=== PATIENT | male | born 1965 | race Caucasian/White ===

== ENCOUNTER 2017-01-10 19:10 | Emergency (ER) | payer OTHER ==
[2017-01-10 19:34] VITALS: BP 138/89; PULSE 103; RESP 18; TEMP 98.5
[2017-01-10] MEDS ORDERED: KETOROLAC 60 MG/2 ML VIAL IM STA (20:33)
[2017-01-10] MEDS ORDERED: ORPHENADRINE 30 MG/ML 2 ML VIAL IM STA (20:33)
--- NOTE | 2017-01-10 20:39 | ED ---
General Adult HPI - General Chief complaint: Back Pain/Injury Stated complaint: back pain Time Seen by Provider: 01/10/17 20:22 Source: patient, RN notes reviewed Mode of arrival: ambulatory Limitations: no limitations - History of Present Illness Initial comments: 51-year-old male presents to the emergency department with a chief complaint of back pain. 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 Patient states he went home and hurts assumed it would get better. The next day and he feels like he has to grab things for support because of the pain in his back. Patient denies any radiation up or down the legs. Patient denies any numbness and tingling any saddle anesthesia any loss by bladder function. Patient denies fever chills with this. Patient states that he really has never had an injury to his back before. Patient denies any falls or trauma. Patient states she was concerned due to the pain and the fact it wasn't getting better. He denies any use of medications at home.Patient denies any recent fever, chills, shortness of breath, chest pain, abdominal pain , nausea vomiting, numbness or tingling, dysuria or hematuria, constipation or diarrhea, headaches or visual changes, or any other current symptoms. - Related Data Previous Rx's Medication Instructions Recorded Ibuprofen [Motrin] 600 mg PO Q6HR PRN #20 tab 01/10/17 Orphenadrine [Norflex] 100 mg PO Q12H #10 tablet.er 01/10/17 Allergies Allergy/AdvReac Type Severity Reaction Status Date / Time No Known Allergies Allergy Verified 01/10/17 19:34 Review of Systems ROS Statement: Those systems with pertinent positive or pertinent negative responses have been documented in the HPI. ROS Other: All systems not noted in ROS Statement are negative. Past Medical History Past Medical History: No Reported History History of Any Multi-Drug Resistant Organisms: None Reported Past Surgical History: No Surgical Hx Reported Past Psychological History: No Psychological Hx Reported Smoking Status: Current every day smoker Past Alcohol Use History: Daily Past Drug Use History: Marijuana General Exam Limitations: no limitations General appearance: alert, in no apparent distress ENT exam: Present: normal exam, mucous membranes moist Neck exam: Present: normal inspection. Absent: tenderness, meningismus, lymphadenopathy Respiratory exam: Present: normal lung sounds bilaterally. Absent: respiratory distress, wheezes, rales, rhonchi, stridor Cardiovascular Exam: Present: regular rate, normal rhythm, normal heart sounds. Absent: systolic murmur, diastolic murmur, rubs, gallop, clicks Extremities exam: Present: normal inspection, full ROM, normal capillary refill. Absent: tenderness, pedal edema, joint swelling, calf tenderness Back exam: Present: normal inspection, full ROM, muscle spasm (Bilateral), other (Bilateral negative straight leg raise). Absent: tenderness, paraspinal tenderness, vertebral tenderness, rash noted Neurological exam: Present: alert, oriented X3, CN II-XII intact Psychiatric exam: Present: normal affect, normal mood Skin exam: Present: warm, dry, intact, normal color. Absent: rash Course Vital Signs 01/10/17 19:29 Temperature 98.5 F Pulse Rate 103 H Respiratory 18 Rate Blood Pressure 138/89 O2 Sat by Pulse 97 Oximetry Medical Decision Making - Medical Decision Making 51-year-old male presents with history of lumbar strain. This demonstrated structures and Motrin for home. We discussed return parameters and follow-up and all the patient's questions. He stated he understood the plan. This and will be discharged home. Disposition Clinical Impression: Strain of lumbar region Disposition: HOME SELF-CARE Condition: Stable Instructions: Low Back Strain (ED), Lower Back Exercises (ED) Additional Instructions: Please use medication as discussed. Please follow up with family doctor if symptoms have not improved over the next two days. Please return to the emergency room if your symptoms increase or worsen or for any other concerns. Prescriptions: Ibuprofen [Motrin] 600 mg PO Q6HR PRN #20 tab PRN Reason: Pain Orphenadrine [Norflex] 100 mg PO Q12H #10 tablet.er Referrals: Vale Webb MD [STAFF PHYSICIAN] - 1-2 days Time of Disposition: 20:57
--- NOTE | 2017-01-10 20:52 | XR ---
EXAMINATION TYPE: XR lumbar spine 2 or 3V DATE OF EXAM: 01/10/2017 COMPARISON: NONE HISTORY: Back pain TECHNIQUE: 3 views FINDINGS: Lumbar vertebra have fairly normal alignment. Posterior elements are intact. Abdominal aort a is atheromatous. There is no compression fracture. Disc spaces are fairly well-maintained. Sacroili ac joints appear normal. IMPRESSION: Mild spurring otherwise negative lumbar spine exam.
== END 2017-01-10 21:22 | disposition home or self-care (01) ==
LOC: EC 19:10
DX: S39.012A Strain of muscle, fascia and tendon of lower back, initial encounter (principal); F17.200 Nicotine dependence, unspecified, uncomplicated; X50.9XXA Other and unspecified overexertion or strenuous movements or postures, initial encounter
CPT/HCPCS: 72100; 99283; 96372 ×2; J2360; J1885

== ENCOUNTER 2017-01-20 17:12 | Emergency (ER) | payer OTHER ==
[2017-01-20 17:22] VITALS: BP 142/76; PULSE 89; RESP 18; TEMP 97.8
--- NOTE | 2017-01-20 19:33 | CT ---
EXAMINATION TYPE: CT pelvis wo con DATE OF EXAM: 01/20/2017 COMPARISON: NONE TECHNIQUE: Axial CT images were obtained of the pelvis without the use of contrast. Coronal and sagit justin reformatted images reviewed at the workstation. HISTORY: Patient complains of low back pain with radiation bilaterally to the legs. Pain is worse in the right groin. Left leg goes numb while sitting on the toilet. Patient did fall and land on butt ocks [address] DLP: 1514.9 mGycm Automated exposure control for dose reduction was used. FINDINGS: There is fatty infiltration of the wall of the cecum which is of unknown significance. The appendix i s visualized and is normal. Mild diverticulosis is noted in the sigmoid colon. The prostate has multi ple calcifications. There could be a small left-sided hydrocele. There is no mesenteric or retroperit philip lymphadenopathy. There is no acute fracture or subluxation. IMPRESSION: NO SIGNIFICANT FINDINGS.
--- NOTE | 2017-01-20 19:37 | CT ---
EXAMINATION TYPE: CT lumbar spine wo con DATE OF EXAM: 01/20/2017 7:17 PM COMPARISON: NONE TECHNIQUE: Axial CT images were obtained of lumbar spine without use of contrast. HISTORY: Patient complains of low back pain with radiation bilaterally to the legs. Pain is worse in the right groin. Left leg goes numb while sitting on the toilet. Patient did fall and land on butt ocks [address] DLP: 1514.9 mGycm Automated exposure control for dose reduction was used. Unenhanced CT of the lumbar spine was performed. Bone and soft tissue window settings are submitted as well as coronal and sagittal reconstructions. L1-L2: Normal disc space height. No disc herniation protrusion or central stenosis. No facet joint arthropathy. No evidence for foraminal encroachment. L2-L3: Mild disc bulges noted. There is normal disc space height. No central canal stenosis or neural foraminal narrowing is identified. L3-L4: Mild disc bulges noted. There is no central canal stenosis. There is mild endplate spurring as well as facet hypertrophy which contributes to mild relative bilateral neural foraminal narrowing. L4-L5: Mild disc bulges noted. There is also mild bilateral facet hypertrophy and endplate spurring w hich contributes to mild bilateral neural foraminal narrowing. There is no central canal stenosis. Th ere is normal disc space height. L5-S1: Minimal disc bulges noted. There is mild facet hypertrophy. There is no central canal stenosis or foraminal narrowing. Disc space height is maintained. IMPRESSION: Minimal spondylosis is identified.
--- NOTE | 2017-01-20 19:48 | ED ---
Back Pain HPI - General Chief Complaint: Back Pain/Injury Stated Complaint: back pain Time Seen by Provider: 01/20/17 18:12 Source: patient Limitations: physical limitation - History of Present Illness Initial Comments: 51-year-old male patient sent to emergency department today for evaluation of lower back pain. Patient states that almost 2 weeks ago he fell in the bathtub landing on his butt. Patient states this causes significant pain to his lower back, he states he did come in for evaluation at that time did have x-rays and was discharged with acute low back pain. Patient was given ibuprofen and Norflex which he has completed. 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 Patient states that pain worsens with standing and walking. Patient states that sitting it improves. Patient states that today the pain is radiating down both of his legs, he states he does have some tingling and numbness to the inner thighs up to his groin. He states that when he sits on the toilet his left leg goes numb quickly. Patient denies any history of back pain prior to the fall. He denies any loss of bowel or bladder control. Patient denies any headache, neck pain, back pain, chest pain, shortness of breath, dizziness, weakness, abdominal pain, nausea, vomiting, or difficulties with bowel movements or urination. - Related Data Previous Rx's Medication Instructions Recorded Cyclobenzaprine [Flexeril] 10 mg PO TID #15 tab 01/20/17 Hydrocodone/Acetaminophen [[place] 1 tab PO Q6HR PRN #15 tab 01/20/17 5-325] methylPREDNISolone [Medrol Dose 4 mg PO DIRECTED #1 pack 01/20/17 Pack] Allergies Allergy/AdvReac Type Severity Reaction Status Date / Time No Known Allergies Allergy Verified 01/20/17 17:22 Review of Systems ROS Statement: Those systems with pertinent positive or pertinent negative responses have been documented in the HPI. ROS Other: All systems not noted in ROS Statement are negative. Past Medical History Past Medical History: No Reported History Additional Past Medical History / Comment(s): chronic back pain History of Any Multi-Drug Resistant Organisms: None Reported Past Surgical History: No Surgical Hx Reported Past Psychological History: No Psychological Hx Reported Smoking Status: Current every day smoker Past Alcohol Use History: Daily Past Drug Use History: Marijuana General Exam Limitations: physical limitation General appearance: alert, in no apparent distress Eye exam: Present: normal appearance, PERRL, EOMI. Absent: scleral icterus, conjunctival injection, periorbital swelling ENT exam: Present: normal exam, mucous membranes moist Neck exam: Present: normal inspection, full ROM. Absent: tenderness, meningismus, lymphadenopathy Respiratory exam: Present: normal lung sounds bilaterally. Absent: respiratory distress, wheezes, rales, rhonchi, stridor Cardiovascular Exam: Present: regular rate, normal rhythm, normal heart sounds. Absent: systolic murmur, diastolic murmur, rubs, gallop, clicks GI/Abdominal exam: Present: soft, normal bowel sounds. Absent: distended, tenderness, guarding, rebound, rigid Extremities exam: Present: normal inspection, full ROM, normal capillary refill , other (Strength to bilateral lower extremities is 4/5. Skin is pink, warm, and dry.). Absent: tenderness, pedal edema, joint swelling, calf tenderness Back exam: Present: normal inspection. Absent: tenderness, paraspinal tenderness, vertebral tenderness Neurological exam: Present: alert, oriented X3, CN II-XII intact, other ( Negative straight leg test bilaterally.) Psychiatric exam: Present: normal affect, normal mood Skin exam: Present: warm, dry, intact, normal color. Absent: rash Course Vital Signs 01/20/17 17:20 Temperature 97.8 F Pulse Rate 89 Respiratory 18 Rate Blood Pressure 142/76 O2 Sat by Pulse 96 Oximetry Medical Decision Making - Medical Decision Making 51-year-old male patient presents to emergency department today for evaluation of acute low back pain after injury [address] of the lumbar spine and pelvis were obtained and did show bulges in the disc space between L2 to S1 as discussed in the radiology section below. Patient neurologic status is grossly intact. Patient will be given Medrol Dosepak, [place], and Flexeril for pain management. He'll be given instructions to follow-up with Dr. Sha[facility] for further evaluation. Patient given a copy of the computed tomography scan to take with him to this appointment. Patient put on restriction at work until follow-up with the improvement specialist. Patient instructed [facility] primary care physician for recheck in 1-2 days. Instructed to return here immediately for any new, worsening, or concerning symptoms. Patient verbalizes understanding and agrees with this plan. - Radiology Data Radiology results: report reviewed, image reviewed CT of the lumbar spine without contrast shows L1 to L2 normal disc space height. No disc herniation protrusion of central stenosis. No facet joint arthropathy. No evidence or foraminal encroachment. L2 to L3 shows mild disc bulges. There is normal disc space height. No central canal stenosis or neural foraminal narrowing is identified. L3 to L4 shows mild disc bulges. There is no central canal stenosis there is mild endplate spurring as well as facet hypertrophy which contributive to mild relative bilateral neural foraminal narrowing. L4 to L5 shows mild disc bulges. There is also mild bilateral facet hypertrophy and endplates burning which contributes to mild bilateral neural foraminal narrowing. There is no central canal stenosis. There is normal disc space height. L5 to S1 shows minimal disc bulges. There is mild facet hypertrophy. There is no central canal stenosis or foraminal narrowing. Disc space height is maintained. CT of the pelvis was obtained and showed fatty infiltration of the wall of the cecum which is of unknown significance. The appendix is visualized and is normal. Mild diverticulosis is noted in the sigmoid colon. The prostate has multiple calcifications. There could be a small left-sided hydrocele. There is no mesenteric or retroperitoneal lymphadenopathy. There is no acute fracture or subluxation. Impression by Dr. Mabry shows no significant findings. Disposition Clinical Impression: Bulging lumbar disc Disposition: HOME SELF-CARE Condition: Good Instructions: Acute Low Back Pain (ED) Additional Instructions: Take pain medications as directed. Work restrictions as noted on work note. 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 Follow-up with her primary care physician for recheck in 1-2 days. Return here really for any new , worsening, or concerning symptoms. Prescriptions: Cyclobenzaprine [Flexeril] 10 mg PO TID #15 tab Hydrocodone/Acetaminophen [[place] 5-325] 1 tab PO Q6HR PRN #15 tab PRN Reason: Pain methylPREDNISolone [Medrol Dose Pack] 4 mg PO DIRECTED #1 pack Referrals: None,Stated [Primary Care Provider] - 1-2 days Justin Goss, [Doctor of Osteopathic Medicine] - 1-2 days Time of Disposition: 19:47
== END 2017-01-20 20:08 | disposition home or self-care (01) ==
LOC: EC 17:12
DX: M51.26 Other intervertebral disc displacement, lumbar region (principal); F17.200 Nicotine dependence, unspecified, uncomplicated
CPT/HCPCS: 72131; 72192; 99283

== ENCOUNTER 2017-02-02 19:37 | Inpatient (IN) | payer OTHER ==
--- NOTE | 2017-02-02 21:15 | CT ---
EXAMINATION TYPE: CT lumbar spine wo con DATE OF EXAM: 02/02/2017 8:54 PM COMPARISON: NONE HISTORY: PT. HAS LEG WEAKNESS AFTER ROLLING OUT OF BED CT DLP: 795.70 mGycm Automated exposure control for dose reduction was used. Unenhanced CT of the lumbar spine was performed. Bone and soft tissue window settings are submitted as well as coronal and sagittal reconstructions. Mild diverticulosis is noted within the visualized sigmoid colon. L1-L2: Normal disc space height. No disc herniation protrusion or central stenosis. No facet joint arthropathy. No evidence for foraminal encroachment. L2-L3: Normal disc space height. No disc herniation protrusion or central stenosis. No facet joint arthropathy. No evidence for foraminal encroachment. L3-L4: Normal disc space height. No disc herniation protrusion or central stenosis. No facet joint arthropathy. No evidence for foraminal encroachment. L4-L5: Normal disc space height. There is mild posterior disc bulge which effaces the ventral thecal sac. There is no central canal stenosis or neural foraminal narrowing. L5-S1: Disc space height is maintained. There is a posterior disc bulge effaces ventral thecal sac. T here is also endplate spurring as well as facet hypertrophy which contributes to mild central canal s tenosis and mild bilateral neural foraminal narrowing. IMPRESSION: No significant findings. Very mild spondylosis is noted.
[2017-02-02] MEDS ORDERED: SODIUM CHLORIDE 0.9% 1,000 ML with MVI, ADULT NO.4 WITH VIT K 10 ML, THIAMINE 100 MG, F... IV ONE ×4 (21:45)
[2017-02-02] MEDS ORDERED: SODIUM CHLORIDE 0.9% 1,000 ML IV STA ×4 (21:52→23:18)
[2017-02-02] MEDS ORDERED: ONDANSETRON 4 MG/2 ML VIAL IVP STA (21:52)
--- NOTE | 2017-02-02 21:58 | ED ---
General Adult HPI - General Source: patient, family, EMS, RN notes reviewed, old records reviewed Mode of arrival: EMS Limitations: no limitations <Matthew Garcia - Last Filed: 02/02/17 21:47> <Hernan Mota - Last Filed: 02/02/17 23:27> - General Chief complaint: Weakness Stated complaint: weakness Time Seen by Provider: 02/02/17 19:53 - History of Present Illness Initial comments: Chief complaint history of present illness is a 51-year-old male who reports there is intoxicated yesterday this morning he rolled out of bed onto the floor. His brother who came to visit him states he is complaining of difficulty walking. Patient reports not had anything to eat or drink Patient fell one month ago into the bathtub. 2 weeks later he can emergency room and a full workup including CAT scan which did not show any significant injuries to explain his tingling at that time. Patient went home recovered without any difficulties. And again thought a bed this morning complaining of tingling to his hands his lips and his feet. He is able to move his feet in the bed and lift his legs against gravity bend his knees with mild discomfort. But states he has pain to his thighs and calves and is not strong enough to stand. (Matthew Garcia) - Related Data Home Medications Medication Instructions Recorded Confirmed No Known Home Medications [No 02/02/17 02/02/17 Known Home Medications] Allergies Allergy/AdvReac Type Severity Reaction Status Date / Time No Known Allergies Allergy Verified 02/02/17 20:00 Review of Systems ROS Other: All systems not noted in ROS Statement are negative. <Matthew Garcia - Last Filed: 02/02/17 21:47> ROS Other: All systems not noted in ROS Statement are negative. <Hernan Mota - Last Filed: 02/02/17 23:27> ROS Statement: Those systems with pertinent positive or pertinent negative responses have been documented in the HPI. Review of systems no headache chest pain shortness breath GI/ problems this time. The patient reports he did not drink any of the vodka his brother brought him today. He did report that he awakened around 5 AM this morning and had several drinks with and slept. No significant family himself on the floor. Got himself up onto a chair where his brother found him. Past medical problems significant for chronic back pain and alcoholism. Denies a surgical history. Denies any ALLERGIES. Patient drinks alcohol vodka daily. States he smokes marijuana. Family history noncontributory. (Matthew Garcia) Past Medical History Past Medical History: No Reported History Additional Past Medical History / Comment(s): chronic back pain History of Any Multi-Drug Resistant Organisms: None Reported Past Surgical History: No Surgical Hx Reported Past Psychological History: No Psychological Hx Reported Smoking Status: Current every day smoker Past Alcohol Use History: Heavy Past Drug Use History: Marijuana <Matthew Garcia - Last Filed: 02/02/17 21:47> General Exam Limitations: no limitations <Matthew Garcia - Last Filed: 02/02/17 21:47> General appearance: alert, in no apparent distress Head exam: Present: atraumatic, normocephalic, normal inspection Eye exam: Present: normal appearance, PERRL, EOMI. Absent: scleral icterus, conjunctival injection, periorbital swelling ENT exam: Present: normal exam, mucous membranes moist Neck exam: Present: normal inspection. Absent: tenderness, meningismus, lymphadenopathy Respiratory exam: Present: normal lung sounds bilaterally. Absent: respiratory distress, wheezes, rales, rhonchi, stridor Cardiovascular Exam: Present: regular rate, normal rhythm, normal heart sounds. Absent: systolic murmur, diastolic murmur, rubs, gallop, clicks GI/Abdominal exam: Present: soft, normal bowel sounds. Absent: distended, tenderness, guarding, rebound, rigid Extremities exam: Present: normal inspection, full ROM, normal capillary refill. Absent: tenderness, pedal edema, joint swelling, calf tenderness Back exam: Present: normal inspection Neurological exam: Present: alert, oriented X3, CN II-XII intact Psychiatric exam: Present: normal affect, normal mood Skin exam: Present: warm, dry, intact, normal color. Absent: rash <Hernan Mota - Last Filed: 02/02/17 23:27> - General Exam Comments Initial Comments: General: The patient is awake and alert, didn't see has tingling to his legs. States his calves and thighs hurt too much for him to stand though he is able to move them. Vital signs temperature 98.6 pulse 102 respiratory rate 18 pulse ox 96% room air blood pressure 169/88 Eye: Pupils are equal, round and reactive to light, extra-ocular movements are intact ; there is normal conjunctiva bilaterally. No signs of icterus. Ears, nose, mouth and throat: There are moist mucous membranes and no oral lesions. Neck: The neck is supple, there is no tenderness . Cardiovascular: There is a regular rate and rhythm. No murmur, rub or gallop is appreciated. Respiratory: Lungs are clear to auscultation, respirations are non-labored, breath sounds are equal. No wheezes, stridor, rales, or rhonchi. Gastrointestinal: Soft, non-distended, non-tender abdomen without masses or organomegaly noted. There is no rebound or guarding present. No CVA tenderness. Bowel sounds are unremarkable. Back: Chronic back pain. No bruises noted. Musculoskeletal: While in bed able to wiggle his toes bend his ankles bend his knees no pain with inversion and eversion at the hips. Vascular status to the feet intact good pedis dorsalis pulses. But the patient states he has difficulty standing because of pain to his eyes and calf. Neurological: Neurologically intact except for his complaint of pain to his calves and legs and claims to much pain to stand on his own. Skin: Skin is warm and dry and no rashes or lesions are noted. (Matthew Garcia) Course <Matthew Garcia - Last Filed: 02/02/17 21:47> <Hernan Mota - Last Filed: 02/02/17 23:27> Vital Signs 02/02/17 02/02/17 19:41 21:27 Temperature 98.6 F 97.4 F L Pulse Rate 102 H 109 H Respiratory 18 19 Rate Blood Pressure 169/88 178/79 O2 Sat by Pulse 96 95 Oximetry - Reevaluation(s) Reevaluation #1: 02/02/17 23:27 Patient is still unable to walk, unable to ambulate upon standing. (Hernan Mota) Medical Decision Making <Matthew Garcia - Last Filed: 02/02/17 21:47> - Lab Data Result diagrams: 02/02/17 22:13 02/02/17 22:13 - Radiology Data Radiology results: report reviewed (CT lumbar spine is negative), image reviewed <Hernan Mota - Last Filed: 02/02/17 23:27> - Medical Decision Making The patient mentioned to the nurse that he drinks 4 gallons of vodka per week. He'll be fed. IV hydration. Ativan protocol withdrawal. Labs including CK. Final determination will be by Dr. Mota The patient had a repeat CT of his lumbar spine and entire report was reviewed as final impression is; no significant findings. Very mild spondylosis is noted as read by Dr. Mabry. (Matthew Garcia) 51 male to ER for Reevaluation. Patient presents today for evaluation regarding weakness and inability to ambulate. Patient's strong history of alcoholism and I'll call disease. Patient will is found to have severe left lingular abnormalities including low potassium and magnesium. Patient will be admitted for rehydration, monitoring of alcohol at all, cardiopulmonary resuscitation and electrolyte management (Hernan Mota) - Lab Data Lab Results 02/02/17 02/02/17 02/02/17 Range/Units 22:13 22:13 22:13 WBC 13.0 H (3.8-10.6) k/uL RBC 4.15 L (4.30-5.90) m/uL Hgb 14.5 (13.0-17.5) gm/dL Hct 42.3 (39.0-53.0) % MCV 102.0 H (80.0-100.0) fL MCH 35.1 H (25.0-35.0) pg MCHC 34.4 (31.0-37.0) g/dL RDW 14.4 (11.5-15.5) % Plt Count 292 (150-450) k/uL Neutrophils % 84 % Lymphocytes % 8 % Monocytes % 6 % Eosinophils % 0 % Basophils % 0 % Neutrophils # 10.9 H (1.3-7.7) k/uL Lymphocytes # 1.1 (1.0-4.8) k/uL Monocytes # 0.7 (0-1.0) k/uL Eosinophils # 0.1 (0-0.7) k/uL Basophils # 0.0 (0-0.2) k/uL Hyperchromasia Slight Macrocytosis Slight PT (9.0-12.0) sec INR (<1.2) APTT (22.0-30.0) sec Sodium 134 L (137-145) mmol/L Potassium 1.6 L* (3.5-5.1) mmol/L Chloride 76 L* (98-107) mmol/L Carbon Dioxide 42 H* (22-30) mmol/L Anion Gap 16 mmol/L BUN 6 L (9-20) mg/dL Creatinine 0.90 (0.66-1.25) mg/dL Est GFR (MDRD) Af Amer >60 (>60 ml/min/1.73 sqM) Est GFR (MDRD) Non-Af >60 (>60 ml/min/1.73 sqM) Glucose 147 H (74-99) mg/dL Calcium 6.9 L (8.4-10.2) mg/dL Phosphorus 2.2 L (2.5-4.5) mg/dL Magnesium 0.8 L* (1.6-2.3) mg/dL Total Bilirubin 1.7 H (0.2-1.3) mg/dL AST 246 H (17-59) U/L ALT 100 H (21-72) U/L Alkaline Phosphatase 124 (38-126) U/L Total Creatine Kinase 00683 H (55-170) U/L CK-MB (CK-2) 18.0 H* (0.0-2.4) ng/mL CK-MB (CK-2) Rel Index Total Protein 6.0 L (6.3-8.2) g/dL Albumin 3.3 L (3.5-5.0) g/dL 02/02/17 Range/Units 22:13 WBC (3.8-10.6) k/uL RBC (4.30-5.90) m/uL Hgb (13.0-17.5) gm/dL Hct (39.0-53.0) % MCV (80.0-100.0) fL MCH (25.0-35.0) pg MCHC (31.0-37.0) g/dL RDW (11.5-15.5) % Plt Count (150-450) k/uL Neutrophils % % Lymphocytes % % Monocytes % % Eosinophils % % Basophils % % Neutrophils # (1.3-7.7) k/uL Lymphocytes # (1.0-4.8) k/uL Monocytes # (0-1.0) k/uL Eosinophils # (0-0.7) k/uL Basophils # (0-0.2) k/uL Hyperchromasia Macrocytosis PT 12.1 H (9.0-12.0) sec INR 1.2 H (<1.2) APTT 22.6 (22.0-30.0) sec Sodium (137-145) mmol/L Potassium (3.5-5.1) mmol/L Chloride (98-107) mmol/L Carbon Dioxide (22-30) mmol/L Anion Gap mmol/L BUN (9-20) mg/dL Creatinine (0.66-1.25) mg/dL Est GFR (MDRD) Af Amer (>60 ml/min/1.73 sqM) Est GFR (MDRD) Non-Af (>60 ml/min/1.73 sqM) Glucose (74-99) mg/dL Calcium (8.4-10.2) mg/dL Phosphorus (2.5-4.5) mg/dL Magnesium (1.6-2.3) mg/dL Total Bilirubin (0.2-1.3) mg/dL AST (17-59) U/L ALT (21-72) U/L Alkaline Phosphatase (38-126) U/L Total Creatine Kinase (55-170) U/L CK-MB (CK-2) (0.0-2.4) ng/mL CK-MB (CK-2) Rel Index Total Protein (6.3-8.2) g/dL Albumin (3.5-5.0) g/dL Critical Care Time Critical Care Time: Yes Total Critical Care Time: 31 <Hernan Mota - Last Filed: 02/02/17 23:27> Disposition <Matthew Garcia - Last Filed: 02/02/17 21:47> <Hernan Mota - Last Filed: 02/02/17 23:27> Clinical Impression: Hypokalemia, Dehydration, Hypomagnesemia, Rhabdomyolysis Disposition: ADMITTED IP TO THIS [facility] Condition: Critical Referrals: None,Stated [Primary Care Provider] - 1-2 days
[2017-02-02 22:23] LABS: Basophils % (A) 0 %; CH 37.1; CHCM 36.5; Eosinophils # (A) 0.1 k/uL (0-0.7); Eosinophils % (A) 0 %; HCT 42.3 % (39.0-53.0); HDW 3.27; HGB 14.5 gm/dL (13.0-17.5); Hyperchromasia Slight; Luc # (Auto) 0.18; Luc % (Auto) 1; Lymphocytes # (A) 1.1 k/uL (1.0-4.8); Lymphocytes % (A) 8 %; MCH 35.1 pg (25.0-35.0); MCHC 34.4 g/dL (31.0-37.0); Macrocytosis Slight; Mean Platelet Volume 7.4; Monocytes # (A) 0.7 k/uL (0-1.0); Monocytes % (A) 6 %; Neutrophils # (A) 10.9 k/uL (1.3-7.7); Neutrophils % (A) 84 %; RBC 4.15 m/uL (4.30-5.90); RDW 14.4 % (11.5-15.5); WBC (Perox) 13.03
[2017-02-02 22:32] LABS: ALT 100 U/L (21-72); Alkaline Phosphatase 124 U/L (38-126); Blood Urea Nitrogen 6 mg/dL (9-20); Calcium 6.9 mg/dL (8.4-10.2); Glucose 147 mg/dL (74-99); Non-African American GFR(MDRD) >60 (>60 ml/min/1.73 sqM); Phosphorous 2.2 mg/dL (2.5-4.5); Sodium 134 mmol/L (137-145); Total Bilirubin 1.7 mg/dL (0.2-1.3)
[2017-02-02 22:39] LABS: Anion Gap 16 mmol/L
[2017-02-02 22:41] LABS: INR 1.2 (<1.2); Partial Thromboplastin Time 22.6 sec (22.0-30.0); Prothrombin Time 12.1 sec (9.0-12.0)
[2017-02-02 22:42] LABS: Chloride 76 mmol/L (98-107); Potassium 1.6 mmol/L (3.5-5.1)
[2017-02-02 22:43] LABS: AST 246 U/L (17-59); Carbon Dioxide 42 mmol/L (22-30); Magnesium 0.8 mg/dL (1.6-2.3)
[2017-02-02] MEDS ORDERED: MAGNESIUM OXIDE 400 MG TAB PO STA (22:57)
[2017-02-02] MEDS ORDERED: POTASSIUM BICARB-CITRIC ACID 25 MEQ TABLET.EFF PO STA (22:57)
[2017-02-02] MEDS ORDERED: LORazepam 2 MG/ML SYRINGE IV STA (22:57)
[2017-02-02] MEDS ORDERED: SODIUM CHLORIDE 0.9% 500 ML IV STA (23:18)
[2017-02-02] MEDS ORDERED: THIAMINE 100 MG/ML 2 ML VIAL IVPB STA (23:28)
[2017-02-02] MEDS ORDERED: LORazepam 2 MG/ML SYRINGE IV PRN ×2 (23:28)
[2017-02-02] MEDS: MAGNESIUM SULFATE-D5W PMX 1 GM in DEXTROSE/WATER 1 100ML.BAG IVPB SCH (23:31)
[2017-02-03] MEDS ORDERED: POTASSIUM CHLORIDE 20 MEQ, LIDOCAINE 2% INJ 20 MG in SODIUM CHLORIDE 0.9% 100 ML IVPB SCH ×3
[2017-02-03] MEDS: POTASSIUM CHLORIDE 10 MEQ, LIDOCAINE 2% INJ 10 MG in SODIUM CHLORIDE 0.9% 100 ML IVPB SCH ×10 (00:22→21:47)
[2017-02-03] MEDS: THIAMINE 100 MG TAB PO SCH ×3 (00:23→17:31)
[2017-02-03] MEDS: MAGNESIUM SULFATE-D5W PMX 1 GM in DEXTROSE/WATER 1 100ML.BAG IVPB SCH ×3 (01:32→03:40)
[2017-02-03 02:11] LABS: Appearance,Urine Clear (Clear); Bilirubin,Urine Negative (Negative); Glucose,Urine (UA) Negative (Negative); Ketones,Urine Negative (Negative); Leukocyte Esterase,Urine Negative (Negative); Mucus,Urine Rare /hpf; Nitrite,Urine Negative (Negative); Particle Count 3635; Protein,Urine 1+ (Negative); Squamous Epithelial Cell,Urine 1 /hpf (0-4); UA Billing (MACRO vs. MICRO) MICRO; WBC,Urine 4 /hpf (0-5)
--- NOTE | 2017-02-03 07:01 | P.HPIM ---
History of Present Illness H&P Date: 02/03/17 Chief Complaint: general weakness and excess alcohol ingestion A 51 y.o WM with no known medical problems . He is known with alcoholism and Tobacco abuse. He drank > 3 gallons of hard liqour over the last week. He fell down with unsteady walk but without injuries. He reported severe general weakness and willing to quit He denied any other complaints Review of Systems All systems: negative Constitutional: Denies chills, Denies fever Eyes: denies blurred vision, denies diplopia, denies itching, denies pain, denies loss of vision Ears: deny: decreased hearing, ear discharge, earache, tinnitus Ears, nose, mouth and throat: Denies as per HPI, Denies ant. neck pain, Denies bleeding gums, Denies dental pain, Denies dysphagia, Denies epistaxis, Denies headache, Denies hoarseness, Denies mouth pain, Denies nasal congestion, Denies nasal discharge, Denies neck fullness/pressure, Denies neck lump, Denies nose pain, Denies odynophagia, Denies post-nasal drip, Denies sinus pain, Denies sinus pressure, Denies swelling in mouth, Denies swelling in throat, Denies sore throat, Denies vertigo, Denies voice changes Breasts: absent: gynecomastia Cardiovascular: Denies as per HPI, Denies chest pain, Denies claudication, Denies decreased exercise tolerance, Denies dyspnea on exertion, Denies edema, Denies high blood pressure, Denies irregular heart beat, Denies leg edema, Denies lightheadedness, Denies orthopnea, Denies palpitations, Denies paroxysmal nocturnal dyspnea, Denies phlebitis, Denies rapid heart beat, Denies shortness of breath, Denies syncope Respiratory: Denies as per HPI, Denies congestion, Denies cough, Denies cough with sputum, Denies dyspnea, Denies excessive sputum, Denies hemoptysis, Denies home oxygen, Denies pain, Denies pain on inspiration, Denies pleurisy, Denies respiratory infections, Denies sleep apnea, Denies snoring, Denies wheezing Gastrointestinal: Denies as per HPI, Denies abdominal pain, Denies belching, Denies bloating, Denies BRBPR, Denies change in bowel habits, Denies coffee ground emesis, Denies constipation, Denies diarrhea, Denies dyspepsia, Denies early satiety, Denies excessive gas, Denies heartburn, Denies hematemesis, Denies hematochezia, Denies indigestion, Denies jaundice, Denies lactose intolerance, Denies loss of appetite, Denies melena, Denies nausea, Denies vomiting Genitourinary: Denies as per HPI, Denies decreased libido, Denies difficulties fathering child, Denies discharge, Denies dysuria, Denies erectile dysfunction, Denies flank pain, Denies genital pain, Denies genital sores, Denies hematuria, Denies impotence, Denies incontinence, Denies kidney stones, Denies nocturia, Denies polyuria, Denies testicular lump, Denies testicular pain, Denies urinary frequency, Denies urinary hesitancy, Denies urinary retention Musculoskeletal: Denies as per HPI, Denies arm numbness/tingling, Denies atrophy , Denies fractures, Denies frequent falls, Denies gait dysfunction, Denies hot joints, Denies leg numbness/tingling, Denies limitation of motion, Denies loss of height, Denies low back pain, Denies morning stiffness, Denies muscle cramps , Denies muscle weakness, Denies myalgias, Denies neck pain, Denies neck stiffness, Denies prior amputations, Denies redness of joints, Denies shooting arm pain, Denies shooting leg pain Integumentary: Denies as per HPI, Denies acne, Denies boils, Denies brittle nails, Denies change in hair/nails, Denies color changes, Denies darkening of skin, Denies depigmentation, Denies dryness, Denies foot/leg ulcers, Denies growths, Denies hirsutism, Denies lesions, Denies onychomycosis, Denies pruritus , Denies rash, Denies sores, Denies striae, Denies unusual bruising, Denies wounds Neurological: Reports lack of coordination, Denies as per HPI, Denies aphasia, Denies ataxia, Denies balance difficulties, Denies burning pain, Denies change in mentation, Denies change in smell/taste, Denies change in speech, Denies confusion, Denies convulsions, Denies double vision, Denies gait dysfunction, Denies head injury, Denies headaches, Denies hearing difficulties, Denies loss of vision, Denies memory loss, Denies migraines, Denies motor disturbance, Denies numbness, Denies paralysis, Denies paresthesias, Denies seizures, Denies sensory deficit, Denies spasticity, Denies syncope, Denies tic, Denies tingling , Denies transient paralysis, Denies tremors, Denies vertigo, Denies weakness, Denies visual changes Psychiatric: Denies anxiety, Denies depression Endocrine: Reports fatigue, Denies as per HPI, Denies cold intolerance, Denies deepening of the voice, Denies excessive sweating, Denies excessive thirst, Denies flushing, Denies heat intolerance, Denies high blood sugars, Denies increase in ring/shoe/hat size, Denies low blood sugars, Denies nocturia, Denies palpitations, Denies polydipsia, Denies polyphagia, Denies polyuria, Denies proptosis, Denies recent glucocorticoid use, Denies thyroid mass, Denies weight change Hematologic/Lymphatic: Denies as per HPI, Denies easy bleeding, Denies easy bruising, Denies lymphadenopathy, Denies lymphedema, Denies thrombophilia Allergic/Immunologic: Denies as per HPI, Denies allergic rhinitis, Denies anaphylaxis, Denies angioedema, Denies gluten intolerance, Denies persistent infections, Denies seasonal allergies, Denies urticaria, Denies wheezing Past Medical History Past Medical History: No Reported History Additional Past Medical History / Comment(s): chronic back pain History of Any Multi-Drug Resistant Organisms: None Reported Past Surgical History: No Surgical Hx Reported Past Psychological History: No Psychological Hx Reported Smoking Status: Current every day smoker Past Alcohol Use History: Heavy Past Drug Use History: Marijuana Medications and Allergies Home Medications Medication Instructions Recorded Confirmed Type No Known Home Medications [No 02/02/17 02/02/17 History Known Home Medications] Allergies Allergy/AdvReac Type Severity Reaction Status Date / Time No Known Allergies Allergy Verified 02/02/17 20:00 Physical Exam Vitals: Vital Signs Temp Pulse Pulse Resp BP BP Pulse Ox 02/03/17 00:53 98.0 F 111 H 14 145/84 91 L 02/02/17 23:35 97.7 F 103 H 18 156/74 94 L 02/02/17 21:27 97.4 F L 109 H 19 178/79 95 02/02/17 19:41 98.6 F 102 H 18 169/88 96 Intake and Output 02/02/17 02/02/17 02/03/17 14:59 22:59 06:59 Other: Voiding Method Urinal # Bowel Movements 2 Weight 86.183 kg 95 kg Patient Weight 02/03/17 06:59 Weight 95 kg - Constitutional General appearance: average body habitus, cooperative, no acute distress - EENT Eyes: anicteric sclerae, EOMI, PERRLA ENT: hearing grossly normal, normal oropharynx Ears: bilateral: normal, negative: unable to vistualize - Neck Neck: no lymphadenopathy, normal ROM, no other, no rigidity, no stridor, no thyromegaly Carotids: bilateral: upstroke normal, bruit absent Thyroid: negative: normal size, enlarged, firm, nodule - Respiratory Respiratory: bilateral: CTA, negative: diminished, dullness, rales, rhonchi, wheezing, prolonged expiration - Cardiovascular Rhythm: regular Heart sounds: normal: S1, S2 Abnormal Heart Sounds: no systolic murmur, no diastolic murmur, no rub, no S3 Gallop, no S4 Gallop, no click, no other dorsalis pedis Peripheral Pulses: bilateral: Normal - Gastrointestinal General gastrointestinal: no absent bowel sounds, no decreased bowel sounds, no distended, no hepatomegaly, no hyperactive bowel sounds, normal bowel sounds, no organomegaly, no rigid, scaphoid, soft, no splenomegaly, no tenderness, no umbilical hernia, no ventral hernia - Integumentary Integumentary: no calor, no cellulitis, no cyanotic, no decreased turgor, no flushed, no jaundiced, no normal, no normal turgor, no pale, no rash, no ulcer - Neurologic intact power,sensory system and reflexes Neurologic: CNII-XII intact - Musculoskeletal Musculoskeletal: no gait normal, no generalized weakness, no strength equal bilaterally, no right sided weakness, no left sided weakness - Psychiatric Psychiatric: A&O x's 3, appropriate affect, intact judgment & insight Results CBC & Chem 7: 02/02/17 22:13 02/02/17 22:13 Labs: Abnormal Lab Results - Last 24 Hours (Table) 02/02/17 02/02/1702/02/17 Range/Units 22:13 22:13 22:13 WBC 13.0 H (3.8-10.6) k/uL RBC 4.15 L (4.30-5.90) m/uL MCV 102.0 H (80.0-100.0) fL MCH 35.1 H (25.0-35.0) pg Neutrophils # 10.9 H (1.3-7.7) k/uL PT (9.0-12.0) sec INR (<1.2) Sodium 134 L (137-145) mmol/L Potassium 1.6 L* (3.5-5.1) mmol/L Chloride 76 L* (98-107) mmol/L Carbon Dioxide 42 H* (22-30) mmol/L BUN 6 L (9-20) mg/dL Glucose 147 H (74-99) mg/dL Calcium 6.9 L (8.4-10.2) mg/dL Phosphorus 2.2 L (2.5-4.5) mg/dL Magnesium 0.8 L* (1.6-2.3) mg/dL Total Bilirubin 1.7 H (0.2-1.3) mg/dL AST 246 H (17-59) U/L ALT 100 H (21-72) U/L Total Creatine Kinase 79919 H (55-170) U/L CK-MB (CK-2) 18.0 H* (0.0-2.4) ng/mL Total Protein 6.0 L (6.3-8.2) g/dL Albumin 3.3 L (3.5-5.0) g/dL Urine Protein (Negative) Urine Blood (Negative) Hyaline Casts (0-2) /lpf Urine Mucus (None) /hpf 02/02/17 02/03/17 Range/Units 22:13 01:50 WBC (3.8-10.6) k/uL RBC (4.30-5.90) m/uL MCV (80.0-100.0) fL MCH (25.0-35.0) pg Neutrophils # (1.3-7.7) k/uL PT 12.1 H (9.0-12.0) sec INR 1.2 H (<1.2) Sodium (137-145) mmol/L Potassium (3.5-5.1) mmol/L Chloride (98-107) mmol/L Carbon Dioxide (22-30) mmol/L BUN (9-20) mg/dL Glucose (74-99) mg/dL Calcium (8.4-10.2) mg/dL Phosphorus (2.5-4.5) mg/dL Magnesium (1.6-2.3) mg/dL Total Bilirubin (0.2-1.3) mg/dL AST (17-59) U/L ALT (21-72) U/L Total Creatine Kinase (55-170) U/L CK-MB (CK-2) (0.0-2.4) ng/mL Total Protein (6.3-8.2) g/dL Albumin (3.5-5.0) g/dL Urine Protein 1+ H (Negative) Urine Blood Moderate H (Negative) Hyaline Casts 4 H (0-2) /lpf Urine Mucus Rare H (None) /hpf Comments: ct lumbar spine : no fx Thrombosis Risk Factor Assmnt - Choose All That Apply Any of the Below Risk Factors Present?: Yes Each Factor Represents 1 point: Age 41-60 years, Medical pt on bed rest, Obesity (BMI >25) Other Risk Factors: No Thrombosis Risk Factor Assessment Total Risk Factor Score: 3 Thrombosis Risk Factor Assessment Level: Moderate Risk Assessment and Plan (1) Alcoholism /alcohol abuse Narrative/Plan: The patient is non-alcoholic heavy drinking over the last 1 week he drank more than 3 gallons of hard liquor. He wanted to quit drinking Banana bag IV fluids Alcohol withdrawal Program consider psychiatry consult Status: Acute (2) Dehydration Narrative/Plan: Due to poor oral Oral intake I. V . hydration Encourage oral intake Status: Acute (3) Hypomagnesemia Narrative/Plan: Severe due to poor oral intake . No Vommiting Replacement Monitor smg Status: Acute (4) Hypokalemia Narrative/Plan: Severe due to poor oral intake . No Vommiting Replacement Monitor sK Check EKG Status: Acute (5) Rhabdomyolysis Narrative/Plan: High CPK. due to severe dehydration and fall IV hydration, monitor cpk levels and renal fx Status: Acute Plan: Admit to General medical floor alcohol withdrawal protocol Correct electrolyte imbalance Repeat am labs IV hydration psych consult in am Time with Patient: Greater than 30
[2017-02-03 07:39] LABS: Blood Urea Nitrogen 6 mg/dL (9-20); Chloride 86 mmol/L (98-107); Glucose 96 mg/dL (74-99); Magnesium 1.9 mg/dL (1.6-2.3); Non-African American GFR(MDRD) >60 (>60 ml/min/1.73 sqM); Sodium 138 mmol/L (137-145)
[2017-02-03 07:51] LABS: Anion Gap 5 mmol/L; Carbon Dioxide 47 mmol/L (22-30); Potassium 1.6 mmol/L (3.5-5.1)
[2017-02-03 07:56] LABS: Calcium 5.9 mg/dL (8.4-10.2)
[2017-02-03] MEDS ORDERED: POTASSIUM CHLORIDE ER 20 MEQ TAB.ER PO STA ×2 (08:24→17:36)
[2017-02-03] MEDS ORDERED: POTASSIUM CHLORIDE ER 10 MEQ TAB.ER.PRT PO STA (08:25)
[2017-02-03] MEDS ORDERED: POTASSIUM CHLORIDE 10 MEQ, LIDOCAINE 2% INJ 10 MG in SODIUM CHLORIDE 0.9% 100 ML IVPB SCH (09:00)
[2017-02-03] MEDS ORDERED: ENOXAPARIN 40 MG/0.4 ML SYRINGE SQ SCH (09:00)
--- NOTE | 2017-02-03 09:42 | CDI ---
In responding to this query, please exercise your independent professional judgment. The [facility] Coding Staff and Clinical Documentation Specialists appreciate your assistance in clarifying documentation, maintaining compliance with coding guidelines, accurately documenting patients condition and capturing severity of illness. The fact that a question is asked does not imply that any particular answer is desired or expected. Communication forms are a method of clarifying documentation and are not made part of the Legal Health Record. Thank you in advance for your clarification. Last Revision, March 2015 Zabrina Feliciano [address] [place] [address] Documentation Clarification Form Date: 02/03/2017 8:53:00 AM From: Madai Barone RN, CDS Admit Date: 02/02/2017 11:22:00 PM Patient Name: Wilfrido Acevedo Visit Number: [id number] Discharge Date: Kim Medina MD 51 year old patient presented for complaints of inability to ambulate. Patient drank > 3 gallons of hard liquor over previous week. Admitted for Rhabdomyolosis , Alcoholism/Alcohol Abuse, Dehydration, Hypokalemia and Hypomagnesemia Patient history/risk factors: drank > 3 gallons of hard liquor over previous week, Clinical Indicators: Lab findings: "Rhabdomyolosis" documented in H&P, VS: 98.6 102 18 169/88 96, CK 12,725, CK-MB 18, K 1.6, MG 0.8 Treatment: NS bolus x3 Liters, NS@100, IV Multivitamin In your professional opinion, can you please clarify? - Traumatic Rhabdomyolosis - Rhabdomyolosis - Other - Unable to determine Please document in your progress notes and discharge summary in order to capture severity of illness and risk of mortality. Include clinical findings that support your diagnosis. FYI: Press F11 to launch patient chart. Thank you. KRISTOPHER
[2017-02-03 09:59] LABS: Vitamin B12 598 pg/mL (239-931)
[2017-02-03] MEDS ORDERED: CALCIUM GLUCONATE 1,000 MG in SODIUM CHLORIDE 0.9% 100 ML IVPB ONE (10:00)
[2017-02-03] MEDS: POTASSIUM CHLORIDE 20 MEQ, LIDOCAINE 2% INJ 20 MG in SODIUM CHLORIDE 0.9% 100 ML IVPB SCH ×2 (10:34→11:59)
[2017-02-03] MEDS ORDERED: MULTIVITAMINS, THERA 1 EACH TAB PO SCH (12:00)
[2017-02-03] MEDS: NICOTINE 21MG/24HR PATCH TRANSDERM SCH (14:14)
--- NOTE | 2017-02-03 16:37 | P.PN ---
Subjective Principal diagnosis: Rhabdomyolysis 51-year-old male with history of alcohol abuse comes in with history of nausea vomiting. Patient also to have weakness upon evaluation in ER TO HAVE SEVERE HYPOKALEMIA. Today patient does report nausea denies any further emesis. No abdominal pain no fever Objective - Vital Signs Vital signs: Vital Signs Temp 97.9 F 02/03/17 07:00 Pulse 96 02/03/17 07:00 Resp 18 02/03/17 07:00 BP 134/66 02/03/17 07:00 Pulse Ox 91 L 02/03/17 07:00 Intake & Output 02/02/17 02/03/17 02/03/17 18:59 06:59 18:59 Weight 95 kg Other: Voiding Method Urinal Urinal # Voids 2 # Bowel Movements 6 - Exam Constitutional: No acute distress, conversant, pleasant Eyes: Anicteric sclerae, moist conjunctiva, no lid-lag PERRLA ENMT: NC/AT Oropharynx clear, no erythema, exudates Neck: Supple, FROM, no masses, or JVD Lungs Clear to percussion Normal respiratory effort, no accessory muscle use Cardiovascular: Heart regular in rate and rhythm, No murmurs, gallops, or rubs No peripheral edema Abdominal: Soft Nontender, no guarding, rebound or rigidity Abdomen moving with respiration Normoactive bowel sounds No hepatomegaly, No splenomegaly No ulcers Extremities: no edema - Labs CBC & Chem 7: 02/02/17 22:13 02/03/17 07:03 Labs: Abnormal Lab Results - Last 24 Hours (Table) 02/02/17 02/02/17 02/02/17 Range/Units 22:13 22:13 22:13 WBC 13.0 H (3.8-10.6) k/uL RBC 4.15 L (4.30-5.90) m/uL MCV 102.0 H (80.0-100.0) fL MCH 35.1 H (25.0-35.0) pg Neutrophils # 10.9 H (1.3-7.7) k/uL PT (9.0-12.0) sec INR (<1.2) Sodium 134 L (137-145) mmol/L Potassium 1.6 L* (3.5-5.1) mmol/L Chloride 76 L* (98-107) mmol/L Carbon Dioxide 42 H* (22-30) mmol/L BUN 6 L (9-20) mg/dL Glucose 147 H (74-99) mg/dL Calcium 6.9 L (8.4-10.2) mg/dL Ionized Calcium Gideon (4.5-5.3) mg/dL Phosphorus 2.2 L (2.5-4.5) mg/dL Magnesium 0.8 L* (1.6-2.3) mg/dL Total Bilirubin 1.7 H (0.2-1.3) mg/dL AST 246 H (17-59) U/L ALT 100 H (21-72) U/L Total Creatine Kinase 98359 H (55-170) U/L CK-MB (CK-2) 18.0 H* (0.0-2.4) ng/mL Total Protein 6.0 L (6.3-8.2) g/dL Albumin 3.3 L (3.5-5.0) g/dL Urine Protein (Negative) Urine Blood (Negative) Hyaline Casts (0-2) /lpf Urine Mucus (None) /hpf 02/02/17 02/03/17 02/03/17 Range/Units 22:13 01:50 07:03 WBC (3.8-10.6) k/uL RBC (4.30-5.90) m/uL MCV (80.0-100.0) fL MCH (25.0-35.0) pg Neutrophils # (1.3-7.7) k/uL PT 12.1 H (9.0-12.0) sec INR 1.2 H (<1.2) Sodium (137-145) mmol/L Potassium 1.6 L* (3.5-5.1) mmol/L Chloride 86 L (98-107) mmol/L Carbon Dioxide 47 H* (22-30) mmol/L BUN 6 L (9-20) mg/dL Glucose (74-99) mg/dL Calcium 5.9 L* (8.4-10.2) mg/dL Ionized Calcium Gideon (4.5-5.3) mg/dL Phosphorus (2.5-4.5) mg/dL Magnesium (1.6-2.3) mg/dL Total Bilirubin (0.2-1.3) mg/dL AST (17-59) U/L ALT (21-72) U/L Total Creatine Kinase (55-170) U/L CK-MB (CK-2) (0.0-2.4) ng/mL Total Protein (6.3-8.2) g/dL Albumin (3.5-5.0) g/dL Urine Protein 1+ H (Negative) Urine Blood Moderate H (Negative) Hyaline Casts 4 H (0-2) /lpf Urine Mucus Rare H (None) /hpf 02/03/17 Range/Units 08:38 WBC (3.8-10.6) k/uL RBC (4.30-5.90) m/uL MCV (80.0-100.0) fL MCH (25.0-35.0) pg Neutrophils # (1.3-7.7) k/uL PT (9.0-12.0) sec INR (<1.2) Sodium (137-145) mmol/L Potassium (3.5-5.1) mmol/L Chloride (98-107) mmol/L Carbon Dioxide (22-30) mmol/L BUN (9-20) mg/dL Glucose (74-99) mg/dL Calcium (8.4-10.2) mg/dL Ionized Calcium Gideon 2.9 L* (4.5-5.3) mg/dL Phosphorus (2.5-4.5) mg/dL Magnesium (1.6-2.3) mg/dL Total Bilirubin (0.2-1.3) mg/dL AST (17-59) U/L ALT (21-72) U/L Total Creatine Kinase (55-170) U/L CK-MB (CK-2) (0.0-2.4) ng/mL Total Protein (6.3-8.2) g/dL Albumin (3.5-5.0) g/dL Urine Protein (Negative) Urine Blood (Negative) Hyaline Casts (0-2) /lpf Urine Mucus (None) /hpf Microbiology - Last 24 Hours (Table) 02/03/17 01:50 Urine Culture - Preliminary Urine,Voided Assessment and Plan (1) Rhabdomyolysis Narrative/Plan: Continue IV fluids, continue to monitor CPKs Status: Acute (2) Dehydration Narrative/Plan: Continue IV fluid hydration Status: Acute (3) Hypokalemia Narrative/Plan: We'll replace with 80 mEq of potassium, repeat at 6 PM Status: Acute (4) Alcoholism /alcohol abuse Narrative/Plan: No signs of withdrawals at this time, we'll continue to monitor Status: Acute (5) Bulging lumbar disc Status: Acute (6) Hypomagnesemia Narrative/Plan: We'll replace Status: Acute
[2017-02-03] MEDS: traMADol 50 MG TAB PO SCH (21:08)
[2017-02-03] MEDS: LORazepam 2 MG/ML SYRINGE IV PRN (21:08)
[2017-02-04] MEDS ORDERED: POTASSIUM CHLORIDE ER 20 MEQ TAB.ER PO STA (00:31)
[2017-02-04] MEDS ORDERED: SODIUM CHLORIDE 0.9% 1,000 ML IV SCH (00:45)
[2017-02-04] MEDS: POTASSIUM CHLORIDE 10 MEQ, LIDOCAINE 2% INJ 10 MG in SODIUM CHLORIDE 0.9% 100 ML IVPB SCH ×4 (01:05→04:32)
[2017-02-04] MEDS: LORazepam 2 MG/ML SYRINGE IV PRN ×9 (03:27→23:50)
[2017-02-04] MEDS ORDERED: IPRATROPIUM-ALBUTEROL 3 ML NEB INHALATION STA (03:52)
[2017-02-04] MEDS ORDERED: FUROSEMIDE 10 MG/ML 4 ML VIAL IV STA (04:12)
[2017-02-04 04:19] LABS: CH 36.5; CHCM 34.7; HCT 37.8 % (39.0-53.0); HDW 3.31; HGB 13.2 gm/dL (13.0-17.5); MCH 36.8 pg (25.0-35.0); MCHC 34.9 g/dL (31.0-37.0); MCV 105.6 fL (80.0-100.0); Macrocytosis Moderate; RBC 3.59 m/uL (4.30-5.90); RDW 14.5 % (11.5-15.5); WBC 9.5 k/uL (3.8-10.6)
[2017-02-04 04:25] LABS: ALT 98 U/L (21-72); AST 217 U/L (17-59); Alkaline Phosphatase 109 U/L (38-126); Blood Urea Nitrogen 3 mg/dL (9-20); Chloride 92 mmol/L (98-107); Glucose 112 mg/dL (74-99); Magnesium 1.2 mg/dL (1.6-2.3); Non-African American GFR(MDRD) >60 (>60 ml/min/1.73 sqM); Phosphorous 3.2 mg/dL (2.5-4.5); Sodium 142 mmol/L (137-145); Total Protein 5.6 g/dL (6.3-8.2)
[2017-02-04] MEDS ORDERED: NITROGLYCERIN SL TABS 0.4 MG TAB SUBLINGUAL PRN (04:28)
[2017-02-04 04:29] LABS: Calcium 6.1 mg/dL (8.4-10.2); Potassium 2.4 mmol/L (3.5-5.1)
[2017-02-04] MEDS ORDERED: hydrALAZINE HCL 20 MG/ML 1 ML VIAL IVP STA (04:30)
[2017-02-04] MEDS ORDERED: POTASSIUM CHLORIDE ER 20 MEQ TAB.ER PO ONE (04:30)
[2017-02-04 04:31] LABS: Anion Gap 7 mmol/L
[2017-02-04 04:34] LABS: Carbon Dioxide 43 mmol/L (22-30)
[2017-02-04] MEDS ORDERED: NITROGLYCERIN-D5W PMX 50 MG in DEXTROSE/WATER 1 250ML.BAG IV SCH (04:45)
[2017-02-04 04:57] LABS: Creatine Kinase MB 12.5 ng/mL (0.0-2.4); Troponin I 0.101 ng/mL (0.000-0.034)
[2017-02-04 05:05] LABS: Glucose,Whole Blood 125 mg/dL (75-99)
--- NOTE | 2017-02-04 05:09 | XR ---
EXAM: XR Chest, 1 View CLINICAL HISTORY: Reason: SOB TECHNIQUE: Frontal view of the chest. COMPARISON: No relevant prior studies available. FINDINGS: Cardiac silhouette is within normal limits. Increased interstitial markings bilaterally. No focal consolidative process. Suspect trace left pleural effusion. Osseous structures are unremarkable. IMPRESSION: Findings consistent with vascular congestion/developing edema. Trace left pleural effusion.
--- NOTE | 2017-02-04 05:21 | P.EN ---
02/04/17 Called by nurse staff C/o Acute respiratory distress with hypoxemia with O2 saturation at 80% C/O anxious and received aativan On Arrival : he reported S/S chest pressure , localized with SOB and weeze BP was high 210/120 IN=248/min Regular , sinus Tachycardia Tachypnea RR=26/min O2 Sat =90% + JVD Chest : Bilateral rales and ronchi with weeze scattered Heart : S1 S2 sinus Tachycardia Abdomen : supple, not tender Legs : trace swelling His repeat BP = 179/113 HR =108/min Dieuresd good with IV lasix 40 mg x once NTG S/L given Hydralazine 10 mg ordered EKG requested CXR done and reviewed : CM with interstitial edema c/w CHF with small left pleural effusion , No pneumothorax/pneumonia Impression : 1- Impending hypoxemic respiratory failure 2- Acute pulmonary Edema with CHF and volume overload Iatrogenic vs Underlying LV systolic dysfx with alcoholic Cardiomyopathy vs Hypertensive heart disease 3- Acute S/S chest pressure : R/O Ischemia 4- Accelerated HTN 5- Alcoholism with abuse on DT protocol 6- Severe Hypokalemia : sK now = 2.4 7- Possible COPD erxacerbation vs cardiac asthma 8- long standing Tobacco abuse Plan : Transfer to ICU Start Nitroglycerine drip Serial Troponin Echocardiogram & Cardiology Consult BP control Stat EKG Continue Lovenox and increase dose to BID Bronchodilater nebulized therapy IV Lasix 40 mg q8 hrs Stop IV fluids Monitor sK and replace Poi and IV Will f/u Closely
[2017-02-04] MEDS: MAGNESIUM SULFATE-D5W PMX 1 GM in DEXTROSE/WATER 1 100ML.BAG IVPB SCH ×5 (06:15→21:17)
[2017-02-04] MEDS: hydrALAZINE HCL 20 MG/ML 1 ML VIAL IM PRN ×2 (07:34→19:55)
[2017-02-04] MEDS ORDERED: NALOXONE 0.4 MG/ML 1 ML VIAL IV PRN (07:56)
--- NOTE | 2017-02-04 08:59 | P.CRDCN ---
History of Present Illness Consult date: 02/04/17 History of present illness: This is a 51-year-old gentleman with a past medical history significant for alcohol abuse as well as significant history of smoking who was admitted to the hospital after he fell at home. The patient is a poor historian. On Friday evening he fell out of the bed. He did not recall having any chest pain or discomfort or difficulty breathing or feeling of heart racing or fluttering at that point. Ambulance was called and the patient was brought to the emergency department then he was admitted to the hospital and he was getting treated for alcohol intoxication. The patient drinks about half a common of vodka every day. And he was drinking on that day. On the floor in the hospital, the patient was the setting and that was last night. He was also wheezing. For that reason he was transferred to the intensive care unit. He was started on Lasix as well. Currently the patient is on 8 L of oxygen. He is on Lasix IV. He underwent an echocardiogram which we will follow-up with. When he presented to the hospital he was found to be severely hypokalemic as well as hypomagnesemic. Both electrolytes were replaced. He is hypertensive which is likely secondary to alcohol withdrawal. Also the cardiac enzymes were checked and came in to be slightly abnormal. The EKG showed sinus tachycardia with nonspecific changes in the inferolateral leads. I am going to start the patient on metoprolol to get the blood pressure as well as heart rate down. Beside that I'll start him on aspirin. We will follow-up on the echocardiogram to assess the LV function. Further recommendation to follow the echocardiogram. Past Medical History Past Medical History: No Reported History Additional Past Medical History / Comment(s): chronic back pain History of Any Multi-Drug Resistant Organisms: None Reported Past Surgical History: No Surgical Hx Reported Past Psychological History: No Psychological Hx Reported Smoking Status: Current every day smoker Past Alcohol Use History: Heavy Past Drug Use History: Marijuana Medications and Allergies Home Medications Medication Instructions Recorded Confirmed Type No Known Home Medications [No 02/02/17 02/02/17 History Known Home Medications] Allergies Allergy/AdvReac Type Severity Reaction Status Date / Time No Known Allergies Allergy Verified 02/02/17 20:00 Physical Exam Vitals: Vital Signs Temp Pulse Pulse Resp BP BP Pulse Ox 02/04/17 07:00 106 H 18 132/79 96 02/04/17 06:50 102 H 14 132/79 96 02/04/17 06:40 44 H 190/98 94 L 02/04/17 06:39 117 H 02/04/17 06:30 100 26 H 193/104 93 L 02/04/17 06:20 101 H 26 H 193/104 94 L 02/04/17 06:10 25 H 164/97 93 L 02/04/17 06:00 98.2 F 103 H 37 H 162/107 94 L 02/04/17 05:50 103 H 25 H 162/107 96 02/04/17 05:40 105 H 28 H 169/94 95 02/04/17 05:30 105 H 30 H 161/106 94 L 02/04/17 05:20 108 H 32 H 161/106 91 L 02/04/17 05:10 109 H 31 H 152/106 90 L 02/04/17 05:02 114 H 02/04/17 04:02 112 H 02/04/17 03:53 112 H 02/04/17 03:05 117 H 30 H 200/120 89 L 02/03/17 23:00 97.9 F 94 16 165/90 95 02/03/17 15:00 97.5 F L 96 18 172/96 96 Intake and Output 02/03/17 02/04/17 02/04/17 22:59 06:59 14:59 Intake Total 361.425 3.75 Output Total 2075 Balance -1713.575 3.75 Intake: IV 60 0.9NaCl kvo 60 Intake, IV Titration 301.425 3.75 Amount Magnesium Sulfate-D5w Pmx 200 1 gm In Dextrose/Water 1 100ml.bag @ 100 mls/hr IVPB Q1H DELANEY Rx#: [id number] Nitroglycerin-D5w Pmx 50 1.425 3.75 mg In Dextrose/Water 1 250ml.bag @ Titrate IV . Q0M DELANEY Rx#:[id number] Potassium Chloride 10 meq 100 Lidocaine 2% Inj 10 mg In Sodium Chloride 0.9% 100 ml @ 100 mls/hr IVPB Q1HR DELANEY Rx#:[id number] Output: Urine 2075 Other: Voiding Method Urinal # Voids 1 1 # Bowel Movements 2 1 Weight 95 kg - Constitutional General appearance: no acute distress - Respiratory Respiratory: bilateral: CTA - Cardiovascular Rhythm: regular Heart sounds: normal: S1, S2 Results 02/04/17 04:02 02/04/17 04:02 Cardiac Enzymes 02/04/17 02/04/17 Range/Units 04:02 04:27 AST 217 H (17-59) U/L CK-MB (CK-2) 12.5 H* (0.0-2.4) ng/mL Troponin I 0.101 H* (0.000-0.034) ng/mL CBC 02/04/17 Range/Units 04:02 WBC 9.5 (3.8-10.6) k/uL RBC 3.59 L (4.30-5.90) m/uL Hgb 13.2 (13.0-17.5) gm/dL Hct 37.8 L (39.0-53.0) % Plt Count 214 (150-450) k/uL Comprehensive Metabolic Panel 02/03/17 02/03/17 02/04/17 Range/Units 16:48 23:24 04:02 Sodium 142 (137-145) mmol/L Potassium 1.9 L* 1.9 L* 2.4 L* (3.5-5.1) mmol/L Chloride 92 L (98-107) mmol/L Carbon Dioxide 43 H* (22-30) mmol/L BUN 3 L (9-20) mg/dL Creatinine 0.80 (0.66-1.25) mg/dL Glucose 112 H (74-99) mg/dL Calcium 6.1 L* (8.4-10.2) mg/dL AST 217 H (17-59) U/L ALT 98 H (21-72) U/L Alkaline Phosphatase 109 (38-126) U/L Total Protein 5.6 L (6.3-8.2) g/dL Albumin 2.9 L (3.5-5.0) g/dL Current Medications Generic Name Dose Route Start Last Admin Trade Name Freq PRN Reason Stop Dose Admin Enoxaparin Sodium 40 mg 02/04/17 09:00 Lovenox SQ Q12HR DELANEY Furosemide 40 mg 02/04/17 10:00 Lasix IV Q8HR DELANEY Hydralazine HCl 20 mg 02/04/17 06:28 02/04/17 07:34 Apresoline IM 20 mg Q6HR PRN Administration Blood Pressure - High Nitroglycerin/Dextrose 50 mg/ 250 mls @ 0 mls/hr 02/04/17 04:45 02/04/17 07: 35 IV Solution IV 15 mcg/min .Q0M DELANEY 4.5 mls/hr Protocol Titration Titrate Lorazepam 1 mg 02/02/17 21:45 02/04/17 03:27 Ativan IV 1 mg Q2HR PRN Administration CIWA 8 or 9 Lorazepam 1 mg 02/02/17 23:28 02/03/17 10:49 Ativan IV 1 mg Q2HR PRN Administration CIWA 8 or 9 Lorazepam 1 mg 02/02/17 23:28 Ativan IV Q1HR PRN CIWA 10 to 15 Lorazepam 2 mg 02/02/17 23:28 Ativan IV 02/04/17 23:28 Q10M PRN CIWA 16 or higher Metoprolol Tartrate 2.5 mg 02/04/17 06:28 Lopressor IVP Q6HR PRN Blood Pressure - High Metoprolol Tartrate 25 mg 02/04/17 09:00 Lopressor PO BID DELANEY Multivitamins 1 each 02/03/17 12:00 02/03/17 10:35 Theragran PO 1 each DAILY@1200 DELANEY Administration Naloxone HCl 0.2 mg 02/04/17 07:56 Narcan IV Q2M PRN Opioid Reversal Nicotine 1 patch 02/03/17 13:15 02/03/17 14:14 Habitrol 21mg/24hr Patch TRANSDERM 1 patch DAILY DELANEY Administration Nitroglycerin 0.4 mg 02/04/17 04:28 Nitrostat SUBLINGUAL Q5M PRN Chest Pain Pantoprazole Sodium 40 mg 02/05/17 07:30 Protonix PO AC-BRKFST DELANEY Thiamine HCl 100 mg 02/02/17 17:00 02/03/17 17:31 Vitamin B-1 PO 100 mg BID@1200,1700 DELANEY Administration Tramadol HCl 50 mg 02/03/17 22:00 02/03/17 21:08 Ultram PO 50 mg TID DELANEY Administration Intake and Output 02/03/17 02/04/17 02/04/17 22:59 06:59 14:59 Intake Total 361.425 3.75 Output Total 2075 Balance -1713.575 3.75 Intake: IV 60 0.9NaCl kvo 60 Intake, IV Titration 301.425 3.75 Amount Magnesium Sulfate-D5w Pmx 200 1 gm In Dextrose/Water 1 100ml.bag @ 100 mls/hr IVPB Q1H DELANEY Rx#: [id number] Nitroglycerin-D5w Pmx 50 1.425 3.75 mg In Dextrose/Water 1 250ml.bag @ Titrate IV . Q0M DELANEY Rx#:[id number] Potassium Chloride 10 meq 100 Lidocaine 2% Inj 10 mg In Sodium Chloride 0.9% 100 ml @ 100 mls/hr IVPB Q1HR DELANEY Rx#:[id number] Output: Urine 2075 Other: Voiding Method Urinal # Voids 1 1 # Bowel Movements 2 1 Weight 95 kg 02/04/17 04:02 02/04/17 04:02 Assessment and Plan Plan: This is a pleasant 51-year-old gentleman with significant history of alcohol and smoking was admitted to the hospital with alcohol intoxication. He developed mild acute respiratory failure which seems to be resolving at this point. The patient is currently on Lasix IV. We will follow-up with the echocardiogram. Start the patient on aspirin as well as metoprolol. Follow-up on the echocardiogram and further recommendation to follow that.
[2017-02-04] MEDS ORDERED: ENOXAPARIN 40 MG/0.4 ML SYRINGE SQ SCH (09:00)
[2017-02-04] MEDS ORDERED: FUROSEMIDE 10 MG/ML 4 ML VIAL IV SCH (10:00)
[2017-02-04] MEDS: ASPIRIN 325 MG TAB PO SCH (10:26)
[2017-02-04] MEDS: METOPROLOL TARTRATE 25 MG TAB PO SCH ×2 (10:26→20:45)
[2017-02-04] MEDS: ENOXAPARIN 40 MG/0.4 ML SYRINGE SQ SCH (10:27)
[2017-02-04] MEDS: traMADol 50 MG TAB PO SCH ×3 (10:29→22:55)
[2017-02-04 10:47] LABS: Ionized Calcium 3.1 mg/dL (4.5-5.3)
[2017-02-04] MEDS: 1: MVI, ADULT NO.4 WITH VIT K 10 ML, THIAMINE 100 MG, FOLIC ACID 1 MG, POTASSIUM CHLORID IV SCH ×5 (10:47)
[2017-02-04] MEDS: NICOTINE 21MG/24HR PATCH TRANSDERM SCH (10:47)
[2017-02-04 10:53] LABS: Blood Urea Nitrogen 3 mg/dL (9-20); Chloride 87 mmol/L (98-107); Glucose 124 mg/dL (74-99); Non-African American GFR(MDRD) >60 (>60 ml/min/1.73 sqM); Sodium 141 mmol/L (137-145)
[2017-02-04 11:08] LABS: Potassium 2.1 mmol/L (3.5-5.1)
[2017-02-04 11:09] LABS: Calcium 6.2 mg/dL (8.4-10.2)
[2017-02-04] MEDS ORDERED: CALCIUM GLUCONATE 1,000 MG in SODIUM CHLORIDE 0.9% 100 ML IVPB ONE (11:43)
[2017-02-04 11:49] LABS: Anion Gap 6 mmol/L
[2017-02-04 11:52] LABS: Carbon Dioxide 48 mmol/L (22-30)
--- NOTE | 2017-02-04 12:33 | P.CNPUL ---
History of Present Illness Consult date: 02/04/17 Chief complaint: Electrolyte imbalance, alcoholism History of present illness: A 51-year-old male patient, alcoholic, who was admitted to the hospital after he fell at home. He is a very poor historian. He came into the hospital and he was found to be in impending delirium tremens. At the same time he had severe electrolyte imbalance with hypokalemia, hypocalcemia and hypomagnesemia and same time the patient was found to be in acute rhabdomyolysis. The patient was started in IV fluids. Electrodes imbalance was also corrected. Later on in the evening the patient became short of breath. He was suspected to be in pulmonary edema. He was given a dose of Lasix and following that he was moved to the intensive care unit. No clear-cut history of aspiration. I reviewed his chest x-ray and there is no convincing evidence of pneumonia or heart failure. Echocardiogram is in progress. Meanwhile the patient was started on IV Lasix and his IV fluids were Down. CPK is still elevated. No evidence of an acute renal failure. He was awake and alert at the time of my evaluation this morning. No obvious signs of confusions or delirium tremens. He was given thiamine and folate. Otherwise his history is negative. He is a chronic drinker and cigarette smoker. Review of Systems Constitutional: Reports fatigue, Reports weakness, Reports weight loss Eyes: denies blurred vision, denies bulging eye, denies decreased vision Ears: deny: decreased hearing, ear discharge, earache Ears, nose, mouth and throat: Denies headache, Denies sore throat Cardiovascular: Reports shortness of breath Respiratory: Reports cough, Reports dyspnea Gastrointestinal: Denies abdominal pain, Denies diarrhea, Denies nausea, Denies vomiting Genitourinary: Reports as per HPI Musculoskeletal: Denies myalgias Musculoskeletal: absent: ankle pain, ankle stiffness, ankle swelling Integumentary: Denies pruritus, Denies rash Neurological: Denies numbness, Denies weakness Psychiatric: Denies anxiety, Denies depression Endocrine: Denies fatigue, Denies weight change Past Medical History Past Medical History: No Reported History Additional Past Medical History / Comment(s): chronic back pain, alcoholism History of Any Multi-Drug Resistant Organisms: None Reported Past Surgical History: No Surgical Hx Reported Past Psychological History: No Psychological Hx Reported Smoking Status: Current every day smoker Past Alcohol Use History: Heavy Past Drug Use History: Marijuana Medications and Allergies Home Medications Medication Instructions Recorded Confirmed Type No Known Home Medications [No 02/02/17 02/02/17 History Known Home Medications] Allergies Allergy/AdvReac Type Severity Reaction Status Date / Time No Known Allergies Allergy Verified 02/02/17 20:00 Physical Exam Vitals: Vital Signs Temp Pulse Pulse Resp BP BP Pulse Ox 02/04/17 09:00 104 H 23 138/82 94 L 02/04/17 08:00 98 F 105 H 23 142/74 97 02/04/17 07:00 106 H 18 132/79 96 02/04/17 06:50 102 H 14 132/79 96 02/04/17 06:40 44 H 190/98 94 L 02/04/17 06:39 117 H 02/04/17 06:30 100 26 H 193/104 93 L 02/04/17 06:20 101 H 26 H 193/104 94 L 02/04/17 06:10 25 H 164/97 93 L 02/04/17 06:00 98.2 F 103 H 37 H 162/107 94 L 02/04/17 05:50 103 H 25 H 162/107 96 02/04/17 05:40 105 H 28 H 169/94 95 02/04/17 05:30 105 H 30 H 161/106 94 L 02/04/17 05:20 108 H 32 H 161/106 91 L 02/04/17 05:10 109 H 31 H 152/106 90 L 02/04/17 05:02 114 H 02/04/17 04:02 112 H 02/04/17 03:53 112 H 02/04/17 03:05 117 H 30 H 200/120 89 L 02/03/17 23:00 97.9 F 94 16 165/90 95 02/03/17 15:00 97.5 F L 96 18 172/96 96 Intake and Output 02/03/17 02/04/17 02/04/17 22:59 06:59 14:59 Intake Total 361.425 63.75 Output Total 2075 300 Balance -1713.575 -236.25 Intake: IV 60 60 0.9NaCl kvo 60 60 Intake, IV Titration 301.425 3.75 Amount Magnesium Sulfate-D5w Pmx 200 1 gm In Dextrose/Water 1 100ml.bag @ 100 mls/hr IVPB Q1H [facility]ANEY Rx#: [id number] Nitroglycerin-D5w Pmx 50 1.425 3.75 mg In Dextrose/Water 1 250ml.bag @ Titrate IV . Q0M DELANEY Rx#:[id number] Potassium Chloride 10 meq 100 Lidocaine 2% Inj 10 mg In Sodium Chloride 0.9% 100 ml @ 100 mls/hr IVPB Q1HR [facility]ANEY Rx#:[id number] Output: Urine 2075 300 Other: Voiding Method Urinal Urinal # Voids 1 1 # Bowel Movements 2 1 Weight 95 kg - Constitutional General appearance: average body habitus, cooperative, no acute distress - EENT Eyes: anicteric sclerae, EOMI, PERRLA ENT: hearing grossly normal, normal oropharynx Ears: bilateral: normal, negative: unable to vistualize - Neck Neck: no lymphadenopathy, normal ROM, no other, no rigidity, no stridor, no thyromegaly Carotids: bilateral: upstroke normal, bruit absent Thyroid: negative: normal size, enlarged, firm, nodule - Respiratory Respiratory: bilateral: CTA, negative: diminished, dullness, rales, rhonchi, wheezing, prolonged expiration - Cardiovascular Rhythm: regular Heart sounds: normal: S1, S2 Abnormal Heart Sounds: no systolic murmur, no diastolic murmur, no rub, no S3 Gallop, no S4 Gallop, no click, no other dorsalis pedis Peripheral Pulses: bilateral: Normal - Gastrointestinal General gastrointestinal: no absent bowel sounds, no decreased bowel sounds, no distended, no hepatomegaly, no hyperactive bowel sounds, normal bowel sounds, no organomegaly, no rigid, scaphoid, soft, no splenomegaly, no tenderness, no umbilical hernia, no ventral hernia - Integumentary Integumentary: no calor, no cellulitis, no cyanotic, no decreased turgor, no flushed, no jaundiced, no normal, no normal turgor, no pale, no rash, no ulcer - Neurologic intact power,sensory system and reflexes Neurologic: CNII-XII intact - Musculoskeletal Musculoskeletal: no gait normal, no generalized weakness, no strength equal bilaterally, no right sided weakness, no left sided weakness - Psychiatric Psychiatric: A&O x's 3, appropriate affect, intact judgment & insight Results - Laboratory Findings CBC and BMP: 02/04/17 04:02 02/04/17 10:04 PT/INR, D-dimer PT 12.1 sec (9.0-12.0) H 02/02/17 22:13 INR 1.2 (<1.2) H 02/02/17 22:13 D-Dimer 0.91 mg/L FEU (<0.60) H 02/04/17 04:02 Abnormal lab findings: Abnormal Labs 02/02/17 02/02/17 02/02/17 22:13 22:13 22:13 WBC 13.0 H RBC 4.15 L Hct MCV 102.0 H MCH 35.1 H Neutrophils # 10.9 H PT INR D-Dimer Sodium 134 L Potassium 1.6 L* Chloride 76 L* Carbon Dioxide 42 H* BUN 6 L Glucose 147 H POC Glucose (mg/dL) Calcium 6.9 L Ionized Calcium Gideon Phosphorus 2.2 L Magnesium 0.8 L* Total Bilirubin 1.7 H AST 246 H ALT 100 H Total Creatine Kinase 36349 H CK-MB (CK-2) 18.0 H* Troponin I Total Protein 6.0 L Albumin 3.3 L Urine Protein Urine Blood Hyaline Casts Urine Mucus 02/02/17 02/03/17 02/03/17 22:13 01:50 07:03 WBC RBC Hct MCV MCH Neutrophils # PT 12.1 H INR 1.2 H D-Dimer Sodium Potassium 1.6 L* Chloride 86 L Carbon Dioxide 47 H* BUN 6 L Glucose POC Glucose (mg/dL) Calcium 5.9 L* Ionized Calcium Gideon Phosphorus Magnesium Total Bilirubin AST ALT Total Creatine Kinase CK-MB (CK-2) Troponin I Total Protein Albumin Urine Protein 1+ H Urine Blood Moderate H Hyaline Casts 4 H Urine Mucus Rare H 02/03/17 02/03/17 02/03/17 08:38 16:48 23:24 WBC RBC Hct MCV MCH Neutrophils # PT INR D-Dimer Sodium Potassium 1.9 L* 1.9 L* Chloride Carbon Dioxide BUN Glucose POC Glucose (mg/dL) Calcium Ionized Calcium Gideon 2.9 L* Phosphorus Magnesium Total Bilirubin AST ALT Total Creatine Kinase CK-MB (CK-2) Troponin I Total Protein Albumin Urine Protein Urine Blood Hyaline Casts Urine Mucus 02/04/17 02/04/17 02/04/17 04:02 04:02 04:02 WBC RBC 3.59 L Hct 37.8 L MCV 105.6 H MCH 36.8 H Neutrophils # PT INR D-Dimer 0.91 H Sodium Potassium 2.4 L* Chloride 92 L Carbon Dioxide 43 H* BUN 3 L Glucose 112 H POC Glucose (mg/dL) Calcium 6.1 L* Ionized Calcium Gideon Phosphorus Magnesium 1.2 L Total Bilirubin AST 217 H ALT 98 H Total Creatine Kinase CK-MB (CK-2) Troponin I Total Protein 5.6 L Albumin 2.9 L Urine Protein Urine Blood Hyaline Casts Urine Mucus 02/04/17 02/04/17 02/04/17 04:27 05:03 10:04 WBC RBC Hct MCV MCH Neutrophils # PT INR D-Dimer Sodium Potassium Chloride Carbon Dioxide BUN Glucose POC Glucose (mg/dL) 125 H Calcium Ionized Calcium Gideon Phosphorus Magnesium Total Bilirubin AST ALT Total Creatine Kinase 17951 H CK-MB (CK-2) 12.5 H* Troponin I 0.101 H* 0.194 H* Total Protein Albumin Urine Protein Urine Blood Hyaline Casts Urine Mucus 02/04/17 10:04 WBC RBC Hct MCV MCH Neutrophils # PT INR D-Dimer Sodium Potassium 2.1 L* Chloride 87 L Carbon Dioxide 48 H* BUN 3 L Glucose 124 H POC Glucose (mg/dL) Calcium 6.2 L* Ionized Calcium Gideon 3.1 L* Phosphorus Magnesium Total Bilirubin AST ALT Total Creatine Kinase CK-MB (CK-2) Troponin I Total Protein Albumin Urine Protein Urine Blood Hyaline Casts Urine Mucus - Diagnostic Findings Chest x-ray: image reviewed Assessment and Plan Plan: Assessment 1 alcoholism, as the patient admits to drink more than 3 gallons of liquor over the weekend. 2 fall secondary to alcoholism 3 acute rhabdomyolysis secondary to above 4 severe electrodes imbalance with hypokalemia, hypomagnesemia and hypo- calcemic 5 smoker 6 shortness of breath, most likely related to a component of fluid overload versus aspiration. Chest x-ray from today shows some mild four-vessel congestion. No evidence of any airspace disease or pneumonias. 7 impending delirium tremens Plan I'm suggesting to continued IV fluids as long as patient has an acute rhabdomyolysis. We'll put him on a normal saline at the rate of 75 mL an hour and addition to KCl 40 mEq per running effusion. We will also add thiamine and folate. We'll replace the potassium and I've asked the nurses to give this patient 80 mEq of potassium for now. Continue the magnesium replacement. We will give a gram of calcium. All this is related to poor nutrition as the patient is severely depleted with his electrolytes. Monitor the renal function. Monitor renal output. Monitor for any delirium tremens. Lovenox for DVT prophylaxis. Aspiration precautions. Keep in ICU for now. We'll continue to follow. We'll cut down the Lasix for now.
[2017-02-04] MEDS: POTASSIUM CHLORIDE ER 20 MEQ TAB.ER PO SCH ×5 (12:59→22:58)
[2017-02-04 15:11] LABS: Appearance,Urine Cloudy (Clear); Bilirubin,Urine Negative (Negative); Glucose,Urine (UA) Negative (Negative); Ketones,Urine Negative (Negative); Leukocyte Esterase,Urine Negative (Negative); Mucus,Urine Rare /hpf; Nitrite,Urine Negative (Negative); PH, Urine 7.5 (5.0-8.0); Particle Count 5843; Protein,Urine Trace (Negative); RBC,Urine 1 /hpf (0-5); Specific Gravity,Urine 1.008 (1.001-1.035); UA Billing (MACRO vs. MICRO) MICRO; Urobilinogen,Urine <2.0 mg/dL (<2.0); WBC,Urine 1 /hpf (0-5)
[2017-02-04 18:47] LABS: Magnesium 1.6 mg/dL (1.6-2.3)
[2017-02-04 18:50] LABS: Potassium 2.5 mmol/L (3.5-5.1)
[2017-02-04] MEDS ORDERED: Potassium Replacement Protocol 1 EACH MISC MISCELLANE PRN (18:53)
--- NOTE | 2017-02-04 18:54 | ECHOF ---
Referral Reason:acute chf ?? Alcoholic CMP MEASUREMENTS -------- HEIGHT: 157.5 cm WEIGHT: 94.8 kg BP: 142/74 IVSd: 1.2 cm (0.6 - 1.1) LVIDd: 4.0 cm (3.9 - 5.3) LVPWd: 1.2 cm (0.6 - 1.1) IVSs: 1.3 cm LVIDs: 2.6 cm LVPWs: 1.6 cm LA Diam: 3.5 cm (2.7 - 3.8) LAESV Index (A-L): 25.40 ml/m Ao Diam: 3.5 cm (2.0 - 3.7) AV Cusp: 2.4 cm (1.5 - 2.6) LA Diam: 3.5 cm (2.7 - 3.8) MV EXCURSION: 20.477 mm (> 18.000) MV EF SLOPE: 105 mm/s (70 - 150) EPSS: 0.3 cm MV E Tommy: 0.88 m/s MV DecT: 249 ms MV A Tommy: 1.12 m/s MV E/A Ratio: 0.79 AR PHT: 355 ms RAP: 5.00 mmHg RVSP: 25.08 mmHg FINDINGS -------- Sinus rhythm. This was a technically adequate study. The left ventricular size is normal. Left ventricular wall thickness is normal. Overall left ventricular systolic function is normal with, an EF between 55 - 60 %. The right ventricle is normal in size. Normal LA size by volume 22+/-6 ml/m2. The right atrial size is normal. There is mild aortic regurgitation. Mild mitral annular calcification present. Mild mitral regurgitation is present. Mild tricuspid regurgitation present. There is no evidence of pulmonary hypertension. The right ventricular systolic pressure, as measured by Doppler, is 25.08mmHg. There is no pulmonic regurgitation present. The aortic root size is normal. There is no pericardial effusion. CONCLUSIONS -------- 1. The left ventricular size is normal. 2. There is no pulmonic regurgitation present. 3. The aortic root size is normal. 4. There is no pericardial effusion. 5. Left ventricular wall thickness is normal. 6. Overall left ventricular systolic function is normal with, an EF between 55 - 60 %. 7. There is mild aortic regurgitation. 8. Mild mitral annular calcification present. 9. Mild mitral regurgitation is present. 10. Mild tricuspid regurgitation present. 11. There is no evidence of pulmonary hypertension. 12. The right ventricular systolic pressure, as measured by Doppler, is 25.08mmHg. ENGINEERING COORDINATOR: Martha Dewitt RDCS
[2017-02-04] MEDS ORDERED: Magnesium Replacement Protocol 1 EACH MISC MISCELLANE PRN (18:55)
[2017-02-04] MEDS ORDERED: LOPERAMIDE 2 MG CAP PO PRN (20:34)
[2017-02-04] MEDS: METOPROLOL TARTRATE 5 MG/5 ML VIAL IVP PRN ×2 (22:21→22:23)
[2017-02-05] MEDS: hydrALAZINE HCL 20 MG/ML 1 ML VIAL IM PRN (00:04)
[2017-02-05] MEDS ORDERED: CLEVIDIPINE BUTYRATE 25 MG/50 ML VIAL IV ONE (00:10)
[2017-02-05] MEDS: LORazepam 2 MG/ML SYRINGE IV PRN ×7 (00:15→21:24)
[2017-02-05] MEDS: 1: MVI, ADULT NO.4 WITH VIT K 10 ML, THIAMINE 100 MG, FOLIC ACID 1 MG, POTASSIUM CHLORID IV SCH ×10 (00:15→10:46)
[2017-02-05] MEDS: CLEVIDIPINE BUTYRATE 25 MG in EMPTY BAG 1 BAG IV SCH ×3 (00:15→06:29)
[2017-02-05 02:11] LABS: Basophils % (A) 0 %; CH 36.2; CHCM 34.1; Eosinophils # (A) 0.1 k/uL (0-0.7); Eosinophils % (A) 1 %; HCT 41.7 % (39.0-53.0); HDW 3.09; HGB 13.9 gm/dL (13.0-17.5); Luc # (Auto) 0.05; Luc % (Auto) 0; Lymphocytes # (A) 0.7 k/uL (1.0-4.8); Lymphocytes % (A) 5 %; MCH 35.5 pg (25.0-35.0); MCHC 33.3 g/dL (31.0-37.0); MCV 106.8 fL (80.0-100.0); Macrocytosis Moderate; Mean Platelet Volume 8.2; Monocytes # (A) 0.7 k/uL (0-1.0); Monocytes % (A) 5 %; Neutrophils # (A) 11.8 k/uL (1.3-7.7); Neutrophils % (A) 89 %; RDW 14.7 % (11.5-15.5); WBC 13.3 k/uL (3.8-10.6); WBC (Perox) 14.08
[2017-02-05 02:22] LABS: Blood Urea Nitrogen 4 mg/dL (9-20); Chloride 92 mmol/L (98-107); Glucose 174 mg/dL (74-99); Magnesium 1.7 mg/dL (1.6-2.3); Non-African American GFR(MDRD) >60 (>60 ml/min/1.73 sqM); Phosphorous 3.4 mg/dL (2.5-4.5); Sodium 142 mmol/L (137-145)
[2017-02-05 02:28] LABS: Anion Gap 8 mmol/L
[2017-02-05 02:32] LABS: Calcium 6.4 mg/dL (8.4-10.2); Carbon Dioxide 42 mmol/L (22-30); Potassium 2.4 mmol/L (3.5-5.1)
[2017-02-05 02:52] LABS: ABG Base Excess 16.1 mmol/L; ABG HCO3 40 mmol/L (21-25); ABG PCO2 46 mmHg (35-45); ABG PH 7.55 (7.35-7.45); ABG PO2 107 mmHg (83-108); ABG TCO2 42 mmol/L (19-24)
[2017-02-05] MEDS ORDERED: POTASSIUM CHLORIDE 10 MEQ, LIDOCAINE 2% INJ 10 MG in SODIUM CHLORIDE 0.9% 100 ML IV SCH (03:00)
[2017-02-05] MEDS: MAGNESIUM SULFATE-D5W PMX 1 GM in DEXTROSE/WATER 1 100ML.BAG IVPB SCH ×6 (03:30→21:46)
[2017-02-05] MEDS: POTASSIUM CHLORIDE ORAL LIQUID 40 MEQ/30 ML CUP PO SCH ×5 (03:39→22:35)
[2017-02-05] MEDS: CALCIUM GLUCONATE 1,000 MG in SODIUM CHLORIDE 0.9% 100 ML IVPB SCH ×2 (04:07→05:39)
[2017-02-05 06:02] LABS: Glucose,Whole Blood 136 mg/dL (75-99)
[2017-02-05] MEDS ORDERED: PROPOFOL 1,000 MG/100 ML VIAL IV ONE (07:21)
[2017-02-05] MEDS ORDERED: SUCCINYLCHOLINE CHLORIDE 100 MG/5 ML SYR IV ONE (07:22)
[2017-02-05] MEDS ORDERED: PANTOPRAZOLE 40 MG TABLET PO SCH (07:30)
[2017-02-05] MEDS: PROPOFOL 1,000 MG/100 ML VIAL IV SCH ×5 (07:30→23:24)
--- NOTE | 2017-02-05 07:32 | P.PN ---
Subjective A 51-year-old male patient, alcoholic, who was admitted to the hospital after he fell at home. He is a very poor historian. He came into the hospital and he was found to be in impending delirium tremens. At the same time he had severe electrolyte imbalance with hypokalemia, hypocalcemia and hypomagnesemia and same time the patient was found to be in acute rhabdomyolysis. The patient was started in IV fluids. Electrodes imbalance was also corrected. Later on in the evening the patient became short of breath. He was suspected to be in pulmonary edema. He was given a dose of Lasix and following that he was moved to the intensive care unit. No clear-cut history of aspiration. I reviewed his chest x-ray and there is no convincing evidence of pneumonia or heart failure. Echocardiogram is in progress. Meanwhile the patient was started on IV Lasix and his IV fluids were Down. CPK is still elevated. No evidence of an acute renal failure. He was awake and alert at the time of my evaluation this morning. No obvious signs of confusions or delirium tremens. He was given thiamine and folate. Otherwise his history is negative. He is a chronic drinker and cigarette smoker. On 02/05/2017 I'm seeing this patient for a follow-up. The patient remains in intensive care unit. Mentally is gotten worse and he has progressed into active delirium tremens requiring high dose of Ativan that was given overnight. The patient was given Ativan pushes, a total of 20 mg overnight. He is still agitated. Restless. He is thrashing in bed. He is tachypneic. Is on high flow oxygen at 15 L/m and the chest x-ray shows some mild pulmonary vascular congestion. Underlying bibasilar pulmonary infiltrates cannot be completely ruled out. He is still having active diarrhea. After mass was added. Stool for C. diff was negative. He was given Imodium which improved consistency of the stool and became more solid. No abdominal distention. No nausea or vomiting. NG tube is in place. Electrodes are still off. We are chasing the potassium aggressively. He was given a total of 60 mEq of potassium oral potassium level of 2.5 and his morning potassium is down to 2.4. Note that he also received potassium infusions earlier throughout the day. He also received another 60 mEq of potassium orally. As for the magnesium, the level came at 1.7 this morning and he received an additional 2 g. The calcium ionized from this morning was 3.3 and he received an additional 2 g of calcium gluconate. He is receiving IV fluids 0.9 at 100 mL an hour and his alternating with 0.9 with MVII and 20 mEq of potassium chloride infusion. The echocardiogram was completed and the patient had a normal ejection fraction of 55-60% and there was no valvular dysfunction. He was noted to have no significant pulmonary hypertension. Some minimal mitral and aortic regurgitation was noted. RV systolic pressure was around 25. Objective - Vital Signs Vital signs: Vital Signs Temp 98.8 F 02/05/17 04:00 Pulse 106 H 02/05/17 07:00 Resp 26 H 02/05/17 07:00 BP 133/87 02/05/17 07:00 Pulse Ox 96 02/05/17 07:00 Intake & Output 02/04/17 02/05/17 02/05/17 18:59 06:59 18:59 Intake Total 838.75 2269.833 320 Output Total 1050 1680 350 Balance -211.25 589.833 -30 Weight 97.9 kg Intake: IV 835 1495 200 0.9NaCl kvo 60 820 100 Calcium Gluconate 1,000 100 300 100 mg In Sodium Chloride 0.9 % 100 ml @ 100 mls/hr IVPB ONCE ONE Rx#: [id number] Mvi, Adult No.4 with Vit 675 375 K 10 ml Thiamine 100 mg Folic Acid 1 mg Potassium Chloride 40 meq In Sodium Chloride 0.9% 1, 000 ml @ 75 mls/hr IV .BY DURATION [facility] Rx#: [id number] Intake, IV Titration 3.75 417.833 Amount Clevidipine Butyrate 25 67.833 mg In Empty Bag 1 bag @ 1 MG/HR 2 mls/hr IV .Q24H [facility] Rx#:[id number] Magnesium Sulfate-D5w Pmx 200 1 gm In Dextrose/Water 1 100ml.bag @ 100 mls/hr IVPB Q1H [facility] Rx#: [id number] Magnesium Sulfate-D5w Pmx 150 1 gm In Dextrose/Water 1 100ml.bag @ 100 mls/hr IVPB Q1H [facility] Rx#: [id number] Nitroglycerin-D5w Pmx 50 3.75 mg In Dextrose/Water 1 250ml.bag @ Titrate IV . [facility] Rx#:[id number] Oral 237 Other 120 120 Output: Urine 1050 1680 350 Other: Voiding Method Urinal Indwelling Catheter # Voids 1 # Bowel Movements 1 1 - Exam Gen. appearance, the patient is restless, there is some limited degree of agitation and tremors and the patient is somewhat thrashing in bed. He would wake up upon repeated stimulation. Head is atraumatic normocephalic. Neck is supple there is no JVDs no goiter or neck masses. NG tube is in place. Lung sounds are diminished in lung bases bilaterally along with some scattered rhonchi and crackles in lung bases. No wheezes.Cardiac exam revealed the PMI to be normally situated and sized. The rhythm was regular and no extrasystoles were noted during several minutes of auscultation. The first and second heart sounds were normal and physiologic splitting of the second heart sound was noted. There were no murmurs, rubs, clicks, or gallops.Abdominal exam revealed normal bowel sounds. The abdomen was soft, non-tender, and without masses, organomegaly, or appreciable enlargement of the abdominal aorta.Examination of the extremities revealed easily palpable radial, femoral and pedal pulses. There was no cyanosis, clubbing or edema. Neurologic exam is nonfocal. No cranial nerve deficits. The patient is an delirium secondary to alcohol withdrawal. He does have some degree of tremors. Occasionally follows some simple commands as for the most part is confused. Examination of the skin shows no ulceration wounds or cellulitis. Skeletal exam shows no deformities or active arthritis. - Labs CBC & Chem 7: 02/05/17 02:00 02/05/17 02:00 Labs: Abnormal Lab Results - Last 24 Hours (Table) 02/04/17 02/04/17 02/04/17 Range/Units 10:04 10:04 14:10 WBC (3.8-10.6) k/uL RBC (4.30-5.90) m/uL MCV (80.0-100.0) fL MCH (25.0-35.0) pg Neutrophils # (1.3-7.7) k/uL Lymphocytes # (1.0-4.8) k/uL ABG pH (7.35-7.45) ABG pCO2 (35-45) mmHg ABG HCO3 (21-25) mmol/L ABG Total CO2 (19-24) mmol/L ABG O2 Saturation (94-97) % Potassium 2.1 L* (3.5-5.1) mmol/L Chloride 87 L (98-107) mmol/L Carbon Dioxide 48 H* (22-30) mmol/L BUN 3 L (9-20) mg/dL Glucose 124 H (74-99) mg/dL POC Glucose (mg/dL) (75-99) mg/dL Calcium 6.2 L* (8.4-10.2) mg/dL Ionized Calcium Gideon 3.1 L* (4.5-5.3) mg/dL Troponin I 0.194 H* (0.000-0.034) ng/mL Urine Protein Trace H (Negative) Urine Blood Moderate H (Negative) Urine Mucus Rare H (None) /hpf U Benzodiazepines Scrn (NotDetected) 02/04/17 02/05/17 02/05/17 Range/Units 18:28 01:31 02:00 WBC (3.8-10.6) k/uL RBC (4.30-5.90) m/uL MCV (80.0-100.0) fL MCH (25.0-35.0) pg Neutrophils # (1.3-7.7) k/uL Lymphocytes # (1.0-4.8) k/uL ABG pH (7.35-7.45) ABG pCO2 (35-45) mmHg ABG HCO3 (21-25) mmol/L ABG Total CO2 (19-24) mmol/L ABG O2 Saturation (94-97) % Potassium 2.5 L* 2.4 L* (3.5-5.1) mmol/L Chloride 92 L (98-107) mmol/L Carbon Dioxide 42 H* (22-30) mmol/L BUN 4 L (9-20) mg/dL Glucose 174 H (74-99) mg/dL POC Glucose (mg/dL) (75-99) mg/dL Calcium 6.4 L* (8.4-10.2) mg/dL Ionized Calcium Gideon (4.5-5.3) mg/dL Troponin I (0.000-0.034) ng/mL Urine Protein (Negative) Urine Blood (Negative) Urine Mucus (None) /hpf U Benzodiazepines Scrn Detected H (NotDetected) 02/05/17 02/05/17 02/05/17 Range/Units 02:00 02:00 02:00 WBC 13.3 H (3.8-10.6) k/uL RBC 3.90 L (4.30-5.90) m/uL MCV 106.8 H (80.0-100.0) fL MCH 35.5 H (25.0-35.0) pg Neutrophils # 11.8 H (1.3-7.7) k/uL Lymphocytes # 0.7 L (1.0-4.8) k/uL ABG pH (7.35-7.45) ABG pCO2 (35-45) mmHg ABG HCO3 (21-25) mmol/L ABG Total CO2 (19-24) mmol/L ABG O2 Saturation (94-97) % Potassium (3.5-5.1) mmol/L Chloride (98-107) mmol/L Carbon Dioxide (22-30) mmol/L BUN (9-20) mg/dL Glucose (74-99) mg/dL POC Glucose (mg/dL) (75-99) mg/dL Calcium (8.4-10.2) mg/dL Ionized Calcium Gideon 3.3 L* (4.5-5.3) mg/dL Troponin I 0.104 H* (0.000-0.034) ng/mL Urine Protein (Negative) Urine Blood (Negative) Urine Mucus (None) /hpf U Benzodiazepines Scrn (NotDetected) 02/05/17 02/05/17 Range/Units 02:40 06:01 WBC (3.8-10.6) k/uL RBC (4.30-5.90) m/uL MCV (80.0-100.0) fL MCH (25.0-35.0) pg Neutrophils # (1.3-7.7) k/uL Lymphocytes # (1.0-4.8) k/uL ABG pH 7.55 H (7.35-7.45) ABG pCO2 46 H (35-45) mmHg ABG HCO3 40 H* (21-25) mmol/L ABG Total CO2 42 H (19-24) mmol/L ABG O2 Saturation 99.0 H (94-97) % Potassium (3.5-5.1) mmol/L Chloride (98-107) mmol/L Carbon Dioxide (22-30) mmol/L BUN (9-20) mg/dL Glucose (74-99) mg/dL POC Glucose (mg/dL) 136 H (75-99) mg/dL Calcium (8.4-10.2) mg/dL Ionized Calcium Gideon (4.5-5.3) mg/dL Troponin I (0.000-0.034) ng/mL Urine Protein (Negative) Urine Blood (Negative) Urine Mucus (None) /hpf U Benzodiazepines Scrn (NotDetected) Microbiology - Last 24 Hours (Table) 02/03/17 01:50 Urine Culture - Final Urine,Voided Assessment and Plan Plan: Assessment 1 acute delirium tremens secondary to alcohol withdrawal. The patient is encephalopathic, confused, lethargic requiring high doses of Ativan to control agitation. The same time the patient has become progressively more hypoxic and he is currently not get hypoxic respiratory failure on high flow oxygen at 15 L/ m nasal cannula. 2 acute respiratory failure, rule out aspiration, rule out a component of fluid overload. 3 acute rhabdomyolysis secondary to above 4 severe electrodes imbalance with hypokalemia, hypomagnesemia and hypo- calcemic. The patient is aggressively being resuscitated with fluids and electrodes are being also replaced. 5 alcoholism, as the patient admits to drink more than 3 gallons of liquor over the weekend. 6 shortness of breath, most likely related to a component of fluid overload versus aspiration. Chest x-ray from today shows some mild four-vessel congestion. No evidence of any airspace disease or pneumonias. 7 fall secondary to alcoholism 8 diarrhea Plan Intubated this patient to protect his airway. We'll put him on a mechanical ventilator. We'll put him on Diprivan for the next 24-48 hours and hopefully within this time is acute delirium tremens will improve. We will stop the Ativan and will use long acting benzodiazepine such as Librium regarding his delirium tremens. We will replace electrodes aggressively. Repeat potassium and magnesium and calcium level. Repeat CPK levels. Collect sputum Gram stain and culture. IV Zosyn as an empiric antibiotic coverage for potential aspiration pneumonia. Obtain post intubation chest x-ray and blood gases necessary vent changes will be done. MVI. Thiamine. Folate. DVT and GI prophylaxis. Enteral feeding. Monitor diarrhea. We'll continue to follow. Condition is critical. He'll be kept in ICU. This evaluation was done more than 30 minutes excluding time to do any procedures. Time with Patient: Greater than 30
--- NOTE | 2017-02-05 07:49 | P.PCN ---
Date of Procedure: 02/05/17 Preoperative Diagnosis: Acute respiratory failure Postoperative Diagnosis: Acute respiratory failure Procedure(s) Performed: Triple-lumen catheter insertion Anesthesia: local Surgeon: Beny Mckinnon Disposition: ICU Operative Findings: A time-out was completed verifying correct patient, procedure, site, positioning , and implant(s) or special equipment if applicable. The patient was placed in a dependent position appropriate for triple lumen catheter placement based on the vein to be cannulated. The patient's left subclavian area was prepped and draped in sterile fashion. 1% Lidocaine was used to anesthetize the surrounding skin area. A triple lumen 9F Cordis catheter was introduced into the subclavian vein using Seldinger technique. The catheter was threaded smoothly over the guide wire and appropriate blood return was obtained. Each lumen of the catheter was evacuated of air and flushed with sterile saline. The catheter was then sutured in place to the skin and a sterile dressing applied. Perfusion to the extremity distal to the point of catheter insertion was checked and found to be adequate.
--- NOTE | 2017-02-05 07:51 | P.PCN ---
Date of Procedure: 02/05/17 Preoperative Diagnosis: acute respiratory failure Postoperative Diagnosis: Acute respiratory failure Procedure(s) Performed: Intubation Anesthesia: MAC Operative Findings: This procedure was done and the intensive care unit. The patient was given a total of 100 mg of Diprivan for sedation. The patient was also given 100 mg of succinylcholine for paralysis. Using a Garcia blade #4, I visualized the vocal cords and under direct visualization I was able to pass a #8 orotracheal tube past the vocal cords into the upper trachea. The balloon was inflated and the adequacy of the intubation was confirmed by auscultating bilateral breath sounds and the CO2 detector on the orotracheal tube was also indicating adequate placement. The tube was secured at 23 cm lip line. The patient was ventilated and the pulse ox was brought up to the 90% and following that the patient was attached on a mechanical ventilator. No complications during the procedure. They overall intubation process took less than 2 minutes. The patient was intubated by #8 orotracheal tube.
--- NOTE | 2017-02-05 08:00 | XR ---
EXAMINATION TYPE: XR chest 1V portable DATE OF EXAM: 02/05/2017 HISTORY: Shortness of breath. COMPARISON: 02/05/2017 TECHNIQUE: Single view of the chest is submitted. FINDINGS: Left subclavian central venous line has been removed. Endotracheal tube has been removed. NG tube is seen coursing towards the stomach. Demonstrated are scattered senescent parenchymal change. There is no evidence for focal infiltrate. Persistent but improving pulmonary venous congestion and small effusions. The heart size is stable. Hilar and mediastinal structures are within normal limits. Degenerative changes are seen of the dorsal spine. IMPRESSION: 1. Persistent but improving pulmonary venous congestion and small effusions.
--- NOTE | 2017-02-05 08:09 | XR ---
EXAMINATION TYPE: XR chest 1V DATE OF EXAM: 02/05/2017 HISTORY: Shortness of breath. COMPARISON: From earlier in the day TECHNIQUE: Single view of the chest is submitted. FINDINGS: Interval placement of endotracheal tube which is appropriately placed with its distal tip approximate ly 3.5 cm from the shruthi. Left subclavian central venous line with its distal tip overlying the SVC. No evidence for pneumothorax. NG tube is seen coursing into the stomach. There is no evidence for focal infiltrate. There is pulmonary venous congestion with interstitial edema and small effusions. Mild cardiomegaly. Hilar and mediastinal structures are within normal limits. Degenerative changes are seen of the dorsal spine. IMPRESSION: 1. Indwelling tubes and catheters as noted. 2. Changes of mild congestive failure.
[2017-02-05 08:21] LABS: ABG Base Excess 13.9 mmol/L; ABG HCO3 39 mmol/L (21-25); ABG Oxygen Saturation 99.9 % (94-97); ABG PCO2 62 mmHg (35-45); ABG PH 7.42 (7.35-7.45); ABG PO2 294 mmHg (83-108); ABG TCO2 41 mmol/L (19-24)
[2017-02-05] MEDS: IPRATROPIUM-ALBUTEROL 3 ML NEB INHALATION SCH ×5 (08:32→23:30)
[2017-02-05 08:35] LABS: Magnesium 1.9 mg/dL (1.6-2.3); Potassium 3.8 mmol/L (3.5-5.1)
[2017-02-05] MEDS: HYDROmorphone 1 MG/ML 1 ML SYRINGE IVP PRN ×4 (08:52→20:30)
[2017-02-05] MEDS: CHLORHEXIDINE GLUCONATE 15 ML CUP MUCOUS MEM SCH ×2 (08:53→19:57)
[2017-02-05] MEDS: PIPERACILLIN-TAZOBACTAM 3.375 GM in DEXTROSE/WATER 1 50ML.BAG IVPB SCH ×2 (08:53→16:20)
[2017-02-05] MEDS: ENOXAPARIN 40 MG/0.4 ML SYRINGE SQ SCH (08:55)
[2017-02-05] MEDS: ASPIRIN 325 MG TAB PO SCH (08:55)
[2017-02-05] MEDS: NICOTINE 21MG/24HR PATCH TRANSDERM SCH (08:56)
[2017-02-05] MEDS: traMADol 50 MG TAB PO SCH ×3 (08:56→19:58)
[2017-02-05] MEDS: METOPROLOL TARTRATE 25 MG TAB PO SCH ×2 (08:56→19:57)
[2017-02-05] MEDS ORDERED: FUROSEMIDE 10 MG/ML 4 ML VIAL IV SCH (09:00)
[2017-02-05 09:03] LABS: Ionized Calcium 3.7 mg/dL (4.5-5.3)
[2017-02-05] MEDS: PANTOPRAZOLE 40 MG/10 ML VIAL IVP SCH (09:13)
[2017-02-05] MEDS ORDERED: SODIUM CHLORIDE 0.9% 1,000 ML IV ONE ×2 (09:17→09:28)
[2017-02-05] MEDS ORDERED: CALCIUM GLUCONATE 1,000 MG in SODIUM CHLORIDE 0.9% 100 ML IVPB ONE (09:28)
[2017-02-05] MEDS ORDERED: POTASSIUM CHLORIDE ORAL LIQUID 40 MEQ/30 ML CUP NG-TUBE SCH ×2 (10:00→20:00)
[2017-02-05] MEDS ORDERED: NOREPINEPHRIN 16 MG-0.9%NS PMX 16 MG/250 ML ML IV SCH (11:00)
--- NOTE | 2017-02-05 11:19 | P.PN ---
Subjective Principal diagnosis: Acute respiratory failure This is a 51-year-old gentleman with a past medical history significant for alcohol abuse as well as significant history of smoking who was admitted to the hospital after he fell at home. The patient is a poor historian. On Friday evening he fell out of the bed. He did not recall having any chest pain or discomfort or difficulty breathing or feeling of heart racing or fluttering at that point. Ambulance was called and the patient was brought to the emergency department then he was admitted to the hospital and he was getting treated for alcohol intoxication. The patient drinks about half a common of vodka every day. And he was drinking on that day. On the floor in the hospital, the patient was the setting and that was last night. He was also wheezing. For that reason he was transferred to the intensive care unit. He was started on Lasix as well. On follow-up with the patient today on 02/05/2017, he is in acute respiratory failure and he was intubated to protect his airways. Hemodynamically he is requiring small dose of Levophed to support the blood pressure. I would DC the metoprolol. The echocardiogram showed normal LV function without any significant valvular abnormalities. Objective - Vital Signs Vital signs: Vital Signs Temp 98.5 F 02/05/17 08:00 Pulse 85 02/05/17 11:00 Resp 15 02/05/17 11:00 BP 87/57 02/05/17 11:00 Pulse Ox 99 02/05/17 11:00 Intake & Output 02/04/17 02/05/17 02/05/17 18:59 06:59 18:59 Intake Total 838.75 3301.033 2730.167 Output Total 1050 1680 810 Balance -211.25 8641.951 1702.167 Weight 97.9 kg Intake: IV 835 1495 2600 0.9NaCl kvo 60 820 200 Calcium Gluconate 1,000 100 300 200 mg In Sodium Chloride 0.9 % 100 ml @ 100 mls/hr IVPB ONCE ONE Rx#: [id number] Magnesium Sulfate-D5w Pmx 200 1 gm In Dextrose/Water 1 100ml.bag @ 100 mls/hr IVPB Q1H [facility] Rx#: [id number] Mvi, Adult No.4 with Vit 675 375 K 10 ml Thiamine 100 mg Folic Acid 1 mg Potassium Chloride 40 meq In Sodium Chloride 0.9% 1, 000 ml @ 75 mls/hr IV .BY DURATION [facility] Rx#: [id number] Sodium Chloride 0.9% 1, 2000 000 ml @ 999 mls/hr IV . Q1H1M [facility] Rx#:[id number] Intake, IV Titration 3.75 1449.033 10.167 Amount Clevidipine Butyrate 25 67.833 10.167 mg In Empty Bag 1 bag @ 1 MG/HR 2 mls/hr IV .Q24H [facility] Rx#:[id number] Magnesium Sulfate-D5w Pmx 200 1 gm In Dextrose/Water 1 100ml.bag @ 100 mls/hr IVPB Q1H [facility] Rx#: [id number] Magnesium Sulfate-D5w Pmx 150 1 gm In Dextrose/Water 1 100ml.bag @ 100 mls/hr IVPB Q1H [facility] Rx#: [id number] Mvi, Adult No.4 with Vit 1031.2 K 10 ml Thiamine 100 mg Folic Acid 1 mg Potassium Chloride 40 meq In Sodium Chloride 0.9% 1, 000 ml @ 75 mls/hr IV .BY DURATION [facility] Rx#: [id number] Nitroglycerin-D5w Pmx 50 3.75 mg In Dextrose/Water 1 250ml.bag @ Titrate IV . Q0M [facility] Rx#:[id number] Oral 237 Other 120 120 Output: Urine 1050 1680 810 Other: Voiding Method Urinal Indwelling Catheter # Voids 1 # Bowel Movements 1 1 - Constitutional General appearance: Present: no acute distress - Respiratory Respiratory: bilateral: CTA - Cardiovascular Rhythm: regular Heart sounds: normal: S1, S2 - Labs CBC & Chem 7: 02/05/17 02:00 02/05/17 07:57 Labs: Abnormal Lab Results - Last 24 Hours (Table) 02/04/17 02/04/17 02/04/17 Range/Units 10:04 10:04 14:10 WBC (3.8-10.6) k/uL RBC (4.30-5.90) m/uL MCV (80.0-100.0) fL MCH (25.0-35.0) pg Neutrophils # (1.3-7.7) k/uL Lymphocytes # (1.0-4.8) k/uL ABG pH (7.35-7.45) ABG pCO2 (35-45) mmHg ABG pO2 (83-108) mmHg ABG HCO3 (21-25) mmol/L ABG Total CO2 (19-24) mmol/L ABG O2 Saturation (94-97) % Potassium (3.5-5.1) mmol/L Chloride (98-107) mmol/L Carbon Dioxide 48 H* (22-30) mmol/L BUN (9-20) mg/dL Glucose (74-99) mg/dL POC Glucose (mg/dL) (75-99) mg/dL Calcium (8.4-10.2) mg/dL Ionized Calcium Gideon (4.5-5.3) mg/dL Creatine Kinase (55-170) U/L Troponin I 0.194 H* (0.000-0.034) ng/mL Urine Protein Trace H (Negative) Urine Blood Moderate H (Negative) Urine Mucus Rare H (None) /hpf U Benzodiazepines Scrn (NotDetected) 02/04/17 02/05/17 02/05/17 Range/Units 18:28 01:31 02:00 WBC (3.8-10.6) k/uL RBC (4.30-5.90) m/uL MCV (80.0-100.0) fL MCH (25.0-35.0) pg Neutrophils # (1.3-7.7) k/uL Lymphocytes # (1.0-4.8) k/uL ABG pH (7.35-7.45) ABG pCO2 (35-45) mmHg ABG pO2 (83-108) mmHg ABG HCO3 (21-25) mmol/L ABG Total CO2 (19-24) mmol/L ABG O2 Saturation (94-97) % Potassium 2.5 L* 2.4 L* (3.5-5.1) mmol/L Chloride 92 L (98-107) mmol/L Carbon Dioxide 42 H* (22-30) mmol/L BUN 4 L (9-20) mg/dL Glucose 174 H (74-99) mg/dL POC Glucose (mg/dL) (75-99) mg/dL Calcium 6.4 L* (8.4-10.2) mg/dL Ionized Calcium Gideon (4.5-5.3) mg/dL Creatine Kinase (55-170) U/L Troponin I (0.000-0.034) ng/mL Urine Protein (Negative) Urine Blood (Negative) Urine Mucus (None) /hpf U Benzodiazepines Scrn Detected H (NotDetected) 02/05/17 02/05/17 02/05/17 Range/Units 02:00 02:00 02:00 WBC 13.3 H (3.8-10.6) k/uL RBC 3.90 L (4.30-5.90) m/uL MCV 106.8 H (80.0-100.0) fL MCH 35.5 H (25.0-35.0) pg Neutrophils # 11.8 H (1.3-7.7) k/uL Lymphocytes # 0.7 L (1.0-4.8) k/uL ABG pH (7.35-7.45) ABG pCO2 (35-45) mmHg ABG pO2 (83-108) mmHg ABG HCO3 (21-25) mmol/L ABG Total CO2 (19-24) mmol/L ABG O2 Saturation (94-97) % Potassium (3.5-5.1) mmol/L Chloride (98-107) mmol/L Carbon Dioxide (22-30) mmol/L BUN (9-20) mg/dL Glucose (74-99) mg/dL POC Glucose (mg/dL) (75-99) mg/dL Calcium (8.4-10.2) mg/dL Ionized Calcium Gideon 3.3 L* (4.5-5.3) mg/dL Creatine Kinase (55-170) U/L Troponin I 0.104 H* (0.000-0.034) ng/mL Urine Protein (Negative) Urine Blood (Negative) Urine Mucus (None) /hpf U Benzodiazepines Scrn (NotDetected) 02/05/17 02/05/17 02/05/17 Range/Units 02:40 06:01 07:57 WBC (3.8-10.6) k/uL RBC (4.30-5.90) m/uL MCV (80.0-100.0) fL MCH (25.0-35.0) pg Neutrophils # (1.3-7.7) k/uL Lymphocytes # (1.0-4.8) k/uL ABG pH 7.55 H (7.35-7.45) ABG pCO2 46 H (35-45) mmHg ABG pO2 (83-108) mmHg ABG HCO3 40 H* (21-25) mmol/L ABG Total CO2 42 H (19-24) mmol/L ABG O2 Saturation 99.0 H (94-97) % Potassium (3.5-5.1) mmol/L Chloride (98-107) mmol/L Carbon Dioxide (22-30) mmol/L BUN (9-20) mg/dL Glucose (74-99) mg/dL POC Glucose (mg/dL) 136 H (75-99) mg/dL Calcium (8.4-10.2) mg/dL Ionized Calcium Gideon 3.7 L (4.5-5.3) mg/dL Creatine Kinase 82700 H (55-170) U/L Troponin I (0.000-0.034) ng/mL Urine Protein (Negative) Urine Blood (Negative) Urine Mucus (None) /hpf U Benzodiazepines Scrn (NotDetected) 02/05/17 Range/Units 08:10 WBC (3.8-10.6) k/uL RBC (4.30-5.90) m/uL MCV (80.0-100.0) fL MCH (25.0-35.0) pg Neutrophils # (1.3-7.7) k/uL Lymphocytes # (1.0-4.8) k/uL ABG pH (7.35-7.45) ABG pCO2 62 H (35-45) mmHg ABG pO2 294 H (83-108) mmHg ABG HCO3 39 H (21-25) mmol/L ABG Total CO2 41 H (19-24) mmol/L ABG O2 Saturation 99.9 H (94-97) % Potassium (3.5-5.1) mmol/L Chloride (98-107) mmol/L Carbon Dioxide (22-30) mmol/L BUN (9-20) mg/dL Glucose (74-99) mg/dL POC Glucose (mg/dL) (75-99) mg/dL Calcium (8.4-10.2) mg/dL Ionized Calcium Gideon (4.5-5.3) mg/dL Creatine Kinase (55-170) U/L Troponin I (0.000-0.034) ng/mL Urine Protein (Negative) Urine Blood (Negative) Urine Mucus (None) /hpf U Benzodiazepines Scrn (NotDetected) Microbiology - Last 24 Hours (Table) 02/03/17 01:50 Urine Culture - Final Urine,Voided Assessment and Plan Plan: This is a pleasant 51-year-old gentleman with significant history of alcohol and smoking was admitted to the hospital with alcohol intoxication. He developed mild acute respiratory failure which seems to be resolving at this point. Currently the patient is intubated and he is on ventilator. The blood pressure has been marginally low and I will DC the metoprolol.
--- NOTE | 2017-02-05 11:38 | P.PN ---
Subjective Principal diagnosis: Rhabdomyolysis,delirium tremens Overnight patient developed increased agitation secondary to delirium tremens needed up to 20 mg of Ativan. Upon evaluation this morning Dr. Mckinnon intubated patient. And patient currently under sedation and mechanical ventilation. No bleeding,no seizures noted,no fever Objective - Vital Signs Vital signs: Vital Signs Temp 98.5 F 02/05/17 08:00 Pulse 85 02/05/17 11:00 Resp 15 02/05/17 11:00 BP 87/57 02/05/17 11:00 Pulse Ox 99 02/05/17 11:00 Intake & Output 02/04/17 02/05/17 02/05/17 18:59 06:59 18:59 Intake Total 838.75 3301.033 2730.167 Output Total 1050 1680 810 Balance -211.25 9332.368 1846.167 Weight 97.9 kg Intake: IV 835 1495 2600 0.9NaCl kvo 60 820 200 Calcium Gluconate 1,000 100 300 200 mg In Sodium Chloride 0.9 % 100 ml @ 100 mls/hr IVPB ONCE ONE Rx#: [id number] Magnesium Sulfate-D5w Pmx 200 1 gm In Dextrose/Water 1 100ml.bag @ 100 mls/hr IVPB Q1H [facility] Rx#: [id number] Mvi, Adult No.4 with Vit 675 375 K 10 ml Thiamine 100 mg Folic Acid 1 mg Potassium Chloride 40 meq In Sodium Chloride 0.9% 1, 000 ml @ 75 mls/hr IV .BY DURATION [facility] Rx#: [id number] Sodium Chloride 0.9% 1, 2000 000 ml @ 999 mls/hr IV . Q1H1M [facility] Rx#:[id number] Intake, IV Titration 3.75 1449.033 10.167 Amount Clevidipine Butyrate 25 67.833 10.167 mg In Empty Bag 1 bag @ 1 MG/HR 2 mls/hr IV .Q24H [facility] Rx#:[id number] Magnesium Sulfate-D5w Pmx 200 1 gm In Dextrose/Water 1 100ml.bag @ 100 mls/hr IVPB Q1H [facility] Rx#: [id number] Magnesium Sulfate-D5w Pmx 150 1 gm In Dextrose/Water 1 100ml.bag @ 100 mls/hr IVPB Q1H [facility] Rx#: [id number] Mvi, Adult No.4 with Vit 1031.2 K 10 ml Thiamine 100 mg Folic Acid 1 mg Potassium Chloride 40 meq In Sodium Chloride 0.9% 1, 000 ml @ 75 mls/hr IV .BY DURATION [facility] Rx#: [id number] Nitroglycerin-D5w Pmx 50 3.75 mg In Dextrose/Water 1 250ml.bag @ Titrate IV . Q0M [facility] Rx#:[id number] Oral 237 Other 120 120 Output: Urine 1050 1680 810 Other: Voiding Method Urinal Indwelling Catheter # Voids 1 # Bowel Movements 1 1 - Exam gen:sedated, et tube in place lungs:clear to auscultation heart:s1s2 abdomen:soft and depressible,non tender ext:no edema,, no swelling - Labs CBC & Chem 7: 02/05/17 02:00 02/05/17 07:57 Labs: Abnormal Lab Results - Last 24 Hours (Table) 02/04/17 02/04/17 02/04/17 Range/Units 10:04 10:04 14:10 WBC (3.8-10.6) k/uL RBC (4.30-5.90) m/uL MCV (80.0-100.0) fL MCH (25.0-35.0) pg Neutrophils # (1.3-7.7) k/uL Lymphocytes # (1.0-4.8) k/uL ABG pH (7.35-7.45) ABG pCO2 (35-45) mmHg ABG pO2 (83-108) mmHg ABG HCO3 (21-25) mmol/L ABG Total CO2 (19-24) mmol/L ABG O2 Saturation (94-97) % Potassium (3.5-5.1) mmol/L Chloride (98-107) mmol/L Carbon Dioxide 48 H* (22-30) mmol/L BUN (9-20) mg/dL Glucose (74-99) mg/dL POC Glucose (mg/dL) (75-99) mg/dL Calcium (8.4-10.2) mg/dL Ionized Calcium Gideon (4.5-5.3) mg/dL Creatine Kinase (55-170) U/L Troponin I 0.194 H* (0.000-0.034) ng/mL Urine Protein Trace H (Negative) Urine Blood Moderate H (Negative) Urine Mucus Rare H (None) /hpf U Benzodiazepines Scrn (NotDetected) 02/04/17 02/05/17 02/05/17 Range/Units 18:28 01:31 02:00 WBC (3.8-10.6) k/uL RBC (4.30-5.90) m/uL MCV (80.0-100.0) fL MCH (25.0-35.0) pg Neutrophils # (1.3-7.7) k/uL Lymphocytes # (1.0-4.8) k/uL ABG pH (7.35-7.45) ABG pCO2 (35-45) mmHg ABG pO2 (83-108) mmHg ABG HCO3 (21-25) mmol/L ABG Total CO2 (19-24) mmol/L ABG O2 Saturation (94-97) % Potassium 2.5 L* 2.4 L* (3.5-5.1) mmol/L Chloride 92 L (98-107) mmol/L Carbon Dioxide 42 H* (22-30) mmol/L BUN 4 L (9-20) mg/dL Glucose 174 H (74-99) mg/dL POC Glucose (mg/dL) (75-99) mg/dL Calcium 6.4 L* (8.4-10.2) mg/dL Ionized Calcium Gideon (4.5-5.3) mg/dL Creatine Kinase (55-170) U/L Troponin I (0.000-0.034) ng/mL Urine Protein (Negative) Urine Blood (Negative) Urine Mucus (None) /hpf U Benzodiazepines Scrn Detected H (NotDetected) 02/05/17 02/05/17 02/05/17 Range/Units 02:00 02:00 02:00 WBC 13.3 H (3.8-10.6) k/uL RBC 3.90 L (4.30-5.90) m/uL MCV 106.8 H (80.0-100.0) fL MCH 35.5 H (25.0-35.0) pg Neutrophils # 11.8 H (1.3-7.7) k/uL Lymphocytes # 0.7 L (1.0-4.8) k/uL ABG pH (7.35-7.45) ABG pCO2 (35-45) mmHg ABG pO2 (83-108) mmHg ABG HCO3 (21-25) mmol/L ABG Total CO2 (19-24) mmol/L ABG O2 Saturation (94-97) % Potassium (3.5-5.1) mmol/L Chloride (98-107) mmol/L Carbon Dioxide (22-30) mmol/L BUN (9-20) mg/dL Glucose (74-99) mg/dL POC Glucose (mg/dL) (75-99) mg/dL Calcium (8.4-10.2) mg/dL Ionized Calcium Gideon 3.3 L* (4.5-5.3) mg/dL Creatine Kinase (55-170) U/L Troponin I 0.104 H* (0.000-0.034) ng/mL Urine Protein (Negative) Urine Blood (Negative) Urine Mucus (None) /hpf U Benzodiazepines Scrn (NotDetected) 02/05/17 02/05/17 02/05/17 Range/Units 02:40 06:01 07:57 WBC (3.8-10.6) k/uL RBC (4.30-5.90) m/uL MCV (80.0-100.0) fL MCH (25.0-35.0) pg Neutrophils # (1.3-7.7) k/uL Lymphocytes # (1.0-4.8) k/uL ABG pH 7.55 H (7.35-7.45) ABG pCO2 46 H (35-45) mmHg ABG pO2 (83-108) mmHg ABG HCO3 40 H* (21-25) mmol/L ABG Total CO2 42 H (19-24) mmol/L ABG O2 Saturation 99.0 H (94-97) % Potassium (3.5-5.1) mmol/L Chloride (98-107) mmol/L Carbon Dioxide (22-30) mmol/L BUN (9-20) mg/dL Glucose (74-99) mg/dL POC Glucose (mg/dL) 136 H (75-99) mg/dL Calcium (8.4-10.2) mg/dL Ionized Calcium Gideon 3.7 L (4.5-5.3) mg/dL Creatine Kinase 70236 H (55-170) U/L Troponin I (0.000-0.034) ng/mL Urine Protein (Negative) Urine Blood (Negative) Urine Mucus (None) /hpf U Benzodiazepines Scrn (NotDetected) 02/05/17 Range/Units 08:10 WBC (3.8-10.6) k/uL RBC (4.30-5.90) m/uL MCV (80.0-100.0) fL MCH (25.0-35.0) pg Neutrophils # (1.3-7.7) k/uL Lymphocytes # (1.0-4.8) k/uL ABG pH (7.35-7.45) ABG pCO2 62 H (35-45) mmHg ABG pO2 294 H (83-108) mmHg ABG HCO3 39 H (21-25) mmol/L ABG Total CO2 41 H (19-24) mmol/L ABG O2 Saturation 99.9 H (94-97) % Potassium (3.5-5.1) mmol/L Chloride (98-107) mmol/L Carbon Dioxide (22-30) mmol/L BUN (9-20) mg/dL Glucose (74-99) mg/dL POC Glucose (mg/dL) (75-99) mg/dL Calcium (8.4-10.2) mg/dL Ionized Calcium Gideon (4.5-5.3) mg/dL Creatine Kinase (55-170) U/L Troponin I (0.000-0.034) ng/mL Urine Protein (Negative) Urine Blood (Negative) Urine Mucus (None) /hpf U Benzodiazepines Scrn (NotDetected) Microbiology - Last 24 Hours (Table) 02/03/17 01:50 Urine Culture - Final Urine,Voided Assessment and Plan (1) Respiratory failure with hypoxia Narrative/Plan: Intubated this morning. Dr. Mckinnon. Patient is currently sedated on the mechanical ventilation. Status: Acute (2) Rhabdomyolysis Narrative/Plan: CPK slightly better at 10,000 this morning. Continue to monitor. Status: Acute (3) Delirium tremens Narrative/Plan: Needed 20 mg of Ativan overnight secondary to agitation. Patient intubated this morning by Dr. Mckinnon. Patient currently sedated. Status: Acute (4) Dehydration Status: Acute (5) Hypokalemia Narrative/Plan: Hypokalemia aggressively replaced this morning is 3.8 Status: Acute (6) Alcoholism /alcohol abuse Narrative/Plan: Patient drank 3 gallons of vodka per week Status: Acute (7) Bulging lumbar disc Status: Acute (8) Hypomagnesemia Narrative/Plan: Magnesium 1.9 today. Status: Acute
[2017-02-05 12:40] LABS: Ionized Calcium 3.8 mg/dL (4.5-5.3)
[2017-02-05 12:55] LABS: Potassium 3.6 mmol/L (3.5-5.1)
[2017-02-05] MEDS ORDERED: POTASSIUM CHLORIDE ER 20 MEQ TAB.ER PO SCH (16:00)
[2017-02-05 19:14] LABS: Potassium 3.9 mmol/L (3.5-5.1)
[2017-02-06] MEDS: PIPERACILLIN-TAZOBACTAM 3.375 GM in DEXTROSE/WATER 1 50ML.BAG IVPB SCH ×3 (00:03→15:07)
[2017-02-06] MEDS: HYDROmorphone 1 MG/ML 1 ML SYRINGE IVP PRN ×7 (01:27→21:02)
[2017-02-06] MEDS: PROPOFOL 1,000 MG/100 ML VIAL IV SCH ×6 (02:09→22:00)
[2017-02-06] MEDS: 1: MVI, ADULT NO.4 WITH VIT K 10 ML, THIAMINE 100 MG, FOLIC ACID 1 MG, POTASSIUM CHLORID IV SCH ×10 (02:32→11:05)
[2017-02-06 04:43] LABS: Basophils % (A) 0 %; CHCM 32.1; Eosinophils # (A) 0.2 k/uL (0-0.7); Eosinophils % (A) 3 %; HCT 35.8 % (39.0-53.0); HDW 2.81; HGB 11.8 gm/dL (13.0-17.5); Luc # (Auto) 0.09; Luc % (Auto) 1; Lymphocytes # (A) 0.9 k/uL (1.0-4.8); Lymphocytes % (A) 12 %; MCH 36.2 pg (25.0-35.0); MCHC 32.9 g/dL (31.0-37.0); MCV 109.8 fL (80.0-100.0); Macrocytosis Marked; Mean Platelet Volume 7.6; Monocytes # (A) 0.4 k/uL (0-1.0); Monocytes % (A) 5 %; Neutrophils % (A) 79 %; RBC 3.26 m/uL (4.30-5.90); RDW 14.7 % (11.5-15.5); WBC 7.6 k/uL (3.8-10.6); WBC (Perox) 7.65
[2017-02-06] MEDS: IPRATROPIUM-ALBUTEROL 3 ML NEB INHALATION SCH ×6 (05:20→23:43)
[2017-02-06 05:52] LABS: Blood Urea Nitrogen 5 mg/dL (9-20); Carbon Dioxide 33 mmol/L (22-30); Glucose 112 mg/dL (74-99); Magnesium 2.1 mg/dL (1.6-2.3); Non-African American GFR(MDRD) >60 (>60 ml/min/1.73 sqM); Phosphorous 2.9 mg/dL (2.5-4.5); Potassium 4.2 mmol/L (3.5-5.1); Sodium 144 mmol/L (137-145)
[2017-02-06 06:05] LABS: ABG Base Excess 7.5 mmol/L; ABG HCO3 31 mmol/L (21-25); ABG PCO2 40 mmHg (35-45); ABG PO2 74 mmHg (83-108); ABG TCO2 32 mmol/L (19-24)
[2017-02-06 06:11] LABS: Anion Gap 4 mmol/L; Chloride 107 mmol/L (98-107)
[2017-02-06 06:12] LABS: Calcium 6.4 mg/dL (8.4-10.2)
[2017-02-06] MEDS ORDERED: CALCIUM GLUCONATE 1,000 MG in SODIUM CHLORIDE 0.9% 100 ML IVPB ONE (06:48)
--- NOTE | 2017-02-06 08:06 | PCN ---
PROCEDURE NOTE PREOP DIAGNOSIS: Respiratory failure. POSTOP DIAGNOSIS: Respiratory failure. ARTERIAL LINE PLACEMENT: Indication Hemodynamic monitoring. A time-out was completed verifying correct patient, procedure, site, positioning, and implant(s) or special equipment if applicable. Caleb's test was performed to ensure adequate perfusion. The patient's left wrist was prepped and draped in sterile fashion. 1% Lidocaine was used to anesthetize the area. An 18G Arrow arterial line was introduced into the radial artery. The catheter was threaded over the guide wire and the needle was removed with appropriate pulsatile blood return. Blood loss was minimal. The catheter was then sutured in place to the skin and a sterile dressing applied. Perfusion to the extremity distal to the point of catheter insertion was checked and found to be adequate. The patient tolerated the procedure well and there were no complications. No bedside complications or bleeding. MMODL / IJN: [id number] /
--- NOTE | 2017-02-06 08:08 | XR ---
EXAMINATION TYPE: XR chest 1V portable DATE OF EXAM: 02/06/2017 Comparison: 02/05/2017 Clinical History: 51-year-old male Tube placement Findings: ET tube is satisfactory. NG tube courses below the diaphragm. Left subclavian CVC tip at the cavoatri al junction. Heart remains borderline enlarged. Diffuse interstitial prominence persists. Band of atelectasis at t he right mid lung versus fluid along the minor fissure. Small left pleural effusion persists with con tinued left basilar and retrocardiac opacity. Impression: 1. Findings suggest continued CHF with pulmonary vascular congestion. 2. Small left pleural effusion with prominent left basilar and retrocardiac atelectasis and/or consol idation is also similar.
--- NOTE | 2017-02-06 08:24 | P.PN ---
Subjective Principal diagnosis: Rhabdomyolysis,delirium tremens No acute issues overnight patient did become agitated overnight patient was given Dilaudid. Continues on propofol. no Signs of seizures, no bleeding, no fever. Objective - Vital Signs Vital signs: Vital Signs Temp 98.2 F 02/06/17 05:00 Pulse 91 02/06/17 07:29 Resp 8 L 02/06/17 07:00 BP 151/94 02/06/17 07:00 Pulse Ox 96 02/06/17 07:00 Intake & Output 02/05/17 02/06/17 02/06/17 18:59 06:59 18:59 Intake Total 4526.598 1409.614 130 Output Total 1160 482 40 Balance 3366.598 927.614 90 Weight 97.9 kg 100.3 kg Intake: IV 3200 825 100 0.9NaCl kvo 200 400 100 Calcium Gluconate 1,000 200 mg In Sodium Chloride 0.9 % 100 ml @ 100 mls/hr IVPB ONCE [facility] Rx#: [id number] Magnesium Sulfate-D5w Pmx 200 1 gm In Dextrose/Water 1 100ml.bag @ 100 mls/hr IVPB Q1H [facility] Rx#: [id number] Sodium Chloride 0.9% 1, 600 425 000 ml @ 100 mls/hr IV . BY DURATION [facility] Rx#: [id number] Sodium Chloride 0.9% 1, 2000 000 ml @ 999 mls/hr IV . Q1H1M [facility] Rx#:[id number] Intake, IV Titration 1206.598 314.614 Amount Clevidipine Butyrate 25 10.167 mg In Empty Bag 1 bag @ 1 MG/HR 2 mls/hr IV .Q24H [facility] Rx#:[id number] Piperacillin-Tazobactam 3 50.0 .375 gm In Dextrose/Water 1 50ml.bag @ 12.5 mls/hr IVPB Q8HR [facility] Rx#: [id number] Propofol 1,000 mg In 100 196.431 264.614 ml @ Titrate IV .Q0M [facility] Rx#:[id number] Sodium Chloride 0.9% 1, 1000 000 ml @ 100 mls/hr IV . BY DURATION [facility] Rx#: [id number] Tube Feeding 270 30 Other 120 Output: Urine 1160 482 40 Other: Voiding Method Indwelling Catheter Indwelling Catheter # Voids 1 ABP, PAP, CO, CI - Last Documented Arterial Blood Pressure 97/62 - Exam gen:sedated, et tube and ngt in place lungs:clear to auscultation, no crackles, no wheezes heart:s1s2, no murmurs, normal rate and rhythm abdomen:soft and depressible,non tender ext:no edema,, no swelling pulses palpable - Labs CBC & Chem 7: 02/06/17 04:20 02/06/17 04:20 Labs: Abnormal Lab Results - Last 24 Hours (Table) 02/05/17 02/05/17 02/05/17 Range/Units 07:57 08:10 12:15 RBC (4.30-5.90) m/uL Hgb (13.0-17.5) gm/dL Hct (39.0-53.0) % MCV (80.0-100.0) fL MCH (25.0-35.0) pg Lymphocytes # (1.0-4.8) k/uL ABG pCO2 62 H (35-45) mmHg ABG pO2 294 H (83-108) mmHg ABG HCO3 39 H (21-25) mmol/L ABG Total CO2 41 H (19-24) mmol/L ABG O2 Saturation 99.9 H (94-97) % Carbon Dioxide (22-30) mmol/L BUN (9-20) mg/dL Glucose (74-99) mg/dL Calcium (8.4-10.2) mg/dL Ionized Calcium Gideon 3.7 L 3.8 L (4.5-5.3) mg/dL Creatine Kinase 03069 H (55-170) U/L 02/06/17 02/06/17 02/06/17 Range/Units 04:20 04:20 04:20 RBC 3.26 L (4.30-5.90) m/uL Hgb 11.8 L (13.0-17.5) gm/dL Hct 35.8 L (39.0-53.0) % MCV 109.8 H (80.0-100.0) fL MCH 36.2 H (25.0-35.0) pg Lymphocytes # 0.9 L (1.0-4.8) k/uL ABG pCO2 (35-45) mmHg ABG pO2 (83-108) mmHg ABG HCO3 (21-25) mmol/L ABG Total CO2 (19-24) mmol/L ABG O2 Saturation (94-97) % Carbon Dioxide 33 H (22-30) mmol/L BUN 5 L (9-20) mg/dL Glucose 112 H (74-99) mg/dL Calcium 6.4 L* (8.4-10.2) mg/dL Ionized Calcium Gideon 3.9 L (4.5-5.3) mg/dL Creatine Kinase (55-170) U/L Microbiology - Last 24 Hours (Table) 02/05/17 08:00 Gram Stain - Preliminary Sputum Sputum Culture - Preliminary Assessment and Plan (1) Respiratory failure with hypoxia Narrative/Plan: Intubated this morning. Dr. Mckinnon. Patient is currently sedated on the mechanical ventilation. Status: Acute (2) Delirium tremens Narrative/Plan: Needed 20 mg of Ativan overnight secondary to agitation. Patient intubated this morning by Dr. Mckinnon. Patient currently sedated. Status: Acute (3) Rhabdomyolysis Narrative/Plan: CPK slightly better at 10,000 this morning. Continue to monitor. Status: Acute (4) Dehydration Status: Acute (5) Hypokalemia Narrative/Plan: Hypokalemia aggressively replaced this morning is 3.8 Status: Acute (6) Alcoholism /alcohol abuse Status: Acute (7) Bulging lumbar disc Status: Acute (8) Hypomagnesemia Status: Acute Plan: 9-s/p shock, levophed was weaned off last night 10- nutrition on tube feeding tolerating well
[2017-02-06] MEDS: CLEVIDIPINE BUTYRATE 25 MG in EMPTY BAG 1 BAG IV SCH (08:59)
[2017-02-06] MEDS: NICOTINE 21MG/24HR PATCH TRANSDERM SCH (09:01)
[2017-02-06] MEDS: ENOXAPARIN 40 MG/0.4 ML SYRINGE SQ SCH (09:03)
[2017-02-06] MEDS: PANTOPRAZOLE 40 MG/10 ML VIAL IVP SCH (09:04)
[2017-02-06] MEDS: METOPROLOL TARTRATE 25 MG TAB PO SCH ×2 (09:04→20:45)
[2017-02-06] MEDS: ASPIRIN 325 MG TAB PO SCH (09:04)
[2017-02-06] MEDS: POTASSIUM CHLORIDE ORAL LIQUID 40 MEQ/30 ML CUP PO SCH ×2 (09:04→20:45)
[2017-02-06] MEDS: CHLORHEXIDINE GLUCONATE 15 ML CUP MUCOUS MEM SCH ×2 (09:04→20:45)
--- NOTE | 2017-02-06 09:53 | P.PN ---
Subjective A 51-year-old male patient, alcoholic, who was admitted to the hospital after he fell at home. He is a very poor historian. He came into the hospital and he was found to be in impending delirium tremens. At the same time he had severe electrolyte imbalance with hypokalemia, hypocalcemia and hypomagnesemia and same time the patient was found to be in acute rhabdomyolysis. The patient was started in IV fluids. Electrodes imbalance was also corrected. Later on in the evening the patient became short of breath. He was suspected to be in pulmonary edema. He was given a dose of Lasix and following that he was moved to the intensive care unit. No clear-cut history of aspiration. I reviewed his chest x-ray and there is no convincing evidence of pneumonia or heart failure. Echocardiogram is in progress. Meanwhile the patient was started on IV Lasix and his IV fluids were Down. CPK is still elevated. No evidence of an acute renal failure. He was awake and alert at the time of my evaluation this morning. No obvious signs of confusions or delirium tremens. He was given thiamine and folate. Otherwise his history is negative. He is a chronic drinker and cigarette smoker. On 02/05/2017 I'm seeing this patient for a follow-up. The patient remains in intensive care unit. Mentally is gotten worse and he has progressed into active delirium tremens requiring high dose of Ativan that was given overnight. The patient was given Ativan pushes, a total of 20 mg overnight. He is still agitated. Restless. He is thrashing in bed. He is tachypneic. Is on high flow oxygen at 15 L/m and the chest x-ray shows some mild pulmonary vascular congestion. Underlying bibasilar pulmonary infiltrates cannot be completely ruled out. He is still having active diarrhea. After mass was added. Stool for C. diff was negative. He was given Imodium which improved consistency of the stool and became more solid. No abdominal distention. No nausea or vomiting. NG tube is in place. Electrodes are still off. We are chasing the potassium aggressively. He was given a total of 60 mEq of potassium oral potassium level of 2.5 and his morning potassium is down to 2.4. Note that he also received potassium infusions earlier throughout the day. He also received another 60 mEq of potassium orally. As for the magnesium, the level came at 1.7 this morning and he received an additional 2 g. The calcium ionized from this morning was 3.3 and he received an additional 2 g of calcium gluconate. He is receiving IV fluids 0.9 at 100 mL an hour and his alternating with 0.9 with MVII and 20 mEq of potassium chloride infusion. The echocardiogram was completed and the patient had a normal ejection fraction of 55-60% and there was no valvular dysfunction. He was noted to have no significant pulmonary hypertension. Some minimal mitral and aortic regurgitation was noted. RV systolic pressure was around 25. On 02/06/2017 the patient is being seen in follow-up in intensive care unit. The patient intubated on a mechanical ventilator. This morning he is an assist- control mode at the rate of 20, tidal volume of 450, FiO2 of 50% and a PEEP of 5. The blood gases from this morning shows a component of metabolic alkalosis with a pH of 7.5 and a pCO2 of 39 and pO2 of 74. The metabolic alkalosis is most likely related to his underlying diarrhea. Note that his diarrhea has subsided. The patient has erythematous system. Stool for C. diff has been negative. The patient's electronic has been essentially corrected. The potassium level is normalized. Magnesium level is normalized. The patient is receiving another dose of calcium to bring his ionized calcium of 4. Otherwise , is was sedated with Diprivan which is currently running at 40 mics. He is hemodynamically stable and he is off pressors. He is producing adequate amount of urine output. No agitation. No restlessness. No fever. He is on IV Zosyn for empiric antibiotic coverage regarding potential aspiration pneumonia. Echocardiogram was within normal limits. Tube feeds will be started today. We' ll keep him intubated for another 24 hours. May need to give him a sedation holiday to assess his underlying mentation at a later stage today. Objective - Vital Signs Vital signs: Vital Signs Temp 98.2 F 02/06/17 05:00 Pulse 93 02/06/17 08:16 Resp 8 L 02/06/17 07:00 BP 151/94 02/06/17 07:00 Pulse Ox 96 02/06/17 07:00 Intake & Output 02/05/17 02/06/17 02/06/17 18:59 06:59 18:59 Intake Total 4526.598 1409.614 130 Output Total 1160 482 40 Balance 3366.598 927.614 90 Weight 97.9 kg 100.3 kg Intake: IV 3200 825 100 0.9NaCl kvo 200 400 100 Calcium Gluconate 1,000 200 mg In Sodium Chloride 0.9 % 100 ml @ 100 mls/hr IVPB ONCE ONE Rx#: [id number] Magnesium Sulfate-D5w Pmx 200 1 gm In Dextrose/Water 1 100ml.bag @ 100 mls/hr IVPB Q1H [facility] Rx#: [id number] Sodium Chloride 0.9% 1, 600 425 000 ml @ 100 mls/hr IV . BY DURATION [facility] Rx#: [id number] Sodium Chloride 0.9% 1, 2000 000 ml @ 999 mls/hr IV . Q1H1M ONE Rx#:[id number] Intake, IV Titration 1206.598 314.614 Amount Clevidipine Butyrate 25 10.167 mg In Empty Bag 1 bag @ 1 MG/HR 2 mls/hr IV .Q24H [facility] Rx#:[id number] Piperacillin-Tazobactam 3 50.0 .375 gm In Dextrose/Water 1 50ml.bag @ 12.5 mls/hr IVPB Q8HR [facility] Rx#: [id number] Propofol 1,000 mg In 100 196.431 264.614 ml @ Titrate IV .Q0M [facility] Rx#:[id number] Sodium Chloride 0.9% 1, 1000 000 ml @ 100 mls/hr IV . BY DURATION [facility] Rx#: [id number] Tube Feeding 270 30 Other 120 Output: Urine 1160 482 40 Other: Voiding Method Indwelling Catheter Indwelling Catheter # Voids 1 ABP, PAP, CO, CI - Last Documented Arterial Blood Pressure 97/62 - Exam Gen. appearance, the patient is intubated on a mechanical ventilator. Orogastric and orotracheal tube is in place. The patient is very much, comfortable while being sedated on Diprivan. Head is atraumatic normocephalic. Neck is supple there is no JVDs no goiter or neck masses. NG tube is in place. Lung sounds are diminished in lung bases bilaterally along with some scattered rhonchi and crackles in lung bases. No wheezes.Cardiac exam revealed the PMI to be normally situated and sized. The rhythm was regular and no extrasystoles were noted during several minutes of auscultation. The first and second heart sounds were normal and physiologic splitting of the second heart sound was noted. There were no murmurs, rubs, clicks, or gallops.Abdominal exam revealed normal bowel sounds. The abdomen was soft, non-tender, and without masses, organomegaly, or appreciable enlargement of the abdominal aorta.Examination of the extremities revealed easily palpable radial, femoral and pedal pulses. There was no cyanosis, clubbing or edema. Neurologic exam is nonfocal. He is sedated. He does wake up and he would withdraw to painful stimuli. For the most part is under the effect of sedation.. Examination of the skin shows no ulceration wounds or cellulitis. Skeletal exam shows no deformities or active arthritis. - Labs CBC & Chem 7: 02/06/17 04:20 02/06/17 04:20 Labs: Abnormal Lab Results - Last 24 Hours (Table) 02/05/17 02/06/17 02/06/17 Range/Units 12:15 04:20 04:20 RBC 3.26 L (4.30-5.90) m/uL Hgb 11.8 L (13.0-17.5) gm/dL Hct 35.8 L (39.0-53.0) % MCV 109.8 H (80.0-100.0) fL MCH 36.2 H (25.0-35.0) pg Lymphocytes # 0.9 L (1.0-4.8) k/uL Carbon Dioxide 33 H (22-30) mmol/L BUN 5 L (9-20) mg/dL Glucose 112 H (74-99) mg/dL Calcium 6.4 L* (8.4-10.2) mg/dL Ionized Calcium Gideon 3.8 L (4.5-5.3) mg/dL 02/06/17 Range/Units 04:20 RBC (4.30-5.90) m/uL Hgb (13.0-17.5) gm/dL Hct (39.0-53.0) % MCV (80.0-100.0) fL MCH (25.0-35.0) pg Lymphocytes # (1.0-4.8) k/uL Carbon Dioxide (22-30) mmol/L BUN (9-20) mg/dL Glucose (74-99) mg/dL Calcium (8.4-10.2) mg/dL Ionized Calcium Gideon 3.9 L (4.5-5.3) mg/dL Microbiology - Last 24 Hours (Table) 02/05/17 08:00 Gram Stain - Preliminary Sputum Sputum Culture - Preliminary Assessment and Plan Plan: Assessment 1 acute delirium tremens secondary to alcohol withdrawal. The patient was severely encephalopathic. He was requiring high doses of Ativan. Ultimately was intubated and placed on mechanical ventilator as the patient was being treated for his delirium tremens. He was also started on Diprivan for sedation. 2 acute respiratory failure, rule out aspiration, rule out a component of fluid overload. Currently the patient is intubated on a mechanical ventilator. Oxygen is improved. Chest x-ray findings are stable and the patient on empiric antibiotic coverage with IV Zosyn. 3 acute rhabdomyolysis secondary to above, improving and the CPK levels are 4 severe electrodes imbalance with hypokalemia, hypomagnesemia and hypo- calcemic. The patient is aggressively being resuscitated with fluids and electrodes are being also replaced. The electrolytes have improved considerably at this point. There are essentially normalized. 5 alcoholism, as the patient admits to drink more than 3 gallons of liquor over the weekend. 6 transient hypotension, recovered and the patient is currently off pressors 7 falls, secondary to alcoholism 8 diarrhea, improving Plan We'll continue fluid resuscitation with normal saline at the rate of 75 mL an hour. No pressors at this point. Continue vent support. the respiratory rate down to 16 as the patient is essentially riding the vent. we will monitor the electrolytes. sedation holiday. iv zosyn. initiate tube feedings with vital 1.5 at the rate of 30 ml an hour. We'll give the patient another day on a mechanical ventilator with needs to be still treated for his delirium tremens. Sedation holiday today. No attempts for extubation yet. We'll continue to follow make further recommendations based on his progress. Critically care evaluation. 35 minutes. Time with Patient: Greater than 30
[2017-02-06] MEDS: traMADol 50 MG TAB PO SCH ×3 (10:30→23:58)
[2017-02-06] MEDS: SODIUM CHLORIDE 0.9% 1,000 ML IV SCH (10:42)
[2017-02-06] MEDS ORDERED: SODIUM CHLORIDE 0.9% 1,000 ML BAG ONE (11:05)
[2017-02-06 12:08] LABS: Glucose,Whole Blood 114 mg/dL (75-99)
--- NOTE | 2017-02-06 13:16 | P.PN ---
Subjective Principal diagnosis: Acute respiratory failure This is a 51-year-old gentleman with a past medical history significant for alcohol abuse as well as significant history of smoking who was admitted to the hospital after he fell at home. The patient is a poor historian. On Friday evening he fell out of the bed. He did not recall having any chest pain or discomfort or difficulty breathing or feeling of heart racing or fluttering at that point. Ambulance was called and the patient was brought to the emergency department then he was admitted to the hospital and he was getting treated for alcohol intoxication. The patient drinks about half a common of vodka every day. And he was drinking on that day. On the floor in the hospital, the patient was the setting and that was last night. He was also wheezing. For that reason he was transferred to the intensive care unit. He was started on Lasix as well. On follow-up with the patient today on 02/06/2017, he is in acute respiratory failure and he was intubated to protect his airways. Hemodynamically he continues to be stable and not requiring any vasopressors at this point. The echocardiogram showed normal LV function without any significant valvular abnormalities. Objective - Vital Signs Vital signs: Vital Signs Temp 99 F 02/06/17 12:00 Pulse 88 02/06/17 13:00 Resp 14 02/06/17 13:00 BP 93/63 02/06/17 13:00 Pulse Ox 93 L 02/06/17 13:00 Intake & Output 02/05/17 02/06/17 02/06/17 18:59 06:59 18:59 Intake Total 4526.598 2440.814 935.0 Output Total 1160 482 590 Balance 3366.598 1958.814 345.0 Weight 97.9 kg 100.3 kg Intake: IV 3200 825 485 0.9NaCl kvo 200 400 410 Calcium Gluconate 1,000 200 mg In Sodium Chloride 0.9 % 100 ml @ 100 mls/hr IVPB ONCE ONE Rx#: [id number] Magnesium Sulfate-D5w Pmx 200 1 gm In Dextrose/Water 1 100ml.bag @ 100 mls/hr IVPB Q1H [facility] Rx#: [id number] Mvi, Adult No.4 with Vit 75 K 10 ml Thiamine 100 mg Folic Acid 1 mg Potassium Chloride 40 meq In Sodium Chloride 0.9% 1, 000 ml @ 75 mls/hr IV .BY DURATION [facility] Rx#: [id number] Sodium Chloride 0.9% 1, 600 425 000 ml @ 100 mls/hr IV . BY DURATION [facility] Rx#: [id number] Sodium Chloride 0.9% 1, 2000 000 ml @ 999 mls/hr IV . Q1H1M ONE Rx#:[id number] Intake, IV Titration 7708.244 5862.814 150.0 Amount Clevidipine Butyrate 25 10.167 mg In Empty Bag 1 bag @ 1 MG/HR 2 mls/hr IV .Q24H [facility] Rx#:[id number] Mvi, Adult No.4 with Vit 1031.2 K 10 ml Thiamine 100 mg Folic Acid 1 mg Potassium Chloride 40 meq In Sodium Chloride 0.9% 1, 000 ml @ 75 mls/hr IV .BY DURATION [facility] Rx#: [id number] Piperacillin-Tazobactam 3 50.0 50.0 .375 gm In Dextrose/Water 1 50ml.bag @ 12.5 mls/hr IVPB Q8HR [facility] Rx#: [id number] Propofol 1,000 mg In 100 196.431 264.614 100 ml @ Titrate IV .Q0M [facility] Rx#:[id number] Sodium Chloride 0.9% 1, 1000 000 ml @ 100 mls/hr IV . BY DURATION [facility] Rx#: [id number] Tube Feeding 270 300 Other 120 Output: Urine 1160 482 590 Other: Voiding Method Indwelling Catheter Indwelling Catheter Indwelling Catheter # Voids 1 ABP, PAP, CO, CI - Last Documented Arterial Blood Pressure 102/61 - Constitutional General appearance: Present: no acute distress - Respiratory Respiratory: bilateral: CTA - Cardiovascular Rhythm: regular Heart sounds: normal: S1, S2 - Labs CBC & Chem 7: 02/06/17 04:20 02/06/17 04:20 Labs: Abnormal Lab Results - Last 24 Hours (Table) 02/06/17 02/06/17 02/06/17 Range/Units 04:20 04:20 04:20 RBC 3.26 L (4.30-5.90) m/uL Hgb 11.8 L (13.0-17.5) gm/dL Hct 35.8 L (39.0-53.0) % MCV 109.8 H (80.0-100.0) fL MCH 36.2 H (25.0-35.0) pg Lymphocytes # 0.9 L (1.0-4.8) k/uL Carbon Dioxide 33 H (22-30) mmol/L BUN 5 L (9-20) mg/dL Glucose 112 H (74-99) mg/dL POC Glucose (mg/dL) (75-99) mg/dL Calcium 6.4 L* (8.4-10.2) mg/dL Ionized Calcium Gideon 3.9 L (4.5-5.3) mg/dL 02/06/17 Range/Units 12:07 RBC (4.30-5.90) m/uL Hgb (13.0-17.5) gm/dL Hct (39.0-53.0) % MCV (80.0-100.0) fL MCH (25.0-35.0) pg Lymphocytes # (1.0-4.8) k/uL Carbon Dioxide (22-30) mmol/L BUN (9-20) mg/dL Glucose (74-99) mg/dL POC Glucose (mg/dL) 114 H (75-99) mg/dL Calcium (8.4-10.2) mg/dL Ionized Calcium Gideon (4.5-5.3) mg/dL Microbiology - Last 24 Hours (Table) 02/05/17 08:00 Gram Stain - Preliminary Sputum Sputum Culture - Preliminary Assessment and Plan Plan: This is a pleasant 51-year-old gentleman with significant history of alcohol and smoking was admitted to the hospital with alcohol intoxication. He developed mild acute respiratory failure which seems to be resolving at this point. Currently the patient is intubated and he is on ventilator. The blood pressure has improved and he is back on beta mynor. He is also on aspirin. From the cardiac vascular standpoint overview we'll continue the current medical treatment.
[2017-02-06 18:29] LABS: Glucose,Whole Blood 95 mg/dL (75-99)
[2017-02-06] MEDS: LORazepam 2 MG/ML SYRINGE IV PRN (20:03)
[2017-02-06 22:23] LABS: Glucose,Whole Blood 103 mg/dL (75-99)
[2017-02-06 22:48] LABS: Magnesium 1.6 mg/dL (1.6-2.3); Potassium 5.9 mmol/L (3.5-5.1)
[2017-02-07] MEDS: MAGNESIUM SULFATE-D5W PMX 1 GM in DEXTROSE/WATER 1 100ML.BAG IVPB SCH ×2 (00:57→02:09)
[2017-02-07] MEDS: IPRATROPIUM-ALBUTEROL 3 ML NEB INHALATION SCH ×6 (01:49→23:25)
[2017-02-07] MEDS: HYDROmorphone 1 MG/ML 1 ML SYRINGE IVP PRN ×8 (01:58→22:02)
[2017-02-07] MEDS: PIPERACILLIN-TAZOBACTAM 3.375 GM in DEXTROSE/WATER 1 50ML.BAG IVPB SCH ×3 (02:00→16:12)
[2017-02-07] MEDS: PROPOFOL 1,000 MG/100 ML VIAL IV SCH ×6 (02:08→23:55)
[2017-02-07] MEDS: SODIUM CHLORIDE 0.9% 1,000 ML IV SCH ×2 (02:10→13:11)
[2017-02-07 02:59] LABS: Glucose,Whole Blood 100 mg/dL (75-99)
[2017-02-07] MEDS: 1: MVI, ADULT NO.4 WITH VIT K 10 ML, THIAMINE 100 MG, FOLIC ACID 1 MG, POTASSIUM CHLORID IV SCH ×10 (03:52→11:00)
[2017-02-07] MEDS: LORazepam 2 MG/ML SYRINGE IV PRN ×4 (04:13→20:08)
[2017-02-07 05:15] LABS: Anion Gap 4 mmol/L; Blood Urea Nitrogen 8 mg/dL (9-20); Carbon Dioxide 27 mmol/L (22-30); Chloride 111 mmol/L (98-107); Glucose 107 mg/dL (74-99); Non-African American GFR(MDRD) >60 (>60 ml/min/1.73 sqM); Phosphorous 2.5 mg/dL (2.5-4.5); Potassium 5.1 mmol/L (3.5-5.1); Sodium 142 mmol/L (137-145)
[2017-02-07 05:41] LABS: Calcium 6.5 mg/dL (8.4-10.2)
[2017-02-07 06:14] LABS: Basophils % (A) 0 %; CH 35.5; CHCM 30.7; Eosinophils # (A) 0.1 k/uL (0-0.7); Eosinophils % (A) 3 %; HCT 31.4 % (39.0-53.0); HDW 2.34; Hypochromasia Slight; Luc # (Auto) 0.09; Luc % (Auto) 2; Lymphocytes # (A) 0.9 k/uL (1.0-4.8); Lymphocytes % (A) 16 %; MCH 35.6 pg (25.0-35.0); MCHC 30.6 g/dL (31.0-37.0); Macrocytosis Marked; Mean Platelet Volume 8.9; Monocytes # (A) 0.4 k/uL (0-1.0); Monocytes % (A) 8 %; Neutrophils # (A) 3.9 k/uL (1.3-7.7); Neutrophils % (A) 72 %; RDW 14.7 % (11.5-15.5); WBC 5.4 k/uL (3.8-10.6); WBC (Perox) 5.55
[2017-02-07 06:18] LABS: HGB 9.6 gm/dL (13.0-17.5)
[2017-02-07 06:19] LABS: MCV 116.4 fL (80.0-100.0)
[2017-02-07 06:20] LABS: ABG PH 7.47 (7.35-7.45)
[2017-02-07 06:21] LABS: ABG HCO3 27 mmol/L (21-25); ABG PCO2 38 mmHg (35-45); ABG PO2 76 mmHg (83-108); ABG TCO2 28 mmol/L (19-24)
[2017-02-07 06:22] LABS: ABG Base Excess 3.6 mmol/L
[2017-02-07 06:47] LABS: Glucose,Whole Blood 91 mg/dL (75-99)
[2017-02-07 07:40] LABS: Manual Review Performed
[2017-02-07] MEDS ORDERED: CALCIUM GLUCONATE 1,000 MG in SODIUM CHLORIDE 0.9% 100 ML IVPB ONE (08:00)
--- NOTE | 2017-02-07 08:04 | XR ---
EXAMINATION TYPE: XR chest 1V portable DATE OF EXAM: 02/07/2017 COMPARISON: 02/06/2017 HISTORY: Tube placement TECHNIQUE: Single frontal view of the chest is obtained. FINDINGS: Bilateral consolidation and pleural effusion noted which is progressed on the right. ET an d NG tube stable in position. Left-sided central line again noted. No sizable pneumothorax. IMPRESSION: 1. Bilateral airspace disease and pleural effusion progression on the right. Mild central venous adriana estion not excluded.
[2017-02-07] MEDS: CLEVIDIPINE BUTYRATE 25 MG in EMPTY BAG 1 BAG IV SCH (08:28)
[2017-02-07] MEDS: NICOTINE 21MG/24HR PATCH TRANSDERM SCH (08:29)
[2017-02-07] MEDS: PANTOPRAZOLE 40 MG/10 ML VIAL IVP SCH (08:30)
[2017-02-07] MEDS: POTASSIUM CHLORIDE ORAL LIQUID 40 MEQ/30 ML CUP PO SCH ×2 (08:30→20:09)
[2017-02-07] MEDS: traMADol 50 MG TAB PO SCH ×3 (08:30→23:54)
[2017-02-07] MEDS: ASPIRIN 325 MG TAB PO SCH (08:30)
[2017-02-07] MEDS: ENOXAPARIN 40 MG/0.4 ML SYRINGE SQ SCH (08:30)
[2017-02-07] MEDS: CHLORHEXIDINE GLUCONATE 15 ML CUP MUCOUS MEM SCH ×2 (08:30→20:08)
[2017-02-07] MEDS: METOPROLOL TARTRATE 25 MG TAB PO SCH ×2 (08:56→20:08)
--- NOTE | 2017-02-07 10:36 | P.PN ---
Subjective A 51-year-old male patient, alcoholic, who was admitted to the hospital after he fell at home. He is a very poor historian. He came into the hospital and he was found to be in impending delirium tremens. At the same time he had severe electrolyte imbalance with hypokalemia, hypocalcemia and hypomagnesemia and same time the patient was found to be in acute rhabdomyolysis. The patient was started in IV fluids. Electrodes imbalance was also corrected. Later on in the evening the patient became short of breath. He was suspected to be in pulmonary edema. He was given a dose of Lasix and following that he was moved to the intensive care unit. No clear-cut history of aspiration. I reviewed his chest x-ray and there is no convincing evidence of pneumonia or heart failure. Echocardiogram is in progress. Meanwhile the patient was started on IV Lasix and his IV fluids were Down. CPK is still elevated. No evidence of an acute renal failure. He was awake and alert at the time of my evaluation this morning. No obvious signs of confusions or delirium tremens. He was given thiamine and folate. Otherwise his history is negative. He is a chronic drinker and cigarette smoker. On 02/05/2017 I'm seeing this patient for a follow-up. The patient remains in intensive care unit. Mentally is gotten worse and he has progressed into active delirium tremens requiring high dose of Ativan that was given overnight. The patient was given Ativan pushes, a total of 20 mg overnight. He is still agitated. Restless. He is thrashing in bed. He is tachypneic. Is on high flow oxygen at 15 L/m and the chest x-ray shows some mild pulmonary vascular congestion. Underlying bibasilar pulmonary infiltrates cannot be completely ruled out. He is still having active diarrhea. After mass was added. Stool for C. diff was negative. He was given Imodium which improved consistency of the stool and became more solid. No abdominal distention. No nausea or vomiting. NG tube is in place. Electrodes are still off. We are chasing the potassium aggressively. He was given a total of 60 mEq of potassium oral potassium level of 2.5 and his morning potassium is down to 2.4. Note that he also received potassium infusions earlier throughout the day. He also received another 60 mEq of potassium orally. As for the magnesium, the level came at 1.7 this morning and he received an additional 2 g. The calcium ionized from this morning was 3.3 and he received an additional 2 g of calcium gluconate. He is receiving IV fluids 0.9 at 100 mL an hour and his alternating with 0.9 with MVII and 20 mEq of potassium chloride infusion. The echocardiogram was completed and the patient had a normal ejection fraction of 55-60% and there was no valvular dysfunction. He was noted to have no significant pulmonary hypertension. Some minimal mitral and aortic regurgitation was noted. RV systolic pressure was around 25. On 02/06/2017 the patient is being seen in follow-up in intensive care unit. The patient intubated on a mechanical ventilator. This morning he is an assist- control mode at the rate of 20, tidal volume of 450, FiO2 of 50% and a PEEP of 5. The blood gases from this morning shows a component of metabolic alkalosis with a pH of 7.5 and a pCO2 of 39 and pO2 of 74. The metabolic alkalosis is most likely related to his underlying diarrhea. Note that his diarrhea has subsided. The patient has erythematous system. Stool for C. diff has been negative. The patient's electronic has been essentially corrected. The potassium level is normalized. Magnesium level is normalized. The patient is receiving another dose of calcium to bring his ionized calcium of 4. Otherwise , is was sedated with Diprivan which is currently running at 40 mics. He is hemodynamically stable and he is off pressors. He is producing adequate amount of urine output. No agitation. No restlessness. No fever. He is on IV Zosyn for empiric antibiotic coverage regarding potential aspiration pneumonia. Echocardiogram was within normal limits. Tube feeds will be started today. We' ll keep him intubated for another 24 hours. May need to give him a sedation holiday to assess his underlying mentation at a later stage today. On 02/05/2017 I'm seeing this patient for a follow-up. The actively issue remains his delirium tremens. Despite being on high dose of Diprivan and a lot of and Ativan the patient is still arousable. At times is a bit agitated. A sedation holiday was given and we felt that the patient is not ready yet for weaning and extubation due to his restlessness and agitation. He also had an autonomic reaction with increased blood pressure and heart rate and breathing. We'll give this patient another 24 hours on a mechanical ventilator and we'll proceed with weaning efforts tomorrow. He remains on a mechanical ventilator. An assist-control mode of ventilation. His vent setting is essentially unchanged with a tidal volume 450, FiO2 of 50% at was dropped down to 40% and has a PEEP of 5 and his rate that 16. The sputum analysis showed midaxilla catarrhalis. He is currently on IV Zosyn. The chest x-ray shows no acute abnormalities. No significant orotracheal secretions. Tolerating his tube feeds. All of his electrolytes have been managing the placed with exception of a limited hypocalcemia which is being further supplemented. He is on tube feeds. Diarrhea is subsiding. No fever. No chills. No seizure activity. No other complaints otherwise for now. Objective - Vital Signs Vital signs: Vital Signs Temp 98.4 F 02/07/17 08:00 Pulse 91 02/07/17 09:00 Resp 18 02/07/17 09:00 BP 139/96 02/07/17 09:00 Pulse Ox 99 02/07/17 09:00 Intake & Output 02/06/17 02/07/17 02/07/17 18:59 06:59 18:59 Intake Total 2905.541 1744.277 457.5 Output Total 950 1767 260 Balance 1955.541 -22.723 197.5 Weight 102 kg 102 kg Intake: IV 1047.5 1195.0 337.5 0.9NaCl kvo 485 135 Calcium Gluconate 1,000 100 mg In Sodium Chloride 0.9 % 100 ml @ 100 mls/hr IVPB ONCE ONE Rx#: [id number] MVI 375 Mvi, Adult No.4 with Vit 525 75 K 10 ml Thiamine 100 mg Folic Acid 1 mg Potassium Chloride 40 meq In Sodium Chloride 0.9% 1, 000 ml @ 75 mls/hr IV .BY DURATION [facility] Rx#: [id number] Piperacillin-Tazobactam 3 37.5 25.0 12.5 .375 gm In Dextrose/Water 1 50ml.bag @ 12.5 mls/hr IVPB Q8HR [facility] Rx#: [id number] Sodium Chloride 0.9% 1, 385 225 000 ml @ 75 mls/hr IV . [id number] [facility] Rx#:[id number] magnesium 200 Intake, IV Titration 1318.041 229.277 Amount Piperacillin-Tazobactam 3 50.0 .375 gm In Dextrose/Water 1 50ml.bag @ 12.5 mls/hr IVPB Q8HR [facility] Rx#: [id number] Propofol 1,000 mg In 100 268.041 229.277 ml @ Titrate IV .Q0M [facility] Rx#:[id number] Sodium Chloride 0.9% 1, 1000 000 ml @ 100 mls/hr IV . BY DURATION [facility] Rx#: [id number] Tube Feeding 540 240 120 Other 80 Output: Urine 950 1167 260 Stool 600 Other: Voiding Method Indwelling Catheter Indwelling Catheter Indwelling Catheter ABP, PAP, CO, CI - Last Documented Arterial Blood Pressure 111/81 - Exam Gen. appearance, the patient is intubated on a mechanical ventilator. Orogastric and orotracheal tube is in place. The patient is very much, comfortable while being sedated on Diprivan. Head is atraumatic normocephalic. Neck is supple there is no JVDs no goiter or neck masses. NG tube is in place. Lung sounds are diminished in lung bases bilaterally along with some scattered rhonchi and crackles in lung bases. No wheezes.Cardiac exam revealed the PMI to be normally situated and sized. The rhythm was regular and no extrasystoles were noted during several minutes of auscultation. The first and second heart sounds were normal and physiologic splitting of the second heart sound was noted. There were no murmurs, rubs, clicks, or gallops.Abdominal exam revealed normal bowel sounds. The abdomen was soft, non-tender, and without masses, organomegaly, or appreciable enlargement of the abdominal aorta.Examination of the extremities revealed easily palpable radial, femoral and pedal pulses. There was no cyanosis, clubbing or edema. Neurologic exam is nonfocal. He is sedated. He does wake up and he would withdraw to painful stimuli. For the most part is under the effect of sedation.. Examination of the skin shows no ulceration wounds or cellulitis. Skeletal exam shows no deformities or active arthritis. - Labs CBC & Chem 7: 02/07/17 04:51 02/07/17 04:51 Labs: Abnormal Lab Results - Last 24 Hours (Table) 09/21/17 09/21/17 09/21/17 Range/Units 05:48 12:07 12:16 RBC (4.30-5.90) m/uL Hgb (13.0-17.5) gm/dL Hct (39.0-53.0) % MCV (80.0-100.0) fL MCH (25.0-35.0) pg MCHC (31.0-37.0) g/dL Lymphocytes # (1.0-4.8) k/uL ABG pH 7.50 H (7.35-7.45) ABG pO2 74 L (83-108) mmHg ABG HCO3 31 H (21-25) mmol/L ABG Total CO2 32 H (19-24) mmol/L Potassium (3.5-5.1) mmol/L Chloride (98-107) mmol/L BUN (9-20) mg/dL Glucose (74-99) mg/dL POC Glucose (mg/dL) 114 H (75-99) mg/dL Calcium (8.4-10.2) mg/dL Ionized Calcium Gideon (4.5-5.3) mg/dL Creatine Kinase 2346 H (55-170) U/L 02/06/17 02/06/17 02/07/17 Range/Units 22:20 22:30 02:45 RBC (4.30-5.90) m/uL Hgb (13.0-17.5) gm/dL Hct (39.0-53.0) % MCV (80.0-100.0) fL MCH (25.0-35.0) pg MCHC (31.0-37.0) g/dL Lymphocytes # (1.0-4.8) k/uL ABG pH (7.35-7.45) ABG pO2 (83-108) mmHg ABG HCO3 (21-25) mmol/L ABG Total CO2 (19-24) mmol/L Potassium 5.9 H (3.5-5.1) mmol/L Chloride (98-107) mmol/L BUN (9-20) mg/dL Glucose (74-99) mg/dL POC Glucose (mg/dL) 103 H 100 H (75-99) mg/dL Calcium (8.4-10.2) mg/dL Ionized Calcium Gideon (4.5-5.3) mg/dL Creatine Kinase (55-170) U/L 02/07/17 02/07/17 02/07/17 Range/Units 04:51 04:51 05:16 RBC 2.70 L (4.30-5.90) m/uL Hgb 9.6 L D (13.0-17.5) gm/dL Hct 31.4 L (39.0-53.0) % MCV 116.4 H D (80.0-100.0) fL MCH 35.6 H (25.0-35.0) pg MCHC 30.6 L (31.0-37.0) g/dL Lymphocytes # 0.9 L (1.0-4.8) k/uL ABG pH 7.47 H (7.35-7.45) ABG pO2 76 L (83-108) mmHg ABG HCO3 27 H (21-25) mmol/L ABG Total CO2 28 H (19-24) mmol/L Potassium (3.5-5.1) mmol/L Chloride 111 H (98-107) mmol/L BUN 8 L (9-20) mg/dL Glucose 107 H (74-99) mg/dL POC Glucose (mg/dL) (75-99) mg/dL Calcium 6.5 L* (8.4-10.2) mg/dL Ionized Calcium Gideon (4.5-5.3) mg/dL Creatine Kinase (55-170) U/L 02/07/17 Range/Units 06:12 RBC (4.30-5.90) m/uL Hgb (13.0-17.5) gm/dL Hct (39.0-53.0) % MCV (80.0-100.0) fL MCH (25.0-35.0) pg MCHC (31.0-37.0) g/dL Lymphocytes # (1.0-4.8) k/uL ABG pH (7.35-7.45) ABG pO2 (83-108) mmHg ABG HCO3 (21-25) mmol/L ABG Total CO2 (19-24) mmol/L Potassium (3.5-5.1) mmol/L Chloride (98-107) mmol/L BUN (9-20) mg/dL Glucose (74-99) mg/dL POC Glucose (mg/dL) (75-99) mg/dL Calcium (8.4-10.2) mg/dL Ionized Calcium Gideon 4.1 L (4.5-5.3) mg/dL Creatine Kinase (55-170) U/L Microbiology - Last 24 Hours (Table) 02/05/17 08:00 Gram Stain - Preliminary Sputum Sputum Culture - Preliminary Moraxella(branhamella) catarra Gram Neg Bacilli Assessment and Plan Plan: Assessment 1 acute delirium tremens secondary to alcohol withdrawal. The patient was severely encephalopathic. He was requiring high doses of Ativan. Ultimately was intubated and placed on mechanical ventilator as the patient was being treated for his delirium tremens. He was also started on Diprivan for sedation. On today's evaluation of 02/07/2017 the patient remains on Diprivan and is also requiring a combination of Ativan and Dilaudid for restlessness and agitation. At a time of my evaluation he was well-controlled. Daily sedation holidays are being given. Not ready for weaning and extubation yet. 2 acute respiratory failure, rule out aspiration, rule out a component of fluid overload. Currently the patient is intubated on a mechanical ventilator. . Chest x-ray findings are stable and the patient on empiric antibiotic coverage with IV Zosyn. The sputum is showing Moraxella catarrhalis. Rule out underlying pneumonia. Continue IV Zosyn. Chest x-ray shows limited atelectatic changes in lung bases more so on the right. 3 acute rhabdomyolysis secondary to above, improving and the CPK levels are down to 2000 4 severe electrodes imbalance with hypokalemia, hypomagnesemia and hypo- calcemic. The patient is aggressively being resuscitated with fluids and electrodes are being also replaced. The electrolytes have improved considerably at this point. There are essentially normalized. 5 alcoholism, as the patient admits to drink more than 3 gallons of liquor over the weekend. 6 transient hypotension, recovered and the patient is currently off pressors 7 falls, secondary to alcoholism 8 diarrhea, improving Plan Continue vent support for another 24 hours. Keep the patient on sedation for another 24 hours. I think within 72 hours the delirium tremens should completely recover and I'm contemplating to wean this patient off the sedation and extubated him possibly in the morning if he is to be stable. Meanwhile continue tube feeds. Continue sedation. Continue hemodynamic support. Continue that management. Continue IV Zosyn. Monitor fever pattern. Daily sedation holidays. Condition is stable. Critically care evaluation. 32 minutes. Case discussed with the medical team. Time with Patient: Greater than 30
[2017-02-07 11:57] LABS: Glucose,Whole Blood 84 mg/dL (75-99)
--- NOTE | 2017-02-07 12:06 | P.PN ---
Subjective Principal diagnosis: Rhabdomyolysis,delirium tremens Patient still with diarrhea. needing 50 mcg of propofol. No seizure. No fever Objective - Vital Signs Vital signs: Vital Signs Temp 98.4 F 02/07/17 08:00 Pulse 86 02/07/17 11:32 Resp 16 02/07/17 11:00 BP 137/90 02/07/17 11:00 Pulse Ox 96 02/07/17 11:15 Intake & Output 02/06/17 02/07/17 02/07/17 18:59 06:59 18:59 Intake Total 2905.541 1744.277 929.035 Output Total 950 1767 460 Balance 1955.541 -22.723 469.035 Weight 102 kg 102 kg Intake: IV 1047.5 1195.0 600.0 0.9NaCl kvo 485 135 Calcium Gluconate 1,000 100 mg In Sodium Chloride 0.9 % 100 ml @ 100 mls/hr IVPB ONCE ONE Rx#: [id number] MVI 375 Mvi, Adult No.4 with Vit 525 75 K 10 ml Thiamine 100 mg Folic Acid 1 mg Potassium Chloride 40 meq In Sodium Chloride 0.9% 1, 000 ml @ 75 mls/hr IV .BY DURATION [facility] Rx#: [id number] Piperacillin-Tazobactam 3 37.5 25.0 50.0 .375 gm In Dextrose/Water 1 50ml.bag @ 12.5 mls/hr IVPB Q8HR [facility] Rx#: [id number] Sodium Chloride 0.9% 1, 385 450 000 ml @ 75 mls/hr IV . [id number] [facility] Rx#:[id number] magnesium 200 Intake, IV Titration 1318.041 229.277 89.035 Amount Piperacillin-Tazobactam 3 50.0 .375 gm In Dextrose/Water 1 50ml.bag @ 12.5 mls/hr IVPB Q8HR [facility] Rx#: [id number] Propofol 1,000 mg In 100 268.041 229.277 89.035 ml @ Titrate IV .Q0M [facility] Rx#:[id number] Sodium Chloride 0.9% 1, 1000 000 ml @ 100 mls/hr IV . BY DURATION [facility] Rx#: [id number] Tube Feeding 540 240 240 Other 80 Output: Urine 950 1167 460 Stool 600 Other: Voiding Method Indwelling Catheter Indwelling Catheter Indwelling Catheter ABP, PAP, CO, CI - Last Documented Arterial Blood Pressure 149/86 - Exam gen:sedated, et tube and ngt in place lungs:clear to auscultation, no crackles, no wheezes heart:s1s2, no murmurs, normal rate and rhythm abdomen:soft and depressible,non tender ext:no edema,, no swelling pulses palpable - Labs CBC & Chem 7: 02/07/17 04:51 02/07/17 04:51 Labs: Abnormal Lab Results - Last 24 Hours (Table) 02/06/17 02/06/17 02/06/17 Range/Units 05:48 12:07 12:16 RBC (4.30-5.90) m/uL Hgb (13.0-17.5) gm/dL Hct (39.0-53.0) % MCV (80.0-100.0) fL MCH (25.0-35.0) pg MCHC (31.0-37.0) g/dL Lymphocytes # (1.0-4.8) k/uL ABG pH 7.50 H (7.35-7.45) ABG pO2 74 L (83-108) mmHg ABG HCO3 31 H (21-25) mmol/L ABG Total CO2 32 H (19-24) mmol/L Potassium (3.5-5.1) mmol/L Chloride (98-107) mmol/L BUN (9-20) mg/dL Glucose (74-99) mg/dL POC Glucose (mg/dL) 114 H (75-99) mg/dL Calcium (8.4-10.2) mg/dL Ionized Calcium Gideon (4.5-5.3) mg/dL Creatine Kinase 2346 H (55-170) U/L 02/06/17 02/06/17 02/07/17 Range/Units 22:20 22:30 02:45 RBC (4.30-5.90) m/uL Hgb (13.0-17.5) gm/dL Hct (39.0-53.0) % MCV (80.0-100.0) fL MCH (25.0-35.0) pg MCHC (31.0-37.0) g/dL Lymphocytes # (1.0-4.8) k/uL ABG pH (7.35-7.45) ABG pO2 (83-108) mmHg ABG HCO3 (21-25) mmol/L ABG Total CO2 (19-24) mmol/L Potassium 5.9 H (3.5-5.1) mmol/L Chloride (98-107) mmol/L BUN (9-20) mg/dL Glucose (74-99) mg/dL POC Glucose (mg/dL) 103 H 100 H (75-99) mg/dL Calcium (8.4-10.2) mg/dL Ionized Calcium Gideon (4.5-5.3) mg/dL Creatine Kinase (55-170) U/L 02/07/17 02/07/17 02/07/17 Range/Units 04:51 04:51 05:16 RBC 2.70 L (4.30-5.90) m/uL Hgb 9.6 L D (13.0-17.5) gm/dL Hct 31.4 L (39.0-53.0) % MCV 116.4 H D (80.0-100.0) fL MCH 35.6 H (25.0-35.0) pg MCHC 30.6 L (31.0-37.0) g/dL Lymphocytes # 0.9 L (1.0-4.8) k/uL ABG pH 7.47 H (7.35-7.45) ABG pO2 76 L (83-108) mmHg ABG HCO3 27 H (21-25) mmol/L ABG Total CO2 28 H (19-24) mmol/L Potassium (3.5-5.1) mmol/L Chloride 111 H (98-107) mmol/L BUN 8 L (9-20) mg/dL Glucose 107 H (74-99) mg/dL POC Glucose (mg/dL) (75-99) mg/dL Calcium 6.5 L* (8.4-10.2) mg/dL Ionized Calcium Gideon (4.5-5.3) mg/dL Creatine Kinase (55-170) U/L 02/07/17 Range/Units 06:12 RBC (4.30-5.90) m/uL Hgb (13.0-17.5) gm/dL Hct (39.0-53.0) % MCV (80.0-100.0) fL MCH (25.0-35.0) pg MCHC (31.0-37.0) g/dL Lymphocytes # (1.0-4.8) k/uL ABG pH (7.35-7.45) ABG pO2 (83-108) mmHg ABG HCO3 (21-25) mmol/L ABG Total CO2 (19-24) mmol/L Potassium (3.5-5.1) mmol/L Chloride (98-107) mmol/L BUN (9-20) mg/dL Glucose (74-99) mg/dL POC Glucose (mg/dL) (75-99) mg/dL Calcium (8.4-10.2) mg/dL Ionized Calcium Gideon 4.1 L (4.5-5.3) mg/dL Creatine Kinase (55-170) U/L Microbiology - Last 24 Hours (Table) 02/05/17 08:00 Gram Stain - Preliminary Sputum Sputum Culture - Preliminary Moraxella(branhamella) catarra Gram Neg Bacilli Assessment and Plan (1) Respiratory failure with hypoxia Narrative/Plan: On mechanical ventilation Dr. Mckinnon managing vent. Propofol for sedation. Status: Acute (2) Delirium tremens Narrative/Plan: Still on propofol 50 mics. Continue to monitor closely. Status: Acute (3) Rhabdomyolysis Narrative/Plan: CPK pending. Continue to monitor. Status: Acute (4) Dehydration Status: Acute (5) Hypokalemia Status: Acute (6) Alcoholism /alcohol abuse Narrative/Plan: Patient drank 3 gallons of vodka per week Status: Acute (7) Bulging lumbar disc Status: Acute (8) Hypomagnesemia Status: Acute
--- NOTE | 2017-02-07 13:33 | P.PN ---
Subjective Principal diagnosis: Acute respiratory failure This is a 51-year-old gentleman with a past medical history significant for alcohol abuse as well as significant history of smoking who was admitted to the hospital after he fell at home. The patient is a poor historian. On Friday evening he fell out of the bed. He did not recall having any chest pain or discomfort or difficulty breathing or feeling of heart racing or fluttering at that point. Ambulance was called and the patient was brought to the emergency department then he was admitted to the hospital and he was getting treated for alcohol intoxication. The patient drinks about half a common of vodka every day. And he was drinking on that day. On the floor in the hospital, the patient was the setting and that was last night. He was also wheezing. For that reason he was transferred to the intensive care unit. He was started on Lasix as well. On follow-up with the patient today on 02/07/2017, he is in acute respiratory failure and he was intubated to protect his airways. Hemodynamically he continues to be stable and not requiring any vasopressors at this point. The echocardiogram showed normal LV function without any significant valvular abnormalities. Objective - Vital Signs Vital signs: Vital Signs Temp 99.6 F 02/07/17 12:00 Pulse 83 02/07/17 13:00 Resp 16 02/07/17 13:00 BP 107/75 02/07/17 13:00 Pulse Ox 98 02/07/17 13:00 Intake & Output 02/06/17 02/07/17 02/07/17 18:59 06:59 18:59 Intake Total 2905.541 5344.733 9181.035 Output Total 950 1767 560 Balance 1955.541 -22.723 504.035 Weight 102 kg 102 kg Intake: IV 1047.5 1195.0 675.0 0.9NaCl kvo 485 135 Calcium Gluconate 1,000 100 mg In Sodium Chloride 0.9 % 100 ml @ 100 mls/hr IVPB ONCE ONE Rx#: [id number] MVI 375 Mvi, Adult No.4 with Vit 525 75 K 10 ml Thiamine 100 mg Folic Acid 1 mg Potassium Chloride 40 meq In Sodium Chloride 0.9% 1, 000 ml @ 75 mls/hr IV .BY DURATION [facility] Rx#: [id number] Piperacillin-Tazobactam 3 37.5 25.0 50.0 .375 gm In Dextrose/Water 1 50ml.bag @ 12.5 mls/hr IVPB Q8HR [facility] Rx#: [id number] Sodium Chloride 0.9% 1, 385 525 000 ml @ 75 mls/hr IV . [id number] [facility] Rx#:[id number] magnesium 200 Intake, IV Titration 1318.041 229.277 89.035 Amount Piperacillin-Tazobactam 3 50.0 .375 gm In Dextrose/Water 1 50ml.bag @ 12.5 mls/hr IVPB Q8HR [facility] Rx#: [id number] Propofol 1,000 mg In 100 268.041 229.277 89.035 ml @ Titrate IV .Q0M [facility] Rx#:[id number] Sodium Chloride 0.9% 1, 1000 000 ml @ 100 mls/hr IV . BY DURATION [facility] Rx#: [id number] Tube Feeding 540 240 300 Other 80 Output: Urine 950 1167 560 Stool 600 Other: Voiding Method Indwelling Catheter Indwelling Catheter Indwelling Catheter ABP, PAP, CO, CI - Last Documented Arterial Blood Pressure 119/69 - Constitutional General appearance: Present: no acute distress - Respiratory Respiratory: bilateral: CTA - Cardiovascular Rhythm: regular Heart sounds: normal: S1, S2 - Labs CBC & Chem 7: 02/07/17 04:51 02/07/17 04:51 Labs: Abnormal Lab Results - Last 24 Hours (Table) 02/06/17 02/06/17 02/06/17 Range/Units 05:48 22:20 22:30 RBC (4.30-5.90) m/uL Hgb (13.0-17.5) gm/dL Hct (39.0-53.0) % MCV (80.0-100.0) fL MCH (25.0-35.0) pg MCHC (31.0-37.0) g/dL Lymphocytes # (1.0-4.8) k/uL ABG pH 7.50 H (7.35-7.45) ABG pO2 74 L (83-108) mmHg ABG HCO3 31 H (21-25) mmol/L ABG Total CO2 32 H (19-24) mmol/L Potassium 5.9 H (3.5-5.1) mmol/L Chloride (98-107) mmol/L BUN (9-20) mg/dL Glucose (74-99) mg/dL POC Glucose (mg/dL) 103 H (75-99) mg/dL Calcium (8.4-10.2) mg/dL Ionized Calcium Gideon (4.5-5.3) mg/dL 02/07/17 02/07/17 02/07/17 Range/Units 02:45 04:51 04:51 RBC 2.70 L (4.30-5.90) m/uL Hgb 9.6 L D (13.0-17.5) gm/dL Hct 31.4 L (39.0-53.0) % MCV 116.4 H D (80.0-100.0) fL MCH 35.6 H (25.0-35.0) pg MCHC 30.6 L (31.0-37.0) g/dL Lymphocytes # 0.9 L (1.0-4.8) k/uL ABG pH (7.35-7.45) ABG pO2 (83-108) mmHg ABG HCO3 (21-25) mmol/L ABG Total CO2 (19-24) mmol/L Potassium (3.5-5.1) mmol/L Chloride 111 H (98-107) mmol/L BUN 8 L (9-20) mg/dL Glucose 107 H (74-99) mg/dL POC Glucose (mg/dL) 100 H (75-99) mg/dL Calcium 6.5 L* (8.4-10.2) mg/dL Ionized Calcium Gideon (4.5-5.3) mg/dL 02/07/17 02/07/17 Range/Units 05:16 06:12 RBC (4.30-5.90) m/uL Hgb (13.0-17.5) gm/dL Hct (39.0-53.0) % MCV (80.0-100.0) fL MCH (25.0-35.0) pg MCHC (31.0-37.0) g/dL Lymphocytes # (1.0-4.8) k/uL ABG pH 7.47 H (7.35-7.45) ABG pO2 76 L (83-108) mmHg ABG HCO3 27 H (21-25) mmol/L ABG Total CO2 28 H (19-24) mmol/L Potassium (3.5-5.1) mmol/L Chloride (98-107) mmol/L BUN (9-20) mg/dL Glucose (74-99) mg/dL POC Glucose (mg/dL) (75-99) mg/dL Calcium (8.4-10.2) mg/dL Ionized Calcium Gideon 4.1 L (4.5-5.3) mg/dL Microbiology - Last 24 Hours (Table) 02/05/17 08:00 Gram Stain - Preliminary Sputum Sputum Culture - Preliminary Moraxella(branhamella) catarra Gram Neg Bacilli Assessment and Plan Plan: This is a pleasant 51-year-old gentleman with significant history of alcohol and smoking was admitted to the hospital with alcohol intoxication. He developed mild acute respiratory failure which seems to be resolving at this point. Currently the patient is intubated and he is on ventilator. The blood pressure has improved and he is back on beta mynor. He is also on aspirin. From the cardiac vascular standpoint overview we'll continue the current medical treatment.
[2017-02-07 18:10] LABS: Glucose,Whole Blood 93 mg/dL (75-99)
[2017-02-07] MEDS ORDERED: fentaNYL (PF) 50 MCG/ML 2 ML AMP IVP PRN ×2 (21:46→22:49)
[2017-02-07] MEDS ORDERED: fentaNYL (PF) 50 MCG/ML 5 ML AMP IVP PRN (21:46)
[2017-02-07] MEDS: chlordiazePOXIDE 5 MG CAPSULE PO PRN (23:54)
[2017-02-08 00:07] LABS: Glucose,Whole Blood 103 mg/dL (75-99)
[2017-02-08] MEDS: PIPERACILLIN-TAZOBACTAM 3.375 GM in DEXTROSE/WATER 1 50ML.BAG IVPB SCH ×3 (00:10→15:43)
[2017-02-08] MEDS: HYDROmorphone 1 MG/ML 1 ML SYRINGE IVP PRN ×3 (01:58→11:02)
[2017-02-08] MEDS: IPRATROPIUM-ALBUTEROL 3 ML NEB INHALATION SCH ×6 (03:14→23:23)
[2017-02-08] MEDS: SODIUM CHLORIDE 0.9% 1,000 ML IV SCH ×3 (03:25→11:12)
[2017-02-08] MEDS: PROPOFOL 1,000 MG/100 ML VIAL IV SCH ×2 (03:25→06:00)
[2017-02-08] MEDS: LORazepam 2 MG/ML SYRINGE IV PRN ×8 (04:17→20:45)
[2017-02-08 04:36] LABS: ABG HCO3 25 mmol/L (21-25); ABG PCO2 38 mmHg (35-45); ABG PH 7.43 (7.35-7.45); ABG PO2 81 mmHg (83-108); ABG TCO2 26 mmol/L (19-24)
[2017-02-08 04:50] LABS: Basophils % (A) 0 %; CH 34.8; CHCM 30.4; Eosinophils # (A) 0.2 k/uL (0-0.7); Eosinophils % (A) 4 %; HDW 2.34; HGB 11.8 gm/dL (13.0-17.5); Hypochromasia Slight; Luc # (Auto) 0.14; Luc % (Auto) 2; Lymphocytes # (A) 1.1 k/uL (1.0-4.8); Lymphocytes % (A) 16 %; MCH 35.8 pg (25.0-35.0); MCHC 31.2 g/dL (31.0-37.0); Macrocytosis Marked; Mean Platelet Volume 8.3; Monocytes # (A) 0.5 k/uL (0-1.0); Monocytes % (A) 7 %; Neutrophils # (A) 4.7 k/uL (1.3-7.7); Neutrophils % (A) 71 %; RDW 13.7 % (11.5-15.5); WBC 6.6 k/uL (3.8-10.6); WBC (Perox) 6.94
[2017-02-08 05:18] LABS: Ionized Calcium 4.3 mg/dL (4.5-5.3)
[2017-02-08 05:35] LABS: Magnesium 1.3 mg/dL (1.6-2.3)
[2017-02-08 05:36] LABS: Anion Gap 5 mmol/L; Blood Urea Nitrogen 9 mg/dL (9-20); Calcium 7.3 mg/dL (8.4-10.2); Carbon Dioxide 25 mmol/L (22-30); Chloride 108 mmol/L (98-107); Glucose 100 mg/dL (74-99); Non-African American GFR(MDRD) >60 (>60 ml/min/1.73 sqM); Phosphorous 3.5 mg/dL (2.5-4.5); Potassium 5.4 mmol/L (3.5-5.1); Sodium 138 mmol/L (137-145)
[2017-02-08] MEDS ORDERED: CALCIUM GLUCONATE 1,000 MG in SODIUM CHLORIDE 0.9% 100 ML IVPB ONE (06:52)
--- NOTE | 2017-02-08 07:59 | XR ---
EXAMINATION TYPE: XR chest 1V portable DATE OF EXAM: 02/08/2017 HISTORY: Tube placement. REFERENCE: Previous study dated 02/07/2017. FINDINGS: The patient is ET tube and NG tube remain in place, unchanged in appearance. There is bibasilar airspace disease, worse on the left than the right. There are bilateral effusions. Heart size is upper limits of normal. IMPRESSION: NO SIGNIFICANT INTERVAL CHANGE IN THE APPEARANCE OF THE CHEST.
[2017-02-08] MEDS: MAGNESIUM SULFATE-D5W PMX 1 GM in DEXTROSE/WATER 1 100ML.BAG IVPB SCH ×3 (08:14→15:44)
[2017-02-08] MEDS: chlordiazePOXIDE 5 MG CAPSULE PO PRN (08:14)
[2017-02-08] MEDS: ASPIRIN 325 MG TAB PO SCH (08:17)
[2017-02-08] MEDS: CHLORHEXIDINE GLUCONATE 15 ML CUP MUCOUS MEM SCH ×2 (08:17→19:45)
[2017-02-08] MEDS: NICOTINE 21MG/24HR PATCH TRANSDERM SCH (08:17)
[2017-02-08] MEDS: POTASSIUM CHLORIDE ORAL LIQUID 40 MEQ/30 ML CUP PO SCH ×2 (08:18→19:45)
[2017-02-08] MEDS: PANTOPRAZOLE 40 MG/10 ML VIAL IVP SCH (08:18)
[2017-02-08] MEDS: ENOXAPARIN 40 MG/0.4 ML SYRINGE SQ SCH (08:18)
[2017-02-08] MEDS: METOPROLOL TARTRATE 25 MG TAB PO SCH (08:18)
[2017-02-08 08:36] LABS: Amylase <30 U/L (30-110); Creatine Kinase 729 U/L (55-170)
[2017-02-08] MEDS ORDERED: FUROSEMIDE 10 MG/ML 4 ML VIAL IV STA (08:47)
[2017-02-08] MEDS: hydrALAZINE HCL 20 MG/ML 1 ML VIAL IM PRN ×2 (08:47→08:48)
[2017-02-08] MEDS: chlordiazePOXIDE 5 MG CAPSULE PO SCH ×3 (09:26→21:00)
[2017-02-08] MEDS: traMADol 50 MG TAB PO SCH ×3 (11:02→22:43)
[2017-02-08] MEDS: 1: MVI, ADULT NO.4 WITH VIT K 10 ML, THIAMINE 100 MG, FOLIC ACID 1 MG, POTASSIUM CHLORID IV SCH ×10 (11:11→15:44)
[2017-02-08] MEDS: CLEVIDIPINE BUTYRATE 25 MG in EMPTY BAG 1 BAG IV SCH ×5 (11:13→22:57)
[2017-02-08 11:59] LABS: Glucose,Whole Blood 91 mg/dL (75-99)
[2017-02-08] MEDS: HALOPERIDOL LACTATE 5 MG/ML 1 ML VIAL IVP PRN ×2 (13:20→20:01)
--- NOTE | 2017-02-08 13:50 | P.PN ---
Subjective A 51-year-old male patient, alcoholic, who was admitted to the hospital after he fell at home. He is a very poor historian. He came into the hospital and he was found to be in impending delirium tremens. At the same time he had severe electrolyte imbalance with hypokalemia, hypocalcemia and hypomagnesemia and same time the patient was found to be in acute rhabdomyolysis. The patient was started in IV fluids. Electrodes imbalance was also corrected. Later on in the evening the patient became short of breath. He was suspected to be in pulmonary edema. He was given a dose of Lasix and following that he was moved to the intensive care unit. No clear-cut history of aspiration. I reviewed his chest x-ray and there is no convincing evidence of pneumonia or heart failure. Echocardiogram is in progress. Meanwhile the patient was started on IV Lasix and his IV fluids were Down. CPK is still elevated. No evidence of an acute renal failure. He was awake and alert at the time of my evaluation this morning. No obvious signs of confusions or delirium tremens. He was given thiamine and folate. Otherwise his history is negative. He is a chronic drinker and cigarette smoker. On 02/05/2017 I'm seeing this patient for a follow-up. The patient remains in intensive care unit. Mentally is gotten worse and he has progressed into active delirium tremens requiring high dose of Ativan that was given overnight. The patient was given Ativan pushes, a total of 20 mg overnight. He is still agitated. Restless. He is thrashing in bed. He is tachypneic. Is on high flow oxygen at 15 L/m and the chest x-ray shows some mild pulmonary vascular congestion. Underlying bibasilar pulmonary infiltrates cannot be completely ruled out. He is still having active diarrhea. After mass was added. Stool for C. diff was negative. He was given Imodium which improved consistency of the stool and became more solid. No abdominal distention. No nausea or vomiting. NG tube is in place. Electrodes are still off. We are chasing the potassium aggressively. He was given a total of 60 mEq of potassium oral potassium level of 2.5 and his morning potassium is down to 2.4. Note that he also received potassium infusions earlier throughout the day. He also received another 60 mEq of potassium orally. As for the magnesium, the level came at 1.7 this morning and he received an additional 2 g. The calcium ionized from this morning was 3.3 and he received an additional 2 g of calcium gluconate. He is receiving IV fluids 0.9 at 100 mL an hour and his alternating with 0.9 with MVII and 20 mEq of potassium chloride infusion. The echocardiogram was completed and the patient had a normal ejection fraction of 55-60% and there was no valvular dysfunction. He was noted to have no significant pulmonary hypertension. Some minimal mitral and aortic regurgitation was noted. RV systolic pressure was around 25. On 02/06/2017 the patient is being seen in follow-up in intensive care unit. The patient intubated on a mechanical ventilator. This morning he is an assist- control mode at the rate of 20, tidal volume of 450, FiO2 of 50% and a PEEP of 5. The blood gases from this morning shows a component of metabolic alkalosis with a pH of 7.5 and a pCO2 of 39 and pO2 of 74. The metabolic alkalosis is most likely related to his underlying diarrhea. Note that his diarrhea has subsided. The patient has erythematous system. Stool for C. diff has been negative. The patient's electronic has been essentially corrected. The potassium level is normalized. Magnesium level is normalized. The patient is receiving another dose of calcium to bring his ionized calcium of 4. Otherwise , is was sedated with Diprivan which is currently running at 40 mics. He is hemodynamically stable and he is off pressors. He is producing adequate amount of urine output. No agitation. No restlessness. No fever. He is on IV Zosyn for empiric antibiotic coverage regarding potential aspiration pneumonia. Echocardiogram was within normal limits. Tube feeds will be started today. We' ll keep him intubated for another 24 hours. May need to give him a sedation holiday to assess his underlying mentation at a later stage today. On 02/07/2017 I'm seeing this patient for a follow-up. The actively issue remains his delirium tremens. Despite being on high dose of Diprivan and a lot of and Ativan the patient is still arousable. At times is a bit agitated. A sedation holiday was given and we felt that the patient is not ready yet for weaning and extubation due to his restlessness and agitation. He also had an autonomic reaction with increased blood pressure and heart rate and breathing. We'll give this patient another 24 hours on a mechanical ventilator and we'll proceed with weaning efforts tomorrow. He remains on a mechanical ventilator. An assist-control mode of ventilation. His vent setting is essentially unchanged with a tidal volume 450, FiO2 of 50% at was dropped down to 40% and has a PEEP of 5 and his rate that 16. The sputum analysis showed midaxilla catarrhalis. He is currently on IV Zosyn. The chest x-ray shows no acute abnormalities. No significant orotracheal secretions. Tolerating his tube feeds. All of his electrolytes have been managing the placed with exception of a limited hypocalcemia which is being further supplemented. He is on tube feeds. Diarrhea is subsiding. No fever. No chills. No seizure activity. No other complaints otherwise for now. On 02/08/2017 the patient is being seen for a follow-up. A sedation holiday was given the patient seemed to be appropriate. Based on that the patient was given a spontaneous breathing trial for short period of time and following that he was extubated. Postextubation he did well however at a later stage he started having some increased anxiety, tremors and restlessness. He had to be given Ativan again and later on during the day the patient was given a dose of Haldol. Depressive monitoring this patient closely. I'm concerned that he will still bounced back into delirium tremens and he is not fluid recovered. Note that the patient was started on Librium yesterday and a dose of 5 mg by mouth twice a day. He developed also an acute hypertensive reaction for which she will be given Cleviprex. Note that his pulmonary status is also borderline. The patient has been having frequent rest or secretions however he has been able to cough it out. He had Moraxella in his sputum and the patient is currently on IV Zosyn. Today chest x-ray shows small pleural effusions bilaterally. The was given a dose of Lasix with excellent diuresis of more than 2 L after being given 40 mg of IV Lasix. NG tube still in place. Concern is ongoing issues with delirium tremens. Objective - Vital Signs Vital signs: Vital Signs Temp 98.2 F 02/08/17 08:00 Pulse 90 02/08/17 12:30 Resp 19 02/08/17 10:00 BP 156/87 02/08/17 10:00 Pulse Ox 88 L 02/08/17 10:00 Intake & Output 02/07/17 02/08/17 02/08/17 18:59 06:59 18:59 Intake Total 9650.005 7622.372 893.083 Output Total 1035 1520 4955 Balance 947.092 216.372 -4061.917 Weight 102 kg 102 kg Intake: IV 1162.5 920.5 698 Calcium Gluconate 1,000 100 100 mg In Sodium Chloride 0.9 % 100 ml @ 100 mls/hr IVPB ONCE ONE Rx#: [id number] Piperacillin-Tazobactam 3 87.5 62.5 50 .375 gm In Dextrose/Water 1 50ml.bag @ 12.5 mls/hr IVPB Q8HR [facility] Rx#: [id number] Pressure Bag Sodium 33 18 Chloride 0.9% 500ml bag @ 3ml/hr Sodium Chloride 0.9% 1, 975 825 230 000 ml @ 20 mls/hr IV . Q24H [facility] Rx#:[id number] magnesium 300 Intake, IV Titration 279.592 275.872 75.083 Amount Clevidipine Butyrate 25 9 mg In Empty Bag 1 bag @ 1 MG/HR 2 mls/hr IV .Q24H [facility] Rx#:[id number] Propofol 1,000 mg In 100 279.592 275.872 66.083 ml @ Titrate IV .Q0M [facility] Rx#:[id number] Tube Feeding 540 450 120 Other 90 Output: Urine 1035 1420 4955 Stool 100 Other: Voiding Method Indwelling Catheter Indwelling Catheter Indwelling Catheter ABP, PAP, CO, CI - Last Documented Arterial Blood Pressure 183/82 - Exam The patient is restless in bed. He is extubated. He has an NG tube in place. At times he seems to be appropriate at other times he becomes tremulous and agitated and restless. He also developed some autonomic reactions when he sweats and he becomes tachycardic and tachypneic. His blood pressure also shoots up. He is under the effect of Ativan and Librium. He is also receiving Dilaudid and Haldol. Head is atraumatic normocephalic. Neck is short supple and there is significant crowding of posterior oropharynx. The patient has an NG tube in place. Lung sounds are diminished bilaterally with scattered rhonchi.Cardiac exam revealed the PMI to be normally situated and sized. The rhythm was regular and no extrasystoles were noted during several minutes of auscultation. The first and second heart sounds were normal and physiologic splitting of the second heart sound was noted. There were no murmurs, rubs, clicks, or gallops.Abdominal exam revealed normal bowel sounds. The abdomen was soft, non-tender, and without masses, organomegaly, or appreciable enlargement of the abdominal aorta.Examination of the extremities revealed easily palpable radial, femoral and pedal pulses. There was no cyanosis, clubbing or edema.Examination of the skin revealed no evidence of significant rashes, suspicious appearing nevi or other concerning lesions. Skeletal system is within normal without arthritis or deformities. Neurologic exam is nonfocal. The patient is opening his eyes and following commands and answering questions however at other times he becomes inappropriate and confused. His tremulous and somewhat agitated at time of my evaluation this afternoon. He is still and DTs and this progressed again after extubation. - Labs CBC & Chem 7: 02/08/17 04:24 02/08/17 04:24 Labs: Abnormal Lab Results - Last 24 Hours (Table) 02/08/17 02/08/17 02/08/17 Range/Units 00:05 04:24 04:24 RBC 3.30 L (4.30-5.90) m/uL Hgb 11.8 L (13.0-17.5) gm/dL Hct 38.0 L (39.0-53.0) % MCV 115.0 H (80.0-100.0) fL MCH 35.8 H (25.0-35.0) pg ABG pO2 (83-108) mmHg ABG Total CO2 (19-24) mmol/L Potassium 5.4 H (3.5-5.1) mmol/L Chloride 108 H (98-107) mmol/L Glucose 100 H (74-99) mg/dL POC Glucose (mg/dL) 103 H (75-99) mg/dL Calcium 7.3 L (8.4-10.2) mg/dL Ionized Calcium Gideon (4.5-5.3) mg/dL Magnesium (1.6-2.3) mg/dL Creatine Kinase (55-170) U/L Amylase (30-110) U/L Lipase (23-300) U/L 02/08/17 02/08/17 02/08/17 Range/Units 04:24 04:30 04:30 RBC (4.30-5.90) m/uL Hgb (13.0-17.5) gm/dL Hct (39.0-53.0) % MCV (80.0-100.0) fL MCH (25.0-35.0) pg ABG pO2 (83-108) mmHg ABG Total CO2 (19-24) mmol/L Potassium (3.5-5.1) mmol/L Chloride (98-107) mmol/L Glucose (74-99) mg/dL POC Glucose (mg/dL) (75-99) mg/dL Calcium (8.4-10.2) mg/dL Ionized Calcium Gideon 4.3 L (4.5-5.3) mg/dL Magnesium 1.3 L (1.6-2.3) mg/dL Creatine Kinase 729 H (55-170) U/L Amylase <30 L (30-110) U/L Lipase 20 L (23-300) U/L 02/08/17 Range/Units 04:36 RBC (4.30-5.90) m/uL Hgb (13.0-17.5) gm/dL Hct (39.0-53.0) % MCV (80.0-100.0) fL MCH (25.0-35.0) pg ABG pO2 81 L (83-108) mmHg ABG Total CO2 26 H (19-24) mmol/L Potassium (3.5-5.1) mmol/L Chloride (98-107) mmol/L Glucose (74-99) mg/dL POC Glucose (mg/dL) (75-99) mg/dL Calcium (8.4-10.2) mg/dL Ionized Calcium Gideon (4.5-5.3) mg/dL Magnesium (1.6-2.3) mg/dL Creatine Kinase (55-170) U/L Amylase (30-110) U/L Lipase (23-300) U/L Microbiology - Last 24 Hours (Table) 02/05/17 08:00 Gram Stain - Final Sputum Sputum Culture - Final Moraxella(branhamella) catarra Pseudomonas stutzeri Assessment and Plan Plan: Assessment 1 acute delirium tremens secondary to alcohol withdrawal. The patient continues to be in delirium tremens. After 3 days of being intubated on a mechanical ventilator and being treated with Diprivan and sedation, the patient was extubated today and the patient initially was doing well however the seems to be progressing towards stadium tremors again. He is being monitored very closely in the intensive care unit. NG tube is in place. The patient is extubated. 2 acute respiratory failure, post extubation. The patient is currently on high flow oxygen to maintain saturation above 90% chest x-ray showing atelectatic changes small effusion the lung bases. He'll be receiving Lasix. 3 acute rhabdomyolysis improved 4 severe electrodes imbalance with hypokalemia, hypomagnesemia and hypo- calcemic. Improved 5 alcoholism, as the patient admits to drink more than 3 gallons of liquor over the weekend. 6 transient hypotension, recovered and the patient is currently off pressors 7 falls, secondary to alcoholism 8 diarrhea, improving, C. diff has been negative. Plan Monitor neuro status. Continue Ativan. Continue Librium. Keep the NG tube in place. Graciela will be admitted for control of his agitation and restlessness. Aspiration precautions. Pulmonary toileting. IV Zosyn. Lasix 40 mg IV push. For any hypertensive reactions for a tighter blood pressure control. May consider reintubation and put him back on Diprivan if situation gets out of hand and he becomes noncontrollable and he may not be able to protect his airways with a combination of benzodiazepines that he is receiving. We'll monitor his condition closely in ICU. Condition remains critical. We'll follow. There is a critically care evaluation that was done and more than 35 minutes. Time with Patient: Greater than 30
--- NOTE | 2017-02-08 14:01 | P.PN ---
Subjective Principal diagnosis: Acute respiratory failure This is a 51-year-old gentleman with a past medical history significant for alcohol abuse as well as significant history of smoking who was admitted to the hospital after he fell at home. The patient is a poor historian. On Friday evening he fell out of the bed. He did not recall having any chest pain or discomfort or difficulty breathing or feeling of heart racing or fluttering at that point. Ambulance was called and the patient was brought to the emergency department then he was admitted to the hospital and he was getting treated for alcohol intoxication. The patient drinks about half a common of vodka every day. And he was drinking on that day. On the floor in the hospital, the patient was the setting and that was last night. He was also wheezing. For that reason he was transferred to the intensive care unit. He was started on Lasix as well. On follow-up with the patient today on 02/08/2017, he was extubated earlier today. He is tachycardic on the current dose of metoprolol which is 25 mg by mouth twice a day. I am going to increase the dose of metoprolol to 50 mg by mouth twice a day. Objective - Vital Signs Vital signs: Vital Signs Temp 99.1 F 02/08/17 12:00 Pulse 129 H 02/08/17 13:30 Resp 21 02/08/17 13:30 BP 144/70 02/08/17 13:30 Pulse Ox 90 L 02/08/17 13:30 Intake & Output 02/07/17 02/08/17 02/08/17 18:59 06:59 18:59 Intake Total 5142.168 3812.372 893.083 Output Total 1035 1520 4955 Balance 947.092 216.372 -4061.917 Weight 102 kg 102 kg Intake: IV 1162.5 920.5 698 Calcium Gluconate 1,000 100 100 mg In Sodium Chloride 0.9 % 100 ml @ 100 mls/hr IVPB ONCE ONE Rx#: [id number] Piperacillin-Tazobactam 3 87.5 62.5 50 .375 gm In Dextrose/Water 1 50ml.bag @ 12.5 mls/hr IVPB Q8HR [facility] Rx#: [id number] Pressure Bag Sodium 33 18 Chloride 0.9% 500ml bag @ 3ml/hr Sodium Chloride 0.9% 1, 975 825 230 000 ml @ 20 mls/hr IV . Q24H [facility] Rx#:[id number] magnesium 300 Intake, IV Titration 279.592 275.872 75.083 Amount Clevidipine Butyrate 25 9 mg In Empty Bag 1 bag @ 1 MG/HR 2 mls/hr IV .Q24H [facility] Rx#:[id number] Propofol 1,000 mg In 100 279.592 275.872 66.083 ml @ Titrate IV .Q0M [facility] Rx#:[id number] Tube Feeding 540 450 120 Other 90 Output: Urine 1035 1420 4955 Stool 100 Other: Voiding Method Indwelling Catheter Indwelling Catheter Indwelling Catheter ABP, PAP, CO, CI - Last Documented Arterial Blood Pressure 130/64 - Constitutional General appearance: Present: no acute distress - Respiratory Respiratory: bilateral: CTA - Cardiovascular Rhythm: regular Heart sounds: normal: S1, S2 - Labs CBC & Chem 7: 02/08/17 04:24 02/08/17 04:24 Labs: Abnormal Lab Results - Last 24 Hours (Table) 02/08/17 02/08/17 02/08/17 Range/Units 00:05 04:24 04:24 RBC 3.30 L (4.30-5.90) m/uL Hgb 11.8 L (13.0-17.5) gm/dL Hct 38.0 L (39.0-53.0) % MCV 115.0 H (80.0-100.0) fL MCH 35.8 H (25.0-35.0) pg ABG pO2 (83-108) mmHg ABG Total CO2 (19-24) mmol/L Potassium 5.4 H (3.5-5.1) mmol/L Chloride 108 H (98-107) mmol/L Glucose 100 H (74-99) mg/dL POC Glucose (mg/dL) 103 H (75-99) mg/dL Calcium 7.3 L (8.4-10.2) mg/dL Ionized Calcium Gideon (4.5-5.3) mg/dL Magnesium (1.6-2.3) mg/dL Creatine Kinase (55-170) U/L Amylase (30-110) U/L Lipase (23-300) U/L 09/02/08/17 02/08/17 Range/Units 04:24 04:30 04:30 RBC (4.30-5.90) m/uL Hgb (13.0-17.5) gm/dL Hct (39.0-53.0) % MCV (80.0-100.0) fL MCH (25.0-35.0) pg ABG pO2 (83-108) mmHg ABG Total CO2 (19-24) mmol/L Potassium (3.5-5.1) mmol/L Chloride (98-107) mmol/L Glucose (74-99) mg/dL POC Glucose (mg/dL) (75-99) mg/dL Calcium (8.4-10.2) mg/dL Ionized Calcium Gideon 4.3 L (4.5-5.3) mg/dL Magnesium 1.3 L (1.6-2.3) mg/dL Creatine Kinase 729 H (55-170) U/L Amylase <30 L (30-110) U/L Lipase 20 L (23-300) U/L 02/08/17 Range/Units 04:36 RBC (4.30-5.90) m/uL Hgb (13.0-17.5) gm/dL Hct (39.0-53.0) % MCV (80.0-100.0) fL MCH (25.0-35.0) pg ABG pO2 81 L (83-108) mmHg ABG Total CO2 26 H (19-24) mmol/L Potassium (3.5-5.1) mmol/L Chloride (98-107) mmol/L Glucose (74-99) mg/dL POC Glucose (mg/dL) (75-99) mg/dL Calcium (8.4-10.2) mg/dL Ionized Calcium Gideon (4.5-5.3) mg/dL Magnesium (1.6-2.3) mg/dL Creatine Kinase (55-170) U/L Amylase (30-110) U/L Lipase (23-300) U/L Microbiology - Last 24 Hours (Table) 02/05/17 08:00 Gram Stain - Final Sputum Sputum Culture - Final Moraxella(branhamella) catarra Pseudomonas stutzeri Assessment and Plan Plan: This is a pleasant 51-year-old gentleman with significant history of alcohol and smoking was admitted to the hospital with alcohol intoxication. He developed mild acute respiratory failure which seems to be resolving at this point. From the cardiac vascular standpoint I would increase the dose of metoprolol to 50 mg by mouth twice a day.
[2017-02-08 18:29] LABS: Glucose,Whole Blood 95 mg/dL (75-99)
[2017-02-08] MEDS: METOPROLOL TARTRATE 50 MG TAB PO SCH ×2 (20:31→21:00)
[2017-02-09 00:07] LABS: Glucose,Whole Blood 101 mg/dL (75-99)
[2017-02-09] MEDS: PIPERACILLIN-TAZOBACTAM 3.375 GM in DEXTROSE/WATER 1 50ML.BAG IVPB SCH ×3 (00:08→16:11)
[2017-02-09] MEDS: CLEVIDIPINE BUTYRATE 25 MG in EMPTY BAG 1 BAG IV SCH ×7 (00:32→13:29)
[2017-02-09] MEDS: LORazepam 2 MG/ML SYRINGE IV PRN ×2 (02:43→05:04)
[2017-02-09] MEDS: IPRATROPIUM-ALBUTEROL 3 ML NEB INHALATION SCH ×6 (03:22→19:18)
[2017-02-09] MEDS: HYDROmorphone 1 MG/ML 1 ML SYRINGE IVP PRN (03:38)
[2017-02-09] MEDS: HALOPERIDOL LACTATE 5 MG/ML 1 ML VIAL IVP PRN (03:39)
[2017-02-09 04:31] LABS: Basophils % (A) 0 %; CH 35.1; CHCM 31.4; Eosinophils # (A) 0.2 k/uL (0-0.7); Eosinophils % (A) 3 %; HCT 38.4 % (39.0-53.0); HDW 2.32; HGB 12.4 gm/dL (13.0-17.5); Luc % (Auto) 3; Lymphocytes # (A) 1.2 k/uL (1.0-4.8); Lymphocytes % (A) 16 %; MCH 36.2 pg (25.0-35.0); MCHC 32.3 g/dL (31.0-37.0); MCV 112.2 fL (80.0-100.0); Macrocytosis Marked; Mean Platelet Volume 7.6; Monocytes # (A) 0.7 k/uL (0-1.0); Monocytes % (A) 9 %; Neutrophils # (A) 5.5 k/uL (1.3-7.7); Neutrophils % (A) 70 %; RBC 3.42 m/uL (4.30-5.90); RDW 13.9 % (11.5-15.5); WBC 7.8 k/uL (3.8-10.6); WBC (Perox) 8.04
[2017-02-09 04:40] LABS: Anion Gap 9 mmol/L; Blood Urea Nitrogen 8 mg/dL (9-20); Calcium 8.3 mg/dL (8.4-10.2); Carbon Dioxide 23 mmol/L (22-30); Chloride 108 mmol/L (98-107); Glucose 87 mg/dL (74-99); Non-African American GFR(MDRD) >60 (>60 ml/min/1.73 sqM); Phosphorous 4.2 mg/dL (2.5-4.5); Potassium 3.9 mmol/L (3.5-5.1); Sodium 140 mmol/L (137-145)
[2017-02-09] MEDS: SODIUM CHLORIDE 0.9% 1,000 ML IV SCH (05:30)
[2017-02-09 06:07] LABS: Glucose,Whole Blood 89 mg/dL (75-99)
[2017-02-09 06:25] LABS: Ionized Calcium 4.8 mg/dL (4.5-5.3)
[2017-02-09 06:34] LABS: Magnesium 1.6 mg/dL (1.6-2.3)
[2017-02-09] MEDS: MAGNESIUM SULFATE-D5W PMX 1 GM in DEXTROSE/WATER 1 100ML.BAG IVPB SCH ×2 (06:59→08:55)
[2017-02-09] MEDS: chlordiazePOXIDE 5 MG CAPSULE PO SCH ×2 (08:35→20:20)
[2017-02-09] MEDS: ASPIRIN 325 MG TAB PO SCH (08:35)
[2017-02-09] MEDS: NICOTINE 21MG/24HR PATCH TRANSDERM SCH (08:35)
[2017-02-09] MEDS: PANTOPRAZOLE 40 MG/10 ML VIAL IVP SCH (08:35)
[2017-02-09] MEDS: POTASSIUM CHLORIDE ORAL LIQUID 40 MEQ/30 ML CUP PO SCH (08:35)
[2017-02-09] MEDS: METOPROLOL TARTRATE 50 MG TAB PO SCH ×2 (08:36→20:21)
[2017-02-09] MEDS: ENOXAPARIN 40 MG/0.4 ML SYRINGE SQ SCH (08:36)
[2017-02-09] MEDS: 1: MVI, ADULT NO.4 WITH VIT K 10 ML, THIAMINE 100 MG, FOLIC ACID 1 MG, POTASSIUM CHLORID IV SCH ×10 (08:36→16:16)
[2017-02-09] MEDS ORDERED: FUROSEMIDE 10 MG/ML 4 ML VIAL IV STA (09:15)
--- NOTE | 2017-02-09 09:20 | P.PN ---
Subjective Principal diagnosis: patient is being followed up in the ICU for alcohol withdrawal and aspiration pneumonia 51 year old male with history of alcohol abuse, presented after sustaining a fall at home. was found to be at risk of alcohol withdrawal, and admitted for further care. Later, he developed respiratory distress and had to be intubated and admitted to the ICU for further care. Today patient is seen in the ICU, extubated successfully yesterday, currently calm and cooperative with interview and exam, however seems to be confused. Blood pressure still high with tachycardia, but otherwise he denies any chest pain, headache, or trouble breathing, no focal neurologic deficits noted. Objective - Vital Signs Vital signs: Vital Signs Temp 98.9 F 02/09/17 04:00 Pulse 95 02/09/17 07:00 Resp 14 02/09/17 07:00 BP 109/67 02/09/17 07:00 Pulse Ox 95 02/09/17 07:00 Intake & Output 02/08/17 02/09/17 02/09/17 18:59 06:59 18:59 Intake Total 1121.416 650.899 73 Output Total 6005 3115 165 Balance -4883.584 -2464.101 -92 Weight 99.1 kg 93.6 kg Intake: IV 883 338.5 23 Calcium Gluconate 1,000 100 mg In Sodium Chloride 0.9 % 100 ml @ 100 mls/hr IVPB ONCE ONE Rx#: [id number] Piperacillin-Tazobactam 3 100 62.5 .375 gm In Dextrose/Water 1 50ml.bag @ 12.5 mls/hr IVPB Q8HR [facility] Rx#: [id number] Pressure Bag Sodium 33 36 3 Chloride 0.9% 500ml bag @ 3ml/hr Sodium Chloride 0.9% 1, 350 240 000 ml @ 20 mls/hr IV . Q24H [facility] Rx#:[id number] magnesium 300 20 Intake, IV Titration 88.416 312.399 50 Amount Clevidipine Butyrate 25 22.333 312.399 50 mg In Empty Bag 1 bag @ 1 MG/HR 2 mls/hr IV .Q24H [facility] Rx#:[id number] Propofol 1,000 mg In 100 66.083 ml @ Titrate IV .Q0M [facility] Rx#:[id number] Tube Feeding 150 Output: Urine 6005 2915 165 Stool 200 Other: Voiding Method Indwelling Catheter Indwelling Catheter ABP, PAP, CO, CI - Last Documented Arterial Blood Pressure 114/64 - Exam Constitutional: vital signs stable, Not in acute distress, pleasant, conversant, pupils equal round and reactive to light Lungs: Good breath sounds bilaterally , slightly diminished over lung bases, fine inspiratory rales at lung bases. no wheezing or rhonci Cardiovascular: Regular rate and rhythm, no murmurs, no gallops, no rubs, no peripheral edema Gastrointestinal: Soft, no tenderness to palpation, no palpable hepatosplenomegally, bowel sounds positive Extremities: No digital cyanosis or ischemia, no calf muscle tenderness Psych: Alert, oriented to person only Neuro: Cranial nerves II-XII grossly intact, no focal sensory or motor deficits Rectal tube in place no evidence of bleeding , louie cath in place clear yellow urine left subclavian central venous line. surrounding skin unremarkable, no tenderness to palpation Oxygen via nasal canula - Labs CBC & Chem 7: 02/09/17 04:22 02/09/17 04:22 Labs: Abnormal Lab Results - Last 24 Hours (Table) 02/09/17 02/09/17 02/09/17 Range/Units 00:05 04:22 04:22 RBC 3.42 L (4.30-5.90) m/uL Hgb 12.4 L (13.0-17.5) gm/dL Hct 38.4 L (39.0-53.0) % MCV 112.2 H (80.0-100.0) fL MCH 36.2 H (25.0-35.0) pg Chloride 108 H (98-107) mmol/L BUN 8 L (9-20) mg/dL POC Glucose (mg/dL) 101 H (75-99) mg/dL Calcium 8.3 L (8.4-10.2) mg/dL Microbiology - Last 24 Hours (Table) 02/05/17 08:00 Gram Stain - Final Sputum Sputum Culture - Final Moraxella(branhamella) catarra Pseudomonas stutzeri reviewed Assessment and Plan (1) Aspiration pneumonia Narrative/Plan: positive sputum culture on zosyn per pulmonary afebrile Status: Suspected (2) Alcoholism /alcohol abuse Narrative/Plan: counseled to abstain from alcohol withdrawal precautions today is day 7 since his last drink he should by now show signs of improvement if he continues to be agitated and combative, I would consider psych evaluation in the morning as withdrawal symptoms generally resolves after 5 days of abstaining from alcohol Status: Acute (3) Delirium tremens Narrative/Plan: PRN benzos, Haldol as needed Status: Acute (4) Diarrhea Narrative/Plan: C diff negative symptomatic control Status: Acute (5) Hypokalemia Narrative/Plan: replace as needed per ICU protocol Status: Acute (6) Hypomagnesemia Narrative/Plan: replace as needed per ICU protocol Status: Acute (7) Respiratory failure with hypoxia Narrative/Plan: s/p extubation 02/08/2017 doing well now continue with IV lasix for one more day pulmonary toileting Oxygen via nasal canula Status: Acute (8) Rhabdomyolysis Status: Resolved (9) Accelerated hypertension Narrative/Plan: cardiology following currently on Clevidipine drip continue home meds Status: Acute (10) DVT prophylaxis Narrative/Plan: lovenox SC Status: Acute Plan: Tobacco smoking abuse NRT counseling to quit smoking Electrolytes stable today , continue to monitor K and Mg Hemoglobin stable and trending up CODE STATUS:FULL continue care in the ICU for at least another 24 hours , possibly transfer to step down in AM Case discussed with Dr Mckinnon and patient RN
[2017-02-09] MEDS ORDERED: cloNIDine 0.3 MG/24HR PATCH 1 PATCH PATCH TRANSDERM SCH (09:30)
[2017-02-09] MEDS: CHLORHEXIDINE GLUCONATE 15 ML CUP MUCOUS MEM SCH (09:39)
[2017-02-09] MEDS: traMADol 50 MG TAB PO SCH ×3 (10:17→20:22)
[2017-02-09 11:53] LABS: Glucose,Whole Blood 124 mg/dL (75-99)
--- NOTE | 2017-02-09 13:04 | P.PN ---
Subjective A 51-year-old male patient, alcoholic, who was admitted to the hospital after he fell at home. He is a very poor historian. He came into the hospital and he was found to be in impending delirium tremens. At the same time he had severe electrolyte imbalance with hypokalemia, hypocalcemia and hypomagnesemia and same time the patient was found to be in acute rhabdomyolysis. The patient was started in IV fluids. Electrodes imbalance was also corrected. Later on in the evening the patient became short of breath. He was suspected to be in pulmonary edema. He was given a dose of Lasix and following that he was moved to the intensive care unit. No clear-cut history of aspiration. I reviewed his chest x-ray and there is no convincing evidence of pneumonia or heart failure. Echocardiogram is in progress. Meanwhile the patient was started on IV Lasix and his IV fluids were Down. CPK is still elevated. No evidence of an acute renal failure. He was awake and alert at the time of my evaluation this morning. No obvious signs of confusions or delirium tremens. He was given thiamine and folate. Otherwise his history is negative. He is a chronic drinker and cigarette smoker. On 02/05/2017 I'm seeing this patient for a follow-up. The patient remains in intensive care unit. Mentally is gotten worse and he has progressed into active delirium tremens requiring high dose of Ativan that was given overnight. The patient was given Ativan pushes, a total of 20 mg overnight. He is still agitated. Restless. He is thrashing in bed. He is tachypneic. Is on high flow oxygen at 15 L/m and the chest x-ray shows some mild pulmonary vascular congestion. Underlying bibasilar pulmonary infiltrates cannot be completely ruled out. He is still having active diarrhea. After mass was added. Stool for C. diff was negative. He was given Imodium which improved consistency of the stool and became more solid. No abdominal distention. No nausea or vomiting. NG tube is in place. Electrodes are still off. We are chasing the potassium aggressively. He was given a total of 60 mEq of potassium oral potassium level of 2.5 and his morning potassium is down to 2.4. Note that he also received potassium infusions earlier throughout the day. He also received another 60 mEq of potassium orally. As for the magnesium, the level came at 1.7 this morning and he received an additional 2 g. The calcium ionized from this morning was 3.3 and he received an additional 2 g of calcium gluconate. He is receiving IV fluids 0.9 at 100 mL an hour and his alternating with 0.9 with MVII and 20 mEq of potassium chloride infusion. The echocardiogram was completed and the patient had a normal ejection fraction of 55-60% and there was no valvular dysfunction. He was noted to have no significant pulmonary hypertension. Some minimal mitral and aortic regurgitation was noted. RV systolic pressure was around 25. On 02/06/2017 the patient is being seen in follow-up in intensive care unit. The patient intubated on a mechanical ventilator. This morning he is an assist- control mode at the rate of 20, tidal volume of 450, FiO2 of 50% and a PEEP of 5. The blood gases from this morning shows a component of metabolic alkalosis with a pH of 7.5 and a pCO2 of 39 and pO2 of 74. The metabolic alkalosis is most likely related to his underlying diarrhea. Note that his diarrhea has subsided. The patient has erythematous system. Stool for C. diff has been negative. The patient's electronic has been essentially corrected. The potassium level is normalized. Magnesium level is normalized. The patient is receiving another dose of calcium to bring his ionized calcium of 4. Otherwise , is was sedated with Diprivan which is currently running at 40 mics. He is hemodynamically stable and he is off pressors. He is producing adequate amount of urine output. No agitation. No restlessness. No fever. He is on IV Zosyn for empiric antibiotic coverage regarding potential aspiration pneumonia. Echocardiogram was within normal limits. Tube feeds will be started today. We' ll keep him intubated for another 24 hours. May need to give him a sedation holiday to assess his underlying mentation at a later stage today. On 02/07/2017 I'm seeing this patient for a follow-up. The actively issue remains his delirium tremens. Despite being on high dose of Diprivan and a lot of and Ativan the patient is still arousable. At times is a bit agitated. A sedation holiday was given and we felt that the patient is not ready yet for weaning and extubation due to his restlessness and agitation. He also had an autonomic reaction with increased blood pressure and heart rate and breathing. We'll give this patient another 24 hours on a mechanical ventilator and we'll proceed with weaning efforts tomorrow. He remains on a mechanical ventilator. An assist-control mode of ventilation. His vent setting is essentially unchanged with a tidal volume 450, FiO2 of 50% at was dropped down to 40% and has a PEEP of 5 and his rate that 16. The sputum analysis showed midaxilla catarrhalis. He is currently on IV Zosyn. The chest x-ray shows no acute abnormalities. No significant orotracheal secretions. Tolerating his tube feeds. All of his electrolytes have been managing the placed with exception of a limited hypocalcemia which is being further supplemented. He is on tube feeds. Diarrhea is subsiding. No fever. No chills. No seizure activity. No other complaints otherwise for now. On 02/08/2017 the patient is being seen for a follow-up. A sedation holiday was given the patient seemed to be appropriate. Based on that the patient was given a spontaneous breathing trial for short period of time and following that he was extubated. Postextubation he did well however at a later stage he started having some increased anxiety, tremors and restlessness. He had to be given Ativan again and later on during the day the patient was given a dose of Haldol. Depressive monitoring this patient closely. I'm concerned that he will still bounced back into delirium tremens and he is not fluid recovered. Note that the patient was started on Librium yesterday and a dose of 5 mg by mouth twice a day. He developed also an acute hypertensive reaction for which she will be given Cleviprex. Note that his pulmonary status is also borderline. The patient has been having frequent rest or secretions however he has been able to cough it out. He had Moraxella in his sputum and the patient is currently on IV Zosyn. Today chest x-ray shows small pleural effusions bilaterally. The was given a dose of Lasix with excellent diuresis of more than 2 L after being given 40 mg of IV Lasix. NG tube still in place. Concern is ongoing issues with delirium tremens. On 02/09/2017 the patient remains extubated. Overnight he became agitated and restless and this morning it is much more comfortable. Note that he is on Librium, Ativan and receiving Haldol an estimated basis. The patient is on clevidipine drip for blood pressure control. This will be weaned off as the patient will be started on a combination of metoprolol and clonidine patch. He is hemodynamically stable. He was diuresed yesterday with IV Lasix and he is negative fluid balance of more than 7 L. He is coughing and he is able to bring up his secretions. Note that he had Pseudomonas and Moraxella in his sputum and both of them were sensitive to Zosyn and antibiotic will be continued. He pulled out his own G-tube which will be kept out and the patient will have some oral feeding initiate if he is able to swallow. I think his delirium has improved. On and off is confused however he is making much more sense and is becoming more report.. He is not having any significant agitation on today's evaluation. Objective - Vital Signs Vital signs: Vital Signs Temp 99 F 02/09/17 08:00 Pulse 85 02/09/17 10:30 Resp 16 02/09/17 10:30 BP 119/71 02/09/17 10:30 Pulse Ox 95 02/09/17 10:30 Intake & Output 02/08/17 02/09/17 02/09/17 18:59 06:59 18:59 Intake Total 1121.416 650.899 265 Output Total 6005 3115 715 Balance -4883.584 -2464.101 -450 Weight 99.1 kg 93.6 kg Intake: IV 883 338.5 215 Calcium Gluconate 1,000 100 mg In Sodium Chloride 0.9 % 100 ml @ 100 mls/hr IVPB ONCE ONE Rx#: [id number] Piperacillin-Tazobactam 3 100 62.5 .375 gm In Dextrose/Water 1 50ml.bag @ 12.5 mls/hr IVPB Q8HR [facility] Rx#: [id number] Pressure Bag Sodium 33 36 15 Chloride 0.9% 500ml bag @ 3ml/hr Sodium Chloride 0.9% 1, 350 240 80 000 ml @ 20 mls/hr IV . Q24H [facility] Rx#:[id number] magnesium 300 120 Intake, IV Titration 88.416 312.399 50 Amount Clevidipine Butyrate 25 22.333 312.399 50 mg In Empty Bag 1 bag @ 1 MG/HR 2 mls/hr IV .Q24H [facility] Rx#:[id number] Propofol 1,000 mg In 100 66.083 ml @ Titrate IV .[facility] Rx#:[id number] Tube Feeding 150 Output: Urine 6005 2915 715 Stool 200 Other: Voiding Method Indwelling Catheter Indwelling Catheter Indwelling Catheter ABP, PAP, CO, CI - Last Documented Arterial Blood Pressure 119/63 - Exam The patient comfortable in bed. No tremors. No agitation. Head is atraumatic normocephalic. Neck is short supple and there is significant crowding of posterior oropharynx. . Lung sounds are diminished bilaterally with scattered rhonchi.Cardiac exam revealed the PMI to be normally situated and sized. The rhythm was regular and no extrasystoles were noted during several minutes of auscultation. The first and second heart sounds were normal and physiologic splitting of the second heart sound was noted. There were no murmurs, rubs, clicks, or gallops.Abdominal exam revealed normal bowel sounds. The abdomen was soft, non-tender, and without masses, organomegaly, or appreciable enlargement of the abdominal aorta.Examination of the extremities revealed easily palpable radial, femoral and pedal pulses. There was no cyanosis, clubbing or edema.Examination of the skin revealed no evidence of significant rashes, suspicious appearing nevi or other concerning lesions. Skeletal system is within normal without arthritis or deformities. Neurologic exam is nonfocal. He seems to be much more appropriate. He was able to note the present in the place. He is following simple commands and he is moving all 4 extremities without any limitation. - Labs CBC & Chem 7: 02/09/17 04:22 02/09/17 04:22 Labs: Abnormal Lab Results - Last 24 Hours (Table) 02/09/17 02/09/17 02/09/17 Range/Units 00:05 04:22 04:22 RBC 3.42 L (4.30-5.90) m/uL Hgb 12.4 L (13.0-17.5) gm/dL Hct 38.4 L (39.0-53.0) % MCV 112.2 H (80.0-100.0) fL MCH 36.2 H (25.0-35.0) pg Chloride 108 H (98-107) mmol/L BUN 8 L (9-20) mg/dL POC Glucose (mg/dL) 101 H (75-99) mg/dL Calcium 8.3 L (8.4-10.2) mg/dL 02/09/17 Range/Units 11:50 RBC (4.30-5.90) m/uL Hgb (13.0-17.5) gm/dL Hct (39.0-53.0) % MCV (80.0-100.0) fL MCH (25.0-35.0) pg Chloride (98-107) mmol/L BUN (9-20) mg/dL POC Glucose (mg/dL) 124 H (75-99) mg/dL Calcium (8.4-10.2) mg/dL Microbiology - Last 24 Hours (Table) 02/05/17 08:00 Gram Stain - Final Sputum Sputum Culture - Final Moraxella(branhamella) catarra Pseudomonas stutzeri Assessment and Plan Plan: Assessment 1 acute delirium tremens secondary to alcohol withdrawal. The patient continues to be in delirium tremens. After 3 days of being intubated on a mechanical ventilator and being treated with Diprivan and sedation, the patient was extubated . His delirium tremens gradually improving. His agitation and restlessness that is also improved. He is getting less autonomic reaction or response at this point. 2 acute respiratory failure, post extubation. Patient growing Moraxella and Pseudomonas in his sputum and the patient is currently on IV Zosyn. patient is improved. He is currently on 7 L of oxygen nasal cannula which is improving. 3 acute rhabdomyolysis improved 4 severe electrodes imbalance with hypokalemia, hypomagnesemia and hypo- calcemic. Improved 5 alcoholism, as the patient admits to drink more than 3 gallons of liquor over the weekend. 6 transient hypotension, recovered and the patient is currently off pressors 7 falls, secondary to alcoholism 8 diarrhea, improving, C. diff has been negative. 9 hypertension, currently on a combination of metoprolol and clonidine patch and the clevidipine will be weaned off. Plan Monitor neuro status. Continue Ativan. Continue Librium. Haldol as needed. Initiate Catapres patch. Continue metoprolol. Wean off clevidipine drip. Give additional dose of Lasix 40 mg's IV push. Monitor electrolytes. Aspiration precautions. Wean off FiO2. Advance diet as tolerated. Keep in ICU for 24 hours.
--- NOTE | 2017-02-09 14:06 | P.PN ---
Subjective Principal diagnosis: Acute respiratory failure This is a 51-year-old gentleman with a past medical history significant for alcohol abuse as well as significant history of smoking who was admitted to the hospital after he fell at home. The patient is a poor historian. On Friday evening he fell out of the bed. He did not recall having any chest pain or discomfort or difficulty breathing or feeling of heart racing or fluttering at that point. Ambulance was called and the patient was brought to the emergency department then he was admitted to the hospital and he was getting treated for alcohol intoxication. The patient drinks about half a common of vodka every day. And he was drinking on that day. On the floor in the hospital, the patient was the setting and that was last night. He was also wheezing. For that reason he was transferred to the intensive care unit. He was started on Lasix as well. On follow-up with the patient today on 02/09/2017, is doing better. He denies having any chest pain or discomfort or difficulty breathing. The heart rate has improved on the current dose of metoprolol. Objective - Vital Signs Vital signs: Vital Signs Temp 98.7 F 02/09/17 12:00 Pulse 90 02/09/17 13:00 Resp 16 02/09/17 13:00 BP 114/74 02/09/17 13:00 Pulse Ox 95 02/09/17 13:00 Intake & Output 02/08/17 02/09/17 02/09/17 18:59 06:59 18:59 Intake Total 1121.416 650.899 361 Output Total 6005 3115 2340 [facility] -4883.584 -2464.101 -1979 Weight 99.1 kg 93.6 kg Intake: IV 883 338.5 261 Calcium Gluconate 1,000 100 mg In Sodium Chloride 0.9 % 100 ml @ 100 mls/hr IVPB ONCE ONE Rx#: [id number] Piperacillin-Tazobactam 3 100 62.5 .375 gm In Dextrose/Water 1 50ml.bag @ 12.5 mls/hr IVPB Q8HR [facility] Rx#: [id number] Pressure Bag Sodium 33 36 21 Chloride 0.9% 500ml bag @ 3ml/hr Sodium Chloride 0.9% 1, 350 240 120 000 ml @ 20 mls/hr IV . Q24H [facility] Rx#:[id number] magnesium 300 120 Intake, IV Titration 88.416 312.399 100 Amount Clevidipine Butyrate 25 22.333 312.399 100 mg In Empty Bag 1 bag @ 1 MG/HR 2 mls/hr IV .Q24H [facility] Rx#:[id number] Propofol 1,000 mg In 100 66.083 ml @ Titrate IV .Q0M [facility] Rx#:[id number] Tube Feeding 150 Output: Urine 6005 2915 2340 Stool 200 Other: Voiding Method Indwelling Catheter Indwelling Catheter Indwelling Catheter ABP, PAP, CO, CI - Last Documented Arterial Blood Pressure 126/70 - Constitutional General appearance: Present: no acute distress - Respiratory Respiratory: bilateral: CTA - Cardiovascular Rhythm: regular Heart sounds: normal: S1, S2 - Labs CBC & Chem 7: 02/09/17 04:22 02/09/17 04:22 Labs: Abnormal Lab Results - Last 24 Hours (Table) 02/09/17 02/09/17 02/09/17 Range/Units 00:05 04:22 04:22 RBC 3.42 L (4.30-5.90) m/uL Hgb 12.4 L (13.0-17.5) gm/dL Hct 38.4 L (39.0-53.0) % MCV 112.2 H (80.0-100.0) fL MCH 36.2 H (25.0-35.0) pg Chloride 108 H (98-107) mmol/L BUN 8 L (9-20) mg/dL POC Glucose (mg/dL) 101 H (75-99) mg/dL Calcium 8.3 L (8.4-10.2) mg/dL 02/09/17 Range/Units 11:50 RBC (4.30-5.90) m/uL Hgb (13.0-17.5) gm/dL Hct (39.0-53.0) % MCV (80.0-100.0) fL MCH (25.0-35.0) pg Chloride (98-107) mmol/L BUN (9-20) mg/dL POC Glucose (mg/dL) 124 H (75-99) mg/dL Calcium (8.4-10.2) mg/dL Microbiology - Last 24 Hours (Table) 02/05/17 08:00 Gram Stain - Final Sputum Sputum Culture - Final Moraxella(branhamella) catarra Pseudomonas stutzeri Assessment and Plan Plan: This is a pleasant 51-year-old gentleman with significant history of alcohol and smoking was admitted to the hospital with alcohol intoxication. He developed mild acute respiratory failure which seems to be resolving at this point. From the cardiac vascular standpoint I would continue the current dose of metoprolol.
[2017-02-09] MEDS ORDERED: IPRATROPIUM-ALBUTEROL 3 ML NEB INHALATION PRN (18:54)
[2017-02-09] MEDS: hydrALAZINE HCL 20 MG/ML 1 ML VIAL IM PRN (18:55)
[2017-02-09] MEDS: POTASSIUM CHLORIDE ER 20 MEQ TAB.ER PO SCH (20:21)
[2017-02-10] MEDS: PIPERACILLIN-TAZOBACTAM 3.375 GM in DEXTROSE/WATER 1 50ML.BAG IVPB SCH ×3 (00:15→16:13)
[2017-02-10] MEDS: HYDROmorphone 1 MG/ML 1 ML SYRINGE IVP PRN (00:21)
[2017-02-10] MEDS: hydrALAZINE HCL 20 MG/ML 1 ML VIAL IVP PRN ×2 (01:53→08:59)
[2017-02-10 06:04] LABS: CH 35.7; CHCM 32.6; HCT 39.6 % (39.0-53.0); HDW 2.38; HGB 12.7 gm/dL (13.0-17.5); MCH 35.2 pg (25.0-35.0); MCV 109.9 fL (80.0-100.0); Macrocytosis Marked; Mean Platelet Volume 8.4; RDW 14.4 % (11.5-15.5); WBC 9.3 k/uL (3.8-10.6)
[2017-02-10 06:31] LABS: Anion Gap 8 mmol/L; Blood Urea Nitrogen 9 mg/dL (9-20); Calcium 8.7 mg/dL (8.4-10.2); Carbon Dioxide 22 mmol/L (22-30); Chloride 109 mmol/L (98-107); Glucose 92 mg/dL (74-99); Magnesium 1.7 mg/dL (1.6-2.3); Non-African American GFR(MDRD) >60 (>60 ml/min/1.73 sqM); Phosphorous 3.3 mg/dL (2.5-4.5); Potassium 3.8 mmol/L (3.5-5.1); Sodium 139 mmol/L (137-145)
[2017-02-10] MEDS: IPRATROPIUM-ALBUTEROL 3 ML NEB INHALATION SCH ×4 (08:06→19:31)
--- NOTE | 2017-02-10 08:24 | P.PN ---
Subjective Principal diagnosis: Fall Patient is a 51-year-old male with a past medical history of tobacco abuse and alcohol abuse who presented to the emergency department via EMS after a fall. In the emergency department he underwent an extensive evaluation. He was found to have severe electrolyte imbalance and impending DTs. He was admitted for further monitoring and care. He was also found to have rhabdomyolysis and was started on IV fluids. His electrolytes were aggressively replaced. Overnight on 02/04 he developed some chest pain, elevated blood pressure, and suspected flash pulmonary edema. He was transferred to the ICU and cardiology was consult it. He was started on a nitro drip. He underwent an echocardiogram which showed normal ejection fraction of 50-55% without valvular abnormalities. He was started on a beta mynor and the nitro drip was stopped. It is felt that he had probable aspiration pneumonia and he was started on him. Zosyn. On 02/05 his mentation was worsening and his oxygen requirements were going up. He was requiring high flow nasal cannula. His blood pressure began downtrending. He was seen by critical care and was intubated secondary to poor mentation and increased work of breathing. He required levophed briefly on 02/05 to 02/06 secondary to low blood pressures. Repeat chest x-ray demonstrated bibasilar airspace disease and serum culture was positive for Moraxella and Pseudomonas. He was therefore continued on Zosyn. He was having diarrhea, C. diff was negative, he required a rectal tube placement while intubated. He struggled with agitation and confusion during his spontaneous breathing trials. On 02/08 he was successfully extubated. He continued to struggle slightly with hypoxemia and altered mentation. He did require a dose of Haldol for agitation. He was also initiated on Librium therapy after extubation. By the morning of 02/10 he was more awake, alert and cooperative. Patient seen and examined at bedside. He is alert and oriented 3. He denies any chest pain, shortness of breath, nausea, vomiting, or abdominal pain. He is aware far he is in the hospital. Case discussed with RN. Objective - Vital Signs Vital signs: Vital Signs Temp 98.1 F 02/10/17 04:00 Pulse 98 02/10/17 07:00 Resp 14 02/10/17 07:00 BP 132/77 02/10/17 07:00 Pulse Ox 94 L 02/10/17 07:00 Intake & Output 02/09/17 02/10/17 02/10/17 18:59 06:59 18:59 Intake Total 476 400.067 23 Output Total 2595 1220 85 Balance -2119 -819.933 -62 Weight 94 kg Intake: IV 376 376.0 23 Piperacillin-Tazobactam 3 100.0 .375 gm In Dextrose/Water 1 50ml.bag @ 12.5 mls/hr IVPB Q8HR [facility] Rx#: [id number] Pressure Bag Sodium 36 36 3 Chloride 0.9% 500ml bag @ 3ml/hr Sodium Chloride 0.9% 1, 220 240 20 000 ml @ 20 mls/hr IV . Q24H [facility] Rx#:[id number] magnesium 120 Intake, IV Titration 100 24.067 Amount Clevidipine Butyrate 25 100 24.067 mg In Empty Bag 1 bag @ 1 MG/HR 2 mls/hr IV .Q24H [facility] Rx#:[id number] Output: Urine 2595 1220 85 Other: Voiding Method Indwelling Catheter Indwelling Catheter ABP, PAP, CO, CI - Last Documented Arterial Blood Pressure 145/76 - Exam General: non toxic, no distress, appears at stated age Derm: no rashes, no lesions Head: atraumatic, normocephalic, symmetric Eyes: EOMI, no lid lag, anicteric sclera ENT: no post nasal drip, no thrush Mouth: no lip lesion, mucus membranes moist Cardiovascular: S1S2 reg, no murmur, positive posterior tibial pulse bilateral, Lungs: CTA bilateral, no rhonchi, no rales , no accessory muscle use Abdominal: soft, nontender to palpation, no guarding, no appreciable organomegaly Ext: no gross muscle atrophy, no edema, no contractures Neuro: CN II-XI grossly intact, no focal neuro deficits Psych: Alert, oriented, appropriate affect Rectal tube in place Quinn catheter in place Arterial line, and central line noted. - Labs CBC & Chem 7: 02/10/17 05:30 02/10/17 05:30 Labs: Abnormal Lab Results - Last 24 Hours (Table) 02/09/17 02/10/17 02/10/17 Range/Units 11:50 05:30 05:30 RBC 3.60 L (4.30-5.90) m/uL Hgb 12.7 L (13.0-17.5) gm/dL MCV 109.9 H (80.0-100.0) fL MCH 35.2 H (25.0-35.0) pg Chloride 109 H (98-107) mmol/L POC Glucose (mg/dL) 124 H (75-99) mg/dL Assessment and Plan Plan: #Delirium tremens -Continue with Ativan, Librium -Has completed banana bag therapy, we will initiate oral thiamine and folic acid replacement -Continue to monitor for DTs #Accelerated hypertension -Off clevidipine drip since 02/09 -Increase metoprolol to 100 mg twice a day -Continue with when necessary hydralazine and -Continue with Catapres patch -Follow blood pressures -Cardiology recommendations appreciated #Pseudomonas and Moraxella aspiration pneumonia -Continue with Zosyn, also sensitive to Levaquin -If respiratory status continues to be stable switch to oral medication. Day #5 -Chest x-ray until clear -Pulmonary hygiene -Critical care recommendations #Fall -PT/OT evaluation - Fall precuations #Tobacco abuse -Cessation encouraged -Nicotine replacement Resolved: Rhabdomyolysis Acute hypoxic respiratory failure Life-threatening hypokalemia Hypomagnesemia Alcohol abuse Dehydration Shock Toxic metabolic encephalopathy secondary to delirium tremens Transfer to [facility] of this afternoon if blood pressure remains stable Discontinue rectal tube DVT prophylaxis: Lovenox Discussed with: Patient, RN Anticipated discharge: [address]: Undeterminable need physical therapy evaluation prior A total of 45 minutes was spent on the care of this complex patient more than 50 % of the time was spent in counseling and care coordination.
[2017-02-10] MEDS: PANTOPRAZOLE 40 MG/10 ML VIAL IVP SCH (08:32)
[2017-02-10] MEDS: NICOTINE 21MG/24HR PATCH TRANSDERM SCH (08:32)
[2017-02-10] MEDS: POTASSIUM CHLORIDE ER 20 MEQ TAB.ER PO SCH ×2 (08:33→20:15)
[2017-02-10] MEDS: METOPROLOL TARTRATE 50 MG TAB PO SCH ×2 (08:33→20:15)
[2017-02-10] MEDS: ASPIRIN 325 MG TAB PO SCH (08:33)
[2017-02-10] MEDS: ENOXAPARIN 40 MG/0.4 ML SYRINGE SQ SCH (08:33)
[2017-02-10] MEDS: chlordiazePOXIDE 5 MG CAPSULE PO SCH ×2 (08:36→20:15)
[2017-02-10] MEDS: traMADol 50 MG TAB PO SCH ×3 (08:36→22:38)
[2017-02-10] MEDS: SODIUM CHLORIDE 0.9% 1,000 ML IV SCH (08:54)
[2017-02-10] MEDS ORDERED: Magnesium Replacement Protocol 1 EACH MISC MISCELLANE PRN (09:09)
[2017-02-10] MEDS: MAGNESIUM SULFATE-D5W PMX 1 GM in DEXTROSE/WATER 1 100ML.BAG IVPB SCH ×2 (09:39→10:45)
[2017-02-10 10:56] VITALS: BMI 28.9
--- NOTE | 2017-02-10 14:26 | P.PN ---
Subjective Principal diagnosis: Acute delirium tremens secondary to alcohol withdrawal A 51-year-old male patient, alcoholic, who was admitted to the hospital after he fell at home. He is a very poor historian. He came into the hospital and he was found to be in impending delirium tremens. At the same time he had severe electrolyte imbalance with hypokalemia, hypocalcemia and hypomagnesemia and same time the patient was found to be in acute rhabdomyolysis. The patient was started in IV fluids. Electrodes imbalance was also corrected. Later on in the evening the patient became short of breath. He was suspected to be in pulmonary edema. He was given a dose of Lasix and following that he was moved to the intensive care unit. No clear-cut history of aspiration. I reviewed his chest x-ray and there is no convincing evidence of pneumonia or heart failure. Echocardiogram is in progress. Meanwhile the patient was started on IV Lasix and his IV fluids were Down. CPK is still elevated. No evidence of an acute renal failure. He was awake and alert at the time of my evaluation this morning. No obvious signs of confusions or delirium tremens. He was given thiamine and folate. Otherwise his history is negative. He is a chronic drinker and cigarette smoker. On 02/05/2017 I'm seeing this patient for a follow-up. The patient remains in intensive care unit. Mentally is gotten worse and he has progressed into active delirium tremens requiring high dose of Ativan that was given overnight. The patient was given Ativan pushes, a total of 20 mg overnight. He is still agitated. Restless. He is thrashing in bed. He is tachypneic. Is on high flow oxygen at 15 L/m and the chest x-ray shows some mild pulmonary vascular congestion. Underlying bibasilar pulmonary infiltrates cannot be completely ruled out. He is still having active diarrhea. After mass was added. Stool for C. diff was negative. He was given Imodium which improved consistency of the stool and became more solid. No abdominal distention. No nausea or vomiting. NG tube is in place. Electrodes are still off. We are chasing the potassium aggressively. He was given a total of 60 mEq of potassium oral potassium level of 2.5 and his morning potassium is down to 2.4. Note that he also received potassium infusions earlier throughout the day. He also received another 60 mEq of potassium orally. As for the magnesium, the level came at 1.7 this morning and he received an additional 2 g. The calcium ionized from this morning was 3.3 and he received an additional 2 g of calcium gluconate. He is receiving IV fluids 0.9 at 100 mL an hour and his alternating with 0.9 with MVII and 20 mEq of potassium chloride infusion. The echocardiogram was completed and the patient had a normal ejection fraction of 55-60% and there was no valvular dysfunction. He was noted to have no significant pulmonary hypertension. Some minimal mitral and aortic regurgitation was noted. RV systolic pressure was around 25. On 02/06/2017 the patient is being seen in follow-up in intensive care unit. The patient intubated on a mechanical ventilator. This morning he is an assist- control mode at the rate of 20, tidal volume of 450, FiO2 of 50% and a PEEP of 5. The blood gases from this morning shows a component of metabolic alkalosis with a pH of 7.5 and a pCO2 of 39 and pO2 of 74. The metabolic alkalosis is most likely related to his underlying diarrhea. Note that his diarrhea has subsided. The patient has erythematous system. Stool for C. diff has been negative. The patient's electronic has been essentially corrected. The potassium level is normalized. Magnesium level is normalized. The patient is receiving another dose of calcium to bring his ionized calcium of 4. Otherwise , is was sedated with Diprivan which is currently running at 40 mics. He is hemodynamically stable and he is off pressors. He is producing adequate amount of urine output. No agitation. No restlessness. No fever. He is on IV Zosyn for empiric antibiotic coverage regarding potential aspiration pneumonia. Echocardiogram was within normal limits. Tube feeds will be started today. We' ll keep him intubated for another 24 hours. May need to give him a sedation holiday to assess his underlying mentation at a later stage today. On 02/07/2017 I'm seeing this patient for a follow-up. The actively issue remains his delirium tremens. Despite being on high dose of Diprivan and a lot of and Ativan the patient is still arousable. At times is a bit agitated. A sedation holiday was given and we felt that the patient is not ready yet for weaning and extubation due to his restlessness and agitation. He also had an autonomic reaction with increased blood pressure and heart rate and breathing. We'll give this patient another 24 hours on a mechanical ventilator and we'll proceed with weaning efforts tomorrow. He remains on a mechanical ventilator. An assist-control mode of ventilation. His vent setting is essentially unchanged with a tidal volume 450, FiO2 of 50% at was dropped down to 40% and has a PEEP of 5 and his rate that 16. The sputum analysis showed midaxilla catarrhalis. He is currently on IV Zosyn. The chest x-ray shows no acute abnormalities. No significant orotracheal secretions. Tolerating his tube feeds. All of his electrolytes have been managing the placed with exception of a limited hypocalcemia which is being further supplemented. He is on tube feeds. Diarrhea is subsiding. No fever. No chills. No seizure activity. No other complaints otherwise for now. On 02/08/2017 the patient is being seen for a follow-up. A sedation holiday was given the patient seemed to be appropriate. Based on that the patient was given a spontaneous breathing trial for short period of time and following that he was extubated. Postextubation he did well however at a later stage he started having some increased anxiety, tremors and restlessness. He had to be given Ativan again and later on during the day the patient was given a dose of Haldol. Depressive monitoring this patient closely. I'm concerned that he will still bounced back into delirium tremens and he is not fluid recovered. Note that the patient was started on Librium yesterday and a dose of 5 mg by mouth twice a day. He developed also an acute hypertensive reaction for which she will be given Cleviprex. Note that his pulmonary status is also borderline. The patient has been having frequent rest or secretions however he has been able to cough it out. He had Moraxella in his sputum and the patient is currently on IV Zosyn. Today chest x-ray shows small pleural effusions bilaterally. The was given a dose of Lasix with excellent diuresis of more than 2 L after being given 40 mg of IV Lasix. NG tube still in place. Concern is ongoing issues with delirium tremens. On 02/09/2017 the patient remains extubated. Overnight he became agitated and restless and this morning it is much more comfortable. Note that he is on Librium, Ativan and receiving Haldol an estimated basis. The patient is on clevidipine drip for blood pressure control. This will be weaned off as the patient will be started on a combination of metoprolol and clonidine patch. He is hemodynamically stable. He was diuresed yesterday with IV Lasix and he is negative fluid balance of more than 7 L. He is coughing and he is able to bring up his secretions. Note that he had Pseudomonas and Moraxella in his sputum and both of them were sensitive to Zosyn and antibiotic will be continued. He pulled out his own G-tube which will be kept out and the patient will have some oral feeding initiate if he is able to swallow. I think his delirium has improved. On and off is confused however he is making much more sense and is becoming more report.. He is not having any significant agitation on today's evaluation. Reevaluated on 02/10/2017, patient seems to be calm, not agitated, does not seem to be in any form of distress. His labs and his meds were all reviewed and they seem to be relatively unremarkable. Objective - Vital Signs Vital signs: Vital Signs Temp 98.3 F 02/10/17 08:00 Pulse 83 02/10/17 11:00 Resp 18 02/10/17 11:00 BP 99/56 02/10/17 11:00 Pulse Ox 94 L 02/10/17 11:00 Intake & Output 02/09/17 02/10/17 02/10/17 18:59 06:59 18:59 Intake Total 476 400.067 615.0 Output Total 2595 1220 785 Balance -2119 -819.933 -170.0 Weight 94 kg 94 kg Intake: IV 376 376.0 365.0 Magnesium Sulfate-D5w Pmx 200 1 gm In Dextrose/Water 1 100ml.bag @ 100 mls/hr IVPB Q1H [facility] Rx#: [id number] Piperacillin-Tazobactam 3 100.0 50.0 .375 gm In Dextrose/Water 1 50ml.bag @ 12.5 mls/hr IVPB Q8HR [facility] Rx#: [id number] Pressure Bag Sodium 36 36 15 Chloride 0.9% 500ml bag @ 3ml/hr Sodium Chloride 0.9% 1, 220 240 100 000 ml @ 20 mls/hr IV . Q24H [facility] Rx#:[id number] magnesium 120 Intake, IV Titration 100 24.067 Amount Clevidipine Butyrate 25 100 24.067 mg In Empty Bag 1 bag @ 1 MG/HR 2 mls/hr IV .Q24H [facility] Rx#:[id number] Oral 250 Output: Urine 2595 1220 785 Other: Voiding Method Indwelling Catheter Indwelling Catheter Indwelling Catheter # Bowel Movements 1 ABP, PAP, CO, CI - Last Documented Arterial Blood Pressure 106/53 - Exam The patient comfortable in bed. No tremors. No agitation. Head is atraumatic normocephalic. Neck is short supple and there is significant crowding of posterior oropharynx. . Lung sounds are diminished bilaterally with scattered rhonchi. Cardiac exam revealed the PMI to be normally situated and sized. The rhythm was regular and no extrasystoles were noted during several minutes of auscultation. The first and second heart sounds were normal and physiologic splitting of the second heart sound was noted. There were no murmurs, rubs, clicks, or gallops. Abdominal exam revealed normal bowel sounds. The abdomen was soft, non-tender, and without masses, organomegaly, or appreciable enlargement of the abdominal aorta. Examination of the extremities revealed easily palpable radial, femoral and pedal pulses. There was no cyanosis, clubbing or edema. Examination of the skin revealed no evidence of significant rashes, suspicious appearing nevi or other concerning lesions. Skeletal system is within normal without arthritis or deformities. Neurologic exam is nonfocal. He seems to be much more appropriate. He was able to note the present in the place. He is following simple commands and he is moving all 4 extremities without any limitation. - Labs CBC & Chem 7: 02/10/17 05:30 02/10/17 05:30 Labs: Abnormal Lab Results - Last 24 Hours (Table) 02/10/17 02/10/17 Range/Units 05:30 05:30 RBC 3.60 L (4.30-5.90) m/uL Hgb 12.7 L (13.0-17.5) gm/dL MCV 109.9 H (80.0-100.0) fL MCH 35.2 H (25.0-35.0) pg Chloride 109 H (98-107) mmol/L Assessment and Plan Plan: 1 acute delirium tremens secondary to alcohol withdrawal. The patient continues to be in delirium tremens. After 3 days of being intubated on a mechanical ventilator and being treated with Diprivan and sedation, the patient was extubated . His delirium tremens gradually improving. His agitation and restlessness that is also improved. He is getting less autonomic reaction or response at this point. 2 acute respiratory failure, post extubation. Patient growing Moraxella and Pseudomonas in his sputum and the patient is currently on IV Zosyn. patient is improved. He is currently off oxygen 3 acute rhabdomyolysis improved 4 severe electrodes imbalance with hypokalemia, hypomagnesemia and hypo- calcemic. Improved 5 alcoholism, as the patient admits to drink more than 3 gallons of liquor over the weekend. 6 transient hypotension, recovered and the patient is currently off pressors 7 falls, secondary to alcoholism 8 diarrhea, improving, C. diff has been negative. 9 hypertension, currently on a combination of metoprolol and clonidine patch and the clevidipine will be weaned off. Recommendation: Continue to monitor neuro status, continue Ativan and Librium, continue Haldol as needed, continue metoprolol and Catapres, patient was weaned off clevidipine, patient could be transferred out of the ICU to a regular medical floor, and hopefully arrange for a sitter with the patient. Time with Patient: Less than 30
[2017-02-10] MEDS ORDERED: DILTIAZEM ORAL 30 MG TAB PO SCH (16:00)
[2017-02-11] MEDS: PIPERACILLIN-TAZOBACTAM 3.375 GM in DEXTROSE/WATER 1 50ML.BAG IVPB SCH ×2 (00:28→08:08)
[2017-02-11 04:29] LABS: CH 35.7; HCT 38.6 % (39.0-53.0); HDW 2.27; HGB 12.2 gm/dL (13.0-17.5); MCH 35.5 pg (25.0-35.0); MCHC 31.7 g/dL (31.0-37.0); MCV 111.8 fL (80.0-100.0); Macrocytosis Marked; Mean Platelet Volume 8.6; RBC 3.45 m/uL (4.30-5.90); RDW 14.4 % (11.5-15.5); WBC 8.8 k/uL (3.8-10.6)
[2017-02-11 04:45] LABS: Anion Gap 7 mmol/L; Blood Urea Nitrogen 12 mg/dL (9-20); Calcium 8.8 mg/dL (8.4-10.2); Carbon Dioxide 21 mmol/L (22-30); Chloride 109 mmol/L (98-107); Glucose 96 mg/dL (74-99); Non-African American GFR(MDRD) >60 (>60 ml/min/1.73 sqM); Phosphorous 3.3 mg/dL (2.5-4.5); Potassium 4.4 mmol/L (3.5-5.1); Sodium 137 mmol/L (137-145)
[2017-02-11] MEDS: IPRATROPIUM-ALBUTEROL 3 ML NEB INHALATION SCH ×4 (07:47→20:04)
[2017-02-11] MEDS: ENOXAPARIN 40 MG/0.4 ML SYRINGE SQ SCH (08:02)
[2017-02-11] MEDS: METOPROLOL TARTRATE 50 MG TAB PO SCH ×2 (08:03→20:58)
[2017-02-11] MEDS: POTASSIUM CHLORIDE ER 20 MEQ TAB.ER PO SCH ×2 (08:03→20:57)
[2017-02-11] MEDS: NICOTINE 21MG/24HR PATCH TRANSDERM SCH (08:03)
[2017-02-11] MEDS: PANTOPRAZOLE 40 MG TABLET PO SCH (08:03)
[2017-02-11] MEDS: ASPIRIN 325 MG TAB PO SCH (08:03)
[2017-02-11] MEDS: chlordiazePOXIDE 5 MG CAPSULE PO SCH ×2 (08:05→21:37)
[2017-02-11] MEDS: traMADol 50 MG TAB PO SCH ×3 (08:05→21:38)
--- NOTE | 2017-02-11 08:49 | P.PN ---
Subjective Principal diagnosis: Fall Patient is a 51-year-old male with a past medical history of tobacco abuse and alcohol abuse who presented to the emergency department via EMS after a fall. In the emergency department he underwent an extensive evaluation. He was found to have severe electrolyte imbalance and impending DTs. He was admitted for further monitoring and care. He was also found to have rhabdomyolysis and was started on IV fluids. His electrolytes were aggressively replaced. Overnight on 02/04 he developed some chest pain, elevated blood pressure, and suspected flash pulmonary edema. He was transferred to the ICU and cardiology was consult it. He was started on a nitro drip. He underwent an echocardiogram which showed normal ejection fraction of 50-55% without valvular abnormalities. He was started on a beta mynor and the nitro drip was stopped. It is felt that he had probable aspiration pneumonia and he was started on him. Zosyn. On 02/05 his mentation was worsening and his oxygen requirements were going up. He was requiring high flow nasal cannula. His blood pressure began downtrending. He was seen by critical care and was intubated secondary to poor mentation and increased work of breathing. He required levophed briefly on 02/05 to 02/06 secondary to low blood pressures. Repeat chest x-ray demonstrated bibasilar airspace disease and serum culture was positive for Moraxella and Pseudomonas. He was therefore continued on Zosyn. He was having diarrhea, C. diff was negative, he required a rectal tube placement while intubated. He struggled with agitation and confusion during his spontaneous breathing trials. On 02/08 he was successfully extubated. He continued to struggle slightly with hypoxemia and altered mentation. He did require a dose of Haldol for agitation. He was also initiated on Librium therapy after extubation. By the morning of 02/10 he was more awake, alert and cooperative. His blood pressure continued to improve. He worked with physical therapy was felt he was likely stable for home with home health. Patient seen and examined at bedside. Concern as to how weak he was working in therapy yesterday. 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 Denies any chest pain, shortness of breath, nausea, vomiting, and diarrhea. He states that his brother and sister will be closely monitoring him upon discharge. He also has plans to go to with his brother after discharge. Case discussed with RN. Objective - Vital Signs Vital signs: Vital Signs Temp 98.3 F 02/11/17 07:00 Pulse 88 02/11/17 07:56 Resp 18 02/11/17 07:00 BP 159/96 02/11/17 07:00 Pulse Ox 95 02/11/17 07:00 Intake & Output 02/10/17 02/11/17 02/11/17 18:59 06:59 18:59 Intake Total 615.0 500 Output Total 985 450 Balance -370.0 50 Weight 94 kg 90.7 kg Intake: IV 365.0 100 Magnesium Sulfate-D5w Pmx 200 1 gm In Dextrose/Water 1 100ml.bag @ 100 mls/hr IVPB Q1H [facility] Rx#: [id number] Piperacillin-Tazobactam 3 50.0 100 .375 gm In Dextrose/Water 1 50ml.bag @ 12.5 mls/hr IVPB Q8HR [facility] Rx#: [id number] Pressure Bag Sodium 15 Chloride 0.9% 500ml bag @ 3ml/hr Sodium Chloride 0.9% 1, 100 000 ml @ 20 mls/hr IV . Q24H [facility] Rx#:[id number] Oral 250 400 Output: Urine 785 450 Stool 200 Other: Voiding Method Indwelling Catheter Toilet Urinal # Voids 1 # Bowel Movements 1 ABP, PAP, CO, CI - Last Documented Arterial Blood Pressure 106/53 - Exam General: non toxic, no distress, appears at stated age Derm: no rashes, no lesions Head: atraumatic, normocephalic, symmetric Eyes: EOMI, no lid lag, anicteric sclera ENT: no post nasal drip, no thrush Mouth: no lip lesion, mucus membranes moist Cardiovascular: S1S2 reg, no murmur, positive posterior tibial pulse bilateral, Lungs: CTA bilateral, no rhonchi, no rales , no accessory muscle use Abdominal: soft, nontender to palpation, no guarding, no appreciable organomegaly Ext: no gross muscle atrophy, no edema, no contractures Neuro: CN II-XI grossly intact, no focal neuro deficits Psych: Alert, oriented, appropriate affect - Labs CBC & Chem 7: 02/11/17 04:03 02/11/17 04:03 Labs: Abnormal Lab Results - Last 24 Hours (Table) 02/11/17 02/11/17 Range/Units 04:03 04:03 RBC 3.45 L (4.30-5.90) m/uL Hgb 12.2 L (13.0-17.5) gm/dL Hct 38.6 L (39.0-53.0) % MCV 111.8 H (80.0-100.0) fL MCH 35.5 H (25.0-35.0) pg Chloride 109 H (98-107) mmol/L Carbon Dioxide 21 L (22-30) mmol/L Assessment and Plan Plan: #Delirium tremens -Continue with Ativan, Librium -Has completed banana bag therapy -Continue to monitor for DTs #Accelerated hypertension -Off clevidipine drip since 02/09 -Continue Metoprolol -Continue with when necessary hydralazine -Continue with Catapres patch -Follow blood pressures -Cardiology recommendations appreciated #Pseudomonas and Moraxella aspiration pneumonia - Transition Zosyn to Levaquin, day #10/26 -Chest x-ray until clear, repeat in a.m. -Pulmonary hygiene -Critical care recommendations #Fall -PT/OT evaluation - Fall precuations #Tobacco abuse -Cessation encouraged -Nicotine replacement Resolved: Rhabdomyolysis Acute hypoxic respiratory failure Life-threatening hypokalemia Hypomagnesemia Alcohol abuse Dehydration Shock Toxic metabolic encephalopathy secondary to delirium tremens Transfer to medical floor DVT prophylaxis: Lovenox Discussed with: Patient, RN Anticipated discharge: [address]: Home with home health A total of 35 minutes was spent on the care of this complex patient more than 50 % of the time was spent in counseling and care coordination.
--- NOTE | 2017-02-11 08:49 | P.PN ---
Subjective Principal diagnosis: Acute respiratory failure This is a 51-year-old gentleman with a past medical history significant for alcohol abuse as well as significant history of smoking who was admitted to the hospital after he fell at home. The patient is a poor historian. On Friday evening he fell out of the bed. He did not recall having any chest pain or discomfort or difficulty breathing or feeling of heart racing or fluttering at that point. Ambulance was called and the patient was brought to the emergency department then he was admitted to the hospital and he was getting treated for alcohol intoxication. The patient drinks about half a common of vodka every day. And he was drinking on that day. On the floor in the hospital, the patient was the setting and that was last night. He was also wheezing. For that reason he was transferred to the intensive care unit. He was started on Lasix as well. On follow-up with the patient today he is doing good and he is asymptomatic from the cardiovascular standpoint overview. The blood pressure is not well controlled on the current dose of metoprolol which is 100 mg by mouth twice a day. I am going to add Norvasc to the current medical treatment. Continue following up with him. Objective - Vital Signs Vital signs: Vital Signs Temp 98.3 F 02/11/17 07:00 Pulse 88 02/11/17 07:56 Resp 18 02/11/17 07:00 BP 159/96 02/11/17 07:00 Pulse Ox 95 02/11/17 07:00 Intake & Output 02/10/17 02/11/17 02/11/17 18:59 06:59 18:59 Intake Total 615.0 500 Output Total 985 450 Balance -370.0 50 Weight 94 kg 90.7 kg Intake: IV 365.0 100 Magnesium Sulfate-D5w Pmx 200 1 gm In Dextrose/Water 1 100ml.bag @ 100 mls/hr IVPB Q1H [facility] Rx#: [id number] Piperacillin-Tazobactam 3 50.0 100 .375 gm In Dextrose/Water 1 50ml.bag @ 12.5 mls/hr IVPB Q8HR [facility] Rx#: [id number] Pressure Bag Sodium 15 Chloride 0.9% 500ml bag @ 3ml/hr Sodium Chloride 0.9% 1, 100 000 ml @ 20 mls/hr IV . Q24H [facility] Rx#:[id number] Oral 250 400 Output: Urine 785 450 Stool 200 Other: Voiding Method Indwelling Catheter Toilet Urinal # Voids 1 # Bowel Movements 1 ABP, PAP, CO, CI - Last Documented Arterial Blood Pressure 106/53 - Constitutional General appearance: Present: no acute distress - Respiratory Respiratory: bilateral: CTA - Cardiovascular Rhythm: regular Heart sounds: normal: S1, S2 - Labs CBC & Chem 7: 02/11/17 04:03 02/11/17 04:03 Labs: Abnormal Lab Results - Last 24 Hours (Table) 02/11/17 02/11/17 Range/Units 04:03 04:03 RBC 3.45 L (4.30-5.90) m/uL Hgb 12.2 L (13.0-17.5) gm/dL Hct 38.6 L (39.0-53.0) % MCV 111.8 H (80.0-100.0) fL MCH 35.5 H (25.0-35.0) pg Chloride 109 H (98-107) mmol/L Carbon Dioxide 21 L (22-30) mmol/L Assessment and Plan Plan: This is a pleasant 51-year-old gentleman with significant history of alcohol and smoking was admitted to the hospital with alcohol intoxication. He developed mild acute respiratory failure which seems to be resolving at this point. From the cardiac vascular standpoint I would continue the current dose of metoprolol and add Norvasc for better blood pressure control
[2017-02-11] MEDS: amLODIPine 10 MG TAB PO SCH (09:25)
[2017-02-11] MEDS: LEVOFLOXACIN 750 MG TAB PO SCH (09:25)
[2017-02-11] MEDS: SODIUM CHLORIDE 0.9% 1,000 ML IV SCH (13:23)
--- NOTE | 2017-02-11 13:32 | P.PN ---
Subjective Principal diagnosis: Acute delirium tremens secondary to alcohol withdrawal A 51-year-old male patient, alcoholic, who was admitted to the hospital after he fell at home. He is a very poor historian. He came into the hospital and he was found to be in impending delirium tremens. At the same time he had severe electrolyte imbalance with hypokalemia, hypocalcemia and hypomagnesemia and same time the patient was found to be in acute rhabdomyolysis. The patient was started in IV fluids. Electrodes imbalance was also corrected. Later on in the evening the patient became short of breath. He was suspected to be in pulmonary edema. He was given a dose of Lasix and following that he was moved to the intensive care unit. No clear-cut history of aspiration. I reviewed his chest x-ray and there is no convincing evidence of pneumonia or heart failure. Echocardiogram is in progress. Meanwhile the patient was started on IV Lasix and his IV fluids were Down. CPK is still elevated. No evidence of an acute renal failure. He was awake and alert at the time of my evaluation this morning. No obvious signs of confusions or delirium tremens. He was given thiamine and folate. Otherwise his history is negative. He is a chronic drinker and cigarette smoker. On 02/05/2017 I'm seeing this patient for a follow-up. The patient remains in intensive care unit. Mentally is gotten worse and he has progressed into active delirium tremens requiring high dose of Ativan that was given overnight. The patient was given Ativan pushes, a total of 20 mg overnight. He is still agitated. Restless. He is thrashing in bed. He is tachypneic. Is on high flow oxygen at 15 L/m and the chest x-ray shows some mild pulmonary vascular congestion. Underlying bibasilar pulmonary infiltrates cannot be completely ruled out. He is still having active diarrhea. After mass was added. Stool for C. diff was negative. He was given Imodium which improved consistency of the stool and became more solid. No abdominal distention. No nausea or vomiting. NG tube is in place. Electrodes are still off. We are chasing the potassium aggressively. He was given a total of 60 mEq of potassium oral potassium level of 2.5 and his morning potassium is down to 2.4. Note that he also received potassium infusions earlier throughout the day. He also received another 60 mEq of potassium orally. As for the magnesium, the level came at 1.7 this morning and he received an additional 2 g. The calcium ionized from this morning was 3.3 and he received an additional 2 g of calcium gluconate. He is receiving IV fluids 0.9 at 100 mL an hour and his alternating with 0.9 with MVII and 20 mEq of potassium chloride infusion. The echocardiogram was completed and the patient had a normal ejection fraction of 55-60% and there was no valvular dysfunction. He was noted to have no significant pulmonary hypertension. Some minimal mitral and aortic regurgitation was noted. RV systolic pressure was around 25. On 02/06/2017 the patient is being seen in follow-up in intensive care unit. The patient intubated on a mechanical ventilator. This morning he is an assist- control mode at the rate of 20, tidal volume of 450, FiO2 of 50% and a PEEP of 5. The blood gases from this morning shows a component of metabolic alkalosis with a pH of 7.5 and a pCO2 of 39 and pO2 of 74. The metabolic alkalosis is most likely related to his underlying diarrhea. Note that his diarrhea has subsided. The patient has erythematous system. Stool for C. diff has been negative. The patient's electronic has been essentially corrected. The potassium level is normalized. Magnesium level is normalized. The patient is receiving another dose of calcium to bring his ionized calcium of 4. Otherwise , is was sedated with Diprivan which is currently running at 40 mics. He is hemodynamically stable and he is off pressors. He is producing adequate amount of urine output. No agitation. No restlessness. No fever. He is on IV Zosyn for empiric antibiotic coverage regarding potential aspiration pneumonia. Echocardiogram was within normal limits. Tube feeds will be started today. We' ll keep him intubated for another 24 hours. May need to give him a sedation holiday to assess his underlying mentation at a later stage today. On 02/07/2017 I'm seeing this patient for a follow-up. The actively issue remains his delirium tremens. Despite being on high dose of Diprivan and a lot of and Ativan the patient is still arousable. At times is a bit agitated. A sedation holiday was given and we felt that the patient is not ready yet for weaning and extubation due to his restlessness and agitation. He also had an autonomic reaction with increased blood pressure and heart rate and breathing. We'll give this patient another 24 hours on a mechanical ventilator and we'll proceed with weaning efforts tomorrow. He remains on a mechanical ventilator. An assist-control mode of ventilation. His vent setting is essentially unchanged with a tidal volume 450, FiO2 of 50% at was dropped down to 40% and has a PEEP of 5 and his rate that 16. The sputum analysis showed midaxilla catarrhalis. He is currently on IV Zosyn. The chest x-ray shows no acute abnormalities. No significant orotracheal secretions. Tolerating his tube feeds. All of his electrolytes have been managing the placed with exception of a limited hypocalcemia which is being further supplemented. He is on tube feeds. Diarrhea is subsiding. No fever. No chills. No seizure activity. No other complaints otherwise for now. On 02/08/2017 the patient is being seen for a follow-up. A sedation holiday was given the patient seemed to be appropriate. Based on that the patient was given a spontaneous breathing trial for short period of time and following that he was extubated. Postextubation he did well however at a later stage he started having some increased anxiety, tremors and restlessness. He had to be given Ativan again and later on during the day the patient was given a dose of Haldol. Depressive monitoring this patient closely. I'm concerned that he will still bounced back into delirium tremens and he is not fluid recovered. Note that the patient was started on Librium yesterday and a dose of 5 mg by mouth twice a day. He developed also an acute hypertensive reaction for which she will be given Cleviprex. Note that his pulmonary status is also borderline. The patient has been having frequent rest or secretions however he has been able to cough it out. He had Moraxella in his sputum and the patient is currently on IV Zosyn. Today chest x-ray shows small pleural effusions bilaterally. The was given a dose of Lasix with excellent diuresis of more than 2 L after being given 40 mg of IV Lasix. NG tube still in place. Concern is ongoing issues with delirium tremens. On 02/09/2017 the patient remains extubated. Overnight he became agitated and restless and this morning it is much more comfortable. Note that he is on Librium, Ativan and receiving Haldol an estimated basis. The patient is on clevidipine drip for blood pressure control. This will be weaned off as the patient will be started on a combination of metoprolol and clonidine patch. He is hemodynamically stable. He was diuresed yesterday with IV Lasix and he is negative fluid balance of more than 7 L. He is coughing and he is able to bring up his secretions. Note that he had Pseudomonas and Moraxella in his sputum and both of them were sensitive to Zosyn and antibiotic will be continued. He pulled out his own G-tube which will be kept out and the patient will have some oral feeding initiate if he is able to swallow. I think his delirium has improved. On and off is confused however he is making much more sense and is becoming more report.. He is not having any significant agitation on today's evaluation. Reevaluated on 02/10/2017, patient seems to be calm, not agitated, does not seem to be in any form of distress. His labs and his meds were all reviewed and they seem to be relatively unremarkable. Reevaluated today on 02/11/2017, patient remains calm, not agitated, not requiring much to keep him calm. Patient even took a walk in the ICU yesterday and today he is asymptomatic. Has a bit of a cough cough is productive, patient remains on antibiotics. CBC is relatively normal and basic metabolic profile is normal. Patient will likely be discharged home in the next 24 hours. Objective - Vital Signs Vital signs: Vital Signs Temp 98.3 F 02/11/17 07:00 Pulse 84 02/11/17 11:39 Resp 18 02/11/17 11:25 BP 159/96 02/11/17 07:00 Pulse Ox 95 02/11/17 07:00 Intake & Output 02/10/17 02/11/17 02/11/17 18:59 06:59 18:59 Intake Total 615.0 500 Output Total 985 450 Balance -370.0 50 Weight 94 kg 90.7 kg Intake: IV 365.0 100 Magnesium Sulfate-D5w Pmx 200 1 gm In Dextrose/Water 1 100ml.bag @ 100 mls/hr IVPB Q1H [facility] Rx#: [id number] Piperacillin-Tazobactam 3 50.0 100 .375 gm In Dextrose/Water 1 50ml.bag @ 12.5 mls/hr IVPB Q8HR [facility] Rx#: [id number] Pressure Bag Sodium 15 Chloride 0.9% 500ml bag @ 3ml/hr Sodium Chloride 0.9% 1, 100 000 ml @ 20 mls/hr IV . Q24H [facility] Rx#:[id number] Oral 250 400 Output: Urine 785 450 Stool 200 Other: Voiding Method Indwelling Catheter Toilet Toilet Urinal Urinal # Voids 1 # Bowel Movements 1 ABP, PAP, CO, CI - Last Documented Arterial Blood Pressure 106/53 - Exam The patient comfortable in bed. No tremors. No agitation. Head is atraumatic normocephalic. Neck is short supple and there is significant crowding of posterior oropharynx. . Lung sounds are diminished bilaterally with scattered rhonchi. Cardiac exam revealed the PMI to be normally situated and sized. The rhythm was regular and no extrasystoles were noted during several minutes of auscultation. The first and second heart sounds were normal and physiologic splitting of the second heart sound was noted. There were no murmurs, rubs, clicks, or gallops. Abdominal exam revealed normal bowel sounds. The abdomen was soft, non-tender, and without masses, organomegaly, or appreciable enlargement of the abdominal aorta. Examination of the extremities revealed easily palpable radial, femoral and pedal pulses. There was no cyanosis, clubbing or edema. Examination of the skin revealed no evidence of significant rashes, suspicious appearing nevi or other concerning lesions. Skeletal system is within normal without arthritis or deformities. Neurologic exam is nonfocal. He seems to be much more appropriate. He was able to note the present in the place. He is following simple commands and he is moving all 4 extremities without any limitation. - Labs CBC & Chem 7: 02/11/17 04:03 02/11/17 04:03 Labs: Abnormal Lab Results - Last 24 Hours (Table) 02/11/17 02/11/17 Range/Units 04:03 04:03 RBC 3.45 L (4.30-5.90) m/uL Hgb 12.2 L (13.0-17.5) gm/dL Hct 38.6 L (39.0-53.0) % MCV 111.8 H (80.0-100.0) fL MCH 35.5 H (25.0-35.0) pg Chloride 109 H (98-107) mmol/L Carbon Dioxide 21 L (22-30) mmol/L Assessment and Plan Plan: 1 acute delirium tremens secondary to alcohol withdrawal. Resolved. 2 acute respiratory failure, post extubation. Patient growing Moraxella and Pseudomonas in his sputum and the patient is currently on IV Zosyn. patient is improved. He is currently off oxygen patient can be switched to oral Levaquin for 5 more days postdischarge. And that will cover both including the Moraxella and the pseudomonas. 3 acute rhabdomyolysis improved 4 severe electrodes imbalance with hypokalemia, hypomagnesemia and hypo- calcemic. Improved 5 alcoholism, as the patient admits to drink more than 3 gallons of liquor over the weekend. 6 transient hypotension, recovered and the patient is currently off pressors 7 falls, secondary to alcoholism 8 diarrhea, improving, C. diff has been negative. 9 hypertension, currently on a combination of metoprolol and clonidine patch and the clevidipine will be weaned off. Recommendation: Transfer out of the ICU today, consider discharge planning tomorrow, patient could be placed on Levaquin for 5 more days postdischarge. Time with Patient: Less than 30
[2017-02-12] MEDS: ASPIRIN 325 MG TAB PO SCH (07:52)
[2017-02-12] MEDS: traMADol 50 MG TAB PO SCH (07:52)
[2017-02-12] MEDS: METOPROLOL TARTRATE 50 MG TAB PO SCH (07:52)
[2017-02-12] MEDS: amLODIPine 10 MG TAB PO SCH (07:52)
[2017-02-12] MEDS: LEVOFLOXACIN 750 MG TAB PO SCH (07:52)
[2017-02-12] MEDS: POTASSIUM CHLORIDE ER 20 MEQ TAB.ER PO SCH (07:52)
[2017-02-12] MEDS: PANTOPRAZOLE 40 MG TABLET PO SCH (07:52)
[2017-02-12] MEDS: chlordiazePOXIDE 5 MG CAPSULE PO SCH (07:52)
[2017-02-12] MEDS: ENOXAPARIN 40 MG/0.4 ML SYRINGE SQ SCH (07:53)
[2017-02-12] MEDS: NICOTINE 21MG/24HR PATCH TRANSDERM SCH (07:53)
[2017-02-12 07:58] VITALS: BP 147/93; RESP 18; TEMP 98
[2017-02-12] MEDS: IPRATROPIUM-ALBUTEROL 3 ML NEB INHALATION SCH (09:18)
[2017-02-12 09:21] VITALS: PULSE 88
--- NOTE | 2017-02-12 09:47 | P.DS ---
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 Do you want consulting provider notified?: Yes Primary care physician: Stated None - Discharge Diagnosis(es) (1) Delirium tremens Status: Resolved (2) Hypertensive urgency Status: Resolved (3) Aspiration pneumonia Status: Resolved (4) Rhabdomyolysis Status: Resolved Priority: High Onset Date: ~02/02/17 (5) Respiratory failure with hypoxia Status: Resolved (6) Shock Status: Resolved (7) Dehydration Status: Resolved Priority: High Onset Date: ~01/28/17 (8) Hypokalemia Status: Resolved Priority: High (9) Tobacco abuse Status: Chronic (10) Fall Status: Resolved (11) Hypomagnesemia Status: Resolved Priority: High Onset Date: ~02/02/17 Hospital Course: Patient is a 51-year-old male with a past medical history of tobacco abuse and alcohol abuse who presented to the emergency department via EMS after a fall. In the emergency department he underwent an extensive evaluation. He was found to have severe electrolyte imbalance and impending DTs. He was admitted for further monitoring and care. He was also found to have rhabdomyolysis and was started on IV fluids. His electrolytes were aggressively replaced. Overnight on 02/04 he developed some chest pain, elevated blood pressure, and suspected flash pulmonary edema. He was transferred to the ICU and cardiology was consultrf. He was started on a nitro drip. He underwent an echocardiogram which showed normal ejection fraction of 50-55% without valvular abnormalities. He was started on a beta mynor and the nitro drip was stopped. It is felt that he had probable aspiration pneumonia and he was started on Zosyn. On 02/05 his mentation was worsening and his oxygen requirements were going up. He was requiring high flow nasal cannula. His blood pressure began downtrending. He was seen by critical care and was intubated secondary to poor mentation and increased work of breathing. He required levophed briefly on 02/05 to 02/06 secondary to low blood pressures. Repeat chest x-ray demonstrated bibasilar airspace disease and sputum culture was positive for Moraxella and Pseudomonas. He was therefore continued on Zosyn. He was having diarrhea, C. diff was negative, he required a rectal tube placement while intubated. He struggled with agitation and confusion during his spontaneous breathing trials. On 02/08 he was successfully extubated. He continued to struggle slightly with hypoxemia and altered mentation. He did require a dose of Haldol for agitation. He was also initiated on Librium therapy By the morning of 02/10 he was more awake, alert and cooperative. His blood pressure continued to improve. He worked with physical therapy was felt he was likely stable for home with home health. He was transitioned to oral Levaquin and did not spike fevers or have any increase in his white blood cell count. He was therefore determined stable for discharge. He was unable to have home health set up if he has no insurance and no primary care physician. He has assured me that his brother and sister will stay with him and he will have 24 hour monitoring. He plans on joining AA post discharge. He was given a note to excuse him from work from 01/20 through 02/19. He then can go back as light duty 02/19/2017 if he continues to increase his strength. He was given information of Dr. Webb is a probable PCP for follow-up. He has already started the paperwork through his job to apply for insurance. Patient seen and examined at bedside. Feeling well. No shortness of breath or chest pain. Intermittently dizzy when standing and walking long distances. He assures me that he will have someone with him 24 hours a day. Vital signs reviewed and stable. General: non toxic, no distress, appears at stated age Derm: no rashes, no lesions, ecchymosis bilateral feet Head: atraumatic, normocephalic, symmetric Eyes: EOMI, no lid lag, anicteric sclera ENT: no post nasal drip, no thrush Mouth: no lip lesion, mucus membranes moist Cardiovascular: S1S2 reg, no murmur, positive posterior tibial pulse bilateral, Lungs: CTA bilateral, no rhonchi, no rales , no accessory muscle use Abdominal: soft, nontender to palpation, no guarding, no appreciable organomegaly Ext: no gross muscle atrophy, no edema, no contractures Neuro: CN II-XI grossly intact, no focal neuro deficits Psych: Alert, oriented, appropriate affect A total of 45 minutes of time were spent preparing this complex discharge summary . Pertinent Studies: Echocardiogram 02/04/17-ejection fraction 50-55%, no significant valvular abnormalities Chest [id number] with bibasilar infiltrates CT lumbar spine-no significant findings Procedures: intubation, arterial line, central line Patient Condition at Discharge: Good Plan - Discharge Summary New Discharge Prescriptions: New amLODIPine [Norvasc] 10 mg PO DAILY #30 tab cloNIDine HCL [Catapres] 0.2 mg PO TID #90 tablet Levofloxacin [Levaquin] 750 mg PO DAILY #5 tab Metoprolol Tartrate [Lopressor] 100 mg PO BID #60 tab Discharge Medication List Levofloxacin [Levaquin] 750 mg PO DAILY #5 tab 02/12/17 [Rx] Metoprolol Tartrate [Lopressor] 100 mg PO BID #60 tab 02/12/17 [Rx] amLODIPine [Norvasc] 10 mg PO DAILY #30 tab 02/12/17 [Rx] cloNIDine HCL [Catapres] 0.2 mg PO TID #90 tablet 02/12/17 [Rx] Follow up Appointment(s)/Referral(s): Vale Webb MD [STAFF PHYSICIAN] - 02/19/17 11:15 am Patient Instructions/Handouts: Rhabdomyolysis (DC), Abuse of Alcohol (DC) Activity/Diet/Wound Care/Special Instructions: Low sodium diet Limited activity, get up slowly from seated postion. Fall precautions. Please have someone stay with you for the next week. Please take an over the counter aspirin 81mg daily. NO smoking, cessation information given and discussed. NO alcohol, references provided. Discharge/Stand Alone Forms: Work/Release Restrictions Form Discharge Disposition: HOME SELF-CARE
[2017-02-12 10:19] LABS: Anion Gap 10 mmol/L; Blood Urea Nitrogen 10 mg/dL (9-20); Calcium 9.2 mg/dL (8.4-10.2); Carbon Dioxide 21 mmol/L (22-30); Chloride 109 mmol/L (98-107); Glucose 86 mg/dL (74-99); Non-African American GFR(MDRD) >60 (>60 ml/min/1.73 sqM); Phosphorous 4.3 mg/dL (2.5-4.5); Potassium 5.4 mmol/L (3.5-5.1); Sodium 140 mmol/L (137-145)
[2017-02-12] MEDS: SODIUM CHLORIDE 0.9% 1,000 ML IV SCH (11:00)
--- NOTE | 2017-02-12 11:44 | P.PN ---
Progress Note - Text Patient interviewed and examined Sigifredo Velasco follow-up note and as practitioner Seen by cardiology team on the sixth floor and transferred to the medical floor now. Patient has hypertension abdomen dialysis history of alcohol use on a regular basis. Antihypertensive therapy just started. Suggest complete abstinence from alcohol use and continue antihypertensive therapy and follow-up with primary technical sme and PCP. Continue current medications without changes for now Please call us as needed
--- NOTE | 2017-02-12 12:12 | P.PN ---
Subjective Principal diagnosis: Acute delirium tremens secondary to alcohol withdrawal A 51-year-old male patient, alcoholic, who was admitted to the hospital after he fell at home. He is a very poor historian. He came into the hospital and he was found to be in impending delirium tremens. At the same time he had severe electrolyte imbalance with hypokalemia, hypocalcemia and hypomagnesemia and same time the patient was found to be in acute rhabdomyolysis. The patient was started in IV fluids. Electrodes imbalance was also corrected. Later on in the evening the patient became short of breath. He was suspected to be in pulmonary edema. He was given a dose of Lasix and following that he was moved to the intensive care unit. No clear-cut history of aspiration. I reviewed his chest x-ray and there is no convincing evidence of pneumonia or heart failure. Echocardiogram is in progress. Meanwhile the patient was started on IV Lasix and his IV fluids were Down. CPK is still elevated. No evidence of an acute renal failure. He was awake and alert at the time of my evaluation this morning. No obvious signs of confusions or delirium tremens. He was given thiamine and folate. Otherwise his history is negative. He is a chronic drinker and cigarette smoker. On 02/05/2017 I'm seeing this patient for a follow-up. The patient remains in intensive care unit. Mentally is gotten worse and he has progressed into active delirium tremens requiring high dose of Ativan that was given overnight. The patient was given Ativan pushes, a total of 20 mg overnight. He is still agitated. Restless. He is thrashing in bed. He is tachypneic. Is on high flow oxygen at 15 L/m and the chest x-ray shows some mild pulmonary vascular congestion. Underlying bibasilar pulmonary infiltrates cannot be completely ruled out. He is still having active diarrhea. After mass was added. Stool for C. diff was negative. He was given Imodium which improved consistency of the stool and became more solid. No abdominal distention. No nausea or vomiting. NG tube is in place. Electrodes are still off. We are chasing the potassium aggressively. He was given a total of 60 mEq of potassium oral potassium level of 2.5 and his morning potassium is down to 2.4. Note that he also received potassium infusions earlier throughout the day. He also received another 60 mEq of potassium orally. As for the magnesium, the level came at 1.7 this morning and he received an additional 2 g. The calcium ionized from this morning was 3.3 and he received an additional 2 g of calcium gluconate. He is receiving IV fluids 0.9 at 100 mL an hour and his alternating with 0.9 with MVII and 20 mEq of potassium chloride infusion. The echocardiogram was completed and the patient had a normal ejection fraction of 55-60% and there was no valvular dysfunction. He was noted to have no significant pulmonary hypertension. Some minimal mitral and aortic regurgitation was noted. RV systolic pressure was around 25. On 02/06/2017 the patient is being seen in follow-up in intensive care unit. The patient intubated on a mechanical ventilator. This morning he is an assist- control mode at the rate of 20, tidal volume of 450, FiO2 of 50% and a PEEP of 5. The blood gases from this morning shows a component of metabolic alkalosis with a pH of 7.5 and a pCO2 of 39 and pO2 of 74. The metabolic alkalosis is most likely related to his underlying diarrhea. Note that his diarrhea has subsided. The patient has erythematous system. Stool for C. diff has been negative. The patient's electronic has been essentially corrected. The potassium level is normalized. Magnesium level is normalized. The patient is receiving another dose of calcium to bring his ionized calcium of 4. Otherwise , is was sedated with Diprivan which is currently running at 40 mics. He is hemodynamically stable and he is off pressors. He is producing adequate amount of urine output. No agitation. No restlessness. No fever. He is on IV Zosyn for empiric antibiotic coverage regarding potential aspiration pneumonia. Echocardiogram was within normal limits. Tube feeds will be started today. We' ll keep him intubated for another 24 hours. May need to give him a sedation holiday to assess his underlying mentation at a later stage today. On 02/07/2017 I'm seeing this patient for a follow-up. The actively issue remains his delirium tremens. Despite being on high dose of Diprivan and a lot of and Ativan the patient is still arousable. At times is a bit agitated. A sedation holiday was given and we felt that the patient is not ready yet for weaning and extubation due to his restlessness and agitation. He also had an autonomic reaction with increased blood pressure and heart rate and breathing. We'll give this patient another 24 hours on a mechanical ventilator and we'll proceed with weaning efforts tomorrow. He remains on a mechanical ventilator. An assist-control mode of ventilation. His vent setting is essentially unchanged with a tidal volume 450, FiO2 of 50% at was dropped down to 40% and has a PEEP of 5 and his rate that 16. The sputum analysis showed midaxilla catarrhalis. He is currently on IV Zosyn. The chest x-ray shows no acute abnormalities. No significant orotracheal secretions. Tolerating his tube feeds. All of his electrolytes have been managing the placed with exception of a limited hypocalcemia which is being further supplemented. He is on tube feeds. Diarrhea is subsiding. No fever. No chills. No seizure activity. No other complaints otherwise for now. On 02/08/2017 the patient is being seen for a follow-up. A sedation holiday was given the patient seemed to be appropriate. Based on that the patient was given a spontaneous breathing trial for short period of time and following that he was extubated. Postextubation he did well however at a later stage he started having some increased anxiety, tremors and restlessness. He had to be given Ativan again and later on during the day the patient was given a dose of Haldol. Depressive monitoring this patient closely. I'm concerned that he will still bounced back into delirium tremens and he is not fluid recovered. Note that the patient was started on Librium yesterday and a dose of 5 mg by mouth twice a day. He developed also an acute hypertensive reaction for which she will be given Cleviprex. Note that his pulmonary status is also borderline. The patient has been having frequent rest or secretions however he has been able to cough it out. He had Moraxella in his sputum and the patient is currently on IV Zosyn. Today chest x-ray shows small pleural effusions bilaterally. The was given a dose of Lasix with excellent diuresis of more than 2 L after being given 40 mg of IV Lasix. NG tube still in place. Concern is ongoing issues with delirium tremens. On 02/09/2017 the patient remains extubated. Overnight he became agitated and restless and this morning it is much more comfortable. Note that he is on Librium, Ativan and receiving Haldol an estimated basis. The patient is on clevidipine drip for blood pressure control. This will be weaned off as the patient will be started on a combination of metoprolol and clonidine patch. He is hemodynamically stable. He was diuresed yesterday with IV Lasix and he is negative fluid balance of more than 7 L. He is coughing and he is able to bring up his secretions. Note that he had Pseudomonas and Moraxella in his sputum and both of them were sensitive to Zosyn and antibiotic will be continued. He pulled out his own G-tube which will be kept out and the patient will have some oral feeding initiate if he is able to swallow. I think his delirium has improved. On and off is confused however he is making much more sense and is becoming more report.. He is not having any significant agitation on today's evaluation. Reevaluated on 02/10/2017, patient seems to be calm, not agitated, does not seem to be in any form of distress. His labs and his meds were all reviewed and they seem to be relatively unremarkable. Reevaluated today on 02/11/2017, patient remains calm, not agitated, not requiring much to keep him calm. Patient even took a walk in the ICU yesterday and today he is asymptomatic. Has a bit of a cough cough is productive, patient remains on antibiotics. CBC is relatively normal and basic metabolic profile is normal. Patient will likely be discharged home in the next 24 hours. On 02/12/2017 the patient is seen in follow-up. No signs of distress, awake alert, responding appropriately. Lungs sounds clear, diminished over posterior basis. No wheezes, no rhonchi, no rails. Continues on room air, oxygen saturations are around 98%. Afebrile. No events through the night. Patient is going home today. Follow-up with pulmonary service in 1 week. Continue on oral Levaquin. Objective - Vital Signs Vital signs: Vital Signs Temp 98.0 F 02/12/17 07:00 Pulse 88 02/12/17 09:31 Resp 18 02/12/17 07:00 BP 147/93 02/12/17 07:00 Pulse Ox 98 02/12/17 07:00 Intake & Output 02/11/17 02/12/17 02/12/17 18:59 06:59 18:59 Intake Total 50 200 Balance 50 200 Weight 70.5 kg Intake: IV 50 Piperacillin-Tazobactam 3 50 .375 gm In Dextrose/Water 1 50ml.bag @ 12.5 mls/hr IVPB Q8HR [facility] Rx#: [id number] Oral 200 Other: Voiding Method Toilet Urinal # Voids 2 ABP, PAP, CO, CI - Last Documented Arterial Blood Pressure 106/53 - Exam The patient comfortable in bed. No tremors. No agitation. Head is atraumatic normocephalic. Neck is short supple and there is significant crowding of posterior oropharynx. Lung sounds are diminished bilaterally with scattered rhonchi. Cardiac exam revealed the PMI to be normally situated and sized. The rhythm was regular and no extrasystoles were noted during several minutes of auscultation. The first and second heart sounds were normal and physiologic splitting of the second heart sound was noted. There were no murmurs, rubs, clicks, or gallops. Abdominal exam revealed normal bowel sounds. The abdomen was soft, non-tender, and without masses, organomegaly, or appreciable enlargement of the abdominal aorta. Examination of the extremities revealed easily palpable radial, femoral and pedal pulses. There was no cyanosis, clubbing or edema. Examination of the skin revealed no evidence of significant rashes, suspicious appearing nevi or other concerning lesions. Skeletal system is within normal without arthritis or deformities. Neurologic exam is nonfocal. He seems to be much more appropriate. He was able to note the present in the place. He is following simple commands and he is moving all 4 extremities without any limitation. - Labs CBC & Chem 7: 02/11/17 04:03 02/12/17 08:20 Labs: Abnormal Lab Results - Last 24 Hours (Table) 02/12/17 Range/Units 08:20 Potassium 5.4 H (3.5-5.1) mmol/L Chloride 109 H (98-107) mmol/L Carbon Dioxide 21 L (22-30) mmol/L Assessment and Plan Plan: Assessment and Plan Plan: 1 acute delirium tremens secondary to alcohol withdrawal. Resolved. 2 acute respiratory failure, post extubation. Patient growing Moraxella and Pseudomonas in his sputum and the patient is currently on IV Zosyn. patient is improved. He is currently off oxygen patient can be switched to oral Levaquin for 5 more days postdischarge. And that will cover both including the Moraxella and the pseudomonas. 3 acute rhabdomyolysis improved 4 severe electrodes imbalance with hypokalemia, hypomagnesemia and hypo- calcemic. Improved 5 alcoholism, as the patient admits to drink more than 3 gallons of liquor over the weekend. 6 transient hypotension, recovered and the patient is currently off pressors 7 falls, secondary to alcoholism 8 diarrhea, improving, C. diff has been negative. 9 hypertension, controlled on metoprolol and norvasc Plan: Patient is clear for discharge from pulmonary standpoint.
--- NOTE | 2017-02-12 14:01 | P.PN ---
Subjective Principal diagnosis: We are seeing this patient in follow-up. He has been transferred from the sixth floor to medical unit. He has history of alcohol abuse and was found to be hypertensive and tachycardic. He was started on metoprolol and amlodipine for blood pressure control. His blood pressures are stable at this time. He denies chest pain, shortness of breath, dizziness or palpitations. Objective - Vital Signs Vital signs: Vital Signs Temp 98.0 F 02/12/17 07:00 Pulse 88 02/12/17 09:31 Resp 18 02/12/17 07:00 BP 147/93 02/12/17 07:00 Pulse Ox 98 02/12/17 07:00 Intake & Output 02/11/17 02/12/17 02/12/17 18:59 06:59 18:59 Intake Total 50 200 Balance 50 200 Weight 70.5 kg Intake: IV 50 Piperacillin-Tazobactam 3 50 .375 gm In Dextrose/Water 1 50ml.bag @ 12.5 mls/hr IVPB Q8HR [facility] Rx#: [id number] Oral 200 Other: Voiding Method Toilet Urinal # Voids 2 ABP, PAP, CO, CI - Last Documented Arterial Blood Pressure 106/53 - Exam GENERAL: Well-appearing, well-nourished and in no acute distress. NECK: Supple without JVD or thyromegaly. LUNGS: Breath sounds clear to auscultation bilaterally. Respiration equal and unlabored. No wheezes, rales or rhonchi. HEART: Regular rate and rhythm without murmurs, rubs or gallops. S1 and S2 heard. EXTREMITIES: Normal range of motion, no edema. No clubbing or cyanosis. Peripheral pulses intact and strong. - Labs CBC & Chem 7: 02/11/17 04:03 02/12/17 08:20 Labs: Abnormal Lab Results - Last 24 Hours (Table) 02/12/17 Range/Units 08:20 Potassium 5.4 H (3.5-5.1) mmol/L Chloride 109 H (98-107) mmol/L Carbon Dioxide 21 L (22-30) mmol/L Assessment and Plan Plan: ASSESSMENT 1. Hypertension 2. Alcohol abuse PLAN Continue current medications as previously ordered. Alcohol cessation has been discussed. He should follow up with Dr. Walsh in 2 weeks. Nurse Practitioner note has been reviewed, I agree with a documented findings and plan of care. Patient was seen and examined.
== END 2017-02-12 12:42 | disposition home or self-care (01) | DRG 557 ==
LOC: EC 19:37 → 4MS4W 23:22 → 6ICU 02-04 04:56 → 4MS4W 02-11 12:08
PROVIDERS: ADMIT Internal Medicine; ATTEND Internal Medicine
PROC: 02HV33Z Insertion of Infusion Device into Superior Vena Cava, Percutaneous Approach (ICD-10-PCS; principal; 2017-02-05)
PROC: 03HY32Z Insertion of Monitoring Device into Upper Artery, Percutaneous Approach (ICD-10-PCS; 2017-02-05)
PROC: 5A1945Z Respiratory Ventilation, 24-96 Consecutive Hours (ICD-10-PCS; 2017-02-05)
PROC: 0BH17EZ Insertion of Endotracheal Airway into Trachea, Via Natural or Artificial Opening (ICD-10-PCS; 2017-02-05)
PROC: 4A133B1 Monitoring of Arterial Pressure, Peripheral, Percutaneous Approach (ICD-10-PCS; 2017-02-05)
PROC: 4A133J1 Monitoring of Arterial Pulse, Peripheral, Percutaneous Approach (ICD-10-PCS; 2017-02-05)
PROC: 0D9670Z Drainage of Stomach with Drainage Device, Via Natural or Artificial Opening (ICD-10-PCS; 2017-02-05)
DX: M62.82 Rhabdomyolysis (principal); J96.01 Acute respiratory failure with hypoxia; R57.9 Shock, unspecified; J69.0 Pneumonitis due to inhalation of food and vomit; G92 Toxic encephalopathy; J81.0 Acute pulmonary edema; F10.231 Alcohol dependence with withdrawal delirium; E87.3 Alkalosis; E83.42 Hypomagnesemia; E83.51 Hypocalcemia; E87.6 Hypokalemia; E86.0 Dehydration; I10 Essential (primary) hypertension; F41.9 Anxiety disorder, unspecified; F17.210 Nicotine dependence, cigarettes, uncomplicated; I16.0 Hypertensive urgency; M51.26 Other intervertebral disc displacement, lumbar region; G89.29 Other chronic pain; R19.7 Diarrhea, unspecified; Y90.0 Blood alcohol level of less than 20 mg/100 ml; W06.XXXA Fall from bed, initial encounter; Y92.009 Unspecified place in unspecified non-institutional (private) residence as the place of occurrence of the external cause
CPT/HCPCS: 36415; 36600; 71010; 72131; 80048; 80053; 80306; 80320; 81001; 82150; 82330; 82550; 82553; 82607; 82746; 82805; 83690; 83735; 83880; 84100; 84132; 84443; 84484; 85025; 85027; 85379; 85610; 85730; 87070; 87077; 87086; 87186; 87205; 87324; 93005; 93306; 94002; 94003; 94640; 96365; 96366; 96368; 96375; 99291

== ENCOUNTER 2017-07-28 14:36 | Inpatient (IN) | payer OTHER ==
[2017-07-28] MEDS ORDERED: SODIUM CHLORIDE 0.9% 1,000 ML IV STA ×2 (14:53→15:30)
[2017-07-28] MEDS ORDERED: chlordiazePOXIDE 25 MG CAP PO STA (14:54)
[2017-07-28 15:26] LABS: Basophils % (A) 0 %; Eosinophils # (A) 0.1 k/uL (0-0.7); Eosinophils % (A) 1 %; HCT 42.5 % (39.0-53.0); HGB 14.7 gm/dL (13.0-17.5); Lymphocytes # (A) 0.8 k/uL (1.0-4.8); Lymphocytes % (A) 8 %; MCH 35.2 pg (25.0-35.0); MCHC 34.5 g/dL (31.0-37.0); MCV 102.1 fL (80.0-100.0); Macrocytosis Slight; Mean Platelet Volume 8.9; Monocytes # (A) 0.5 k/uL (0-1.0); Monocytes % (A) 5 %; Neutrophils % (A) 85 %; Platelet Count 285 k/uL (150-450); RBC 4.16 m/uL (4.30-5.90); RDW 13.2 % (11.5-15.5); WBC 9.5 k/uL (3.8-10.6)
--- NOTE | 2017-07-28 15:35 | ED ---
General Adult HPI - General Chief complaint: Chest Pain Stated complaint: CHEST PAIN Time Seen by Provider: 07/28/17 14:50 Source: patient Mode of arrival: EMS Limitations: no limitations - History of Present Illness Initial comments: Patient complains of chest pain, which began this morning. Patient states that he drinks alcohol every day. He has not had anything to drink today. He denies any fevers, chills. He has no back pain or belly pain. He has no nausea or vomiting. He has no diaphoresis. Nothing makes his symptoms better or worse. He does not have a history of exertional chest pain or shortness of breath. - Related Data Home Medications Medication Instructions Recorded Confirmed No Known Home Medications [No 07/28/17 07/28/17 Known Home Medications] Allergies Allergy/AdvReac Type Severity Reaction Status Date / Time No Known Allergies Allergy Verified 07/28/17 15:15 Review of Systems ROS Statement: Those systems with pertinent positive or pertinent negative responses have been documented in the HPI. ROS Other: All systems not noted in ROS Statement are negative. Past Medical History Past Medical History: No Reported History Additional Past Medical History / Comment(s): chronic back pain, alcoholism History of Any Multi-Drug Resistant Organisms: None Reported Past Surgical History: No Surgical Hx Reported Past Psychological History: No Psychological Hx Reported Past Alcohol Use History: Abuse, Daily, Heavy Past Drug Use History: Cocaine, Methamphetamine General Exam Limitations: no limitations General appearance: alert, in no apparent distress Head exam: Present: atraumatic, normocephalic, normal inspection Eye exam: Present: normal appearance, PERRL, EOMI. Absent: scleral icterus, conjunctival injection, periorbital swelling ENT exam: Present: normal exam, mucous membranes moist Neck exam: Present: normal inspection. Absent: tenderness, meningismus, lymphadenopathy Respiratory exam: Present: normal lung sounds bilaterally. Absent: respiratory distress, wheezes, rales, rhonchi, stridor Cardiovascular Exam: Present: regular rate, normal rhythm, normal heart sounds. Absent: systolic murmur, diastolic murmur, rubs, gallop, clicks GI/Abdominal exam: Present: soft, normal bowel sounds. Absent: distended, tenderness, guarding, rebound, rigid Extremities exam: Present: normal inspection, full ROM, normal capillary refill. Absent: tenderness, pedal edema, joint swelling, calf tenderness Back exam: Present: normal inspection Neurological exam: Present: alert, oriented X3, CN II-XII intact Psychiatric exam: Present: normal affect, normal mood Skin exam: Present: warm, dry, intact, normal color. Absent: rash Course Vital Signs 07/28/17 14:47 Temperature 96.9 F L Pulse Rate 125 H Respiratory 18 Rate Blood Pressure 202/106 O2 Sat by Pulse 95 Oximetry EKG Findings - EKG Comments: EKG Findings:: Twelve-lead EKG shows ventricular rate 126 bpm, normal [place] interval and Alexander complexes, no ST elevation or depression, interpreted by me as sinus tachycardia. Medical Decision Making - Medical Decision Making Patient presented for alcohol withdrawal. He had a near syncopal episode. He is not any better on reevaluation. He will be admitted to the hospital. - Lab Data Result diagrams: 07/28/17 14:51 Lab Results 07/28/17 07/28/17 07/28/17 Range/Units 14:51 14:51 14:51 WBC 9.5 (3.8-10.6) k/uL RBC 4.16 L (4.30-5.90) m/uL Hgb 14.7 (13.0-17.5) gm/dL Hct 42.5 (39.0-53.0) % MCV 102.1 H (80.0-100.0) fL MCH 35.2 H (25.0-35.0) pg MCHC 34.5 (31.0-37.0) g/dL RDW 13.2 (11.5-15.5) % Plt Count 285 (150-450) k/uL Neutrophils % 85 % Lymphocytes % 8 % Monocytes % 5 % Eosinophils % 1 % Basophils % 0 % Neutrophils # 8.0 H (1.3-7.7) k/uL Lymphocytes # 0.8 L (1.0-4.8) k/uL Monocytes # 0.5 (0-1.0) k/uL Eosinophils # 0.1 (0-0.7) k/uL Basophils # 0.0 (0-0.2) k/uL Macrocytosis Slight PT 11.5 (9.0-12.0) sec INR 1.2 H (<1.2) APTT 22.0 (22.0-30.0) sec Troponin I (0.000-0.034) ng/mL NT-Pro-B Natriuret Pep 102 pg/mL 07/28/17 Range/Units 14:51 WBC (3.8-10.6) k/uL RBC (4.30-5.90) m/uL Hgb (13.0-17.5) gm/dL Hct (39.0-53.0) % MCV (80.0-100.0) fL MCH (25.0-35.0) pg MCHC (31.0-37.0) g/dL RDW (11.5-15.5) % Plt Count (150-450) k/uL Neutrophils % % Lymphocytes % % Monocytes % % Eosinophils % % Basophils % % Neutrophils # (1.3-7.7) k/uL Lymphocytes # (1.0-4.8) k/uL Monocytes # (0-1.0) k/uL Eosinophils # (0-0.7) k/uL Basophils # (0-0.2) k/uL Macrocytosis PT (9.0-12.0) sec INR (<1.2) APTT (22.0-30.0) sec Troponin I 0.024 (0.000-0.034) ng/mL NT-Pro-B Natriuret Pep pg/mL Disposition Clinical Impression: Alcohol withdrawal Disposition: ADMITTED IP TO THIS HOSP Condition: Fair Referrals: None,Stated [Primary Care Provider] - 1-2 days
[2017-07-28 15:59] LABS: INR 1.2 (<1.2); Prothrombin Time 11.5 sec (9.0-12.0)
[2017-07-28 16:32] LABS: ALT 104 U/L (21-72); AST 195 U/L (17-59); Albumin 4.1 g/dL (3.5-5.0); Alkaline Phosphatase 158 U/L (38-126); Anion Gap 13 mmol/L; Blood Urea Nitrogen 6 mg/dL (9-20); Calcium 8.8 mg/dL (8.4-10.2); Carbon Dioxide 32 mmol/L (22-30); Chloride 97 mmol/L (98-107); Glucose 155 mg/dL (74-99); Magnesium 1.3 mg/dL (1.6-2.3); Sodium 142 mmol/L (137-145); Total Bilirubin 2.2 mg/dL (0.2-1.3); Total Protein 7.2 g/dL (6.3-8.2)
[2017-07-28 16:34] LABS: Potassium 2.8 mmol/L (3.5-5.1)
[2017-07-28] MEDS ORDERED: POTASSIUM BICARBONATE/CIT AC 20 MEQ TABLET.EFF PO ONE (16:54)
[2017-07-28] MEDS ORDERED: LORazepam 2 MG/ML INJ IV PRN (16:55)
[2017-07-28] MEDS ORDERED: THIAMINE 100 MG/ML 2 ML VIAL IM STA ×2 (16:55→17:43)
[2017-07-28] MEDS ORDERED: POTASSIUM CHLORIDE 20 MEQ in WATER FOR INJECTION 1 100ML.BAG IVPB SCH (17:00)
[2017-07-28] MEDS: POTASSIUM CHLORIDE 20 MEQ in SODIUM CHLORIDE 0.9% 100 ML IVPB SCH ×2 (17:31→19:44)
[2017-07-28] MEDS: LORazepam 2 MG/ML INJ IV PRN ×4 (17:38→22:23)
[2017-07-28] MEDS ORDERED: IBUPROFEN 400 MG TAB PO PRN (17:43)
[2017-07-28] MEDS ORDERED: DOCUSATE 100 MG CAP PO PRN (17:43)
[2017-07-28] MEDS ORDERED: CALCIUM CARBONATE 500 MG CHEWABLE PO PRN (17:43)
[2017-07-28] MEDS ORDERED: MELATONIN 3 MG TABLET PO PRN (17:43)
[2017-07-28] MEDS ORDERED: ONDANSETRON 4 MG/2 ML VIAL IVP PRN (17:43)
[2017-07-28] MEDS ORDERED: NALOXONE 0.4 MG/ML 1 ML VIAL IV PRN (17:43)
[2017-07-28] MEDS ORDERED: ACETAMINOPHEN TAB 325 MG TAB PO PRN (17:43)
--- NOTE | 2017-07-28 17:50 | P.HPIM ---
History of Present Illness H&P Date: 07/28/17 Chief Complaint: syncope Patient is a 51-year-old male with a past medical history of alcohol was on, illicit drug use, tobacco abuse, and chronic low back pain who presented to the emergency department after a syncopal episode. In the ER he underwent an extensive evaluation. On arrival he was found be tachycardic with a pulse of 125 and a blood pressure of 202/106. EKG was done which revealed sinus tachycardia. Laboratory analysis revealed a potassium of 2.8. Magnesium was 1.3. They gave him IV fluids and a dose of Librium. They were worried about impending alcohol withdrawal and request was made for admission. Secondary to patient's history of severe alcohol withdrawal resulting in aspiration pneumonia, intubation, and vasopressor use it was determined that he was most appropriate to be placed on our selective care floor. Patient was seen and examined in the emergency department. He complains of restlessness, tremors, and diaphoresis. He states that he has been drinking greater than a fifth of all call daily. He does not remember the last time he missed drinking alcohol. He reports that his last drink was approximately 24- 36 hours ago. He states that for the last 2 days he had been using cocaine and not sleeping and on a high. Yesterday about noon he then used methamphetamine. Asking and pushing a bicycle and felt extremely weak. He remembers bending over to tie his shoe, the next thing he remembers was waking up on the ground. He then walked the store and had a repeat syncopal episode requiring that they called EMS. He denies any chest pain. He has chronic shortness of breath and walking up a flight of stairs which is unchanged for years. The last 2 days he has not ate or drank much secondary to his crack cocaine use. He complains of a chronic cough productive of yellow-green sputum that has not changed. He also states that he has had poor dentition and he needs to have all of his teeth pulled. He denies any nausea or vomiting. He has been having abdominal pain which is central and feels burning in nature. He states it feels like acid reflux. He states he has had problems with this and he drinks before. He is currently not seeing a family physician. Review of Systems General: no fever/chills, no rigors, no weight loss/weight gain, + generalized weakness Eyes: no noticeable visual changes, no loss of vision ENT: no rhinorrhea, no congestion, no sore throat Cardiovascular: no chest pain, no palpitations, + preyncope/syncope, no edema Pulmonary: + Chronic shortness of breath, no wheezing, + chronic cough with purulent sputum Abdominal: + abdominal pain, no constipation, no diarrhea, no vomiting, no nausea Genitourinary: no dysuria, no urinary frequency, no unusual discharge/odor Neuro: no unusual paresthesias, no unusual paresis/paralysis, no headache Dermatologic: no unusual rashes, no unusual lesions, no unusual changes in nails Hematologic: no hemoptysis, no hematuria, no melena/hematochezia Psychiatric: no changes in mood or behaviors, no changes in sleep pattern Past Medical History Additional Past Medical History / Comment(s): chronic back pain, alcoholism, aspiration pneumonia, sepsis History of Any Multi-Drug Resistant Organisms: None Reported Past Surgical History: No Surgical Hx Reported Past Psychological History: No Psychological Hx Reported Smoking Status: Current every day smoker Past Alcohol Use History: Abuse, Daily, Heavy Past Drug Use History: Cocaine, Marijuana, Methamphetamine Additional History: Living alone, unemployeed - Past Family History Father Family Medical History: No Reported History Additional Family Medical History / Comment(s): denies any history of coronary artery disease Medications and Allergies Home Medications Medication Instructions Recorded Confirmed Type No Known Home Medications [No 07/28/17 07/28/17 History Known Home Medications] Allergies Allergy/AdvReac Type Severity Reaction Status Date / Time No Known Allergies Allergy Verified 07/28/17 15:15 Physical Exam Osteopathic Statement: *. No significant issues noted on an osteopathic structural exam other than those noted in the History and Physical/Consult. Vitals: Vital Signs Temp Pulse Resp BP Pulse Ox 07/28/17 17:12 105 H 22 211/70 99 07/28/17 16:55 112 H 24 211/110 99 07/28/17 14:47 96.9 F L 125 H 18 202/106 95 Intake and Output 07/28/17 07/28/17 07/28/17 06:59 14:59 22:59 Other: Weight 86.183 kg Patient Weight 07/29/17 06:59 Weight 86.183 kg General: non toxic, mild distress, disheveled, appears at stated age, normal weight Derm: no unusual rashes/lesions no areas of ecchymosis, warm, dry Head: atraumatic, normocephalic, symmetric Eyes: EOMI, no lid lag, anicteric sclera, pupils equal round reactive to light ENT: Nose and ears atraumatic, no thrush, no pharyngeal erythema Neck: No thyromegaly, no cervical lymphadenopathy, trachea midline, supple Mouth: no lip lesion, mucus membranes dry Cardiovascular: S1S2 tachycardia, no murmur, positive posterior tibial pulse bilateral, no edema, capillary refill less than 2 seconds Lungs: Coarse breath sounds bilateral , no accessory muscle use Abdominal: soft, tender to palpation epigastric, no guarding, no appreciable organomegaly, normal bowel sounds Ext: no gross muscle atrophy, muscle strength 4-5 out of 5 in all 4 extremities grossly, no contractures, Neuro: + Tremor, CN II-XI grossly intact, light touch intact all 4 extremities , finger to nose within normal limits, Psych: Alert, oriented, anxious' Results CBC & Chem 7: 07/28/17 14:51 07/28/17 15:52 Labs: Abnormal Lab Results - Last 24 Hours (Table) 07/28/17 07/28/17 07/28/17 Range/Units 14:51 14:51 15:52 RBC 4.16 L (4.30-5.90) m/uL MCV 102.1 H (80.0-100.0) fL MCH 35.2 H (25.0-35.0) pg Neutrophils # 8.0 H (1.3-7.7) k/uL Lymphocytes # 0.8 L (1.0-4.8) k/uL INR 1.2 H (<1.2) Potassium 2.8 L* (3.5-5.1) mmol/L Chloride 97 L (98-107) mmol/L Carbon Dioxide 32 H (22-30) mmol/L BUN 6 L (9-20) mg/dL Creatinine 0.61 L (0.66-1.25) mg/dL Glucose 155 H (74-99) mg/dL Magnesium 1.3 L (1.6-2.3) mg/dL Total Bilirubin 2.2 H (0.2-1.3) mg/dL AST 195 H (17-59) U/L ALT 104 H (21-72) U/L Alkaline Phosphatase 158 H (38-126) U/L Chest x-ray: report reviewed, image reviewed Thrombosis Risk Factor Assmnt - DVT/VTE Prophylaxis DVT/VTE Prophylaxis: Pharmacologic Prophylaxis ordered Assessment and Plan Assessment: Syncopal episode -Suspect secondary to old, crack cocaine, and methamphetamine use -Telemetry -Echocardiogram Delirium tremens -Thiamine and folic acid supplementation -CIWA protocol -Seizure precautions -Social work consult - Counseled on cessation Transaminitis - Suspect secondary to alcoholic hepatitis -Has been chronically elevated and this is the lowest of his measurements. -Check hepatitis profile Gastritis -Initiate PPI protocol -Patient denies any blood in his stool -Monitor hemoglobin Chronic cough - check CXR Crack cocaine and meth use - cessation - Ativan for symptomatic management Severe hypokalemia and hypomagnesemia -Replace and recheck at 2200 -Telemetry monitoring Surrogate decision-maker: Sister Yi CODE STATUS: Full DVT prophylaxis: Lovenox Discussed with:Patient, ED nursing, Dr. Henriquez Anticipated discharge: 3-[address]: home A total of 65 minutes was spent on the care of this complex patient more than 50 % of the time was spent in counseling and care coordination.
[2017-07-28] MEDS: SODIUM CHLORIDE 0.9% 1,000 ML with MVI, ADULT NO.4 WITH VIT K 10 ML, THIAMINE 100 MG, F... IV ONE ×8 (18:56→20:00)
--- NOTE | 2017-07-28 19:31 | XR ---
EXAMINATION TYPE: XR chest 2V DATE OF EXAM: 07/28/2017 COMPARISON: 02/08/2017 HISTORY: Short of breath TECHNIQUE: Frontal and lateral views of the chest are obtained. FINDINGS: Heart and mediastinum are normal. Lungs are clear. Diaphragm is normal. There are chest le ads. Bony thorax is intact. There are is no evidence of compression fracture. IMPRESSION: No active cardiopulmonary disease. No adverse change compared to old exam. There is impr denisse inspiration.
[2017-07-28] MEDS: cloNIDine HCL 0.1 MG TAB PO PRN (19:40)
[2017-07-28] MEDS: MAGNESIUM SULFATE-D5W PMX 1 GM in DEXTROSE/WATER 1 100ML.BAG IVPB SCH ×3 (19:48→22:55)
[2017-07-28 20:43] VITALS: BMI 26.4
[2017-07-28] MEDS: HYDROcodone/APAP 5-325MG 1 EACH TAB PO PRN (20:52)
[2017-07-28] MEDS: PANTOPRAZOLE 40 MG TABLET PO SCH (20:54)
[2017-07-28] MEDS: NICOTINE 21MG/24HR PATCH TRANSDERM SCH ×2 (20:54→21:41)
[2017-07-28 23:12] LABS: Anion Gap 7 mmol/L; Blood Urea Nitrogen 6 mg/dL (9-20); Calcium 7.7 mg/dL (8.4-10.2); Carbon Dioxide 32 mmol/L (22-30); Chloride 102 mmol/L (98-107); Glucose 192 mg/dL (74-99); Magnesium 2.1 mg/dL (1.6-2.3); Potassium 3.2 mmol/L (3.5-5.1); Sodium 141 mmol/L (137-145)
[2017-07-28] MEDS ORDERED: Potassium Replacement Protocol 1 EACH MISC MISCELLANE PRN (23:59)
[2017-07-29] MEDS: MAGNESIUM SULFATE-D5W PMX 1 GM in DEXTROSE/WATER 1 100ML.BAG IVPB SCH (00:02)
[2017-07-29] MEDS: POTASSIUM CHLORIDE ER 20 MEQ TAB.ER PO SCH ×3 (01:45→04:00)
[2017-07-29 03:36] LABS: Amphetamine Screen,Urine Not Detected (NotDetected); Barbiturate Screen,Urine Not Detected (NotDetected); Benzodiazepines Screen,Urine Detected (NotDetected); Cocaine Screen,Urine Detected (NotDetected); Methadone Screen, Urine Not Detected (NotDetected); Opiate Screen,Urine Not Detected (NotDetected); Oxycodone Screen, Urine Not Detected (NotDetected); Phencyclidine Screen,Urine Not Detected (NotDetected); Tricyclic Antidepressant,Urine Not Detected (NotDetected); Urn Cannabinoid Scrn Not Detected (NotDetected)
[2017-07-29] MEDS: CALCIUM CARB-VIT D 500MG-200UN 1 EACH TAB PO SCH ×2 (06:21→15:12)
[2017-07-29] MEDS: PANTOPRAZOLE 40 MG TABLET PO SCH (06:22)
[2017-07-29] MEDS: LORazepam 2 MG/ML INJ IV PRN ×4 (06:25→18:20)
[2017-07-29 07:07] LABS: HCT 37.9 % (39.0-53.0); HGB 12.6 gm/dL (13.0-17.5); MCH 34.9 pg (25.0-35.0); MCHC 33.2 g/dL (31.0-37.0); MCV 104.9 fL (80.0-100.0); Macrocytosis Slight; Mean Platelet Volume 8.3; Platelet Count 213 k/uL (150-450); RBC 3.61 m/uL (4.30-5.90); RDW 13.2 % (11.5-15.5)
[2017-07-29 07:15] LABS: ALT 84 U/L (21-72); AST 218 U/L (17-59); Albumin 3.4 g/dL (3.5-5.0); Alkaline Phosphatase 131 U/L (38-126); Anion Gap 9 mmol/L; Blood Urea Nitrogen 3 mg/dL (9-20); Calcium 7.4 mg/dL (8.4-10.2); Carbon Dioxide 30 mmol/L (22-30); Chloride 102 mmol/L (98-107); Glucose 124 mg/dL (74-99); Magnesium 2.1 mg/dL (1.6-2.3); Phosphorus 2.2 mg/dL (2.5-4.5); Potassium 3.1 mmol/L (3.5-5.1); Sodium 141 mmol/L (137-145); Total Bilirubin 2.1 mg/dL (0.2-1.3)
[2017-07-29] MEDS: ENOXAPARIN 40 MG/0.4 ML SYRINGE SQ SCH (08:42)
[2017-07-29] MEDS: amLODIPine 5 MG TAB PO SCH (08:42)
[2017-07-29] MEDS: FOLIC ACID 1 MG TAB PO SCH (08:42)
[2017-07-29] MEDS: THIAMINE 100 MG TAB PO SCH ×3 (08:42→15:12)
[2017-07-29] MEDS: MULTIVITAMINS, THERA 1 EACH TAB PO SCH (08:42)
--- NOTE | 2017-07-29 11:32 | P.PN ---
Subjective Progress Note Date: 07/29/17 (Delayed charting seen at approximately 0800) Principal diagnosis: Syncope and fall Patient is a 51-year-old male with a past medical history of alcoholism, illicit drug use, tobacco abuse, and chronic low back pain who presented to the emergency department after a syncopal episode. In the ER he underwent an extensive evaluation. On arrival he was found be tachycardic with a pulse of 125 and a blood pressure of 202/106. EKG was done which revealed sinus tachycardia. Laboratory analysis revealed a potassium of 2.8. Magnesium was 1.3. They gave him IV fluids and a dose of Librium. They were worried about impending alcohol withdrawal and request was made for admission. Secondary to patient's history of severe alcohol withdrawal resulting in aspiration pneumonia, intubation, and vasopressor use it was determined that he was most appropriate to be placed on our selective care floor. Upon admission patient and was given aggressive potassium and magnesium replacement. He was started on a banana bag and folic acid replacement area he was started on a CIWA protocol. Echocardiogram was ordered to further evaluate his syncopal episode and was placed on telemetry. Overnight on 07/28 he required multiple doses of Ativan secondary to alcohol withdrawal. By the morning of 07/29 his lightheadedness and dizziness had decrease. He was feeling stronger again and was able to walk with minimal assistance. He was still necessitating the use of IV Ativan. Patient seen and examined at bedside. He states that he is feeling less dizzy than yesterday. His strength has increased. Denies any chest pain or shortness of breath. He is feeling much improved. He denies any nausea or headaches. He states that his tremor is improving. He was able to ambulate to the bathroom with therapy. Objective - Vital Signs Vital signs: Vital Signs Temp 98.2 F 07/29/17 08:00 Pulse 80 07/29/17 08:00 Resp 20 07/29/17 08:00 BP 198/110 07/29/17 08:00 Pulse Ox 97 07/29/17 08:00 Intake & Output 07/28/17 07/29/17 07/29/17 18:59 06:59 18:59 Intake Total 180 Output Total 600 Balance -600 180 Weight 86.183 kg 87.5 kg Intake: Oral 180 Output: Urine 600 Other: Voiding Method Urinal Toilet Urinal # Voids 1 - Exam General: Disheveled, nontoxic, mild distress, appears older than stated age Derm: warm, dry Head: atraumatic, normocephalic, symmetric Eyes: EOMI, no lid lag, anicteric sclera Mouth: no lip lesion, mucus membranes moist Cardiovascular: S1-S2 tachycardia, no murmur, positive posterior tibial pulse bilateral, Lungs: CTA bilateral, no rhonchi, no rales , no accessory muscle use Abdominal: soft, nontender to palpation, no guarding, no appreciable organomegaly Ext: no gross muscle atrophy, no edema, no contractures Neuro: + Tremors, no hallucinations CN II-XI grossly intact, no focal neuro deficits Psych: Alert, oriented, appropriate affect - Labs CBC & Chem 7: 07/29/17 06:14 07/29/17 06:14 Labs: Abnormal Lab Results - Last 24 Hours (Table) 07/28/17 07/28/17 07/28/17 Range/Units 14:51 14:51 15:52 RBC 4.16 L (4.30-5.90) m/uL Hgb (13.0-17.5) gm/dL Hct (39.0-53.0) % MCV 102.1 H (80.0-100.0) fL MCH 35.2 H (25.0-35.0) pg Neutrophils # 8.0 H (1.3-7.7) k/uL Lymphocytes # 0.8 L (1.0-4.8) k/uL INR 1.2 H (<1.2) Potassium 2.8 L* (3.5-5.1) mmol/L Chloride 97 L (98-107) mmol/L Carbon Dioxide 32 H (22-30) mmol/L BUN 6 L (9-20) mg/dL Creatinine 0.61 L (0.66-1.25) mg/dL Glucose 155 H (74-99) mg/dL Calcium (8.4-10.2) mg/dL Phosphorus (2.5-4.5) mg/dL Magnesium 1.3 L (1.6-2.3) mg/dL Total Bilirubin 2.2 H (0.2-1.3) mg/dL AST 195 H (17-59) U/L ALT 104 H (21-72) U/L Alkaline Phosphatase 158 H (38-126) U/L Total Protein (6.3-8.2) g/dL Albumin (3.5-5.0) g/dL U Benzodiazepines Scrn (NotDetected) Urine Cocaine Screen (NotDetected) 07/28/17 07/29/17 07/29/17 Range/Units 22:44 02:56 06:14 RBC 3.61 L (4.30-5.90) m/uL Hgb 12.6 L (13.0-17.5) gm/dL Hct 37.9 L (39.0-53.0) % MCV 104.9 H (80.0-100.0) fL MCH (25.0-35.0) pg Neutrophils # (1.3-7.7) k/uL Lymphocytes # (1.0-4.8) k/uL INR (<1.2) Potassium 3.2 L (3.5-5.1) mmol/L Chloride (98-107) mmol/L Carbon Dioxide 32 H (22-30) mmol/L BUN 6 L (9-20) mg/dL Creatinine 0.60 L (0.66-1.25) mg/dL Glucose 192 H (74-99) mg/dL Calcium 7.7 L (8.4-10.2) mg/dL Phosphorus (2.5-4.5) mg/dL Magnesium (1.6-2.3) mg/dL Total Bilirubin (0.2-1.3) mg/dL AST (17-59) U/L ALT (21-72) U/L Alkaline Phosphatase (38-126) U/L Total Protein (6.3-8.2) g/dL Albumin (3.5-5.0) g/dL U Benzodiazepines Scrn Detected H (NotDetected) Urine Cocaine Screen Detected H (NotDetected) 07/29/17 Range/Units 06:14 RBC (4.30-5.90) m/uL Hgb (13.0-17.5) gm/dL Hct (39.0-53.0) % MCV (80.0-100.0) fL MCH (25.0-35.0) pg Neutrophils # (1.3-7.7) k/uL Lymphocytes # (1.0-4.8) k/uL INR (<1.2) Potassium 3.1 L (3.5-5.1) mmol/L Chloride (98-107) mmol/L Carbon Dioxide (22-30) mmol/L BUN 3 L (9-20) mg/dL Creatinine 0.53 L (0.66-1.25) mg/dL Glucose 124 H (74-99) mg/dL Calcium 7.4 L (8.4-10.2) mg/dL Phosphorus 2.2 L (2.5-4.5) mg/dL Magnesium (1.6-2.3) mg/dL Total Bilirubin 2.1 H (0.2-1.3) mg/dL AST 218 H (17-59) U/L ALT 84 H (21-72) U/L Alkaline Phosphatase 131 H (38-126) U/L Total Protein 6.0 L (6.3-8.2) g/dL Albumin 3.4 L (3.5-5.0) g/dL U Benzodiazepines Scrn (NotDetected) Urine Cocaine Screen (NotDetected) Assessment and Plan Assessment: Syncopal episode -Suspect secondary to alcohol, crack cocaine, and methamphetamine use -Telemetry -Echocardiogram currently pending - PT/oT Delirium tremens -Thiamine and folic acid supplementation -CIWA protocol -Seizure precautions -Social work consult - Counseled on cessation -Completed banana bag HTN urgency - Likely complicated by alcohol withdrawal but patient states he has a history of hypertension in the past - Start Norvasc Transaminitis - Suspect secondary to alcoholic hepatitis -Has been chronically elevated and this is the lowest of his measurements. -Check hepatitis profile Gastritis -PPI -Patient denies any blood in his stool -Monitor hemoglobin Crack cocaine and meth use - cessation - Ativan for symptomatic management Severe hypokalemia and hypomagnesemia, improved Surrogate decision-maker: Sister Yi CODE STATUS: Full DVT prophylaxis: Lovenox Discussed with:Patient, ED nursing, Dr. Henriquez Anticipated discharge: [address]: home A total of 65 minutes was spent on the care of this complex patient more than 50 % of the time was spent in counseling and care coordination.
--- NOTE | 2017-07-29 18:37 | ECHOF ---
Referral Reason:syncope MEASUREMENTS -------- HEIGHT: 180.3 cm WEIGHT: 87.1 kg BP: 166/88 RVIDd: 2.8 cm (< 3.3) IVSd: 1.0 cm (0.6 - 1.1) LVIDd: 4.3 cm (3.9 - 5.3) LVPWd: 1.5 cm (0.6 - 1.1) IVSs: 1.7 cm LVIDs: 2.6 cm LVPWs: 1.8 cm Ao Diam: 3.7 cm (2.0 - 3.7) AV Cusp: 2.0 cm (1.5 - 2.6) LA Diam: 3.4 cm (2.7 - 3.8) MV EXCURSION: 17.354 mm (> 18.000) MV EF SLOPE: 188 mm/s (70 - 150) EPSS: 0.7 cm MV E Tommy: 0.81 m/s MV DecT: 182 ms MV A Tommy: 1.11 m/s MV E/A Ratio: 0.73 AR PHT: 343 ms RAP: 5.00 mmHg RVSP: 24.94 mmHg FINDINGS -------- Sinus rhythm with extra systolic beats. This was a technically good study. The left ventricular size is normal. There is borderline concentric left ventricular hypertrophy. Overall left ventricular systolic function is low-normal with, an EF between 50 - 55 %. The right ventricle is normal in size and function. The left atrium is normal in size. The right atrium is normal in size. The aortic valve is trileaflet and appears structurally normal. There is mild aortic regurgitation. There is trace mitral regurgitation. Trace tricuspid regurgitation present. The right ventricular systolic pressure, as measured by Dopp ler, is 24.94mmHg. Pulmonic valve appears structurally normal. The aortic root size is normal. The pericardium is normal. CONCLUSIONS -------- 1. Sinus rhythm with extra systolic beats. 2. This was a technically good study. 3. The left ventricular size is normal. 4. There is borderline concentric left ventricular hypertrophy. 5. Overall left ventricular systolic function is low-normal with, an EF between 50 - 55 %. 6. The right ventricle is normal in size and function. 7. The left atrium is normal in size. 8. The right atrium is normal in size. 9. The aortic valve is trileaflet and appears structurally normal. 10. There is mild aortic regurgitation. 11. There is trace mitral regurgitation. 12. Trace tricuspid regurgitation present. 13. The right ventricular systolic pressure, as measured by Doppler, is 24.94mmHg. 14. Pulmonic valve appears structurally normal. 15. The aortic root size is normal. 16. The pericardium is normal. ACID WASH OPERATOR: Estefany Wilder RDCS
[2017-07-29] MEDS: cloNIDine HCL 0.1 MG TAB PO PRN (19:47)
[2017-07-29] MEDS: HYDROcodone/APAP 5-325MG 1 EACH TAB PO PRN (19:51)
[2017-07-29 19:59] LABS: Hepatitis A Antibody IgM Non-Reactive (Non-Reactive); Hepatitis B Core IgM Non-Reactive (Non-Reactive)
[2017-07-29] MEDS: NICOTINE 21MG/24HR PATCH TRANSDERM SCH (23:09)
[2017-07-30] MEDS: PANTOPRAZOLE 40 MG TABLET PO SCH (06:25)
[2017-07-30] MEDS: CALCIUM CARB-VIT D 500MG-200UN 1 EACH TAB PO SCH ×2 (06:25→17:15)
[2017-07-30 07:45] LABS: HCT 39.1 % (39.0-53.0); HGB 12.9 gm/dL (13.0-17.5); MCH 34.8 pg (25.0-35.0); MCV 105.6 fL (80.0-100.0); Macrocytosis Slight; Mean Platelet Volume 8.8; Platelet Count 177 k/uL (150-450); RDW 13.1 % (11.5-15.5); WBC 7.5 k/uL (3.8-10.6)
[2017-07-30] MEDS: MULTIVITAMINS, THERA 1 EACH TAB PO SCH (08:01)
[2017-07-30] MEDS: FOLIC ACID 1 MG TAB PO SCH (08:01)
[2017-07-30] MEDS: ENOXAPARIN 40 MG/0.4 ML SYRINGE SQ SCH (08:01)
[2017-07-30] MEDS: amLODIPine 5 MG TAB PO SCH (08:01)
[2017-07-30] MEDS: THIAMINE 100 MG TAB PO SCH ×2 (08:01→17:15)
[2017-07-30 08:11] LABS: ALT 75 U/L (21-72); AST 129 U/L (17-59); Albumin 3.4 g/dL (3.5-5.0); Alkaline Phosphatase 121 U/L (38-126); Anion Gap 10 mmol/L; Blood Urea Nitrogen 6 mg/dL (9-20); Calcium 8.2 mg/dL (8.4-10.2); Carbon Dioxide 28 mmol/L (22-30); Chloride 103 mmol/L (98-107); Glucose 119 mg/dL (74-99); Magnesium 1.8 mg/dL (1.6-2.3); Sodium 141 mmol/L (137-145); Total Bilirubin 1.4 mg/dL (0.2-1.3)
[2017-07-30 08:27] LABS: Potassium 2.8 mmol/L (3.5-5.1)
[2017-07-30] MEDS: POTASSIUM CHLORIDE ER 20 MEQ TAB.ER PO SCH ×3 (09:05→11:25)
--- NOTE | 2017-07-30 12:39 | P.PN ---
Subjective Principal diagnosis: Patient is a 51-year-old male with a past medical history of alcoholism, illicit drug use, tobacco abuse, and chronic low back pain who presented to the emergency department after a syncopal episode. In the ER he underwent an extensive evaluation. On arrival he was found be tachycardic with a pulse of 125 and a blood pressure of 202/106. EKG was done which revealed sinus tachycardia. Laboratory analysis revealed a potassium of 2.8. Magnesium was 1.3. They gave him IV fluids and a dose of Librium. They were worried about impending alcohol withdrawal and request was made for admission. Secondary to patient's history of severe alcohol withdrawal resulting in aspiration pneumonia, intubation, and vasopressor use it was determined that he was most appropriate to be placed on our selective care floor. Upon admission patient and was given aggressive potassium and magnesium replacement. He was started on a banana bag and folic acid replacement area he was started on a CIWA protocol. Echocardiogram ordered showed a normal ejection fraction of 50- 55%. Overnight on 07/28 he required multiple doses of Ativan secondary to alcohol withdrawal and was also noted to have elevated blood pressure By the morning of 07/29 his lightheadedness and dizziness had decrease. He was feeling stronger again and was able to walk with minimal assistance. He was still necessitating the use of IV Ativan. Patient's current CIWA score ` approximately 6. Patient is eating well and does not appear confused, but does appear slightly anxious and is having some tremulousness Objective - Vital Signs Vital signs: Vital Signs Temp 97.8 F 07/30/17 11:24 Pulse 93 07/30/17 11:24 Resp 18 07/30/17 11:24 BP 170/104 07/30/17 11:24 Pulse Ox 96 07/30/17 11:24 Intake & Output 07/29/17 07/30/17 07/30/17 18:59 06:59 18:59 Intake Total 1295 240 Output Total 650 Balance 645 240 Weight 84.3 kg Intake: Intake, IV Titration 625 Amount Sodium Chloride 0.9% 1, 625 000 ml @ 125 mls/hr IV . Q8H6M ONE with Mvi, Adult No.4 with Vit K 10 ml with Thiamine 100 mg with Folic Acid 1 mg Rx#: [id number] Oral 670 240 Output: Urine 650 Other: Voiding Method Toilet Toilet Toilet Urinal Urinal Urinal # Voids 1 1 # Bowel Movements 2 - Exam Constitutional: No acute distress, conversant, pleasant Eyes: Anicteric sclerae, moist conjunctiva, no lid-lag, PERRLA ENMT: NC/AT,Oropharynx clear, no erythema, exudates Neck:Supple, FROM, no masses, or JVD, No carotid bruits; No thyromegaly Lungs: Clear to auscultation, Clear to percussion, Normal respiratory effort, no accessory muscle use Cardiovascular: Heart regular in rate and rhythm, No murmurs, gallops, or rubs no peripheral edema Abdominal: Soft Nontender, nom distended, no guarding, no rebound or rigidity, Normoactive bowel sounds No hepatomegaly, No splenomegaly, No palpable mass No abdominal wall hernia noted Skin: Normal temperature, tone, texture, turgor, No induration No subcutaneous nodules, No rash, lesions, No ulcers Extremities:No digital cyanosis No clubbing, Pedal pulses intact and symmetrical Radial pulses intact and symmetrical Normal gait and station, No calf tenderness Psychiatric: Alert and oriented to person, place and time, appears anxious and tremulous Neuro: Muscles Strength 5/5 in all 4 extremities, Sensation to light touch grossly present throughout, Cranial nerves II-XII grossly intact. No focal sensory deficits, brisk patellar reflexes bilaterally - Labs CBC & Chem 7: 07/30/17 07:05 07/30/17 07:05 Labs: Abnormal Lab Results - Last 24 Hours (Table) 07/30/17 07/30/17 Range/Units 07:05 07:05 RBC 3.70 L (4.30-5.90) m/uL Hgb 12.9 L (13.0-17.5) gm/dL MCV 105.6 H (80.0-100.0) fL Potassium 2.8 L* (3.5-5.1) mmol/L BUN 6 L (9-20) mg/dL Creatinine 0.55 L (0.66-1.25) mg/dL Glucose 119 H (74-99) mg/dL Calcium 8.2 L (8.4-10.2) mg/dL Total Bilirubin 1.4 H (0.2-1.3) mg/dL AST 129 H (17-59) U/L ALT 75 H (21-72) U/L Total Protein 6.0 L (6.3-8.2) g/dL Albumin 3.4 L (3.5-5.0) g/dL Assessment and Plan (1) Delirium tremens Narrative/Plan: * Continue with symptom triggered protocol CIWA * Continue seizure precautions and supplementation with thiamine and folic acid and Current Visit: No Status: Resolved Code(s): F10.231 - ALCOHOL DEPENDENCE WITH WITHDRAWAL DELIRIUM SNOMED Code(s): 7516589 (2) Alcohol dependence Narrative/Plan: * Treatment as above Current Visit: Yes Status: Acute Code(s): F10.20 - ALCOHOL DEPENDENCE, UNCOMPLICATED SNOMED Code(s): 03276272 (3) Accelerated hypertension Narrative/Plan: * Continue with Norvasc * Likely related to his alcohol withdrawal and delirium tremens Current Visit: No Status: Acute Code(s): I10 - ESSENTIAL (PRIMARY) HYPERTENSION SNOMED Code(s): 57626829 (4) Hypokalemia Narrative/Plan: * Continue potassium replacement protocol Current Visit: No Status: Resolved Priority: High Code(s): E87.6 - HYPOKALEMIA SNOMED Code(s): 47961507 (5) Syncopal episodes Narrative/Plan: * Secondary to ongoing alcohol use superimposed on illicit drug use with cocaine and methamphetamines * Echocardiogram with normal ejection fraction Current Visit: Yes Status: Acute Code(s): R55 - SYNCOPE AND COLLAPSE SNOMED Code(s): 575622734
[2017-07-30] MEDS: LORazepam 2 MG/ML INJ IV PRN ×2 (15:05→18:14)
[2017-07-30] MEDS: cloNIDine HCL 0.1 MG TAB PO PRN ×2 (17:17→23:19)
[2017-07-30] MEDS: NICOTINE 21MG/24HR PATCH TRANSDERM SCH (17:18)
[2017-07-31] MEDS: cloNIDine HCL 0.1 MG TAB PO PRN (03:44)
[2017-07-31 06:16] LABS: HCT 39.6 % (39.0-53.0); HGB 13.5 gm/dL (13.0-17.5); MCH 35.7 pg (25.0-35.0); MCHC 34.1 g/dL (31.0-37.0); MCV 104.6 fL (80.0-100.0); Macrocytosis Slight; Mean Platelet Volume 8.3; Platelet Count 182 k/uL (150-450); RBC 3.78 m/uL (4.30-5.90); RDW 13.3 % (11.5-15.5); WBC 7.2 k/uL (3.8-10.6)
[2017-07-31] MEDS: CALCIUM CARB-VIT D 500MG-200UN 1 EACH TAB PO SCH ×2 (08:52→17:07)
[2017-07-31] MEDS: PANTOPRAZOLE 40 MG TABLET PO SCH (08:52)
[2017-07-31] MEDS: ENOXAPARIN 40 MG/0.4 ML SYRINGE SQ SCH (08:52)
[2017-07-31] MEDS: amLODIPine 5 MG TAB PO SCH (08:52)
[2017-07-31] MEDS ORDERED: METOPROLOL TARTRATE 25 MG TAB PO STA (10:58)
[2017-07-31 11:14] LABS: ALT 69 U/L (21-72); AST 99 U/L (17-59); Albumin 3.3 g/dL (3.5-5.0); Alkaline Phosphatase 113 U/L (38-126); Anion Gap 12 mmol/L; Blood Urea Nitrogen 7 mg/dL (9-20); Calcium 8.7 mg/dL (8.4-10.2); Carbon Dioxide 24 mmol/L (22-30); Chloride 106 mmol/L (98-107); Glucose 124 mg/dL (74-99); Sodium 142 mmol/L (137-145); Total Bilirubin 0.9 mg/dL (0.2-1.3); Total Protein 6.2 g/dL (6.3-8.2)
[2017-07-31] MEDS: MULTIVITAMINS, THERA 1 EACH TAB PO SCH (11:14)
[2017-07-31] MEDS: THIAMINE 100 MG TAB PO SCH ×2 (11:14→17:07)
[2017-07-31] MEDS: FOLIC ACID 1 MG TAB PO SCH (11:14)
[2017-07-31 11:30] LABS: Potassium 2.9 mmol/L (3.5-5.1)
[2017-07-31] MEDS ORDERED: Potassium Replacement Protocol 1 EACH MISC MISCELLANE PRN (11:45)
--- NOTE | 2017-07-31 11:50 | P.PN ---
Subjective Progress Note Date: 07/31/17 Principal diagnosis: Patient is a 51-year-old male with a past medical history of alcoholism, illicit drug use, tobacco abuse, and chronic low back pain who presented to the emergency department after a syncopal episode. In the ER he underwent an extensive evaluation. On arrival he was found be tachycardic with a pulse of 125 and a blood pressure of 202/106. EKG was done which revealed sinus tachycardia. Laboratory analysis revealed a potassium of 2.8. Magnesium was 1.3. They gave him IV fluids and a dose of Librium. They were worried about impending alcohol withdrawal and request was made for admission. Secondary to patient's history of severe alcohol withdrawal resulting in aspiration pneumonia, intubation, and vasopressor use it was determined that he was most appropriate to be placed on our selective care floor. Upon admission patient and was given aggressive potassium and magnesium replacement. He was started on a banana bag and folic acid replacement area he was started on a CIWA protocol. Echocardiogram ordered showed a normal ejection fraction of 50- 55%. Overnight on 07/28 he required multiple doses of Ativan secondary to alcohol withdrawal and was also noted to have elevated blood pressure By the morning of 07/29 his lightheadedness and dizziness had decrease. He was feeling stronger again and was able to walk with minimal assistance. He was still necessitating the use of IV Ativan. Patient feeling better today. Work with physical therapy earlier this morning, there doesn't appear to be any concerns about his coordination and gait. Blood pressures have been elevated yesterday despite being on when necessary clonidine , Objective - Vital Signs Vital signs: Vital Signs Temp 97.5 F L 07/31/17 11:18 Pulse 88 07/31/17 11:18 Resp 20 07/31/17 11:18 BP 170/103 07/31/17 11:18 Pulse Ox 97 07/31/17 11:18 Intake & Output 07/30/17 07/31/17 07/31/17 18:59 06:59 18:59 Intake Total 900 Output Total 350 Balance 550 Weight 84 kg Intake: Oral 900 Output: Urine 350 Other: Voiding Method Toilet Toilet Urinal Urinal # Voids 1 # Bowel Movements 2 - Exam Constitutional: No acute distress, conversant, pleasant Eyes: Anicteric sclerae, moist conjunctiva, no lid-lag, PERRLA ENMT: NC/AT,Oropharynx clear, no erythema, exudates Neck:Supple, FROM, no masses, or JVD, No carotid bruits; No thyromegaly Lungs: Clear to auscultation, Clear to percussion, Normal respiratory effort, no accessory muscle use Cardiovascular: Heart regular in rate and rhythm, No murmurs, gallops, or rubs no peripheral edema Abdominal: Soft Nontender, nom distended, no guarding, no rebound or rigidity, Normoactive bowel sounds No hepatomegaly, No splenomegaly, No palpable mass No abdominal wall hernia noted Skin: Normal temperature, tone, texture, turgor, No induration No subcutaneous nodules, No rash, lesions, No ulcers Extremities:No digital cyanosis No clubbing, Pedal pulses intact and symmetrical Radial pulses intact and symmetrical Normal gait and station, No calf tenderness Psychiatric: Alert and oriented to person, place and time, appears anxious and tremulous Neuro: Muscles Strength 5/5 in all 4 extremities, Sensation to light touch grossly present throughout, Cranial nerves II-XII grossly intact. No focal sensory deficits, brisk patellar reflexes bilaterally - Labs CBC & Chem 7: 07/31/17 05:49 07/31/17 05:49 Labs: Abnormal Lab Results - Last 24 Hours (Table) 07/30/17 07/31/17 07/31/17 Range/Units 18:16 05:49 05:49 RBC 3.78 L (4.30-5.90) m/uL MCV 104.6 H (80.0-100.0) fL MCH 35.7 H (25.0-35.0) pg Potassium 3.2 L 2.9 L* (3.5-5.1) mmol/L BUN 7 L (9-20) mg/dL Creatinine 0.55 L (0.66-1.25) mg/dL Glucose 124 H (74-99) mg/dL AST 99 H (17-59) U/L Total Protein 6.2 L (6.3-8.2) g/dL Albumin 3.3 L (3.5-5.0) g/dL Assessment and Plan (1) Delirium tremens Narrative/Plan: * Now resolved * Continue with symptom triggered protocol CIWA * Continue seizure precautions and supplementation with thiamine and folic acid Current Visit: No Status: Resolved Code(s): F10.231 - ALCOHOL DEPENDENCE WITH WITHDRAWAL DELIRIUM SNOMED Code(s): 0390412 (2) Alcohol dependence Narrative/Plan: * Treatment as above Current Visit: Yes Status: Chronic Code(s): F10.20 - ALCOHOL DEPENDENCE, UNCOMPLICATED SNOMED Code(s): 50742159 (3) Accelerated hypertension Narrative/Plan: * Continue with Norvasc * Likely related to his alcohol withdrawal and delirium tremens * Patient started on metoprolol 25 mg by mouth twice a day we'll continue to monitor his blood pressure if needed will need to titrate up his dose of Norvasc as well Current Visit: No Status: Acute Code(s): I10 - ESSENTIAL (PRIMARY) HYPERTENSION SNOMED Code(s): 08237246 (4) Hypokalemia Narrative/Plan: * Continue potassium replacement protocol, potassium 2.9 today * We'll start patient on daily potassium replacement Current Visit: No Status: Resolved Priority: High Code(s): E87.6 - HYPOKALEMIA SNOMED Code(s): 99382779 (5) Syncopal episodes Narrative/Plan: * Secondary to ongoing alcohol use superimposed on illicit drug use with cocaine and methamphetamines * Echocardiogram with normal ejection fraction Current Visit: Yes Status: Acute Code(s): R55 - SYNCOPE AND COLLAPSE SNOMED Code(s): 819969198
[2017-07-31] MEDS: POTASSIUM CHLORIDE 10 MEQ in SODIUM CHLORIDE 0.9% 100 ML IVPB SCH ×3 (13:04→15:41)
[2017-07-31] MEDS ORDERED: amLODIPine 5 MG TAB PO STA (15:25)
[2017-07-31] MEDS: NICOTINE 21MG/24HR PATCH TRANSDERM SCH (21:57)
[2017-07-31] MEDS: METOPROLOL TARTRATE 25 MG TAB PO SCH (21:57)
[2017-08-01 00:53] VITALS: RESP 18
[2017-08-01] MEDS: CALCIUM CARB-VIT D 500MG-200UN 1 EACH TAB PO SCH (06:09)
[2017-08-01] MEDS: PANTOPRAZOLE 40 MG TABLET PO SCH (06:09)
[2017-08-01] MEDS: ENOXAPARIN 40 MG/0.4 ML SYRINGE SQ SCH (08:15)
[2017-08-01] MEDS: amLODIPine 10 MG TAB PO SCH (08:15)
[2017-08-01] MEDS: POTASSIUM CHLORIDE ER 20 MEQ TAB.ER PO SCH (08:16)
[2017-08-01] MEDS: METOPROLOL TARTRATE 25 MG TAB PO SCH (08:16)
[2017-08-01] MEDS ORDERED: METOPROLOL TARTRATE 25 MG TAB PO ONE (11:45)
[2017-08-01] MEDS ORDERED: METOPROLOL TARTRATE 50 MG TAB PO SCH (12:00)
[2017-08-01 12:17] LABS: Anion Gap 11 mmol/L; Blood Urea Nitrogen 9 mg/dL (9-20); Calcium 9.2 mg/dL (8.4-10.2); Carbon Dioxide 25 mmol/L (22-30); Chloride 105 mmol/L (98-107); Glucose 116 mg/dL (74-99); Potassium 3.9 mmol/L (3.5-5.1); Sodium 141 mmol/L (137-145)
[2017-08-01] MEDS: HYDROCHLOROTHIAZIDE 25 MG TAB PO SCH (12:35)
[2017-08-01] MEDS: METOPROLOL TARTRATE 50 MG TAB PO SCH (12:35)
[2017-08-01] MEDS: MULTIVITAMINS, THERA 1 EACH TAB PO SCH (12:43)
[2017-08-01] MEDS: FOLIC ACID 1 MG TAB PO SCH (12:43)
[2017-08-01] MEDS: THIAMINE 100 MG TAB PO SCH ×2 (12:43→16:31)
--- NOTE | 2017-08-01 13:38 | P.PN ---
Subjective Progress Note Date: 08/01/17 Principal diagnosis: Patient is a 51-year-old male with a past medical history of alcoholism, illicit drug use, tobacco abuse, and chronic low back pain who presented to the emergency department after a syncopal episode. In the ER he underwent an extensive evaluation. On arrival he was found be tachycardic with a pulse of 125 and a blood pressure of 202/106. EKG was done which revealed sinus tachycardia. Laboratory analysis revealed a potassium of 2.8. Magnesium was 1.3. They gave him IV fluids and a dose of Librium. They were worried about impending alcohol withdrawal and request was made for admission. Secondary to patient's history of severe alcohol withdrawal resulting in aspiration pneumonia, intubation, and vasopressor use it was determined that he was most appropriate to be placed on our selective care floor. Upon admission patient and was given aggressive potassium and magnesium replacement. He was started on a banana bag and folic acid replacement area he was started on a CIWA protocol. Echocardiogram ordered showed a normal ejection fraction of 50- 55%. Overnight on 07/28 he required multiple doses of Ativan secondary to alcohol withdrawal and was also noted to have elevated blood pressure By the morning of 07/29 his lightheadedness and dizziness had decrease. He was feeling stronger again and was able to walk with minimal assistance. He was still necessitating the use of IV Ativan. Patient feeling better today. Work with physical therapy earlier this morning, there doesn't appear to be any concerns about his coordination and gait. Patient having ongoing elevated blood pressures, Objective - Vital Signs Vital signs: Vital Signs Temp 98.3 F 08/01/17 11:53 Pulse 78 08/01/17 11:53 Resp 18 08/01/17 11:53 BP 171/95 08/01/17 11:53 Pulse Ox 97 08/01/17 11:53 Intake & Output 07/31/17 08/01/17 08/01/17 18:59 06:59 18:59 Intake Total 640 240 Balance 640 240 Weight 84.2 kg Intake: Oral 640 240 Other: Voiding Method Toilet Urinal # Voids 2 - Exam Constitutional: No acute distress, conversant, pleasant Eyes: Anicteric sclerae, moist conjunctiva, no lid-lag, PERRLA ENMT: NC/AT,Oropharynx clear, no erythema, exudates Neck:Supple, FROM, no masses, or JVD, No carotid bruits; No thyromegaly Lungs: Clear to auscultation, Clear to percussion, Normal respiratory effort, no accessory muscle use Cardiovascular: Heart regular in rate and rhythm, No murmurs, gallops, or rubs no peripheral edema Abdominal: Soft Nontender, nom distended, no guarding, no rebound or rigidity, Normoactive bowel sounds No hepatomegaly, No splenomegaly, No palpable mass No abdominal wall hernia noted Skin: Normal temperature, tone, texture, turgor, No induration No subcutaneous nodules, No rash, lesions, No ulcers Extremities:No digital cyanosis No clubbing, Pedal pulses intact and symmetrical Radial pulses intact and symmetrical Normal gait and station, No calf tenderness Psychiatric: Alert and oriented to person, place and time, appears anxious and tremulous Neuro: Muscles Strength 5/5 in all 4 extremities, Sensation to light touch grossly present throughout, Cranial nerves II-XII grossly intact. No focal sensory deficits, brisk patellar reflexes bilaterally - Labs CBC & Chem 7: 07/31/17 05:49 08/01/17 11:41 Labs: Abnormal Lab Results - Last 24 Hours (Table) 08/01/17 Range/Units 11:41 Creatinine 0.57 L (0.66-1.25) mg/dL Glucose 116 H (74-99) mg/dL Assessment and Plan (1) Accelerated hypertension Narrative/Plan: * Patient started on metoprolol yesterday we'll titrate up to 50 mg by mouth twice a day, continue Norvasc 10 mg by mouth daily and add HCTZ 25 mg by mouth daily * Continue to monitor his blood pressure Current Visit: No Status: Acute Code(s): I10 - ESSENTIAL (PRIMARY) HYPERTENSION SNOMED Code(s): 86758543 (2) Delirium tremens Narrative/Plan: * Now resolved * Continue with symptom triggered protocol CIWA * Continue seizure precautions and supplementation with thiamine and folic acid Current Visit: No Status: Resolved Code(s): F10.231 - ALCOHOL DEPENDENCE WITH WITHDRAWAL DELIRIUM SNOMED Code(s): 0732445 (3) Alcohol dependence Narrative/Plan: * Treatment as above Current Visit: Yes Status: Chronic Code(s): F10.20 - ALCOHOL DEPENDENCE, UNCOMPLICATED SNOMED Code(s): 32775001 (4) Hypokalemia Narrative/Plan: * Continue potassium replacement protocol, potassium 2.9 today * We'll start patient on daily potassium replacement Current Visit: No Status: Resolved Priority: High Code(s): E87.6 - HYPOKALEMIA SNOMED Code(s): 15305438 (5) Syncopal episodes Narrative/Plan: * Secondary to ongoing alcohol use superimposed on illicit drug use with cocaine and methamphetamines * Echocardiogram with normal ejection fraction Current Visit: Yes Status: Acute Code(s): R55 - SYNCOPE AND COLLAPSE SNOMED Code(s): 673558617 Plan: Approaching discharge goals hopefully forget his blood pressure under control be discharged safely tomorrow
--- NOTE | 2017-08-01 15:06 | CDI ---
Last Revision, April 2017 Documentation Clarification Form Date: 08/01/17 From: Roselyn Swift RN, CCDS Admit Date: 07/28/2017 4:18:00 PM Patient Name: Wilfrido Acevedo Visit Number: [id number] Discharge Date: ATTENTION: The Clinical Documentation Specialists (CDI) and [facility] Coding Staff appreciate your assistance in clarifying documentation. Please respond to the clarification below the line at the bottom and electronically sign. The CDI & [facility] Coding staff will review the response and follow-up if needed. Please note: Queries are made part of the Legal Health Record. If you have any questions, please contact the author of this message via ITS. Dr. Bryant Calvin Accelerated hypertension (essential hypertension) is in your on going progress notes Patient history/risk factors: Alcoholism, Severe alcohol withdrawal illicit drug use, Tobacco abuse Clinical Indicators: Present to ED after a syncopal episode. He was found to be tachycardic with a pulse of 125, and blood pressure of 202/105. Lab findings: Total Bilirubin 2.1, AST 218, ALT 84, Alkaline Phosphatase 131, Vital Signs: 202/106 125 18, 211/110 112 24, 211/70 105 22 Vital signs 08/01/17: 170/100 86 18, 171/95 78 18 Treatment: Norvasc PO Hydrodiuril PO Lopressor PO CIWA protocol Ativan IV PRN Librium PO Monitor blood pressure In your professional opinion, can you please further clarify if the clinical indicator and treatment is? Unable to determine documented accelerated Hypertension Please continue to document in your progress notes and discharge summary in order to capture severity of illness and risk of mortality. Include clinical findings that support your diagnosis. MTDD
[2017-08-01] MEDS: NICOTINE 21MG/24HR PATCH TRANSDERM SCH (19:48)
[2017-08-01] MEDS: hydrALAZINE HCL 20 MG/ML 1 ML VIAL IVP PRN (22:18)
[2017-08-02] MEDS: hydrALAZINE HCL 20 MG/ML 1 ML VIAL IVP PRN (03:44)
[2017-08-02] MEDS: LORazepam 2 MG/ML INJ IV PRN (03:48)
[2017-08-02] MEDS: amLODIPine 10 MG TAB PO SCH (08:22)
[2017-08-02] MEDS: ENOXAPARIN 40 MG/0.4 ML SYRINGE SQ SCH (08:22)
[2017-08-02] MEDS: MULTIVITAMINS, THERA 1 EACH TAB PO SCH (08:22)
[2017-08-02] MEDS: METOPROLOL TARTRATE 50 MG TAB PO SCH ×2 (08:23→19:46)
[2017-08-02] MEDS: PANTOPRAZOLE 40 MG TABLET PO SCH (08:23)
[2017-08-02] MEDS: HYDROCHLOROTHIAZIDE 25 MG TAB PO SCH (08:23)
[2017-08-02] MEDS: POTASSIUM CHLORIDE ER 20 MEQ TAB.ER PO SCH (08:23)
[2017-08-02] MEDS: THIAMINE 100 MG TAB PO SCH ×2 (08:23→16:40)
[2017-08-02] MEDS: FOLIC ACID 1 MG TAB PO SCH (08:23)
[2017-08-02] MEDS ORDERED: METOPROLOL TARTRATE 50 MG TAB PO STA (10:21)
[2017-08-02] MEDS ORDERED: LISINOPRIL 20 MG TAB PO STA (10:22)
--- NOTE | 2017-08-02 10:26 | P.PN ---
Subjective Progress Note Date: 08/02/17 Principal diagnosis: Patient is a 51-year-old male with a past medical history of alcoholism, illicit drug use, tobacco abuse, and chronic low back pain who presented to the emergency department after a syncopal episode. In the ER he underwent an extensive evaluation. On arrival he was found be tachycardic with a pulse of 125 and a blood pressure of 202/106. EKG was done which revealed sinus tachycardia. Laboratory analysis revealed a potassium of 2.8. Magnesium was 1.3. They gave him IV fluids and a dose of Librium. They were worried about impending alcohol withdrawal and request was made for admission. Secondary to patient's history of severe alcohol withdrawal resulting in aspiration pneumonia, intubation, and vasopressor use it was determined that he was most appropriate to be placed on our selective care floor. Upon admission patient and was given aggressive potassium and magnesium replacement. He was started on a banana bag and folic acid replacement area he was started on a CIWA protocol. Echocardiogram ordered showed a normal ejection fraction of 50- 55%. Overnight on 07/28 he required multiple doses of Ativan secondary to alcohol withdrawal and was also noted to have elevated blood pressure By the morning of 07/29 his lightheadedness and dizziness had decrease. He was feeling stronger again and was able to walk with minimal assistance. He was still necessitating the use of IV Ativan. Patient feeling better today. Work with physical therapy earlier this morning, there doesn't appear to be any concerns about his coordination and gait. Patient having ongoing elevated blood pressures, Objective - Vital Signs Vital signs: Vital Signs Temp 98.3 F 08/02/17 08:00 Pulse 91 08/02/17 08:00 Resp 18 08/02/17 08:00 BP 170/87 08/02/17 10:20 Pulse Ox 99 08/02/17 08:00 Intake & Output 08/01/17 08/02/17 08/02/17 18:59 06:59 18:59 Intake Total 560 720 Balance 560 720 Weight 83.6 kg Intake: Oral 560 720 Other: Voiding Method Toilet Urinal # Voids 2 - Exam Constitutional: No acute distress, conversant, pleasant Eyes: Anicteric sclerae, moist conjunctiva, no lid-lag, PERRLA ENMT: NC/AT,Oropharynx clear, no erythema, exudates Neck:Supple, FROM, no masses, or JVD, No carotid bruits; No thyromegaly Lungs: Clear to auscultation, Clear to percussion, Normal respiratory effort, no accessory muscle use Cardiovascular: Heart regular in rate and rhythm, No murmurs, gallops, or rubs no peripheral edema Abdominal: Soft Nontender, nom distended, no guarding, no rebound or rigidity, Normoactive bowel sounds No hepatomegaly, No splenomegaly, No palpable mass No abdominal wall hernia noted Skin: Normal temperature, tone, texture, turgor, No induration No subcutaneous nodules, No rash, lesions, No ulcers Extremities:No digital cyanosis No clubbing, Pedal pulses intact and symmetrical Radial pulses intact and symmetrical Normal gait and station, No calf tenderness Psychiatric: Alert and oriented to person, place and time, appears anxious and tremulous Neuro: Muscles Strength 5/5 in all 4 extremities, Sensation to light touch grossly present throughout, Cranial nerves II-XII grossly intact. No focal sensory deficits, brisk patellar reflexes bilaterally - Labs CBC & Chem 7: 07/31/17 05:49 08/01/17 11:41 Labs: Abnormal Lab Results - Last 24 Hours (Table) 08/01/17 Range/Units 11:41 Creatinine 0.57 L (0.66-1.25) mg/dL Glucose 116 H (74-99) mg/dL Assessment and Plan (1) Accelerated hypertension Narrative/Plan: * Patient started on metoprolol yesterday we'll titrate up to 100 mg by mouth twice a day, continue Norvasc 10 mg by mouth daily , HCTZ 25 mg by mouth daily add lisinopril 20 mg po daily * Continue to monitor his blood pressure Current Visit: No Status: Acute Code(s): I10 - ESSENTIAL (PRIMARY) HYPERTENSION SNOMED Code(s): 25073534 (2) Delirium tremens Narrative/Plan: * Now resolved * Continue with symptom triggered protocol CIWA * Continue seizure precautions and supplementation with thiamine and folic acid Current Visit: No Status: Resolved Code(s): F10.231 - ALCOHOL DEPENDENCE WITH WITHDRAWAL DELIRIUM SNOMED Code(s): 3832650 (3) Alcohol dependence Narrative/Plan: * Treatment as above Current Visit: Yes Status: Chronic Code(s): F10.20 - ALCOHOL DEPENDENCE, UNCOMPLICATED SNOMED Code(s): 06153868 (4) Hypokalemia Narrative/Plan: * Continue potassium replacement protocol, potassium 2.9 today * We'll start patient on daily potassium replacement Current Visit: No Status: Resolved Priority: High Code(s): E87.6 - HYPOKALEMIA SNOMED Code(s): 05028742 (5) Syncopal episodes Narrative/Plan: * Secondary to ongoing alcohol use superimposed on illicit drug use with cocaine and methamphetamines * Echocardiogram with normal ejection fraction Current Visit: Yes Status: Acute Code(s): R55 - SYNCOPE AND COLLAPSE SNOMED Code(s): 619368032
[2017-08-02] MEDS: NICOTINE 21MG/24HR PATCH TRANSDERM SCH (19:46)
[2017-08-03] MEDS: PANTOPRAZOLE 40 MG TABLET PO SCH (06:44)
[2017-08-03] MEDS ORDERED: LISINOPRIL-HCTZ 20-25 MG 1 EACH TAB PO SCH (09:00)
[2017-08-03] MEDS: amLODIPine 10 MG TAB PO SCH (09:09)
[2017-08-03] MEDS: METOPROLOL TARTRATE 50 MG TAB PO SCH (09:10)
[2017-08-03] MEDS: THIAMINE 100 MG TAB PO SCH (09:10)
[2017-08-03] MEDS: POTASSIUM CHLORIDE ER 20 MEQ TAB.ER PO SCH (09:10)
[2017-08-03] MEDS: MULTIVITAMINS, THERA 1 EACH TAB PO SCH (09:10)
[2017-08-03] MEDS: FOLIC ACID 1 MG TAB PO SCH (09:10)
[2017-08-03] MEDS: ENOXAPARIN 40 MG/0.4 ML SYRINGE SQ SCH (09:10)
[2017-08-03 12:17] VITALS: BP 140/86; PULSE 74; TEMP 98
--- NOTE | 2017-08-04 13:48 | P.DS ---
Providers Date of admission: 07/28/17 16:18 Attending physician: Renate Salmeron DO Primary care physician: Stated None - Discharge Diagnosis(es) (1) Delirium tremens Status: Resolved (2) Accelerated hypertension Status: Acute (3) Alcohol dependence Status: Chronic (4) Hypokalemia Status: Resolved Priority: High (5) Syncopal episodes Status: Acute Hospital Course: Patient is a 51-year-old male with a past medical history of alcohol was on, illicit drug use, tobacco abuse, and chronic low back pain who presented to the emergency department after a syncopal episode thought to be secondary to his crack cocaine and methamphetamine use superimposed on ongoing alcohol intoxication and dependence. A 2-D echocardiogram revealed an ejection fraction of 50-55%. The patient was also treated for delirium tremens and placed on symptom triggered ciwa protocol treated with Ativan, He was placed on seizure precautions and supplemented with thiamine and folic acid. The patient was noted to be profoundly hypokalemic and hypomagnesemic and these electrolytes were replaced. The patient had ongoing elevated blood pressures and accelerated hypertension and needed to have when necessary doses of clonidine as well as maintenance dosages of Norvasc, lisinopril, metoprolol and HCTZ. After his delirium tremens and alcohol withdrawals resolved patient stated extra 2 days as we attempted to titrate up his blood pressure medications to optimal control, she was subsequently discharged home in stable condition on Norvasc 10 mg by mouth daily, lisinopril/HCTZ 20/25 mg by mouth daily, metoprolol 100 mg by mouth twice a day, folic acid 1 mg by mouth daily, and thiamine 100 mg by mouth twice a day. On day of discharge the patient complained that he did not have any money to pay for his restrictions, I consulted case management and was able to get coupons to cover his medications at or pharmacy here at [facility]. The patient was instructed to return tomorrow Friday08/04/17 to greens picker his medications. This discharge process took approximately 35 minutes. Constitutional: No acute distress, conversant, pleasant Eyes: Anicteric sclerae, moist conjunctiva, no lid-lag, PERRLA ENMT: NC/AT,Oropharynx clear, no erythema, exudates Neck:Supple, FROM, no masses, or JVD, No carotid bruits; No thyromegaly Lungs: Clear to auscultation, Clear to percussion, Normal respiratory effort, no accessory muscle use Cardiovascular: Heart regular in rate and rhythm, No murmurs, gallops, or rubs no peripheral edema Abdominal: Soft Nontender, nom distended, no guarding, no rebound or rigidity, Normoactive bowel sounds No hepatomegaly, No splenomegaly, No palpable mass No abdominal wall hernia noted Skin: Normal temperature, tone, texture, turgor, No induration No subcutaneous nodules, No rash, lesions, No ulcers Extremities:No digital cyanosis No clubbing, Pedal pulses intact and symmetrical Radial pulses intact and symmetrical Normal gait and station, No calf tenderness Psychiatric: Alert and oriented to person, place and time, Appropriate affect Intact judgement Neuro: Muscles Strength 5/5 in all 4 extremities, Sensation to light touch grossly present throughout, Cranial nerves II-XII grossly intact. No focal sensory deficits Patient Condition at Discharge: Fair Plan - Discharge Summary New Discharge Prescriptions: New amLODIPine [Norvasc] 10 mg PO DAILY #30 tab Folic Acid 1 mg PO DAILY@1200 #30 tab Lisinopril-Hctz 20-25 mg [Zestoretic 20-25] 1 each PO DAILY #30 tab Metoprolol Tartrate [Lopressor] 100 mg PO BID #60 tab Thiamine [Vitamin B-1] 100 mg PO BID@1200,1700 #60 tab Discharge Medication List Folic Acid 1 mg PO DAILY@1200 #30 tab 08/03/17 [Rx] Lisinopril-Hctz 20-25 mg [Zestoretic 20-25] 1 each PO DAILY #30 tab 08/03/17 [Rx ] Metoprolol Tartrate [Lopressor] 100 mg PO BID #60 tab 08/03/17 [Rx] Thiamine [Vitamin B-1] 100 mg PO BID@1200,1700 #60 tab 08/03/17 [Rx] amLODIPine [Norvasc] 10 mg PO DAILY #30 tab 08/03/17 [Rx] Follow up Appointment(s)/Referral(s): None,Stated [Primary Care Provider] - 1-2 days Patient Instructions/Handouts: Syncope (DC), Abuse of Alcohol (DC), At-Risk Alcohol Use (DC) Discharge Disposition: HOME SELF-CARE
== END 2017-08-03 16:31 | disposition home or self-care (01) | DRG 897 ==
LOC: EC 14:36 → 6SEL 16:18
PROVIDERS: ADMIT Internal Medicine; ATTEND Internal Medicine
DX: F10.231 Alcohol dependence with withdrawal delirium (principal); F14.90 Cocaine use, unspecified, uncomplicated; E83.42 Hypomagnesemia; F10.229 Alcohol dependence with intoxication, unspecified; K70.10 Alcoholic hepatitis without ascites; I16.0 Hypertensive urgency; E87.6 Hypokalemia; F15.90 Other stimulant use, unspecified, uncomplicated; G89.29 Other chronic pain; M54.5 Low back pain; F17.200 Nicotine dependence, unspecified, uncomplicated; K29.70 Gastritis, unspecified, without bleeding; Z79.899 Other long term (current) drug therapy
CPT/HCPCS: 36415; 71046; 80048; 80053; 80074; 80306; 80320; 83735; 83880; 84100; 84132; 84484; 85025; 85027; 85610; 85730; 93005; 93306; 96361; 96365; 96366; 96368; 96372; 96375; 96376; 99285

== ENCOUNTER 2017-12-14 17:49 | Inpatient (IN) | payer OTHER ==
[2017-12-14] MEDS ORDERED: SODIUM CHLORIDE 0.9% 1,000 ML IV STA (18:15)
[2017-12-14] MEDS ORDERED: MECLIZINE 12.5 MG TAB PO STA (18:15)
[2017-12-14] MEDS ORDERED: LORazepam 2 MG/ML INJ IV STA (18:15)
[2017-12-14] MEDS ORDERED: METOCLOPRAMIDE 5 MG/ML 2 ML VIAL IVP STA (18:15)
--- NOTE | 2017-12-14 18:19 | ED ---
General Adult HPI - General Chief complaint: Nausea/Vomiting/Diarrhea Stated complaint: dizziness Time Seen by Provider: 12/14/17 18:10 Source: patient, EMS, RN notes reviewed Mode of arrival: ambulatory Limitations: no limitations - History of Present Illness Initial comments: Patient is a pleasant 52-year-old male presenting to the emergency Department with complaints of dizziness. Onset of symptoms was this morning. Patient has had symptoms similar to this previously however is unclear why. Patient states there is a spinning type sensation. Symptoms worsen with upright position and movements. Symptoms improved with lying down. Patient has vomited today. Patient has drink less alcohol than normal today. Patient normally can drink up to a fifth of alcohol daily. No confusion. No headache. No weakness. No speech. Patient does admit to having high blood pressure and not taking any medication for that. - Related Data Home Medications Medication Instructions Recorded Confirmed No Known Home Medications 12/14/17 12/14/17 Allergies Allergy/AdvReac Type Severity Reaction Status Date / Time No Known Allergies Allergy Verified 12/14/17 18:07 Review of Systems ROS Statement: Those systems with pertinent positive or pertinent negative responses have been documented in the HPI. ROS Other: All systems not noted in ROS Statement are negative. Constitutional: Denies: fever Eyes: Denies: eye pain ENT: Denies: ear pain Respiratory: Denies: cough Cardiovascular: Denies: chest pain Endocrine: Denies: fatigue Gastrointestinal: Reports: nausea, vomiting. Denies: abdominal pain Genitourinary: Denies: dysuria Neurological: Reports: vertigo. Denies: headache, weakness, confusion Past Medical History Past Medical History: No Reported History Additional Past Medical History / Comment(s): chronic back pain, alcoholism, aspiration pneumonia, sepsis History of Any Multi-Drug Resistant Organisms: None Reported Past Surgical History: No Surgical Hx Reported Past Anesthesia/Blood Transfusion Reactions: No Reported Reaction Past Psychological History: No Psychological Hx Reported Smoking Status: Current every day smoker Past Alcohol Use History: Abuse, Daily, Heavy Past Drug Use History: Cocaine, Marijuana, Methamphetamine - Past Family History Father Family Medical History: No Reported History Additional Family Medical History / Comment(s): denies any history of coronary artery disease General Exam Limitations: no limitations General appearance: alert, in no apparent distress, other (Mild resting tremor) Head exam: Present: atraumatic Eye exam: Present: normal appearance, PERRL, EOMI. Absent: nystagmus ENT exam: Present: normal oropharynx Neck exam: Present: normal inspection Respiratory exam: Present: normal lung sounds bilaterally Cardiovascular Exam: Present: tachycardia GI/Abdominal exam: Present: soft. Absent: tenderness Extremities exam: Present: normal inspection. Absent: pedal edema, calf tenderness Neurological exam: Present: alert, oriented X3, CN II-XII intact. Absent: motor sensory deficit Expanded Neurological exam: Present: protecting the airway Patient oriented to: Present: person, place, time Cranial nerves: EOM's Intact: Normal, Facial Sensation: Normal Sensory exam: Upper Extremity Light Touch: Normal, Lower Extremity Light Touch: Normal Motor strength exam: RUE: 5, LUE: 5, RLE: 5, LLE: 5 Eye Response: (4) open spontaneously Motor Response: (6) obeys commands Verbal Response: (5) oriented Psychiatric exam: Present: normal affect, normal mood Skin exam: Present: normal color Course Vital Signs 12/14/17 12/14/17 12/14/17 17:56 18:15 19:06 Temperature 98.7 F Pulse Rate 110 H 95 Pulse Rate [ 113 H Lance Crewmember/Mlrs Sergeant ] Respiratory 18 18 Rate Blood Pressure 204/116 197/112 O2 Sat by Pulse 99 100 Oximetry 12/14/17 12/14/17 12/14/17 19:51 19:54 20:18 Temperature Pulse Rate 106 H 108 H 94 Pulse Rate [ Lance Crewmember/Mlrs Sergeant ] Respiratory 18 18 Rate Blood Pressure 214/108 201/103 200/107 O2 Sat by Pulse 97 97 Oximetry EKG Findings - EKG Comments: EKG Findings:: Sinus tachycardia 107. [place] 154. QRS 96. QT 368. QTC 491. Normal axis. No acute ST change. Septal Q waves. Medical Decision Making - Medical Decision Making Patient reevaluated and does feel somewhat better. Blood pressure has somewhat improved. Case discussed with Dr. Pena, who will admit for hospital call. Electrolytes will be rechecked in the morning. - Lab Data Result diagrams: 12/14/17 18:01 12/14/17 18:01 Lab Results 12/14/17 12/14/17 Range/Units 18:01 18:01 WBC 14.7 H (3.8-10.6) k/uL RBC 4.93 (4.30-5.90) m/uL Hgb 16.5 (13.0-17.5) gm/dL Hct 48.1 (39.0-53.0) % MCV 97.5 (80.0-100.0) fL MCH 33.5 (25.0-35.0) pg MCHC 34.3 (31.0-37.0) g/dL RDW 13.6 (11.5-15.5) % Plt Count 260 (150-450) k/uL Neutrophils % 89 % Lymphocytes % 6 % Monocytes % 4 % Eosinophils % 1 % Basophils % 0 % Neutrophils # 13.0 H (1.3-7.7) k/uL Lymphocytes # 0.9 L (1.0-4.8) k/uL Monocytes # 0.6 (0-1.0) k/uL Eosinophils # 0.1 (0-0.7) k/uL Basophils # 0.0 (0-0.2) k/uL Sodium 140 (137-145) mmol/L Potassium 2.7 L* (3.5-5.1) mmol/L Chloride 103 (98-107) mmol/L Carbon Dioxide 18 L (22-30) mmol/L Anion Gap 19 mmol/L BUN 5 L (9-20) mg/dL Creatinine 0.69 (0.66-1.25) mg/dL Est GFR (CKD-EPI)AfAm >90 (>60 ml/min/1.73 sqM) Est GFR (CKD-EPI)NonAf >90 (>60 ml/min/1.73 sqM) Glucose 141 H (74-99) mg/dL Calcium 8.8 (8.4-10.2) mg/dL Magnesium 1.1 L (1.6-2.3) mg/dL Total Bilirubin 0.8 (0.2-1.3) mg/dL AST 67 H (17-59) U/L ALT 55 (21-72) U/L Alkaline Phosphatase 112 (38-126) U/L Total Protein 6.9 (6.3-8.2) g/dL Albumin 4.2 (3.5-5.0) g/dL Serum Alcohol 25 mg/dL - Radiology Data Radiology results: report reviewed (Computed tomography scan of the brain shows no acute hemorrhage or shift.) Disposition Clinical Impression: Dizziness, Hypertensive urgency, Hypomagnesemia, Hypokalemia Disposition: ADMITTED IP TO THIS HOSP Referrals: None,Stated [Primary Care Provider] - 1-2 days Decision Time: 20:44
[2017-12-14] MEDS ORDERED: SODIUM CHLORIDE 0.9% 1,000 ML with MVI, ADULT NO.4 WITH VIT K 10 ML, THIAMINE 100 MG, F... IV ONE ×4 (18:30)
[2017-12-14 18:44] LABS: ALT 55 U/L (21-72); AST 67 U/L (17-59); Albumin 4.2 g/dL (3.5-5.0); Alcohol 25 mg/dL; Alkaline Phosphatase 112 U/L (38-126); Anion Gap 19 mmol/L; Blood Urea Nitrogen 5 mg/dL (9-20); Calcium 8.8 mg/dL (8.4-10.2); Carbon Dioxide 18 mmol/L (22-30); Chloride 103 mmol/L (98-107); Glucose 141 mg/dL (74-99); Magnesium 1.1 mg/dL (1.6-2.3); Sodium 140 mmol/L (137-145); Total Bilirubin 0.8 mg/dL (0.2-1.3); Total Protein 6.9 g/dL (6.3-8.2)
[2017-12-14 18:49] LABS: Basophils % (A) 0 %; Eosinophils # (A) 0.1 k/uL (0-0.7); Eosinophils % (A) 1 %; HCT 48.1 % (39.0-53.0); HGB 16.5 gm/dL (13.0-17.5); Lymphocytes # (A) 0.9 k/uL (1.0-4.8); Lymphocytes % (A) 6 %; MCH 33.5 pg (25.0-35.0); MCHC 34.3 g/dL (31.0-37.0); MCV 97.5 fL (80.0-100.0); Mean Platelet Volume 7.5; Monocytes # (A) 0.6 k/uL (0-1.0); Monocytes % (A) 4 %; Neutrophils % (A) 89 %; Platelet Count 260 k/uL (150-450); RBC 4.93 m/uL (4.30-5.90); RDW 13.6 % (11.5-15.5); WBC 14.7 k/uL (3.8-10.6)
[2017-12-14 18:50] LABS: Potassium 2.7 mmol/L (3.5-5.1)
[2017-12-14] MEDS ORDERED: POTASSIUM CHLORIDE 2 MEQ/ML 20 ML VIAL IVPB STA (18:58)
[2017-12-14] MEDS ORDERED: POTASSIUM CHLORIDE ER 20 MEQ TAB.ER PO STA (18:58)
[2017-12-14] MEDS ORDERED: MAGNESIUM OXIDE 400 MG TAB PO STA (18:58)
[2017-12-14] MEDS ORDERED: POTASSIUM CHLORIDE 20 MEQ in WATER FOR INJECTION 1 100ML.BAG IVPB STA (19:07)
[2017-12-14] MEDS ORDERED: LABETALOL 5 MG/ML VIAL MDV IVP STA ×4 (19:20→23:45)
[2017-12-14] MEDS: MAGNESIUM SULFATE-D5W PMX 1 GM in DEXTROSE/WATER 1 100ML.BAG IVPB SCH ×2 (19:47→21:00)
--- NOTE | 2017-12-14 20:03 | CT ---
EXAMINATION TYPE: CT brain wo con DATE OF EXAM: 12/14/2017 HISTORY: Dizziness today. CT DLP: 875.8 mGycm. Automated Exposure Control for Dose Reduction was Utilized. TECHNIQUE: CT scan of the head is performed without contrast. COMPARISON: None. FINDINGS: There is no acute intracranial hemorrhage or midline shift identified. No abnormal extra- axial collections of fluid. The ventricular system, basal cisterns and sulci are within normal limits . The de oliveira-white interface is maintained. The globes are intact and the visualized sinuses are clear. No skull fractures. The paranasal sinuses within normal limits. IMPRESSION: No acute intracranial hemorrhage or midline shift.
[2017-12-14] MEDS ORDERED: ONDANSETRON 4 MG/2 ML VIAL IVP PRN (20:44)
[2017-12-14] MEDS ORDERED: NALOXONE 0.4 MG/ML 1 ML VIAL IV PRN (20:44)
[2017-12-14] MEDS ORDERED: LORazepam 2 MG/ML INJ IV PRN ×2 (20:47)
[2017-12-14] MEDS ORDERED: THIAMINE 100 MG/ML 2 ML VIAL IM STA (20:47)
[2017-12-14] MEDS ORDERED: METOPROLOL TARTRATE 25 MG TAB PO SCH (21:00)
[2017-12-14] MEDS: LORazepam 2 MG/ML INJ IV PRN ×2 (21:12→23:42)
--- NOTE | 2017-12-14 21:33 | P.HPIM ---
History of Present Illness H&P Date: 12/14/17 Chief Complaint: Intractable nausea and vomiting 52-year-old male with history of alcohol abuse and dependence, hypertension. Patient presented to the hospital due to intractable nausea and vomiting with epigastric discomfort. Patient admits to heavy alcohol intake more than a fifth every day. He tried to take some alcohol today due to the shakes but couldn't keep it down due to intractable nausea and vomiting and epigastric discomfort. He decided come to the hospital to avoid withdrawal syndrome and going into DTs. Patient was having some dizziness and vertigo home. He realizes that in the past multiple times he went into DTs due to alcohol withdrawals. This by that he continues his heavy alcohol intake. Patient admits to poor compliance as an outpatient. Last time he was discharged he received multiple medications for blood pressure control however once he ran out of the prescriptions he did not seek refills. In the emergency department he was found to have electrolyte imbalance with hypokalemia and hypomagnesemia, with hypertensive urgency. This is thought to be due to autonomic dysfunction from alcohol withdrawal. During his last hospitalization his 2-D echocardiogram showed ventricular ejection fraction of 50-55%. Patient otherwise denies any chest pain or trouble breathing he denies any coughing he denies any headache changes in his vision or hearing, denies any focal neurologic deficits. He denies any changes in his bowel habits or urinary habits. He denies any GI bleeding. He described his vomiting as "normal" denying any coffee-ground vomiting denying any blood or bile. He reports vague epigastric discomfort burning sensation nonradiating localized to his epigastric region rates the pain as 6 out of 10 in severity vomiting makes it worse nor relieving factors. Review of Systems Pertinent positives as noted in HPI. All other systems were reviewed and are negative Past Medical History Past Medical History: No Reported History, Hypertension Additional Past Medical History / Comment(s): chronic back pain, alcoholism, aspiration pneumonia, sepsis History of Any Multi-Drug Resistant Organisms: None Reported Past Surgical History: No Surgical Hx Reported Past Anesthesia/Blood Transfusion Reactions: No Reported Reaction Past Psychological History: No Psychological Hx Reported Smoking Status: Current every day smoker Past Alcohol Use History: Abuse, Daily, Heavy Past Drug Use History: Cocaine, Marijuana, Methamphetamine - Past Family History Father Family Medical History: No Reported History Additional Family Medical History / Comment(s): denies any history of coronary artery disease Medications and Allergies Home Medications Medication Instructions Recorded Confirmed Type No Known Home Medications 12/14/17 12/14/17 History Allergies Allergy/AdvReac Type Severity Reaction Status Date / Time No Known Allergies Allergy Verified 12/14/17 18:07 Physical Exam Vitals: Vital Signs Temp Pulse Pulse Resp BP Pulse Ox 12/14/17 21:14 93 18 179/102 98 12/14/17 20:55 87 18 171/112 99 12/14/17 20:18 94 18 200/107 97 12/14/17 19:54 108 H 201/103 12/14/17 19:51 106 H 18 214/108 97 12/14/17 19:06 95 18 197/112 100 12/14/17 18:15 113 H 12/14/17 17:56 98.7 F 110 H 18 204/116 99 Intake and Output 12/14/17 12/14/17 12/14/17 06:59 14:59 22:59 Other: Weight 86.183 kg Constitutional: No acute distress, conversant, pleasant, patient is having shakes in his hands Eyes: Anicteric sclerae, moist conjunctiva, no lid-lag Pupils equal round reactive to light ENMT: NC/AT Oropharynx clear, no erythema, or exudates Neck: Supple, FROM, no masses, or JVD No carotid bruits No thyromegaly Lungs: Good breath sounds bilaterally, scattered expiratory rhonchi Clear to percussion Normal respiratory effort, no accessory muscle use Cardiovascular: Heart regular in rate and rhythm, No murmurs, gallops, or rubs No peripheral edema Abdominal: Soft, discomfort to palpation of the epigastric region no guarding, rebound or rigidity Abdomen moving with respiration Normoactive bowel sounds No hepatomegaly, No splenomegaly No palpable mass No abdominal wall hernia noted Skin: Normal temperature, tone, texture, turgor No induration No subcutaneous nodules No rash, lesions No ulcers Extremities: No digital cyanosis No clubbing Pedal pulses intact and symmetrical Radial pulses intact and symmetrical No calf tenderness Psychiatric: Alert and oriented to person, place , disoriented to time Paranoid affect fair judgment Neuro Muscles Strength 5/5 in all 4 extremities Sensation to light touch grossly present throughout Cranial nerves II-XII grossly intact No focal sensory deficits Lymphatics: no palpable cervical or supraclavicular , or inguinal lymph nodes Results CBC & Chem 7: 12/14/17 18:01 12/14/17 18:01 Labs: Abnormal Lab Results - Last 24 Hours (Table) 12/14/17 12/14/17 Range/Units 18:01 18:01 WBC 14.7 H (3.8-10.6) k/uL Neutrophils # 13.0 H (1.3-7.7) k/uL Lymphocytes # 0.9 L (1.0-4.8) k/uL Potassium 2.7 L* (3.5-5.1) mmol/L Carbon Dioxide 18 L (22-30) mmol/L BUN 5 L (9-20) mg/dL Glucose 141 H (74-99) mg/dL Magnesium 1.1 L (1.6-2.3) mg/dL AST 67 H (17-59) U/L Assessment and Plan Assessment: 52 -year-old male with history of hypertension and alcohol abuse, admitted as an inpatient with anticipated length of stay of more than 48 hours due to alcohol withdrawal syndrome, electrolyte imbalance with hypokalemia and hypomagnesemia, and hypertensive urgency. Patient presented with intractable nausea and vomiting at home couldn't keep anything down from alcohol withdrawal. Plan: Accelerated hypertension, hypertensive urgency due to autonomic dysfunction from alcohol withdrawal and medical noncompliance Resume home medications metoprolol 100 twice a day, lisinopril 20 daily, amlodipine 10 daily, hydrochlorothiazide 25 daily Monitor vital signs closely Alcohol abuse and alcohol dependence Alcohol withdrawal syndrome with autonomic dysfunction Patient counseled strictly to avoid alcohol abuse IV fluid hydration Thiamine and folic acid Benzodiazepine per CIWA scale Seizures and fall precautions material worker for substance abuse Polysubstance abuse Patient smokes more than 2 packs a day, nicotine replacement therapy offered patient counseled to quit smoking Last time he used methamphetamine was 1 week ago, patient counseled to avoid drug of abuse Acute gastritis secondary to alcohol abuse with intractable nausea and vomiting IV fluid hydration PPI daily Electrolyte imbalance secondary to poor nutrition, alcohol abuse, and intractable nausea and vomiting Replace potassium and magnesium and follow-up levels DVT prophylaxis heparin subcu 3 times a day Follow-up labs material worker for substance abuse Preformed a thorough record review from recent hospitalization patient with frequent admissions due to alcohol withdrawal and DTs, during last hospitalization blood pressure medications were adjusted to control his blood pressure prior to discharge however patient reported that once he ran out of his medications he did not get any refills patient has poor compliance as an outpatient. Surrogate decision-maker: Patient's Sister Yi CODE STATUS: Full code Discussed with: Patient, ER, RN Anticipated discharge: 48-[address]: Home A total of 60 minutes was spent on the care of this complex patient more than 50 % of the time was spent in counseling and care coordination.
[2017-12-14] MEDS: POTASSIUM CHLORIDE ER 20 MEQ TAB.ER PO SCH ×2 (21:35→21:37)
[2017-12-14] MEDS: METOPROLOL TARTRATE 50 MG TAB PO SCH (21:57)
[2017-12-14] MEDS ORDERED: NICOTINE 21MG/24HR PATCH TRANSDERM ONE (22:00)
[2017-12-15] MEDS ORDERED: LABETALOL 5 MG/ML VIAL MDV IVP STA (00:34)
[2017-12-15 01:19] VITALS: RESP 16
[2017-12-15] MEDS ORDERED: hydrALAZINE HCL 20 MG/ML 1 ML VIAL IVP STA (01:22)
[2017-12-15] MEDS: LORazepam 2 MG/ML INJ IV PRN ×4 (01:28→21:54)
[2017-12-15] MEDS: PANTOPRAZOLE 40 MG TABLET PO SCH ×2 (01:37→09:00)
[2017-12-15] MEDS: HEPARIN SODIUM,PORCINE 5,000 UNIT/ML 1 ML VIAL SQ SCH ×3 (02:25→17:48)
[2017-12-15] MEDS: 0.9% NACL WITH KCL 20 MEQ/L 1,000 ML IV SCH ×2 (05:30→18:15)
[2017-12-15 07:31] LABS: Basophils % (A) 0 %; Eosinophils % (A) 0 %; HCT 44.7 % (39.0-53.0); HGB 14.8 gm/dL (13.0-17.5); Lymphocytes # (A) 1.6 k/uL (1.0-4.8); Lymphocytes % (A) 18 %; MCH 33.1 pg (25.0-35.0); MCHC 33.1 g/dL (31.0-37.0); MCV 99.9 fL (80.0-100.0); Mean Platelet Volume 7.3; Monocytes # (A) 0.4 k/uL (0-1.0); Monocytes % (A) 4 %; Neutrophils # (A) 7.2 k/uL (1.3-7.7); Neutrophils % (A) 77 %; Platelet Count 200 k/uL (150-450); RBC 4.47 m/uL (4.30-5.90); RDW 13.7 % (11.5-15.5); WBC 9.3 k/uL (3.8-10.6)
[2017-12-15 07:41] LABS: Anion Gap 8 mmol/L; Blood Urea Nitrogen 3 mg/dL (9-20); Calcium 8.1 mg/dL (8.4-10.2); Carbon Dioxide 27 mmol/L (22-30); Chloride 105 mmol/L (98-107); Glucose 138 mg/dL (74-99); Magnesium 1.8 mg/dL (1.6-2.3); Phosphorus 2.7 mg/dL (2.5-4.5); Sodium 140 mmol/L (137-145)
[2017-12-15 07:45] LABS: Potassium 2.8 mmol/L (3.5-5.1)
[2017-12-15] MEDS: POTASSIUM CHLORIDE ER 20 MEQ TAB.ER PO SCH ×2 (08:59→21:53)
[2017-12-15] MEDS ORDERED: PANTOPRAZOLE 40 MG/10 ML VIAL IV SCH (09:00)
[2017-12-15] MEDS: THIAMINE 100 MG TAB PO SCH ×2 (09:00→18:15)
[2017-12-15] MEDS: HYDROCHLOROTHIAZIDE 25 MG TAB PO SCH (09:00)
[2017-12-15] MEDS: MAGNESIUM OXIDE 400 MG TAB PO SCH ×2 (09:00→21:54)
[2017-12-15] MEDS: METOPROLOL TARTRATE 50 MG TAB PO SCH ×2 (09:00→21:53)
[2017-12-15] MEDS: MULTIVITAMINS, THERA 1 EACH TAB PO SCH (09:00)
[2017-12-15] MEDS: LISINOPRIL 20 MG TAB PO SCH (09:00)
[2017-12-15] MEDS: amLODIPine 10 MG TAB PO SCH (09:01)
[2017-12-15] MEDS: POTASSIUM CHLORIDE 20 MEQ in WATER FOR INJECTION 1 100ML.BAG IVPB SCH ×3 (10:41→14:53)
--- NOTE | 2017-12-15 10:53 | P.PN ---
Subjective Progress Note Date: 12/15/17 Principal diagnosis: Alcohol abuse Patient is doing well today. He is awake and alert. He does not have any complaints. He is not requiring Ativan per protocol as of yet. Patient informed me that he is having difficulty getting a ride to get to his primary care physician and to fill his prescriptions. Objective - Vital Signs Vital signs: Vital Signs Temp 98.5 F 12/15/17 05:00 Pulse 90 12/15/17 05:00 Resp 16 12/15/17 05:00 BP 153/81 12/15/17 05:00 Pulse Ox 97 12/15/17 05:00 Intake & Output 12/14/17 12/15/17 12/15/17 18:59 06:59 18:59 Weight 86.183 kg Other: # Voids 2 - Exam General: The patient is awake and alert, in no distress Eye: there is normal conjunctiva bilaterally. Neck: The neck is supple, there is no JVD. Cardiovascular: Normal S1-S2, no S3-S4, no murmurs. Respiratory: Lungs clear to auscultation bilaterally Gastrointestinal: Abdomen is soft, nontender Musculoskeletal: There is no pedal edema. Neurological:. Speech is normal. Skin: Skin is warm and dry - Labs CBC & Chem 7: 12/15/17 07:06 12/15/17 07:06 Labs: Abnormal Lab Results - Last 24 Hours (Table) 12/14/17 12/14/17 12/15/17 Range/Units 18:01 18:01 07:06 WBC 14.7 H (3.8-10.6) k/uL Neutrophils # 13.0 H (1.3-7.7) k/uL Lymphocytes # 0.9 L (1.0-4.8) k/uL Potassium 2.7 L* 2.8 L* (3.5-5.1) mmol/L Carbon Dioxide 18 L (22-30) mmol/L BUN 5 L 3 L (9-20) mg/dL Glucose 141 H 138 H (74-99) mg/dL Calcium 8.1 L (8.4-10.2) mg/dL Magnesium 1.1 L (1.6-2.3) mg/dL AST 67 H (17-59) U/L Assessment and Plan Assessment: 1. Hypertensive urgency, secondary to medication noncompliance. Counseled extensively. Started on multiple blood pressure medication and blood pressure showing improvement. We will continue to monitor closely. 2. Alcohol abuse: Counseled extensively to quit. whanau support worker consulted to provide resources for patient. [facility] protocol in place 3. Hypokalemia, being replaced intravenously today. Repeat lab work ordered for the morning. 4. Hypomagnesemia, replaced 5. DVT prophylaxis with subcu heparin, GI prophylaxis with Protonix Today. I reviewed his medication list and lab work results. Continue current regimen. Repeat lab work in the morning.
[2017-12-16] MEDS: LORazepam 2 MG/ML INJ IV PRN ×3 (01:45→20:11)
[2017-12-16] MEDS: HEPARIN SODIUM,PORCINE 5,000 UNIT/ML 1 ML VIAL SQ SCH ×4 (02:21→23:43)
[2017-12-16 07:10] LABS: Basophils % (A) 0 %; Eosinophils # (A) 0.1 k/uL (0-0.7); Eosinophils % (A) 1 %; HCT 45.1 % (39.0-53.0); HGB 15.1 gm/dL (13.0-17.5); Lymphocytes # (A) 1.6 k/uL (1.0-4.8); Lymphocytes % (A) 17 %; MCH 33.6 pg (25.0-35.0); MCHC 33.4 g/dL (31.0-37.0); MCV 100.7 fL (80.0-100.0); Mean Platelet Volume 7.6; Monocytes # (A) 0.4 k/uL (0-1.0); Monocytes % (A) 4 %; Neutrophils # (A) 7.2 k/uL (1.3-7.7); Neutrophils % (A) 77 %; Platelet Count 198 k/uL (150-450); RBC 4.48 m/uL (4.30-5.90); RDW 13.4 % (11.5-15.5); WBC 9.5 k/uL (3.8-10.6)
[2017-12-16 07:21] LABS: ALT 36 U/L (21-72); AST 39 U/L (17-59); Albumin 3.7 g/dL (3.5-5.0); Alkaline Phosphatase 96 U/L (38-126); Anion Gap 9 mmol/L; Blood Urea Nitrogen 3 mg/dL (9-20); Calcium 9.1 mg/dL (8.4-10.2); Carbon Dioxide 23 mmol/L (22-30); Chloride 104 mmol/L (98-107); Glucose 174 mg/dL (74-99); Magnesium 1.8 mg/dL (1.6-2.3); Potassium 3.6 mmol/L (3.5-5.1); Sodium 136 mmol/L (137-145); Total Bilirubin 0.8 mg/dL (0.2-1.3); Total Protein 6.3 g/dL (6.3-8.2)
[2017-12-16] MEDS: POTASSIUM CHLORIDE ER 20 MEQ TAB.ER PO SCH ×2 (08:59→20:08)
[2017-12-16] MEDS: LISINOPRIL 20 MG TAB PO SCH (08:59)
[2017-12-16] MEDS: PANTOPRAZOLE 40 MG TABLET PO SCH (08:59)
[2017-12-16] MEDS: METOPROLOL TARTRATE 50 MG TAB PO SCH ×2 (08:59→20:08)
[2017-12-16] MEDS: MULTIVITAMINS, THERA 1 EACH TAB PO SCH (09:00)
[2017-12-16] MEDS: MAGNESIUM OXIDE 400 MG TAB PO SCH ×2 (09:00→20:08)
[2017-12-16] MEDS: HYDROCHLOROTHIAZIDE 25 MG TAB PO SCH (09:01)
[2017-12-16] MEDS: THIAMINE 100 MG TAB PO SCH ×2 (09:01→17:18)
[2017-12-16] MEDS: amLODIPine 10 MG TAB PO SCH (09:01)
[2017-12-16] MEDS: 0.9% NACL WITH KCL 20 MEQ/L 1,000 ML IV SCH (09:15)
--- NOTE | 2017-12-16 10:03 | P.PN ---
Subjective Progress Note Date: 12/16/17 Principal diagnosis: Alcohol withdrawal Patient was seen and examined. Sleeping while I entered the room. States he has not been able to keep anything down. Endorses nausea and spitting up food but not vomiting. Complains of chronic epigastric pain and lower back pain. States he felt feverish yesterday. Has been experiencing urinary frequency since admission. No cough, dysuria, chest pain, SOB, palpitations, changes in bowel habits. Objective - Vital Signs Vital signs: Vital Signs Temp 98.2 F 12/16/17 06:09 Pulse 75 12/16/17 06:09 Resp 16 12/16/17 06:09 BP 183/92 12/16/17 06:09 Pulse Ox 95 12/16/17 06:09 Intake & Output 12/15/17 12/16/17 12/16/17 18:59 06:59 18:59 Intake Total 1000 1690 Balance 1000 1690 Intake: Intake, IV Titration 1000 500 Amount 0.9% NaCl with KCl 20 Meq 400 /l 1,000 ml @ 50 mls/hr IV .Q20H DELANEY Rx#: [id number] Potassium Chloride 20 meq 200 100 In Water For Injection 1 100ml.bag @ 50 mls/hr IVPB Q2H DELANEY Rx#: [id number] Sodium Chloride 0.9% 1, 800 000 ml @ 100 mls/hr IV . Q10H7M ONE with Mvi, Adult No.4 with Vit K 10 ml with Thiamine 100 mg with Folic Acid 1 mg Rx#: [id number] Oral 1190 Other: # Voids 2 - Exam Constitutional: Patient is in no acute distress. Sleeping when I walked into the door. HEENT: NC/AT. EOMI Neck: Normal ROM of the neck. No cervical LAD. Resp: Clear to auscultation bilaterally. No wheezing or crackles. CVS: Normal S1 S2. RRR. No murmurs, rubs or gallops. GI: Soft, mild epigastric tenderness without guarding or rebound. No hepatomegaly appreciated. : Deferred. MSK: No vertebral tenderness. No LE edema. Neuro: AO x 3 - Labs CBC & Chem 7: 12/16/17 06:38 12/16/17 06:38 Labs: Abnormal Lab Results - Last 24 Hours (Table) 12/16/17 12/16/17 Range/Units 06:38 06:38 MCV 100.7 H (80.0-100.0) fL Sodium 136 L (137-145) mmol/L BUN 3 L (9-20) mg/dL Creatinine 0.64 L (0.66-1.25) mg/dL Glucose 174 H (74-99) mg/dL Assessment and Plan Assessment: Assessment 52 year old M with PMH of HTN and ETOH abuse presents to the ED for epigastric pain with intractable N/V. Also found to have hypoK and hypoMg and HTN urgency. Plan 1. HTN Urgency: BP 156/89, SBP 202 on admission. Improving since admission. Continue Amlodipine 10 mg PO daily, HCTZ 25 mg PO daily, Lisinopril 20 mg PO daily, Metoprolol 100 mg PO BID. Monitor vitals, adjust medications as necessary. 2. Urinary frequency: UA negative for LE or nitrite. 3. EtOH withdrawal: CIWA > 10. Last drink on Friday. CIWA protocol, Ativan IV PRN for CIWA > 8. Support Group Manager on EtOH cessation. Continue Thiamine, MVI, Folic acid. Seizure and Fall precautions. Zofran IV PRN for N/V. Switch to CLD and advance as tolerated. 3. Hypokalemia: Resolved. K 3.6 this morning. Continue KCl 20 meq PO BID. Likely EtOH related. 4. Hypomagnesemia: Resolved. Mg 1.8 this morning. Continue Magnesium oxide 400 mg PO BID. Likely EtOH related. 5. Macrocytosis: Hg/Hct within normal limits, MCV 100.7. Likely EtOH related. 5. DVT/GI Prophylaxis: Heparin 5000 units TID. Protonix 40 mg PO daily. 6. Dispo: Will continue to monitor, patient showing signs of WD, inability to tolerate PO. (1) Hypertensive urgency Current Visit: Yes Status: Acute Code(s): I16.0 - HYPERTENSIVE URGENCY SNOMED Code(s): 833885784 (2) Hypokalemia Current Visit: Yes Status: Acute Code(s): E87.6 - HYPOKALEMIA SNOMED Code( s): 85836410 (3) Hypomagnesemia Current Visit: Yes Status: Acute Code(s): E83.42 - HYPOMAGNESEMIA SNOMED Code(s): 913636773 (4) Alcohol withdrawal Current Visit: No Status: Acute Code(s): F10.239 - ALCOHOL DEPENDENCE WITH WITHDRAWAL, UNSPECIFIED SNOMED Code(s): 886387961
[2017-12-16] MEDS: MAG HYDROX/AL HYDROX/SIMETH 30 ML CUP PO SCH ×3 (12:32→22:33)
[2017-12-16] MEDS: FOLIC ACID 1 MG TAB PO SCH (12:32)
[2017-12-16 14:41] LABS: Appearance,Urine Clear (Clear); Bilirubin,Urine Negative (Negative); Blood,Urine Negative (Negative); Color,Urine Light Yellow; Glucose,Urine (UA) Trace (Negative); Ketones,Urine 1+ (Negative); Leukocyte Esterase,Urine Negative (Negative); Nitrite,Urine Negative (Negative); PH, Urine 6.5 (5.0-8.0); Protein,Urine Negative (Negative); Specific Gravity,Urine 1.009 (1.001-1.035); Urobilinogen,Urine <2.0 mg/dL (<2.0)
[2017-12-16] MEDS: NICOTINE 21MG/24HR PATCH TRANSDERM SCH (15:14)
[2017-12-17] MEDS: 0.9% NACL WITH KCL 20 MEQ/L 1,000 ML IV SCH (05:37)
[2017-12-17 07:43] VITALS: BP 170/96; PULSE 79; TEMP 97.7
[2017-12-17 08:09] LABS: Basophils % (A) 0 %; Eosinophils # (A) 0.1 k/uL (0-0.7); Eosinophils % (A) 1 %; HCT 49.3 % (39.0-53.0); HGB 16.8 gm/dL (13.0-17.5); Lymphocytes # (A) 2.2 k/uL (1.0-4.8); Lymphocytes % (A) 20 %; MCH 34.2 pg (25.0-35.0); MCHC 34.1 g/dL (31.0-37.0); MCV 100.2 fL (80.0-100.0); Mean Platelet Volume 8.1; Monocytes # (A) 0.4 k/uL (0-1.0); Monocytes % (A) 4 %; Neutrophils # (A) 8.2 k/uL (1.3-7.7); Neutrophils % (A) 74 %; Platelet Count 226 k/uL (150-450); RBC 4.92 m/uL (4.30-5.90); RDW 13.8 % (11.5-15.5); WBC 11.1 k/uL (3.8-10.6)
[2017-12-17 08:28] LABS: ALT 42 U/L (21-72); AST 50 U/L (17-59); Albumin 4.3 g/dL (3.5-5.0); Alkaline Phosphatase 109 U/L (38-126); Anion Gap 14 mmol/L; Blood Urea Nitrogen 9 mg/dL (9-20); Calcium 9.8 mg/dL (8.4-10.2); Carbon Dioxide 20 mmol/L (22-30); Chloride 100 mmol/L (98-107); Glucose 176 mg/dL (74-99); Potassium 4.2 mmol/L (3.5-5.1); Sodium 134 mmol/L (137-145); Total Protein 7.4 g/dL (6.3-8.2)
[2017-12-17] MEDS: LISINOPRIL 20 MG TAB PO SCH (08:45)
[2017-12-17] MEDS: amLODIPine 10 MG TAB PO SCH (08:45)
[2017-12-17] MEDS: METOPROLOL TARTRATE 50 MG TAB PO SCH (08:45)
[2017-12-17] MEDS: HYDROCHLOROTHIAZIDE 25 MG TAB PO SCH (08:45)
[2017-12-17] MEDS: MAGNESIUM OXIDE 400 MG TAB PO SCH (08:45)
[2017-12-17] MEDS: PANTOPRAZOLE 40 MG TABLET PO SCH (08:45)
[2017-12-17] MEDS: HEPARIN SODIUM,PORCINE 5,000 UNIT/ML 1 ML VIAL SQ SCH (08:46)
[2017-12-17] MEDS: POTASSIUM CHLORIDE ER 20 MEQ TAB.ER PO SCH (08:46)
[2017-12-17] MEDS: NICOTINE 21MG/24HR PATCH TRANSDERM SCH (08:47)
[2017-12-17] MEDS: MAG HYDROX/AL HYDROX/SIMETH 30 ML CUP PO SCH ×3 (08:47→12:58)
--- NOTE | 2017-12-17 09:46 | P.PN ---
Subjective Progress Note Date: 12/17/17 Principal diagnosis: Alcohol withdrawal Patient was seen and examined. Abdominal pain completely resolved. Patient able to eat clear liquid diet and oatmeal/yoghurt this breakfast. No nausea or vomiting. Denies symptoms of withdrawal. Looking forward to going home. Objective - Vital Signs Vital signs: Vital Signs Temp 97.7 F 12/17/17 07:17 Pulse 79 12/17/17 07:17 Resp 16 12/17/17 07:17 BP 170/96 12/17/17 07:17 Pulse Ox 96 12/17/17 07:17 Intake & Output 12/16/17 12/17/17 12/17/17 18:59 06:59 18:59 Intake Total 400 1180 Balance 400 1180 Intake: Intake, IV Titration 400 Amount 0.9% NaCl with KCl 20 Meq 400 /l 1,000 ml @ 50 mls/hr IV .Q20H DELANEY Rx#: [id number] Oral 1180 Other: # Voids 2 2 - Exam General: non toxic, no distress, appears at stated age Derm: warm, dry Head: atraumatic, normocephalic, symmetric Eyes: EOMI, no lid lag, anicteric sclera Mouth: no lip lesion, mucus membranes moist Cardiovascular: S1S2 reg, no murmur, positive posterior tibial pulse bilateral, Lungs: CTA bilateral, no rhonchi, no rales , no accessory muscle use Abdominal: soft, nontender to palpation, no guarding, no appreciable organomegaly Ext: no gross muscle atrophy, no edema, no contractures Neuro: no focal neuro deficits Psych: Alert, oriented, appropriate affect - Labs CBC & Chem 7: 12/17/17 07:43 12/17/17 07:43 Labs: Abnormal Lab Results - Last 24 Hours (Table) 12/16/17 12/17/17 12/17/17 Range/Units 14:00 07:43 07:43 WBC 11.1 H (3.8-10.6) k/uL MCV 100.2 H (80.0-100.0) fL Neutrophils # 8.2 H (1.3-7.7) k/uL Sodium 134 L (137-145) mmol/L Carbon Dioxide 20 L (22-30) mmol/L Glucose 176 H (74-99) mg/dL Urine Glucose (UA) Trace H (Negative) Urine Ketones 1+ H (Negative) Assessment and Plan Assessment: Assessment 52 year old M with PMH of HTN and ETOH abuse presents to the ED for epigastric pain with intractable N/V. Also found to have hypoK and hypoMg and HTN urgency. Plan HTN Urgency: BP 170/96 (prior to morning medications), SBP 202 on admission. Improving since admission. Continue Amlodipine 10 mg PO daily, HCTZ 25 mg PO daily, Lisinopril 20 mg PO daily, Metoprolol 100 mg PO BID. Monitor vitals, adjust medications as necessary. EtOH withdrawal: CIWA > 10. Last drink on Friday. CIWA protocol, Ativan IV PRN for CIWA > 8. 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 Continue Thiamine, MVI, Folic acid. Seizure and Fall precautions. Zofran IV PRN for N/V. Advance diet. Leukocytosis: WBC 11.1 with neutrophilia. Unknown etiology. UA negative for nitrite or LE. Patient remains afebrile with no clinical signs of infection. Hyponatremia: Na 134, Na 136 when corrected for hyperglycemia. Mild and asymptomatic. Non AG met acidosis: HCO3 20. UA shows ketonuria. Likely alcoholic ketoacidosis despite normal AG. Patient is asymptomatic. Macrocytosis: Hg/Hct within normal limits, MCV 100.7. Likely EtOH related. Urinary frequency: Resolved. UA negative for LE or nitrite. Hypokalemia: Resolved. K 3.6 this morning. Continue KCl 20 meq PO BID. Likely EtOH related. Hypomagnesemia: Resolved. Mg 1.8 this morning. Continue Magnesium oxide 400 mg PO BID. Likely EtOH related. DVT/GI Prophylaxis: Heparin 5000 units TID. Protonix 40 mg PO daily. Dispo: Patient declined EtOH abuse support from . Will DC home today. (1) Hypertensive urgency Current Visit: Yes Status: Acute Code(s): I16.0 - HYPERTENSIVE URGENCY SNOMED Code(s): 490803611 (2) Hypokalemia Current Visit: Yes Status: Acute Code(s): E87.6 - HYPOKALEMIA SNOMED Code( s): 68195572 (3) Hypomagnesemia Current Visit: Yes Status: Acute Code(s): E83.42 - HYPOMAGNESEMIA SNOMED Code(s): 839083007 (4) Alcohol withdrawal Current Visit: No Status: Acute Code(s): F10.239 - ALCOHOL DEPENDENCE WITH WITHDRAWAL, UNSPECIFIED SNOMED Code(s): 941147066
[2017-12-17] MEDS: FOLIC ACID 1 MG TAB PO SCH (12:59)
[2017-12-17] MEDS: THIAMINE 100 MG TAB PO SCH (12:59)
[2017-12-17] MEDS: MULTIVITAMINS, THERA 1 EACH TAB PO SCH (13:00)
--- NOTE | 2017-12-19 15:10 | P.DS ---
Providers Date of admission: 12/14/17 20:44 Expected date of discharge: 12/17/17 Attending physician: Thony Loya MD Primary care physician: Stated None - Discharge Diagnosis(es) (1) Hypertensive urgency Status: Acute (2) Hypokalemia Status: Acute (3) Hypomagnesemia Status: Acute (4) Alcohol withdrawal Status: Acute (5) Leukocytosis Status: Acute (6) Hyponatremia Status: Acute (7) Macrocytosis without anemia Status: Acute Hospital Course: This a 52-year-old male with a past medical history of hypertension and alcohol abuse that initially presented to the emergency department for abdominal pain, intractable nausea and vomiting. Patient endorsed heavy alcohol intake, more than usual in the days preceding admission. In the ED he was found to have a mild leukocytosis of 14.7, potassium of 2.7, magnesium of 1.1, and was admitted for workup of abdominal pain, alcohol withdrawal, and electrolyte abnormalities. With regard to his hypertension, patient was restarted on his home medications. This included Amlodipine 10 mg by mouth daily, Hydrochlorothiazide 25 mg by mouth daily, Lisinopril 20 mg by mouth daily, Metoprolol 100 mg by mouth BID. His blood pressure continued to improve during his hospitalization and was within normal limits on discharge. [facility] protocol was employed for his alcohol withdrawal. Patient was placed on Ativan as needed. Patient was counseled on alcohol CESSATION. Patient was continued on Thiamine, Multivitamin and Folic acid. His abdominal pain was thought to be secondary to gastritis. Patient was placed on clear liquid diet, and diet was advanced as tolerated. Patient was given Zofran as needed for nausea and vomiting. His abdominal pain resolved on day 3. Electrolytes were replaced. His potassium and magnesium were normal at time of discharge. Patient was also found to have a macrocytosis on CBC. This was thought to be secondary to alcohol abuse. Patient was discharged with close follow-up with his primary care provider. Patient Condition at Discharge: Stable Plan - Discharge Summary Discharge Rx Participant: Yes New Discharge Prescriptions: New amLODIPine [Norvasc] 10 mg PO DAILY #30 tab Folic Acid 1 mg PO DAILY@1200 #30 tab Hydrochlorothiazide [Hydrodiuril] 25 mg PO DAILY #30 tab Lisinopril [Zestril] 20 mg PO DAILY #30 tab Mag Hydrox/Al Hydrox/Simeth [Maalox] 20 ml PO QID cup Magnesium Oxide [Mag-Ox] 400 mg PO BID #60 tab Metoprolol Tartrate [Lopressor] 100 mg PO BID #60 tab Multivitamins, Thera [Multivitamin (formulary)] 1 each PO DAILY@1200 #30 tab Pantoprazole [Protonix] 40 mg PO AC-BRKFST #30 tablet. Thiamine [Vitamin B-1] 100 mg PO BID@1200,1700 #60 tab Discharge Medication List Folic Acid 1 mg PO DAILY@1200 #30 tab 12/17/17 [Rx] Hydrochlorothiazide [Hydrodiuril] 25 mg PO DAILY #30 tab 12/17/17 [Rx] Lisinopril [Zestril] 20 mg PO DAILY #30 tab 12/17/17 [Rx] Mag Hydrox/Al Hydrox/Simeth [Maalox] 20 ml PO QID cup 12/17/17 [Rx] Magnesium Oxide [Mag-Ox] 400 mg PO BID #60 tab 12/17/17 [Rx] Metoprolol Tartrate [Lopressor] 100 mg PO BID #60 tab 12/17/17 [Rx] Multivitamins, Thera [Multivitamin (formulary)] 1 each PO DAILY@1200 #30 tab 06/05 [Rx] Pantoprazole [Protonix] 40 mg PO AC-BRKFST #30 tablet. 12/17/17 [Rx] Thiamine [Vitamin B-1] 100 mg PO BID@1200,1700 #60 tab 12/17/17 [Rx] amLODIPine [Norvasc] 10 mg PO DAILY #30 tab 12/17/17 [Rx] Follow up Appointment(s)/Referral(s): None,Stated [Primary Care Provider] - 1-2 days Activity/Diet/Wound Care/Special Instructions: Please call [facility] to arrange primary care physician: #[phone] Tucker Bohxorie-[phone] and [facility] Stlitgli-[phone] both deliver to the home Note for PCP 1. Please repeat CBC in 2-5 days Dx: Leukocytosis 2. Please repeat BMP in 2-5 days Dx: Hyponatremia and elevated bicarbonate Discharge Disposition: HOME SELF-CARE
== END 2017-12-17 14:25 | disposition home or self-care (01) | DRG 897 ==
LOC: EC 17:49 → 5MS5E 20:44
PROVIDERS: ADMIT Internal Medicine; ATTEND Internal Medicine
DX: F10.239 Alcohol dependence with withdrawal, unspecified (principal); E87.2 Acidosis; G31.2 Degeneration of nervous system due to alcohol; E87.6 Hypokalemia; E83.42 Hypomagnesemia; K29.20 Alcoholic gastritis without bleeding; I16.0 Hypertensive urgency; I10 Essential (primary) hypertension; G89.29 Other chronic pain; M54.5 Low back pain; D75.89 Other specified diseases of blood and blood-forming organs; R35.0 Frequency of micturition; F17.210 Nicotine dependence, cigarettes, uncomplicated; Z71.41 Alcohol abuse counseling and surveillance of alcoholic; Z71.6 Tobacco abuse counseling; Z87.01 Personal history of pneumonia (recurrent); Y90.1 Blood alcohol level of 20-39 mg/100 ml; Z91.19 Patient's noncompliance with other medical treatment and regimen; Z91.14 Patient's other noncompliance with medication regimen
CPT/HCPCS: 36415; 70450; 80048; 80053; 80320; 81003; 83735; 84100; 85025; 96365; 96366; 96368; 96375; 96376; 99285